=== PATIENT | male | born 1970 | race Caucasian/White ===

== ENCOUNTER 2017-08-16 20:19 | Inpatient (IN) | payer MEDICAID, OTHER ==
[~2017-08-16] VITALS: Ht 160 cm; Wt 62.3 kg
--- NOTE | 2017-08-16 22:46 | ERD ---
ER Documentation Chief Complaint Date/Time DATE: 08/16/17 TIME: 22:23 Chief Complaint adama buttocks abscess HPI 47-year-old male who presents emergency department for bilateral buttocks abscess. Said it has been going on for more than a week. Denies headache, dizziness, blurry vision, neck pain, neck stiffness, shoulder pain, chest pain, back pain, abdominal pain, nausea, vomiting, constipation, diarrhea, trauma, recent travel, recent antibiotic use in the last 3 months, recent exposure to any illness, numbness or tingling sensation, loss of bowel bladder control. No known drug allergies. Past medical history of diabetes, psoriasis. Surgery : Denies. Medication: Patient does not know the name of his medicines. Social : Not working at this time. Denies smoking, use of alcohol, illegal drugs. ROS All systems reviewed and are negative except as per history of present illness. Allergies Allergies: Coded Allergies: No Known Allergy (Unverified , 08/16/17) Physical Exam Vitals Vital Signs Date Time Temp Pulse Resp B/P Pulse Ox O2 Delivery O2 Flow Rate FiO2 08/17/17 01:42 98.4 128 18 96/57 95 Room Air 08/16/17 20:32 100.9 148 20 120/80 97 Physical Exam Const: [] Head: Atraumatic Eyes: Normal Conjunctiva ENT: Normal External Ears, Nose and Mouth. Neck: Full range of motion..~ No meningismus. Resp: Clear to auscultation bilaterally Cardio: Regular rate and rhythm, no murmurs Abd: Soft, non tender, non distended. Normal bowel sounds Skin: No petechiae or rashes Back: No midline or flank tenderness.Bilateral buttocks cellulitis left greater than the right approximately 7 cm x 7 cm in diameter. No saddle anesthesia. Ext: No cyanosis, or edema Neur: Awake and alert Psych: Normal Mood and Affect Result Diagram: 08/16/17229908/16/172299 Results 24 hrs Laboratory Tests Test 08/16/17 23:00 08/17/17 02:14 White Blood Count 17.810^3/ul Red Blood Count 5.1010^6/ul Hemoglobin 15.5g/dl Hematocrit 44.7% Mean Corpuscular Volume 87.6fl Mean Corpuscular Hemoglobin 30.4pg Mean Corpuscular Hemoglobin Concent 34.7g/dl Red Cell Distribution Width 12.1% Platelet Count 45654^3/UL Mean Platelet Volume 9.8fl Neutrophils % 76.5% Lymphocytes % 12.2% Monocytes % 9.1% Eosinophils % 0.7% Basophils % 0.3% Nucleated Red Blood Cells % 0.0/100WBC Neutrophils # 13.610^3/ul Lymphocytes # 2.210^3/ul Monocytes # 1.610^3/ul Eosinophils # 0.110^3/ul Basophils # 0.110^3/ul Nucleated Red Blood Cells # 0.010^3/ul Sodium Level 132mmol/L Potassium Level 4.4mmol/L Chloride Level 95mmol/L Carbon Dioxide Level 26mmol/L Anion Gap 15 Blood Urea Nitrogen 12mg/dl Creatinine 0.62mg/dl Glucose Level 394mg/dl Lactic Acid Level 1.9mmol/L Calcium Level 9.5mg/dl Total Bilirubin 0.8mg/dl Direct Bilirubin 0.00mg/dl Indirect Bilirubin 0.8mg/dl Aspartate Amino Transf (AST/SGOT) 33IU/L Alanine Aminotransferase (ALT/SGPT) 70IU/L Alkaline Phosphatase 156IU/L Total Protein 7.3g/dl Albumin 3.4g/dl Globulin 3.90g/dl Albumin/Globulin Ratio 0.87 Bedside Glucose 265mg/dL Current Medications Medications (Trade) Dose Ordered Sig/Jacqueline Route PRN Reason Start Time Stop Time Status Last Admin Dose Admin Sodium Chloride (NS) 2,110 ml @ 2,110 mls/hr BOLUS X1 ONCE IV 08/16/17 23:00 08/16/17 23:59 DC 08/16/17 23:18 Morphine Sulfate 4 mg 4 mg ONCE ONCE IM 08/16/17 23:00 08/16/17 23:00 DC Vancomycin HCl (Vancocin) 250 ml @ 125 mls/hr ONCE IVPB 08/16/17 23:00 08/17/17 00:59 DC 08/16/17 23:24 Morphine Sulfate 4 mg 4 mg ONCE STAT IV 08/16/17 22:58 08/16/17 22:59 DC 08/16/17 23:04 Sodium Chloride (NS) 100 ml @ ud STK-MED ONCE .ROUTE 08/17/17 00:16 08/17/17 00:17 DC 08/17/17 00:33 Iohexol (Omnipaque 300mg/ ml) 150 ml STK-MED ONCE .ROUTE 08/17/17 00:16 08/17/17 00:17 DC 08/17/17 00:33 Procedures/MDM 47-year-old male who presents emergency department for bilateral buttocks abscess. Said it has been going on for more than a week. Denies headache, dizziness, blurry vision, neck pain, neck stiffness, shoulder pain, chest pain, back pain, abdominal pain, nausea, vomiting, constipation, diarrhea, trauma, recent travel, recent antibiotic use in the last 3 months, recent exposure to any illness, numbness or tingling sensation, loss of bowel bladder control. No known drug allergies. Past medical history of diabetes, psoriasis. Surgery : Denies. Medication: Patient does not know the name of his medicines. Social : Not working at this time. Denies smoking, use of alcohol, illegal drugs. Physical exam: Bilateral buttocks cellulitis left greater than the right approximately 7 cm x 7 cm in diameter. No saddle anesthesia. Ambulatory. Disease process was explained to the patient. Patient verbalized understanding and agreed with the diagnostic test, plan of care, treatment. CT of the abdomen and pelvis with IV contrast: Left greater than right buttock inflammatory changes most compatible with cellulitis. There may be mild myositis of the left gluteus musculature. No drainable fluid collections are seen. Hepatic steatosis. Blood works: Leukocytosis at 17.8. Hyperglycemia 394. Lactic acid: 1.9 Treatment: IV insertion: Normal saline IV 31 cc/kg. Morphine IV. Vancomycin 1 g IV 1. Tachycardic after 2 L of saline. Differential diagnosis: Sepsis versus acute abscess versus acute cellulitis Case was discussed with supervising physician, Dr. Tobias Archuleta who agreed with my decision making. He also stated that he will processed admission. Departure Diagnosis: Primary Impression: Cellulitis Additional Impressions: Leukocytosis Hyperglycemia Myositis ROXANN SUNG Aug 16, 2017 22:46
[2017-08-16] MEDS ORDERED: morphine 4 MG/ML VIAL IV STA (22:58)
[2017-08-16] MEDS ORDERED: SOD CHLORIDE 0.9% 2,110 ML IV ONE (23:00)
[2017-08-16] MEDS ORDERED: VANCOMYCIN 1 GM (PMX) 250 ML IVPB SCH (23:00)
[2017-08-16] MEDS ORDERED: morphine 10 MG INJ IM ONE (23:00)
[2017-08-16 23:23] LABS: ABNORMAL IP MESSAGE 1; BASOPHIL # 0.1 10^3/ul (0.0-0.1); BASOPHILS % 0.3 % (0.0-2.0); EOSINOPHILS # 0.1 10^3/ul (0.0-0.5); EOSINOPHILS % 0.7 % (0.0-7.0); HEMATOCRIT 44.7 % (42.0-52.0); HEMOGLOBIN 15.5 g/dl (14.0-18.0); LYMPHOCYTES # 2.2 10^3/ul (0.8-2.9); LYMPHOCYTES % 12.2 % (15.0-51.0); MEAN CORPUSCULAR HEMOGLOBIN 30.4 pg (29.0-33.0); MEAN CORPUSCULAR HGB CONC 34.7 g/dl (32.0-37.0); MEAN CORPUSCULAR VOLUME 87.6 fl (82.0-101.0); MEAN PLATELET VOLUME 9.8 fl (7.4-10.4); MONOCYTE # 1.6 10^3/ul (0.3-0.9); MONOCYTES % 9.1 % (0.0-11.0); NEUTROPHIL # 13.6 10^3/ul (1.6-7.5); NEUTROPHILS % 76.5 % (39.0-77.0); PLATELET COUNT 318 10^3/UL (140-415); POSITIVE DIFF @See below; RED CELL DISTRIBUTION WIDTH 12.1 % (11.5-14.5); WHITE BLOOD COUNT 17.8 10^3/ul (4.8-10.8)
[2017-08-16 23:54] LABS: ALBUMIN 3.4 g/dl (3.3-4.9); ALBUMIN/GLOBULIN RATIO 0.87; BILIRUBIN,INDIRECT 0.8 mg/dl (0-1.1); BILIRUBIN,TOTAL 0.8 mg/dl (0.2-1.3); CALCIUM 9.5 mg/dl (8.4-10.2); CREATININE 0.62 mg/dl (0.61-1.24); POTASSIUM 4.4 mmol/L (3.5-5.1); TOTAL PROTEIN 7.3 g/dl (6.1-8.1)
[2017-08-17] VITALS (10 sets, daily range): BP systolic 96–106; BP diastolic 51–60; PULSE 88–105; RESP 19–25; TEMP 100; Ht 160 cm; Wt 62.3 kg
[2017-08-17] MEDS ORDERED: SOD CHLORIDE 0.9% 100 ML ONE ×2 (00:16→14:21)
[2017-08-17] MEDS ORDERED: IOHEXOL 300MG/ML 150 ML BTL ONE (00:16)
--- NOTE | 2017-08-17 01:30 | RADRPT ---
PROCEDURE: CT abdomen and pelvis with intravenous contrast. CLINICAL INDICATION: Sacral abscess. TECHNIQUE: CT of the abdomen/pelvis was performed utilizing axial images with reconstructions in s agittal and coronal planes after uneventful administration of 100 cc Omnipaque 300. The administered radiation dose is CTDI 6.9 mGy, DLP 34 mGy-cm. One or more of the following dose reduction techniqu es were used: automated exposure control, adjustment of the mA and/or kV according to patient size a nd/or use of iterative reconstruction technique. COMPARISON: No pertinent prior examinations were submitted for comparison. FINDINGS: Visualized Chest: The visualized lung bases are clear. Abdomen: The spleen, pancreas, gallbladder,and adrenal glands are unremarkable. The liver is diffusely dec reased in attenuation, compatible with hepatic steatosis. The kidneys are without hydronephrosis. No definite urinary calculi are seen. There is no evidence of bowel obstruction. The appendix is not seen. There is no evidence of acute appendicitis. No intra-abdominal free air is seen. There is no evidence of intra-abdominal adenopathy or free fluid. Pelvis: There is no evidence of pelvic adenopathy or free fluid. The prostate and bladder are unremarkable. There are extensive inflammatory changes within the left greater than right buttocks. There is some mild enlargement of the left gluteus musculature. No drainable fluid collections are seen. Some over lying skin thickening is present. The inflammatory changes are superficial with no definite extensio n into the perianal or perirectal regions. Osseous structures: Unremarkable. IMPRESSION: Left greater than right buttock inflammatory changes most compatible with cellulitis. There may be m ild myositis of the left gluteus musculature. No drainable fluid collections are seen. Hepatic steatosis. RPTAT: HIKT .Young Garcia MD, MD Date Time Electronically viewed and signed by .Young Garcia MD, MD on 08/17/2017 01:30 .T/
[2017-08-17] MEDS ORDERED: HYDROmorphONE 1 MG/ML SYG IV STA (02:27)
[2017-08-17] MEDS ORDERED: ONDANSETRON 4 MG INJ IV STA (02:27)
[2017-08-17] MEDS ORDERED: PIPER-TAZO 3.375 GM IV (PMX) 100 ML IVPB ONE (02:30)
[2017-08-17] MEDS ORDERED: NAPR220C PO (05:02)
[2017-08-17] MEDS ORDERED: METF500T4 PO (05:02)
[2017-08-17] MEDS ORDERED: BISACODYL (EC) 5 MG TAB PO PRN (07:30)
[2017-08-17] MEDS ORDERED: NACL 0.9% 3 ML SYG IV SCH (07:30)
[2017-08-17] MEDS ORDERED: ONDANSETRON 4 MG INJ IV PRN (07:30)
[2017-08-17] MEDS ORDERED: DOCUSATE SODIUM 100 MG CAP PO PRN (07:30)
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
[2017-08-17] MEDS ORDERED: GLUCAGON 1 MG INJ IM PRN (08:00)
[2017-08-17] MEDS ORDERED: GLUCOSE GEL 15 GRAM TUBE PO PRN ×2 (08:00)
[2017-08-17] MEDS ORDERED: DEXTROSE 50% 50 ML SYRINGE IV PRN ×2 (08:00)
[2017-08-17] MEDS ORDERED: SOD CHLORIDE 0.9% 1,000 ML IV ONE (08:00)
[2017-08-17] MEDS ORDERED: GLUCOSE GEL 15 GRAM TUBE BUCCAL PRN (08:00)
[2017-08-17] MEDS: SOD CHLORIDE 0.9% 1,000 ML IV SCH ×2 (09:36→21:28)
[2017-08-17] MEDS: INSULIN ASPART [NOVOLOG] 3 ML PEN SC SCH ×4 (10:04→21:17)
[2017-08-17] MEDS: FAMOTIDINE 20 MG TAB PO SCH ×2 (10:16→21:28)
[2017-08-17] MEDS ORDERED: SOD CHLORIDE 0.9% 1,000 ML IV STA (10:20)
[2017-08-17] MEDS ORDERED: NORepinephrine 8MG/250 ML (PMX 250 ML IV STA (11:26)
--- NOTE | 2017-08-17 11:29 | QN ---
Documentation Comment Observation Note: Time: 4 hours Family Hx: Negative for diabetes Evaluation: Multiple exams showed improving symptoms and no evidence of clinical decompensation. The patient received a 30 mm/kg fluid bolus but still was hypotensive and therefore the patient now is in septic shock. The patient has a PICC line which I just ordered and will need Levophed started. The patient will also be upgraded to the intensive care unit and I spoke with Dr. Arriaza from the panel team to inform him. MARY SOTO MD Aug 17, 2017 11:29
[2017-08-17] MEDS ORDERED: LIDOCAINE 1% (MPF) 5 ML VIAL SC ONE (11:30)
[2017-08-17 11:49] LABS: CHOL/HDL RATIO 4.9 RATIO
[2017-08-17 12:19] LABS: THYROID STIMULATING HORMONE 0.913 MIU/L (0.465-4.680)
--- NOTE | 2017-08-17 14:15 | RADRPT ---
PROCEDURE: US guidance for PICC line CLINICAL INDICATION: PICC line placement TECHNIQUE: Multiple real-time images were acquired of the patient's arm utilizing a high resolutio n transducer. This was performed by the PICC line nurse for venous access. COMPARISON: None FINDINGS: See impression. IMPRESSION: Ultrasound guidance for PICC line placement. There is a patent and compressible right upper extremity vein. RPTAT: AA Physician Deb Date Time Electronically viewed and signed by Pawan Luz Physician on 08/17/2017 14:14 RA/
--- NOTE | 2017-08-17 17:38 | RADRPT ---
PROCEDURE: XR Chest. CLINICAL INDICATION: Check Line Placement TECHNIQUE: Single frontal view of the chest was obtained. COMPARISON: None. FINDINGS: There has been interval placement of a right-sided PICC line with its tip at the superior cavoatrial junction. There is mild cardiomegaly and mild pulmonary vascular congestion. No focal infiltrates are identified. There is no significant pleural effusion or pneumothorax. IMPRESSION: Right-sided PICC line with its tip at the superior cavoatrial junction. Mild cardiomegaly and pulmonary vascular congestion. RPTAT: EE Physician Deb Date Time Electronically viewed and signed by Physician Deb on 08/17/2017 17:37 RA/
[2017-08-17] MEDS ORDERED: VANCOMYCIN IV PER PHARMACY XX SCH (18:00)
--- NOTE | 2017-08-17 18:27 | PN ---
Date/Time of Note Date/Time of Note DATE: 08/17/17 TIME: 18:08 Assessment/Plan VTE Prophylaxis VTE Prophylaxis Intervention: SCD's Lines/Catheters IV Catheter Type (from Nrsg): PICC Line Central line still needed: Yes (pressors) Assessment/Plan Assessment/Plan 1. Septic shock secondary to bacteremia, ?buttocks as source - While in the ED patient was hypotensive and nonresponsive to IVF. PICC line placed and started on pressors - Will be admitted now to ICU - Blood cultures growing Gram + cocci in clusters - Currently on Vancomycin - LA 1.9 2. Bacteremia - 4/4 blood cultures positive for Gram + cocci in clusters - Will get ID on board - ECHO ordered to r/o vegetation - Vancomycin started 3. Diabetes mellitus, poorly controlled - A1c 12.2 - Will consult life skills educator once acute issues resolve 4. Leukocytosis secondary to #2 5. Hypotension - Will continue on Levophed and wean as tolerated Subjective 24 Hr Interval Summary Free Text/Dictation Patient still in ED awaiting bed in ICU. Patient was hypotensive and tachycardic with no improvement with IVF. PICC line was placed and he was started on pressors. Patient resting comfortably but appears diaphoretic. No acute complaints at this time. Exam/Review of Systems Vital Signs Vitals Vital Signs Date Time Temp Pulse Resp B/P Pulse Ox O2 Delivery O2 Flow Rate FiO2 08/17/17 17:11 98.4 77 16 100/66 98 Room Air Exam General: Diaphoretic, wrapped in blankets. NAD HEENT:NC/AT, PERRL, EOM intact Neck: Supple with full range of motion. No rigidity or meningismus Lungs: Clear to auscultation bilaterally no crackles rales or wheezing Heart: Normal S1-S2, Regular rhythm and rate no overt murmur appreciated Abdomen: Soft , nontender, nondistended , bowel sounds are present. No guarding no rebound tenderness , No masses or organomegaly Extremities: Normal to inspection, no edema no cyanosis Neurologic: Normal mental status, speech normal, cranial nerves II through XII are intact, motor and sensory are intact, no focal weakness Skin: Bilateral buttock wounds with bruising and induration and mild tenderness to palpation, multiple dry, patchy, scaly lesions of the body diffusely Results Result Diagram: 10/2/17 2300 10/2/17 2300 Results 24 hrs Laboratory Tests Test 08/16/17 23:00 08/17/17 02:14 08/17/17 09:56 08/17/17 11:12 White Blood Count 17.8 H Red Blood Count 5.10 Hemoglobin 15.5 Hematocrit 44.7 Mean Corpuscular Volume 87.6 Mean Corpuscular Hemoglobin 30.4 Mean Corpuscular Hemoglobin Concent 34.7 Red Cell Distribution Width 12.1 Platelet Count 318 Mean Platelet Volume 9.8 Neutrophils % 76.5 Lymphocytes % 12.2 L Monocytes % 9.1 Eosinophils % 0.7 Basophils % 0.3 Nucleated Red Blood Cells % 0.0 Neutrophils # 13.6 H Lymphocytes # 2.2 Monocytes # 1.6 H Eosinophils # 0.1 Basophils # 0.1 Nucleated Red Blood Cells # 0.0 Sodium Level 132 L Potassium Level 4.4 Chloride Level 95 L Carbon Dioxide Level 26 Anion Gap 15 Blood Urea Nitrogen 12 Creatinine 0.62 Glucose Level 394 H Lactic Acid Level 1.9 1.4 Calcium Level 9.5 Total Bilirubin 0.8 Direct Bilirubin 0.00 Indirect Bilirubin 0.8 Aspartate Amino Transf (AST/SGOT) 33 Alanine Aminotransferase (ALT/SGPT) 70 H Alkaline Phosphatase 156 H Total Protein 7.3 Albumin 3.4 Globulin 3.90 H Albumin/Globulin Ratio 0.87 Bedside Glucose 265 H 366 H Hemoglobin A1c 12.2 H Triglycerides Level 98 Cholesterol Level 79 L LDL Cholesterol, Calculated 43 HDL Cholesterol 16 L Cholesterol/HDL Ratio 4.9 Thyroid Stimulating Hormone (TSH) 0.913 Test 08/17/17 15:01 Bedside Glucose 309 H Medications Medications Current Medications Sodium Chloride (NS) 1,000 ml @ 70 mls/hr [id number] IV Last administered on 08/17t 09:36; Admin Dose 70 MLS/HR; Start 08/17/17 at 07:27 Ondansetron HCl (Zofran Inj) 4 mg Q6H PRN IV NAUSEA AND/OR VOMITING; Start 08/17/17 at 07:30 Hydromorphone HCl (Dilaudid) 0.5 mg Q4H PRN IV SEVERE PAIN LEVEL 7-10; Start 08/17/17 at 07:30 Docusate Sodium (Colace) 100 mg Q12H PRN PO CONSTIPATION; Start 08/17/17 at 07: 30 Bisacodyl (Dulcolax) 5 mg DAILY PRN PO CONSTIPATION; Start 08/17/17 at 07:30 Famotidine (Pepcid) 20 mg Q12 PO Last administered on 08/17/17t 10:16; Admin Dose 20 MG; Start 08/17/17 at 09:00 Diagnostic Test (Pha) (Accu-Chek) 1 ea 02 XX ; Start 08/18/17 at 02:00 Miscellaneous Information 1 ea NOTE XX ; Start 08/17/17 at 08:00 Glucose (Glutose) 15 gm Q15M PRN PO DECREASED GLUCOSE; Start 08/17/17 at 08:00 Glucose (Glutose) 22.5 gm Q15M PRN PO DECREASED GLUCOSE; Start 08/17/17 at 08: 00 Dextrose (D50w Syringe) 25 ml Q15M PRN IV DECREASED GLUCOSE; Start 08/17/17 at 08:00 Dextrose (D50w Syringe) 50 ml Q15M PRN IV DECREASED GLUCOSE; Start 08/17/17 at 08:00 Glucagon (Glucagen) 1 mg Q15M PRN IM DECREASED GLUCOSE; Start 08/17/17 at 08:00 Glucose (Glutose) 15 gm Q15M PRN BUCCAL DECREASED GLUCOSE; Start 08/17/17 at 08 :00 IV Flush (NS 10 ml) 10 ml PRN PRN IV IV PROTOCOL; Start 08/17/17 at 14:30 FLORENCIA PRASAD MD Aug 17, 2017 18:19
[2017-08-17] MEDS: ACETAMINOPHEN 325 MG TAB PO PRN (18:48)
[2017-08-17] MEDS: VANCOMYCIN 1 GM in NS 250 ML IVPB SCH (19:07)
[2017-08-17 22:34] LABS: BASOPHIL # 0.1 10^3/ul (0.0-0.1); BASOPHILS % 0.4 % (0.0-2.0); EOSINOPHILS # 0.3 10^3/ul (0.0-0.5); EOSINOPHILS % 1.4 % (0.0-7.0); HEMATOCRIT 37.6 % (42.0-52.0); HEMOGLOBIN 13.1 g/dl (14.0-18.0); LYMPHOCYTES # 2.3 10^3/ul (0.8-2.9); LYMPHOCYTES % 13.3 % (15.0-51.0); MEAN CORPUSCULAR HEMOGLOBIN 30.8 pg (29.0-33.0); MEAN CORPUSCULAR HGB CONC 34.8 g/dl (32.0-37.0); MEAN CORPUSCULAR VOLUME 88.3 fl (82.0-101.0); MEAN PLATELET VOLUME 9.3 fl (7.4-10.4); MONOCYTE # 1.4 10^3/ul (0.3-0.9); MONOCYTES % 8.1 % (0.0-11.0); NEUTROPHIL # 13.3 10^3/ul (1.6-7.5); NEUTROPHILS % 75.7 % (39.0-77.0); PLATELET COUNT 279 10^3/UL (140-415); RED BLOOD COUNT 4.26 10^6/ul (4.70-6.10); RED CELL DISTRIBUTION WIDTH 12.3 % (11.5-14.5); WHITE BLOOD COUNT 17.5 10^3/ul (4.8-10.8)
[2017-08-17 22:59] LABS: CALCIUM 7.9 mg/dl (8.4-10.2); CREATININE 0.55 mg/dl (0.61-1.24); MAGNESIUM 1.7 mg/dl (1.7-2.5); PHOSPHORUS 2.6 mg/dl (2.5-4.9); POTASSIUM 3.5 mmol/L (3.5-5.1)
[2017-08-18] VITALS (94 sets, daily range): BP systolic 74–120; BP diastolic 50–84; PULSE 89–158; RESP 0–46
[2017-08-18] MEDS ORDERED: MAGNESIUM SULFATE 1 GM/D5W 100 ML ONE (01:17)
[2017-08-18] MEDS ORDERED: POTASSIUM CHLORIDE 250 ML ONE (01:25)
[2017-08-18] MEDS ORDERED: MAGNESIUM SULFATE 1 GM/D5W 100 ML IVPB ONE (01:30)
[2017-08-18] MEDS ORDERED: ACCU-CHEK XX SCH (02:00)
[2017-08-18] MEDS: POTASSIUM CHLORIDE 250 ML IVPB SCH ×2 (02:09→05:00)
[2017-08-18] MEDS: VANCOMYCIN 1 GM in NS 250 ML IVPB SCH ×3 (06:09→22:20)
[2017-08-18] MEDS: INSULIN ASPART [NOVOLOG] 3 ML PEN SC SCH ×3 (07:54→17:15)
[2017-08-18] MEDS: FAMOTIDINE 20 MG TAB PO SCH ×2 (08:12→21:12)
[2017-08-18] MEDS: ACETAMINOPHEN 325 MG TAB PO PRN ×3 (08:12→21:12)
[2017-08-18] MEDS ORDERED: POTASSIUM CHLORIDE 250 ML IVPB ONE (08:30)
[2017-08-18] MEDS ORDERED: DEXTROSE 50% 50 ML SYRINGE IV PRN ×2 (09:00)
[2017-08-18] MEDS: ACCU-CHEK XX SCH ×15 (09:00→23:01)
[2017-08-18] MEDS: INSULIN HUMAN REGULAR 100 UNIT in SOD CHLORIDE 0.9% 99 ML IV SCH (10:04)
[2017-08-18] MEDS ORDERED: INSULIN ASPART [NOVOLOG] 3 ML PEN SC SCH (11:30)
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
[2017-08-18] MEDS: MOMETASONE TOP SCH (12:00)
--- NOTE | 2017-08-18 12:33 | CONS ---
Date/Time of Note Date/Time of Note DATE: 08/18/17 TIME: 12:31 Assessment/Plan Assessment/Plan Chief Complaint/Hosp Course Septic shock Bacteremia==> St aureus preliminary Sacral abscess DM Psoriasis RUE PICC ==> 08/17 Abx: Vanco Zosyn Plan: Pending surgical evaluation, continue abx, await for final cx, will send wound drainage for cx Problems: Consultation Date/Type/Reason Admit Date/Time Aug 17, 2017 at 11:27 Initial Consult Date 08/18/17 Type of Consultation: ID Exam/Review of Systems Vital Signs Vitals Vital Signs Date Time Temp Pulse Resp B/P Pulse Ox O2 Delivery O2 Flow Rate FiO2 08/18/17 10:45 93 18 89/63 97 Room Air 08/18/17 07:45 99.5 Intake and Output 08/17/17 08/17/17 08/18/17 15:00 23:00 07:00 Intake Total 155.0 ml 1124.375 ml Output Total 400 ml 1250 ml Balance -245.0 ml -125.625 ml Results Result Diagram: 08/17/175 08/17/17 2225 Results 24 hrs Laboratory Tests Test 08/17/17 15:01 08/17/17 19:28 08/17/17 21:09 08/17/17 22:25 Bedside Glucose 309 H 220 247 H White Blood Count 17.5 H Red Blood Count 4.26 L Hemoglobin 13.1 L Hematocrit 37.6 L Mean Corpuscular Volume 88.3 Mean Corpuscular Hemoglobin 30.8 Mean Corpuscular Hemoglobin Concent 34.8 Red Cell Distribution Width 12.3 Platelet Count 279 Mean Platelet Volume 9.3 Neutrophils % 75.7 Lymphocytes % 13.3 L Monocytes % 8.1 Eosinophils % 1.4 Basophils % 0.4 Nucleated Red Blood Cells % 0.0 Neutrophils # 13.3 H Lymphocytes # 2.3 Monocytes # 1.4 H Eosinophils # 0.3 Basophils # 0.1 Nucleated Red Blood Cells # 0.0 Sodium Level 135 Potassium Level 3.5 Chloride Level 105 # Carbon Dioxide Level 19 L Anion Gap 15 Blood Urea Nitrogen 10 Creatinine 0.55 L Glucose Level 272 #H Calcium Level 7.9 L Phosphorus Level 2.6 Magnesium Level 1.7 Test 08/18/17 07:51 08/18/17 10:00 08/18/17 11:05 08/18/17 11:56 Bedside Glucose 265 H 235 H 245 H 179 Medications Medications Current Medications Sodium Chloride (NS) 1,000 ml @ 70 mls/hr [id number] IV Last administered on 08/17 21:28; Admin Dose 70 MLS/HR; Start 08/17/17 at 07:27 Ondansetron HCl (Zofran Inj) 4 mg Q6H PRN IV NAUSEA AND/OR VOMITING; Start 08/17/17 at 07:30 Hydromorphone HCl (Dilaudid) 0.5 mg Q4H PRN IV SEVERE PAIN LEVEL 7-10; Start 08/17/17 at 07:30 Docusate Sodium (Colace) 100 mg Q12H PRN PO CONSTIPATION; Start 08/17/17 at 07: 30 Bisacodyl (Dulcolax) 5 mg DAILY PRN PO CONSTIPATION; Start 08/17/17 at 07:30 Famotidine (Pepcid) 20 mg Q12 PO Last administered on 08/18/17 08:12; Admin Dose 20 MG; Start 08/17/17 at 09:00 Miscellaneous Information 1 ea NOTE XX ; Start 08/17/17 at 08:00 IV Flush (NS 10 ml) 10 ml PRN PRN IV IV PROTOCOL; Start 08/17/17 at 14:30 Acetaminophen 650 mg 650 mg Q4 PRN PO pain, fevers, headache Last administered on 08/18/17 08:12; Admin Dose 650 MG; Start 08/17/17 at 18:30 Vancomycin HCl (Vancocin) 250 ml @ 125 mls/hr Q12H IVPB Last administered on 08/18/17 06:09; Admin Dose 125 MLS/HR; Start 08/17/17 at 19:00 Diagnostic Test (Pha) (Accu-Chek) 1 ea Q1H XX Last administered on 08/18/17 12 :01; Admin Dose 1 EA; Start 08/18/17 at 09:00 Dextrose (D50w Syringe) 25 ml Q15M PRN IV Till BS 80 mg/dL or above x2; Start 08/18/17 at 09:00 Dextrose (D50w Syringe) 50 ml Q15M PRN IV Till BS 80 mg/dL or above x2; Start 08/18/17 at 09:00 Mometasone Furoate 1 applic 1 applic DAILY TOP ; Start 08/18/17 at 12:00 Piperacillin Sod/ Tazobactam Sod (Zosyn 3.375gm/ 100 ml (Pmx)) 100 ml @ 200 mls /hr Q8 IVPB ; Start 08/18/17 at 14:00 JAIR RUCKER NP Aug 18, 2017 12:33
[2017-08-18] MEDS: PIPER-TAZO 3.375 GM IV (PMX) 100 ML IVPB SCH ×2 (13:07→21:14)
[2017-08-18] MEDS: SOD CHLORIDE 0.9% 1,000 ML IV SCH (13:08)
--- NOTE | 2017-08-18 17:22 | PN ---
Date/Time of Note Date/Time of Note DATE: 08/18/17 TIME: 17:15 Assessment/Plan VTE Prophylaxis VTE Prophylaxis Intervention: SCD's Lines/Catheters IV Catheter Type (from Nrsg): PICC Line Central line still needed: Yes (pressor support) Assessment/Plan Assessment/Plan 1. Septic shock secondary to bacteremia, buttocks abscess as source - Patient still requiring pressor support - Blood cultures growing S. aureus and ID consulted. Appreciated recommendations - Currently on Vancomycin and Zosyn - IVF NSS 2. Bacteremia - / blood cultures positive for S Aureus - ID on board - ECHO ordered to r/o vegetation - Vancomycin initiated 3. Diabetes mellitus, poorly controlled - A1c 12.2 - special education paraeducator recommendations appreciated. Started on Insulin drip and will add Novolog 3U with meals. Will continue adjusting based on accuchecks 4. Leukocytosis secondary to #2 5. Hypotension - Will continue on Levophed and wean as tolerated 6. Episodes of NSVT - Cardiology consult placed and recommendations appreciated - Most likely secondary to bacteremia and will continue monitoring 7. Hypokalemia - Replaced 8. Disposition - Patient still requiring pressor support and insulin drip, will remain in ICU >30 minutes spent providing critical care to patient. All questions and concerns addressed and answered. Subjective 24 Hr Interval Summary Free Text/Dictation Patient experiencing pain in left buttocks and unable to lay on that side. He denies any other complaints, chest pain, shortness of breath, palpitation, fevers, chills, nausea, or vomiting. Patient has a few beats of Vtach as well this am but asymptomatic. Exam/Review of Systems Vital Signs Vitals Vital Signs Date Time Temp Pulse Resp B/P Pulse Ox O2 Delivery O2 Flow Rate FiO2 08/18/17 16:00 116 08/18/17 15:45 24 106/63 97 Room Air 08/18/17 15:20 102.8 Intake and Output 08/17/17 08/17/17 08/18/17 15:00 23:00 07:00 Intake Total 155.0 ml 1124.375 ml Output Total 400 ml 1250 ml Balance -245.0 ml -125.625 ml Exam General: acute distress secondary to pain HEENT:NC/AT, PERRL, EOM intact Neck: Supple with full range of motion. No rigidity or meningismus Lungs: Clear to auscultation bilaterally no crackles rales or wheezing Heart: Normal S1-S2, Regular rhythm and rate no overt murmur appreciated Abdomen: Soft , nontender, nondistended , bowel sounds are present. No guarding no rebound tenderness , No masses or organomegaly Extremities: Normal to inspection, no edema no cyanosis Neurologic: Normal mental status, speech normal, cranial nerves II through XII are intact, motor and sensory are intact, no focal weakness Skin: Bilateral buttock wounds with bruising and induration and mild tenderness to palpation, multiple dry, patchy, scaly lesions of the body diffusely Results Result Diagram: 08/17/17222408/17/172224 Results 24 hrs Laboratory Tests Test 08/17/17 19:28 08/17/17 21:09 08/17/17 22:25 08/18/17 07:51 Bedside Glucose 220 247 H 265 H White Blood Count 17.5 H Red Blood Count 4.26 L Hemoglobin 13.1 L Hematocrit 37.6 L Mean Corpuscular Volume 88.3 Mean Corpuscular Hemoglobin 30.8 Mean Corpuscular Hemoglobin Concent 34.8 Red Cell Distribution Width 12.3 Platelet Count 279 Mean Platelet Volume 9.3 Neutrophils % 75.7 Lymphocytes % 13.3 L Monocytes % 8.1 Eosinophils % 1.4 Basophils % 0.4 Nucleated Red Blood Cells % 0.0 Neutrophils # 13.3 H Lymphocytes # 2.3 Monocytes # 1.4 H Eosinophils # 0.3 Basophils # 0.1 Nucleated Red Blood Cells # 0.0 Sodium Level 135 Potassium Level 3.5 Chloride Level 105 # Carbon Dioxide Level 19 L Anion Gap 15 Blood Urea Nitrogen 10 Creatinine 0.55 L Glucose Level 272 #H Calcium Level 7.9 L Phosphorus Level 2.6 Magnesium Level 1.7 Test 08/18/17 10:00 08/18/17 11:05 08/18/17 11:56 08/18/17 13:03 Bedside Glucose 235 H 245 H 179 182 Test 08/18/17 13:58 08/18/17 15:17 08/18/17 16:26 Bedside Glucose 196 154 189 Medications Medications Current Medications Sodium Chloride (NS) 1,000 ml @ 70 mls/hr [id number] IV Last administered on 08/18t 13:08; Admin Dose 70 MLS/HR; Start 08/17/17 at 07:27 Ondansetron HCl (Zofran Inj) 4 mg Q6H PRN IV NAUSEA AND/OR VOMITING; Start 08/17/17 at 07:30 Hydromorphone HCl (Dilaudid) 0.5 mg Q4H PRN IV SEVERE PAIN LEVEL 7-10; Start 08/17/17 at 07:30 Docusate Sodium (Colace) 100 mg Q12H PRN PO CONSTIPATION; Start 08/17/17 at 07: 30 Bisacodyl (Dulcolax) 5 mg DAILY PRN PO CONSTIPATION; Start 08/17/17 at 07:30 Famotidine (Pepcid) 20 mg Q12 PO Last administered on 08/18/17 08:12; Admin Dose 20 MG; Start 08/17/17 at 09:00 Miscellaneous Information 1 ea NOTE XX ; Start 08/17/17 at 08:00 IV Flush (NS 10 ml) 10 ml PRN PRN IV IV PROTOCOL; Start 08/17/17 at 14:30 Acetaminophen (Tylenol Tab) 650 mg Q4 PRN PO pain, fevers, headache Last administered on 08/18/17 16:09; Admin Dose 650 MG; Start 08/17/17 at 18:30 Diagnostic Test (Pha) (Accu-Chek) 1 ea Q1H XX Last administered on 08/18/17 16 :08; Admin Dose 1 EA; Start 08/18/17 at 09:00 Dextrose (D50w Syringe) 25 ml Q15M PRN IV Till BS 80 mg/dL or above x2; Start 08/18/17 at 09:00 Dextrose (D50w Syringe) 50 ml Q15M PRN IV Till BS 80 mg/dL or above x2; Start 08/18/17 at 09:00 Mometasone Furoate 1 applic 1 applic DAILY TOP Last administered on 08/18/17 12:00; Admin Dose 1 APPLIC; Start 08/18/17 at 12:00 Piperacillin Sod/ Tazobactam Sod 100 ml @ 200 mls/hr Q8 IVPB Last administered on 08/18/17 13:07; Admin Dose 200 MLS/HR; Start 08/18/17 at 14:00 Vancomycin HCl (Vancocin) 250 ml @ 125 mls/hr Q8 IVPB Last administered on 10/ 4/17at 13:56; Admin Dose 125 MLS/HR; Start 08/18/17 at 14:00 Miscellaneous Information (*Rx Drug Level Order Reminder*) VANCOMYCIN TROUGH ON ... ONCE ONCE XX ; Start 08/18/17 at 21:00; Stop 08/18/17 at 21:01 FLORENCIA PRASAD MD Aug 18, 2017 17:22
[2017-08-18] MEDS ORDERED: PHENYLephrine 20MG IN 250 ML 250 ML ONE (18:17)
--- NOTE | 2017-08-18 18:30 | RADRPT ---
Echocardiogram Report Patient Name: BIJAL SHAFFER Gender: Male Date: 1970 Study Date: 18-Aug-2017 [employer] Agent: Rahul Bonilla [facility] Location: [address] Ref. Physician: FLORENCIA PRASAD Quality: Adequate Procedures: Transthoracic echocardiogram with complete 2D, M-Mode, and doppler examination. Indications: BC+gram Cocci clusters. r/o Vegetations. 2D/M Mode Doppler Measurement Value Normal Ranges Measurement Value Normal Ranges LVIDd 2D 4.4 3.5 - 5.6 cm AV Peak Nelson 1.1 m/sec LVIDs 2D 2.7 2.1 - 4.1 cm AV Peak PG 5.0 mmHg FS 2D 37.9 % LVOT Peak Nelson 1.0 m/sec LVPWd 2D 1.0 0.6 - 1.1 cm LVOT Peak PG 4.0 mmHg IVSd 2D 1.1 0.6 - 1.1 cm MV E Peak Nelson 0.9 m/sec IVS/LVPW 2D 1.0 MV A Peak Nelson 0.7 m/sec AoR Diam 2D 3.2 2.0 - 3.7 cm MV E/A 1.4 LA/Ao 2D 1 0 - 1 MV Decel Time 77 msec EDV 2D 84.0 cm3 MV E/A 1.4 ESV 2D 20.1 cm3 LA Dimen 2D 3.6 2.3 - 4.0 cm Findings Left Ventricle: Normal left ventricular systolic function. Normal left ventricular cavity size. Normal left ventricular wall thickness. Ejection fraction is visually estimated at 55 %. Tissue Doppler/Mitral Doppler indices are consistent with impaired relaxation (Stage I diastolic dysfunction). Right Ventricle: Normal right ventricular size. Normal right ventricular systolic function. Left Atrium: The left atrium is normal in size. Right Atrium: The right atrium is normal in size. Mitral Valve: Mild mitral leaflet calcification. Trace mitral regurgitation. Aortic Valve: No significant aortic stenosis or insufficiency. Aortic cusps appear mildly calcified. Trace aortic valve regurgitation. Tricuspid Valve: Normal appearance of the tricuspid valve. Unable to obtain RVSP due to minimal presence of tricuspid regurgitation. There is trace tricuspid regurgitation. Pulmonic Valve: Normal pulmonic valve appearance. There is mild pulmonic regurgitation. Pericardium: Normal pericardium with no significant pericardial effusion. Aorta: Normal aortic root. IVC: Normal size and normal respiratory collapse consistent with normal right atrial pressure. Conclusions Normal left ventricular systolic function. Normal left ventricular cavity size. Normal left ventricular wall thickness. Ejection fraction is visually estimated at 55 %. Tissue Doppler/Mitral Doppler indices are consistent with impaired relaxation (Stage I diastolic dysfunction). No significant valvular stenosis or regurgitation seen. No Vegetation seen. Normal appearance of the tricuspid valve. Unable to obtain RVSP due to minimal presence of tricuspid regurgitation. There is trace tricuspid regurgitation. Normal size and normal respiratory collapse consistent with normal right atrial pressure. Electronically Signed By: Tawanda Wang 18-Aug-2017 18:29:20 -0700 Patient Name: BIJAL SHAFFER Study Date: 18-Aug-2017 [id number]
[2017-08-18] MEDS ORDERED: PHENYLephrine 20MG IN 250 ML 250 ML IV SCH (18:51)
--- NOTE | 2017-08-18 18:58 | CONS ---
Date/Time of Note Date/Time of Note DATE: 08/18/17 TIME: 18:50 Assessment/Plan Assessment/Plan Chief Complaint/Hosp Course NSVT vs SVT with aberrancy: Unusual for the pt to have NSVT with normal EF, no e /o ischemia, no symptoms. No e/o endocarditis by TTE at least and no AVB by EKG to suggest abscess. No heart failure. Had mild hypokalemia and hypoMg but doubt severe enough to explain. May just be SVT with aberrancy considering the above. Bilateral buttock abscess Staph aureus bacteremia: from buttocks. No endocarditis or valvular dysfunction at least by TTE. If indicated and concern, may need THOMAS to eval but for now no indication. DM -recheck lytes, Mg -check trops -change levophed to phenylephrine for now -if recurrent or prolonged episodes, may need to start amiodarone Problems: Consultation Date/Type/Reason Admit Date/Time Aug 17, 2017 at 11:27 Date of Consultation: Aug 18, 2017 Type of Consultation: Cardiology Reason for Consultation NSVT Referring Provider: FLORENCIA PRASAD MD Hx of Present Illness 47 yo M with a h/o DM, psoriasis, who presented with bilateral buttock abscess and was found to have staph aureus bacteremia and septic shock. He was also noted to have recurrent NSVT from last night to this afternoon for which cardiology is consulted. The pt has no complaints except for buttock pain. He denies SOB or chest pain. He is laying flat comfortably. No prior cardiac disease, OR, arrhythmias or syncope. per HPI Past Medical History per HPI Social History Alcohol Use: none Smoking Status: Never smoker Drug Use: none Exam/Review of Systems Vital Signs Vitals Vital Signs Date Time Temp Pulse Resp B/P Pulse Ox O2 Delivery O2 Flow Rate FiO2 08/18/17 18:00 95 19 94/57 97 Room Air 08/18/17 15:20 102.8 Intake and Output 08/17/17 08/17/17 08/18/17 15:00 23:00 07:00 Intake Total 155.0 ml 1124.375 ml Output Total 400 ml 1250 ml Balance -245.0 ml -125.625 ml Exam Constitutional: alert, oriented Psych: nl mood/affect, no complaints Head: atraumatic, normocephalic Neck: No jvd Respiratory: clear to auscultation, No crackles/rales Cardiovascular: regular rate and rhythm, No diastolic murmur, No edema, No systolic murmur Gastrointestinal: non-tender, soft, No distended Neurological: nl mental status, nl speech Results Result Diagram: 08/17/17222408/17/175 Results 24 hrs Laboratory Tests Test 08/17/17 19:28 08/17/17 21:09 08/17/17 22:25 08/18/17 07:51 Bedside Glucose 220 247 H 265 H White Blood Count 17.5 H Red Blood Count 4.26 L Hemoglobin 13.1 L Hematocrit 37.6 L Mean Corpuscular Volume 88.3 Mean Corpuscular Hemoglobin 30.8 Mean Corpuscular Hemoglobin Concent 34.8 Red Cell Distribution Width 12.3 Platelet Count 279 Mean Platelet Volume 9.3 Neutrophils % 75.7 Lymphocytes % 13.3 L Monocytes % 8.1 Eosinophils % 1.4 Basophils % 0.4 Nucleated Red Blood Cells % 0.0 Neutrophils # 13.3 H Lymphocytes # 2.3 Monocytes # 1.4 H Eosinophils # 0.3 Basophils # 0.1 Nucleated Red Blood Cells # 0.0 Sodium Level 135 Potassium Level 3.5 Chloride Level 105 # Carbon Dioxide Level 19 L Anion Gap 15 Blood Urea Nitrogen 10 Creatinine 0.55 L Glucose Level 272 #H Calcium Level 7.9 L Phosphorus Level 2.6 Magnesium Level 1.7 Test 08/18/17 10:00 08/18/17 11:05 08/18/17 11:56 08/18/17 13:03 Bedside Glucose 235 H 245 H 179 182 Test 08/18/17 13:58 08/18/17 15:17 08/18/17 16:26 08/18/17 17:12 Bedside Glucose 196 154 189 171 Test 08/18/17 18:12 Bedside Glucose 175 Medications Medications Current Medications Sodium Chloride (NS) 1,000 ml @ 70 mls/hr [id number] IV Last administered on 08/18t 13:08; Admin Dose 70 MLS/HR; Start 08/17/17 at 07:27 Ondansetron HCl (Zofran Inj) 4 mg Q6H PRN IV NAUSEA AND/OR VOMITING; Start 08/17/17 at 07:30 Hydromorphone HCl (Dilaudid) 0.5 mg Q4H PRN IV SEVERE PAIN LEVEL 7-10; Start 08/17/17 at 07:30 Docusate Sodium (Colace) 100 mg Q12H PRN PO CONSTIPATION; Start 08/17/17 at 07: 30 Bisacodyl (Dulcolax) 5 mg DAILY PRN PO CONSTIPATION; Start 08/17/17 at 07:30 Famotidine (Pepcid) 20 mg Q12 PO Last administered on 08/18/17 08:12; Admin Dose 20 MG; Start 08/17/17 at 09:00 Miscellaneous Information 1 ea NOTE XX ; Start 08/17/17 at 08:00 IV Flush (NS 10 ml) 10 ml PRN PRN IV IV PROTOCOL; Start 08/17/17 at 14:30 Acetaminophen (Tylenol Tab) 650 mg Q4 PRN PO pain, fevers, headache Last administered on 08/18/17 16:09; Admin Dose 650 MG; Start 08/17/17 at 18:30 Diagnostic Test (Pha) (Accu-Chek) 1 ea Q1H XX Last administered on 08/18/17 18 :05; Admin Dose 1 EA; Start 08/18/17 at 09:00 Dextrose (D50w Syringe) 25 ml Q15M PRN IV Till BS 80 mg/dL or above x2; Start 08/18/17 at 09:00 Dextrose (D50w Syringe) 50 ml Q15M PRN IV Till BS 80 mg/dL or above x2; Start 08/18/17 at 09:00 Mometasone Furoate 1 applic 1 applic DAILY TOP Last administered on 08/18/17 12:00; Admin Dose 1 APPLIC; Start 08/18/17 at 12:00 Piperacillin Sod/ Tazobactam Sod 100 ml @ 200 mls/hr Q8 IVPB Last administered on 08/18/17 13:07; Admin Dose 200 MLS/HR; Start 08/18/17 at 14:00 Vancomycin HCl (Vancocin) 250 ml @ 125 mls/hr Q8 IVPB Last administered on 13:56; Admin Dose 125 MLS/HR; Start 08/18/17 at 14:00 Miscellaneous Information VANCOMYCIN TROUGH ON ... ONCE ONCE XX ; Start 08/18/17 at 21:00; Stop 08/18/17 at 21:01 Phenylephrine HCl/ Dextrose (Victoriano-Syneph/D5W) 500 ml @ 75 mls/hr TITRATE IV ; Start 08/18/17 at 18:30 GRAHAM ANDREWS Aug 18, 2017 18:58
[2017-08-18 19:26] LABS: CREATININE 0.51 mg/dl (0.61-1.24); MAGNESIUM 1.8 mg/dl (1.7-2.5); POTASSIUM 3.4 mmol/L (3.5-5.1)
[2017-08-18] MEDS: RIFAMPIN 600 MG in SOD CHLORIDE 0.9% 100 ML IVPB SCH (20:48)
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
[2017-08-18] MEDS ORDERED: POTASSIUM CHLORIDE 20 MEQ POWDER FOR ORAL SOLN PO ONE (22:00)
[2017-08-18] MEDS ORDERED: MAGNESIUM SULFATE 2 GM/50 ML 50 ML IVPB ONE (22:00)
[2017-08-18] MEDS: POTASSIUM CHLORIDE 50 ML IVPB SCH ×2 (22:14→23:50)
[2017-08-19] VITALS (96 sets, daily range): BP systolic 79–127; BP diastolic 41–91; PULSE 74–137; RESP 9–33
[2017-08-19] MEDS: ACCU-CHEK XX SCH ×24 (00:03→23:01)
[2017-08-19] MEDS ORDERED: ACCU-CHEK XX SCH (02:00)
[2017-08-19] MEDS: PHENYLephrine 40 MG in DEXTROSE 5% 496 ML IV SCH ×2 (04:48→14:22)
[2017-08-19 05:41] LABS: ABNORMAL IP MESSAGE 1; BASOPHIL # 0.1 10^3/ul (0.0-0.1); BASOPHILS % 0.5 % (0.0-2.0); EOSINOPHILS # 0.1 10^3/ul (0.0-0.5); EOSINOPHILS % 0.5 % (0.0-7.0); HEMATOCRIT 39.8 % (42.0-52.0); HEMOGLOBIN 13.6 g/dl (14.0-18.0); LYMPHOCYTES # 1.8 10^3/ul (0.8-2.9); LYMPHOCYTES % 9.1 % (15.0-51.0); MEAN CORPUSCULAR HEMOGLOBIN 29.4 pg (29.0-33.0); MEAN CORPUSCULAR HGB CONC 34.2 g/dl (32.0-37.0); MEAN PLATELET VOLUME 9.7 fl (7.4-10.4); MONOCYTE # 1.8 10^3/ul (0.3-0.9); NEUTROPHIL # 15.7 10^3/ul (1.6-7.5); NEUTROPHILS % 79.2 % (39.0-77.0); PLATELET COUNT 271 10^3/UL (140-415); POSITIVE DIFF @See below; RED BLOOD COUNT 4.63 10^6/ul (4.70-6.10); RED CELL DISTRIBUTION WIDTH 12.3 % (11.5-14.5); WHITE BLOOD COUNT 19.8 10^3/ul (4.8-10.8)
[2017-08-19] MEDS: PIPER-TAZO 3.375 GM IV (PMX) 100 ML IVPB SCH ×3 (06:08→17:31)
[2017-08-19] MEDS: VANCOMYCIN 1.5 GM in SOD CHLORIDE 0.9% 250 ML IVPB SCH ×3 (06:08→22:00)
[2017-08-19 06:13] LABS: ALBUMIN 2.7 g/dl (3.3-4.9); CALCIUM 8.2 mg/dl (8.4-10.2); CREATININE 0.52 mg/dl (0.61-1.24); MAGNESIUM 2.4 mg/dl (1.7-2.5); PHOSPHORUS 1.6 mg/dl (2.5-4.9); POTASSIUM 3.3 mmol/L (3.5-5.1)
[2017-08-19] MEDS ORDERED: POTASSIUM CHLORIDE 20 MEQ POWDER FOR ORAL SOLN PO ONE (07:30)
--- NOTE | 2017-08-19 07:31 | CONS ---
Date/Time of Note Date/Time of Note DATE: 08/19/17 TIME: 07:27 Assessment/Plan Assessment/Plan Chief Complaint/Hosp Course NSVT: Unusual for the pt to have NSVT with normal EF, no e/o ischemia, no symptoms. No e/o endocarditis by TTE at least and no AVB by EKG to suggest abscess. No heart failure. ?from hypokalemia Bilateral buttock abscess Staph aureus bacteremia: from buttocks. No endocarditis or valvular dysfunction at least by TTE. If indicated and concern, may need THOMAS to eval but for now no indication. DM -check lytes, Mg BID and replete to keep K>4, Mg >2 -wean phenylephrine -will replete K -once off pressors, can start BB -if recurrent or prolonged episodes, may need to start amiodarone Problems: Consultation Date/Type/Reason Admit Date/Time Aug 17, 2017 at 11:27 Initial Consult Date 08/18/17 Type of Consultation: Cardiology Referring Provider: FLORENCIA PRASAD MD 24 HR Interval Summary Free Text/Dictation Few more short episodes of NSVT overnight. K was low again last night but repleted and again low this am. No SOB. Only buttock pain Exam/Review of Systems Vital Signs Vitals Vital Signs Date Time Temp Pulse Resp B/P Pulse Ox O2 Delivery O2 Flow Rate FiO2 08/19/17 06:15 107 26 95/60 97 08/19/17 06:00 Room Air 08/19/17 04:00 100.0 Intake and Output 08/18/17 08/18/17 08/19/17 15:00 23:00 07:00 Intake Total 878.0125 ml 1316.875 ml 1081.0 ml Output Total 1100 ml 1900 ml 1700 ml Balance -221.9875 ml -583.125 ml -619.0 ml Exam Constitutional: alert, oriented Psych: no complaints Head: atraumatic, normocephalic Neck: jvd (7-8cm) Respiratory: clear to auscultation, No crackles/rales Cardiovascular: regular rate and rhythm, No edema, No systolic murmur Gastrointestinal: non-tender, soft Neurological: nl mental status, nl speech Results Result Diagram: 08/19/17 0515 08/19/17 0515 Results 24 hrs Laboratory Tests Test 08/18/17 07:51 08/18/17 10:00 08/18/17 11:05 08/18/17 11:56 Bedside Glucose 265 H 235 H 245 H 179 Test 08/18/17 13:03 08/18/17 13:58 08/18/17 15:17 08/18/17 16:26 Bedside Glucose 182 196 154 189 Test 08/18/17 17:12 08/18/17 18:12 08/18/17 18:51 08/18/17 18:52 Bedside Glucose 171 175 140 Sodium Level 133 L Potassium Level 3.4 L Chloride Level 104 Carbon Dioxide Level 22 Anion Gap 10 # Blood Urea Nitrogen 7 Creatinine 0.51 L Glucose Level 153 # Calcium Level 8.0 L Magnesium Level 1.8 Test 08/18/17 18:59 08/18/17 20:15 08/18/17 21:09 08/18/17 21:24 Troponin I 0.013 Bedside Glucose 143 162 Vancomycin Level Trough 6.6 L Test 08/18/17 22:02 08/18/17 22:58 08/19/17 00:02 08/19/17 01:06 Bedside Glucose 165 149 145 136 Test 08/19/17 03:07 08/19/17 04:51 08/19/17 05:15 08/19/17 06:04 Bedside Glucose 121 108 117 White Blood Count 19.8 H Red Blood Count 4.63 L Hemoglobin 13.6 L Hematocrit 39.8 L Mean Corpuscular Volume 86.0 Mean Corpuscular Hemoglobin 29.4 Mean Corpuscular Hemoglobin Concent 34.2 Red Cell Distribution Width 12.3 Platelet Count 271 Mean Platelet Volume 9.7 Neutrophils % 79.2 H Lymphocytes % 9.1 L Monocytes % 9.0 Eosinophils % 0.5 Basophils % 0.5 Nucleated Red Blood Cells % 0.0 Neutrophils # 15.7 H Lymphocytes # 1.8 Monocytes # 1.8 H Eosinophils # 0.1 Basophils # 0.1 Nucleated Red Blood Cells # 0.0 Sodium Level 132 L Potassium Level 3.3 L Chloride Level 104 Carbon Dioxide Level 24 Anion Gap 7 L Blood Urea Nitrogen 8 Creatinine 0.52 L Glucose Level 110 # Calcium Level 8.2 L Phosphorus Level 1.6 #L Magnesium Level 2.4 Albumin 2.7 L Test 08/19/17 07:06 Bedside Glucose 158 Medications Medications Current Medications Sodium Chloride (NS) 1,000 ml @ 70 mls/hr [id number] IV Last administered on 08/18 13:08; Admin Dose 70 MLS/HR; Start 08/17/17 at 07:27 Ondansetron HCl (Zofran Inj) 4 mg Q6H PRN IV NAUSEA AND/OR VOMITING; Start 08/17/17 at 07:30 Hydromorphone HCl (Dilaudid) 0.5 mg Q4H PRN IV SEVERE PAIN LEVEL 7-10; Start 08/17/17 at 07:30 Docusate Sodium (Colace) 100 mg Q12H PRN PO CONSTIPATION; Start 08/17/17 at 07: 30 Bisacodyl (Dulcolax) 5 mg DAILY PRN PO CONSTIPATION; Start 08/17/17 at 07:30 Famotidine (Pepcid) 20 mg Q12 PO Last administered on 08/18/17 21:12; Admin Dose 20 MG; Start 08/17/17 at 09:00 Miscellaneous Information 1 ea NOTE XX ; Start 08/17/17 at 08:00 IV Flush (NS 10 ml) 10 ml PRN PRN IV IV PROTOCOL; Start 08/17/17 at 14:30 Acetaminophen (Tylenol Tab) 650 mg Q4 PRN PO pain, fevers, headache Last administered on 08/18/17 21:12; Admin Dose 650 MG; Start 08/17/17 at 18:30 Diagnostic Test (Pha) (Accu-Chek) 1 ea Q1H XX Last administered on 08/19/17 07 :06; Admin Dose 1 EA; Start 08/18/17 at 09:00 Dextrose (D50w Syringe) 25 ml Q15M PRN IV Till BS 80 mg/dL or above x2; Start 08/18/17 at 09:00 Dextrose (D50w Syringe) 50 ml Q15M PRN IV Till BS 80 mg/dL or above x2; Start 08/18/17 at 09:00 Mometasone Furoate 1 applic 1 applic DAILY TOP Last administered on 08/18/17 12:00; Admin Dose 1 APPLIC; Start 08/18/17 at 12:00 Piperacillin Sod/ Tazobactam Sod 100 ml @ 200 mls/hr Q8 IVPB Last administered on 08/19/17 06:08; Admin Dose 200 MLS/HR; Start 08/18/17 at 14:00 Phenylephrine HCl 40 mg/Dextrose 500 ml @ 75 mls/hr TITRATE IV Last administered on 08/19/17 04:48; Admin Dose 37.5 MLS/HR; Start 08/18/17 at 18:30 Rifampin 600 mg/ Sodium Chloride 100 ml @ 200 mls/hr DAILY@20 IVPB Last administered on 08/18/17 20:48; Admin Dose 200 MLS/HR; Start 08/18/17 at 20:00 Vancomycin HCl 1.5 gm/Sodium Chloride 250 ml @ 83.333 mls/ hr Q8H IVPB Last administered on 08/19/17 06:08; Admin Dose 83.333 MLS/HR; Start 08/19/17 at 06: 00 Potassium Chloride (KCl 10 MEQ/50 ML SW) 50 ml @ 50 mls/hr Q1H IVPB ; Start 08/19/17 at 07:30; Stop 08/19/17 at 10:29; Status UNV Potassium Chloride (Potassium Chloride Pwd/Soln) 40 meq ONCE ONCE PO ; Start 08/19/17 at 07:30; Stop 08/19/17 at 07:31; Status UNV GRAHAM NADREWS Aug 19, 2017 07:31
[2017-08-19] MEDS: SOD CHLORIDE 0.9% 1,000 ML IV SCH ×3 (07:39→16:39)
[2017-08-19] MEDS: POTASSIUM CHLORIDE 50 ML IVPB SCH ×3 (08:03→09:30)
[2017-08-19] MEDS: INSULIN ASPART [NOVOLOG] 3 ML PEN SC SCH ×3 (08:08→17:03)
[2017-08-19] MEDS: INSULIN HUMAN REGULAR 100 UNIT in SOD CHLORIDE 0.9% 99 ML IV SCH ×2 (08:10→22:03)
[2017-08-19] MEDS: FAMOTIDINE 20 MG TAB PO SCH ×2 (08:16→21:08)
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
--- NOTE | 2017-08-19 08:43 | RADRPT ---
PROCEDURE: XR Chest. CLINICAL INDICATION: Shortness of breath. TECHNIQUE: Single frontal view. COMPARISON: 08/17/2017. FINDINGS: The right arm PICC line remains in satisfactory position. Mild pulmonary edema is improved. There is mild right basilar atelectasis. The lungs are otherwise clear. The heart size is normal. There is no pleural effusion. There is no pneumothorax. IMPRESSION: 1. Improved appearance of the lungs. 2. Right arm PICC line. RPTAT: QQ .Everett Mayers MD, MD Date Time Electronically viewed and signed by .Everett Mayers MD, on 08/19/2017 08:43 .R/
[2017-08-19] MEDS: MOMETASONE TOP SCH (08:45)
[2017-08-19] MEDS ORDERED: LIDOCAINE 1%/EPI 30 ML INJ INJ STA (11:06)
[2017-08-19] MEDS ORDERED: LIDOCAINE 1% (MDV) 20 ML INJ ONE (11:12)
--- NOTE | 2017-08-19 11:12 | PN ---
Date/Time of Note Date/Time of Note DATE: 08/19/17 TIME: 11:03 Assessment/Plan Lines/Catheters IV [facility] P[facility] Line Assessment/Plan Chief Complaint/Hosp Course 1. Sepsis with shock with Bacteremia and Buttock Cellulitis and Abscess: continued on pressors -iv abx -ivf -supportive -I&D today 2. Bacteremia -as above -echo 3. DM: on insulin gtt -diet & medication optimization 4. Leukocytosis 2nd above: worsening -as above 5. Psoriasis -medical management 6. Tachycardia 2nd above: improved -as above -cardiology following 7. Anemia -monitor 8. Hypokalemia -replete 9. Hyponatremia -correct with fluid management Thank you. Patient seen and examined in collaboration with Dr. Mihir Zazueta. Problems: Subjective 24 Hr Interval Summary Continues to have pain in buttocks. Leukocytosis worsened. On pressors and insulin drip. No fevers, chills, sob, congested cough, n/v/d/dysuria, cp, palpitations. Exam/Review of Systems Vital Signs Vitals Vital Signs Date Time Temp Pulse Resp B/P Pulse Ox O2 Delivery O2 Flow Rate FiO2 08/19/17 10:15 77 16 106/75 97 Room Air 08/19/17 07:00 99.0 Intake and Output 08/18/17 08/18/17 08/19/17 15:00 23:00 07:00 Intake Total 878.0125 ml 1316.875 ml 1081.0 ml Output Total 1100 ml 1900 ml 2300 ml Balance -221.9875 ml -583.125 ml -1219.0 ml Exam Free Text/Dictation Constitutional: alert, oriented, No distress Psych: nl mood/affect, No anxiety, No confusion Head: atraumatic, normocephalic Eyes: EOMI, PERRL, nl conjunctiva, No icteric ENMT: mucosa pink and moist, nl external ears & nose Neck: non-tender, supple, No jvd Respiratory: normal air movement, No congested cough, No labored breathing Cardiovascular: No edema, No regular rate and rhythm Gastrointestinal: non-tender, soft, No distended, No rebound or guarding Genitourinary - Male: No CVA tenderness Musculoskeletal: nl extremities to inspection, No joint tenderness Extremities: normal pulses, No calf tenderness, No cyanosis, No edema Neurological: nl mental status, nl speech Skin: other (Bilateral buttock induration with purulent discharge with erythema and tenderness - improved tenderness), rash or lesions (psoriatic lesions), No diaphoresis, No nl turgor (dry) Lymph: nl lymph nodes Results Result Diagram: 08/19/17 0515 08/19/17 0515 DAMARIS LINTON NP Aug 19, 2017 11:12
--- NOTE | 2017-08-19 12:10 | CONS ---
Date/Time of Note Date/Time of Note DATE: 08/19/17 TIME: 12:08 Assessment/Plan Assessment/Plan Additional Assessment/Plan Currently on phenylephrine drip at 80 mics per minute. Insulin drip at 6 U/h. Assessment and recommendations; 1. Patient admitted with perianal abscess currently on appropriate antibiotic regimen. MRSA bacteremia with MRSA isolated from wound. 2. Diabetes. 3. Hypotension, requiring pressor support. Patient status post adequate fluid resuscitation. Continue current supportive care. Consultation Date/Type/Reason Admit Date/Time Aug 17, 2017 at 11:27 Initial Consult Date 08/18/17 Type of Consultation: Pulmonary/critical care Referring Provider: FLORENCIA PRASAD MD 24 HR Interval Summary Free Text/Dictation Patient's condition is stable. Remains awake and alert. Still requiring phenylephrine drip for hypotension. As well as insulin drip for hyperglycemia. Pain has improved in the perianal area. Denies any shortness of breath, chest pain, nausea vomiting. General exam; young male, awake alert currently in no distress. Exam/Review of Systems Vital Signs Vitals Vital Signs Date Time Temp Pulse Resp B/P Pulse Ox O2 Delivery O2 Flow Rate FiO2 08/19/17 11:45 99 17 97/72 97 Room Air 08/19/17 07:00 99.0 Intake and Output 08/18/17 08/18/17 08/19/17 15:00 23:00 07:00 Intake Total 878.0125 ml 1316.875 ml 1081.0 ml Output Total 1100 ml 1900 ml 2300 ml Balance -221.9875 ml -583.125 ml -1219.0 ml Exam HEENT exam; supple neck, no JVD. No lymphadenopathy. Midline trachea. No thyromegaly. Pharynx is clear. Patient has fair dentition. Chest exam; clear to auscultation. S1-S2 audible, no murmurs. Regular rhythm. Abdomen exam; soft, nontender. No organomegaly. Bowel sounds audible. Dressing applied over perianal area. Extremity exam; no edema. No clubbing. Pulses 1+ bilaterally. [employer] exam; no focal deficit. Results Result Diagram: 08/19/17 0515 08/19/17 0515 Results 24 hrs Laboratory Tests Test 08/18/17 13:03 08/18/17 13:58 10/4/17 15:17 08/18/17 16:26 Bedside Glucose 182 196 154 189 Test 08/18/17 17:12 08/18/17 18:12 08/18/17 18:51 08/18/17 18:52 Bedside Glucose 171 175 140 Sodium Level 133 L Potassium Level 3.4 L Chloride Level 104 Carbon Dioxide Level 22 Anion Gap 10 # Blood Urea Nitrogen 7 Creatinine 0.51 L Glucose Level 153 # Calcium Level 8.0 L Magnesium Level 1.8 Test 08/18/17 18:59 08/18/17 20:15 08/18/17 21:09 08/18/17 21:24 Troponin I 0.013 Bedside Glucose 143 162 Vancomycin Level Trough 6.6 L Test 08/18/17 22:02 08/18/17 22:58 08/19/17 00:02 08/19/17 01:06 Bedside Glucose 165 149 145 136 Test 08/19/17 03:07 08/19/17 04:51 08/19/17 05:15 08/19/17 06:04 Bedside Glucose 121 108 117 White Blood Count 19.8 H Red Blood Count 4.63 L Hemoglobin 13.6 L Hematocrit 39.8 L Mean Corpuscular Volume 86.0 Mean Corpuscular Hemoglobin 29.4 Mean Corpuscular Hemoglobin Concent 34.2 Red Cell Distribution Width 12.3 Platelet Count 271 Mean Platelet Volume 9.7 Neutrophils % 79.2 H Lymphocytes % 9.1 L Monocytes % 9.0 Eosinophils % 0.5 Basophils % 0.5 Nucleated Red Blood Cells % 0.0 Neutrophils # 15.7 H Lymphocytes # 1.8 Monocytes # 1.8 H Eosinophils # 0.1 Basophils # 0.1 Nucleated Red Blood Cells # 0.0 Sodium Level 132 L Potassium Level 3.3 L Chloride Level 104 Carbon Dioxide Level 24 Anion Gap 7 L Blood Urea Nitrogen 8 Creatinine 0.52 L Glucose Level 110 # Calcium Level 8.2 L Phosphorus Level 1.6 #L Magnesium Level 2.4 Albumin 2.7 L Test 08/19/17 07:06 08/19/17 08:02 08/19/17 09:02 08/19/17 10:03 Bedside Glucose 158 145 226 H 219 Test 08/19/17 11:01 Bedside Glucose 186 Medications Medications Current Medications Sodium Chloride (NS) 1,000 ml @ 70 mls/hr [id number] IV Last administered on 08/19 10:01; Admin Dose 70 MLS/HR; Start 08/17/17 at 07:27 Ondansetron HCl (Zofran Inj) 4 mg Q6H PRN IV NAUSEA AND/OR VOMITING; Start 08/17/17 at 07:30 Hydromorphone HCl (Dilaudid) 0.5 mg Q4H PRN IV SEVERE PAIN LEVEL 7-10; Start 08/17/17 at 07:30 Docusate Sodium (Colace) 100 mg Q12H PRN PO CONSTIPATION; Start 08/17/17 at 07: 30 Bisacodyl (Dulcolax) 5 mg DAILY PRN PO CONSTIPATION; Start 08/17/17 at 07:30 Famotidine (Pepcid) 20 mg Q12 PO Last administered on 08/19/17 08:16; Admin Dose 20 MG; Start 08/17/17 at 09:00 Miscellaneous Information 1 ea NOTE XX ; Start 08/17/17 at 08:00 IV Flush (NS 10 ml) 10 ml PRN PRN IV IV PROTOCOL; Start 08/17/17 at 14:30 Acetaminophen (Tylenol Tab) 650 mg Q4 PRN PO pain, fevers, headache Last administered on 08/18/17 21:12; Admin Dose 650 MG; Start 08/17/17 at 18:30 Diagnostic Test (Pha) (Accu-Chek) 1 ea Q1H XX Last administered on 08/19/17 12 :04; Admin Dose 1 EA; Start 08/18/17 at 09:00 Dextrose (D50w Syringe) 25 ml Q15M PRN IV Till BS 80 mg/dL or above x2; Start 08/18/17 at 09:00 Dextrose (D50w Syringe) 50 ml Q15M PRN IV Till BS 80 mg/dL or above x2; Start 08/18/17 at 09:00 Mometasone Furoate 1 applic 1 applic DAILY TOP Last administered on 08/19/17 08:45; Admin Dose 1 APPLIC; Start 08/18/17 at 12:00 Phenylephrine HCl 40 mg/Dextrose 500 ml @ 75 mls/hr TITRATE IV Last administered on 08/19/17 04:48; Admin Dose 37.5 MLS/HR; Start 08/18/17 at 18:30 Rifampin 600 mg/ Sodium Chloride 100 ml @ 200 mls/hr DAILY@20 IVPB Last administered on 08/18/17 20:48; Admin Dose 200 MLS/HR; Start 08/18/17 at 20:00 ; Stop 09/02/17 at 21:00 Vancomycin HCl/ Sodium Chloride (Vancocin/NS) 250 ml @ 83.333 mls/ hr Q8H IVPB Last administered on 08/19/17 06:08; Admin Dose 83.333 MLS/HR; Start at 06:00 Miscellaneous Information VANCOMYCIN TROUGH ON ... ONCE ONCE XX ; Start 08/20/17 at 05:00; Stop 08/20/17 at 05:01 Piperacillin Sod/ Tazobactam Sod (Zosyn 3.375gm/ 100 ml (Pmx)) 100 ml @ 200 mls /hr Q6 IVPB ; Start 08/19/17 at 12:00 SANTHOSH JUAREZ Aug 19, 2017 12:10
--- NOTE | 2017-08-19 12:11 | OPR ---
Date/Time of Note Date/Time of Note DATE: 08/19/17 TIME: 12:11 Operative Report Procedure Date: Aug 19, 2017 Preoperative Diagnosis bilateral buttock abscess Postoperative Diagnosis Bilateral buttock abscess Operation/Procedure Performed 1. Incision and drainage of bilateral buttock abscess 2. Local anesthetic injection Surgeon see signature line Support Team Assoc none Anesthesia Type: other (local) Estimated Blood Loss: other Transfusion none Specimen Right and left buttock cultures Grafts/Implants none Complications none Pt Condition Post Procedure: stable Indications per notes Procedure Description r/b/a were fully reviewed and agreed upon Patient placed on his bed lateral decubitus. Area prepped and draped in sterile fashion. Time out done. Local anesthetic administered to both buttocks. Incision was made into the abscess cavity of the left buttock and pus with black debris drained. Using manual pressure pus was also expelled from surrounding tissue. Next, incision was made into the abscess cavity of the right buttock and pus drained. Again, using manual pressure pus was also expelled from surrounding tissue of the right buttock. Wounds were irrigated and packed with betadine soaked gauze. Covered with abd pad. DAMARIS LINTON NP Aug 19, 2017 12:11
[2017-08-19] MEDS ORDERED: PHENYLephrine 20MG IN 250 ML 0 ML ONE (13:51)
--- NOTE | 2017-08-19 14:50 | PN ---
Date/Time of Note Date/Time of Note DATE: 08/19/17 TIME: 14:42 Assessment/Plan VTE Prophylaxis VTE Prophylaxis Intervention: SCD's Lines/Catheters IV Catheter Type (from Nrsg): PICC Line Central line still needed: Yes (pressors) Assessment/Plan Assessment/Plan 1. Septic shock secondary to bacteremia and gluteal abscess - Still on pressor support and will wean to keep MAP >60 - Blood cultures growing S. aureus and ID consulted. Appreciated recommendations - Currently on Vancomycin, Zosyn, and Rifampin - IVF NSS 2. Bacteremia - 4/4 blood cultures positive for S Aureus - ID on board - ECHO ordered and no vegetation appreciated. If patient does not improve may need to do THOMAS 3. Diabetes mellitus, poorly controlled - A1c 12.2 - in service educator recommendations appreciated. - On insulin drip and will increase Novolog to 5units with meals 4. Gluteal abscess - Surgery on board and consultation appreciated. I&D planned for today 5. Hypotension - Will continue on Levophed and wean as tolerated to keep MAP >60 6. Episodes of NSVT - Cardiology consult placed and recommendations appreciated - Most likely secondary to bacteremia and will continue monitoring 7. Hypokalemia - Replaced 8. Disposition - Patient still requiring pressor support and insulin drip, will remain in ICU >30 minutes spent providing critical care to patient. All questions and concerns addressed and answered. Subjective 24 Hr Interval Summary Free Text/Dictation Patient states he is feeling better after I & D performed yesterday. No acute overnight events and no new complaints. Exam/Review of Systems Vital Signs Vitals Vital Signs Date Time Temp Pulse Resp B/P Pulse Ox O2 Delivery O2 Flow Rate FiO2 08/19/17 13:45 85 19 125/86 98 Room Air 08/19/17 12:00 99.6 Intake and Output 08/18/17 08/18/17 08/19/17 15:00 23:00 07:00 Intake Total 878.0125 ml 1316.875 ml 1081.0 ml Output Total 1100 ml 1900 ml 2300 ml Balance -221.9875 ml -583.125 ml -1219.0 ml Exam General: NAD, awake and alert HEENT:NC/AT, PERRL, EOM intact Neck: Supple with full range of motion. No rigidity or meningismus Lungs: Clear to auscultation bilaterally no crackles rales or wheezing Heart: Normal S1-S2, Regular rhythm and rate no overt murmur appreciated Abdomen: Soft , nontender, nondistended , bowel sounds are present. No guarding no rebound tenderness , Extremities: Normal to inspection, no edema no cyanosis Neurologic: Normal mental status, speech normal, cranial nerves II through XII are intact, motor and sensory are intact, no focal weakness Skin: diffuse scaly patches on UE and LE bilaterally. bilateral buttocks induration with erythema and tenderness to palpation Results Result Diagram: 08/19/1715 08/19/17 0515 Results 24 hrs Laboratory Tests Test 08/18/17 15:17 08/18/17 16:26 08/18/17 17:12 08/18/17 18:12 Bedside Glucose 154 189 171 175 Test 08/18/17 18:51 08/18/17 18:52 08/18/17 18:59 08/18/17 20:15 Bedside Glucose 140 143 Sodium Level 133 L Potassium Level 3.4 L Chloride Level 104 Carbon Dioxide Level 22 Anion Gap 10 # Blood Urea Nitrogen 7 Creatinine 0.51 L Glucose Level 153 # Calcium Level 8.0 L Magnesium Level 1.8 Troponin I 0.013 Test 08/18/17 21:09 08/18/17 21:24 08/18/17 22:02 08/18/17 22:58 Bedside Glucose 162 165 149 Vancomycin Level Trough 6.6 L Test 08/19/17 00:02 08/19/17 01:06 08/19/17 03:07 08/19/17 04:51 Bedside Glucose 145 136 121 108 Test 08/19/17 05:15 08/19/17 06:04 08/19/17 07:06 08/19/17 08:02 White Blood Count 19.8 H Red Blood Count 4.63 L Hemoglobin 13.6 L Hematocrit 39.8 L Mean Corpuscular Volume 86.0 Mean Corpuscular Hemoglobin 29.4 Mean Corpuscular Hemoglobin Concent 34.2 Red Cell Distribution Width 12.3 Platelet Count 271 Mean Platelet Volume 9.7 Neutrophils % 79.2 H Lymphocytes % 9.1 L Monocytes % 9.0 Eosinophils % 0.5 Basophils % 0.5 Nucleated Red Blood Cells % 0.0 Neutrophils # 15.7 H Lymphocytes # 1.8 Monocytes # 1.8 H Eosinophils # 0.1 Basophils # 0.1 Nucleated Red Blood Cells # 0.0 Sodium Level 132 L Potassium Level 3.3 L Chloride Level 104 Carbon Dioxide Level 24 Anion Gap 7 L Blood Urea Nitrogen 8 Creatinine 0.52 L Glucose Level 110 # Calcium Level 8.2 L Phosphorus Level 1.6 #L Magnesium Level 2.4 Albumin 2.7 L Bedside Glucose 117 158 145 Test 08/19/17 09:02 08/19/17 10:03 08/19/17 11:01 08/19/17 12:18 Bedside Glucose 226 H 219 186 180 Test 08/19/17 12:57 08/19/17 13:47 Bedside Glucose 186 172 Medications Medications Current Medications Sodium Chloride (NS) 1,000 ml @ 70 mls/hr [id number] IV Last administered on 08/19 10:01; Admin Dose 70 MLS/HR; Start 08/17/17 at 07:27 Ondansetron HCl (Zofran Inj) 4 mg Q6H PRN IV NAUSEA AND/OR VOMITING; Start 08/17/17 at 07:30 Hydromorphone HCl (Dilaudid) 0.5 mg Q4H PRN IV SEVERE PAIN LEVEL 7-10; Start 08/17/17 at 07:30 Docusate Sodium (Colace) 100 mg Q12H PRN PO CONSTIPATION; Start 08/17/17 at 07: 30 Bisacodyl (Dulcolax) 5 mg DAILY PRN PO CONSTIPATION; Start 08/17/17 at 07:30 Famotidine (Pepcid) 20 mg Q12 PO Last administered on 08/19/17 08:16; Admin Dose 20 MG; Start 08/17/17 at 09:00 Miscellaneous Information 1 ea NOTE XX ; Start 08/17/17 at 08:00 IV Flush (NS 10 ml) 10 ml PRN PRN IV IV PROTOCOL; Start 08/17/17 at 14:30 Acetaminophen (Tylenol Tab) 650 mg Q4 PRN PO pain, fevers, headache Last administered on 08/18/17 21:12; Admin Dose 650 MG; Start 08/17/17 at 18:30 Diagnostic Test (Pha) (Accu-Chek) 1 ea Q1H XX Last administered on 08/19/17 13 :45; Admin Dose 1 EA; Start 08/18/17 at 09:00 Dextrose (D50w Syringe) 25 ml Q15M PRN IV Till BS 80 mg/dL or above x2; Start 08/18/17 at 09:00 Dextrose (D50w Syringe) 50 ml Q15M PRN IV Till BS 80 mg/dL or above x2; Start 08/18/17 at 09:00 Mometasone Furoate 1 applic 1 applic DAILY TOP Last administered on 08/19/17 08:45; Admin Dose 1 APPLIC; Start 08/18/17 at 12:00 Phenylephrine HCl 40 mg/Dextrose 500 ml @ 75 mls/hr TITRATE IV Last administered on 08/19/17 14:22; Admin Dose 37.5 MLS/HR; Start 08/18/17 at 18:30 Rifampin 600 mg/ Sodium Chloride 100 ml @ 200 mls/hr DAILY@20 IVPB Last administered on 08/18/17 20:48; Admin Dose 200 MLS/HR; Start 08/18/17 at 20:00 ; Stop 09/02/17 at 21:00 Vancomycin HCl/ Sodium Chloride (Vancocin/NS) 250 ml @ 83.333 mls/ hr Q8H IVPB Last administered on 08/19/17 13:45; Admin Dose 83.333 MLS/HR; Start at 06:00 Miscellaneous Information VANCOMYCIN TROUGH ON ... ONCE ONCE XX ; Start 08/20/17 at 05:00; Stop 08/20/17 at 05:01 Piperacillin Sod/ Tazobactam Sod (Zosyn 3.375gm/ 100 ml (Pmx)) 100 ml @ 200 mls /hr Q6 IVPB Last administered on 08/19/17 12:22; Admin Dose 200 MLS/HR; Start 08/19/17 at 12:00 FLORENCIA PRASAD MD Aug 19, 2017 14:50
[2017-08-19] MEDS: RIFAMPIN 600 MG in SOD CHLORIDE 0.9% 100 ML IVPB SCH (20:20)
[2017-08-20] VITALS (90 sets, daily range): BP systolic 68–135; BP diastolic 42–90; PULSE 71–109; RESP 0–37
[2017-08-20] MEDS: ACCU-CHEK XX SCH ×18 (00:05→23:09)
[2017-08-20] MEDS: PIPER-TAZO 3.375 GM IV (PMX) 100 ML IVPB SCH ×4 (00:08→17:15)
[2017-08-20] MEDS: SOD CHLORIDE 0.9% 1,000 ML IV SCH ×2 (03:00→22:09)
[2017-08-20] MEDS: PHENYLephrine 40 MG in DEXTROSE 5% 496 ML IV SCH ×2 (04:15→17:23)
[2017-08-20 06:10] LABS: ABNORMAL IP MESSAGE 1; BASOPHIL # 0.1 10^3/ul (0.0-0.1); BASOPHILS % 0.5 % (0.0-2.0); EOSINOPHILS # 0.4 10^3/ul (0.0-0.5); HEMATOCRIT 39.8 % (42.0-52.0); HEMOGLOBIN 13.7 g/dl (14.0-18.0); LYMPHOCYTES # 2.4 10^3/ul (0.8-2.9); LYMPHOCYTES % 12.1 % (15.0-51.0); MEAN CORPUSCULAR HEMOGLOBIN 29.6 pg (29.0-33.0); MEAN CORPUSCULAR HGB CONC 34.4 g/dl (32.0-37.0); MEAN PLATELET VOLUME 9.5 fl (7.4-10.4); MONOCYTE # 1.6 10^3/ul (0.3-0.9); MONOCYTES % 8.2 % (0.0-11.0); NEUTROPHILS % 75.4 % (39.0-77.0); PLATELET COUNT 269 10^3/UL (140-415); POSITIVE DIFF @See below; RED BLOOD COUNT 4.63 10^6/ul (4.70-6.10); RED CELL DISTRIBUTION WIDTH 12.5 % (11.5-14.5); WHITE BLOOD COUNT 19.9 10^3/ul (4.8-10.8)
[2017-08-20 06:36] LABS: ALBUMIN 2.5 g/dl (3.3-4.9); CALCIUM 7.9 mg/dl (8.4-10.2); CREATININE 0.46 mg/dl (0.61-1.24); MAGNESIUM 1.8 mg/dl (1.7-2.5); POTASSIUM 3.4 mmol/L (3.5-5.1)
--- NOTE | 2017-08-20 06:54 | PN ---
DATE: 08/19/2017 SUBJECTIVE: No acute events overnight. The patient is awake, still on pressors. Denies pain, look s comfortable. He also is on insulin drip. VITAL SIGNS: T-max 102.7, T-current 99, pulse 77, respirations 16, blood pressure 106/75, saturatio n 97% on room air. WBC 19.8, H and H 13.6 and 39.8, platelets 271, neutrophils 79.2. BUN 8, creatinine 0.52. MICROBIOLOGY: Blood culture growing MRSA. INDWELLINGS: The patient has PICC line. ANTIMICROBIALS: 1. Vancomycin. 2. Rifampin. 3. Zosyn. PHYSICAL EXAMINATION: GENERAL: This is a well-developed, well-nourished, middle-aged man who is alert, in no dis tress. HEENT: Head atraumatic, normocephalic. Sclerae anicteric. Buccal mucosa pink, dry. NECK: Supple. CHEST: Rise symmetrical. Breath sounds diminished to bases. HEART: S1, S2. ABDOMEN: Soft, bowel tones present. EXTREMITIES: Without cyanosis. ASSESSMENT: 1. Septic shock. 2. Methicillin-resistant Staphylococcus aureus bacteremia secondary to #3. 3. Sacral wound with abscess. 4. Poorly controlled diabetes. 5. Psoriasis. PLAN: The patient remains hemodynamically unstable, still spiking fevers. He is on appropriate ant imicrobials. Surgery on case, pending I and D. The 2D echo revealed no vegetations. Dictated By: JAIR RUCKER [employer] for [employer] PAPP[employer]/KADE Conf#: [id number] DID#: [id number]
[2017-08-20] MEDS: VANCOMYCIN 1.5 GM in SOD CHLORIDE 0.9% 250 ML IVPB SCH ×3 (08:08→22:09)
[2017-08-20] MEDS: FAMOTIDINE 20 MG TAB PO SCH ×2 (08:09→21:06)
[2017-08-20] MEDS: INSULIN ASPART [NOVOLOG] 3 ML PEN SC SCH ×3 (08:29→17:17)
[2017-08-20] MEDS: MOMETASONE TOP SCH (08:45)
[2017-08-20] MEDS ORDERED: POTASSIUM CHLORIDE 20 MEQ POWDER FOR ORAL SOLN PO ONE (09:00)
--- NOTE | 2017-08-20 09:39 | CONS ---
Date/Time of Note Date/Time of Note DATE: 08/20/17 TIME: 09:38 Assessment/Plan Assessment/Plan Chief Complaint/Hosp Course NSVT: Unusual for the pt to have NSVT with normal EF, no e/o ischemia, no symptoms. No e/o endocarditis by TTE at least and no AVB by EKG to suggest abscess. No heart failure. ?from hypokalemia. Now resolved Bilateral buttock abscess Staph aureus bacteremia: from buttocks. No endocarditis or valvular dysfunction at least by TTE. If indicated and concern, may need THOMAS to eval but for now no indication. DM -check lytes, Mg BID and replete to keep K>4, Mg >2 -wean phenylephrine -will replete K -once off pressors, can start BB -if recurrent or prolonged episodes, may need to start amiodarone Problems: Consultation Date/Type/Reason Admit Date/Time Aug 17, 2017 at 11:27 Initial Consult Date 08/18/17 Type of Consultation: Cardiology Referring Provider: FLORENCIA PRASAD MD 24 HR Interval Summary Free Text/Dictation No o/n events. Remains on phenylephrine. No further NSVT Exam/Review of Systems Vital Signs Vitals Vital Signs Date Time Temp Pulse Resp B/P Pulse Ox O2 Delivery O2 Flow Rate FiO2 08/20/17 08:00 85 08/20/17 06:15 16 80/55 97 08/20/17 06:00 Room Air 08/20/17 04:00 99.2 Intake and Output 08/19/17 08/19/17 08/20/17 15:00 23:00 07:00 Intake Total 1912.498 ml 1301.166 ml 1377.999 ml Output Total 2000 ml 950 ml 1300 ml Balance -87.502 ml 351.166 ml 77.999 ml Exam Constitutional: alert, oriented Psych: no complaints Head: atraumatic, normocephalic Eyes: nl conjunctiva Neck: No jvd Respiratory: clear to auscultation, No crackles/rales Cardiovascular: regular rate and rhythm, No edema Gastrointestinal: non-tender, soft Neurological: nl mental status, nl speech Results Result Diagram: 08/20/17 0550 08/20/17 0550 Results 24 hrs Laboratory Tests Test 08/19/17 10:03 08/19/17 11:01 08/19/17 12:18 08/19/17 12:57 Bedside Glucose 219 186 180 186 Test 08/19/17 13:47 08/19/17 15:19 08/19/17 16:57 08/19/17 18:00 Bedside Glucose 172 131 210 173 Test 08/19/17 18:54 08/19/17 19:56 08/19/17 21:08 08/19/17 21:59 Bedside Glucose 133 119 138 149 Test 08/19/17 23:01 08/20/17 00:08 08/20/17 00:55 08/20/17 02:06 Bedside Glucose 156 153 127 142 Test 08/20/17 03:00 08/20/17 04:12 08/20/17 05:15 08/20/17 05:50 Bedside Glucose 113 116 129 White Blood Count 19.9 H Red Blood Count 4.63 L Hemoglobin 13.7 L Hematocrit 39.8 L Mean Corpuscular Volume 86.0 Mean Corpuscular Hemoglobin 29.6 Mean Corpuscular Hemoglobin Concent 34.4 Red Cell Distribution Width 12.5 Platelet Count 269 Mean Platelet Volume 9.5 Neutrophils % 75.4 Lymphocytes % 12.1 L Monocytes % 8.2 Eosinophils % 2.0 Basophils % 0.5 Nucleated Red Blood Cells % 0.0 Neutrophils # 15.0 H Lymphocytes # 2.4 Monocytes # 1.6 H Eosinophils # 0.4 Basophils # 0.1 Nucleated Red Blood Cells # 0.0 Sodium Level 136 Potassium Level 3.4 L Chloride Level 104 Carbon Dioxide Level 25 Anion Gap 10 Blood Urea Nitrogen 7 Creatinine 0.46 L Glucose Level 116 Calcium Level 7.9 L Phosphorus Level 3.0 Magnesium Level 1.8 Albumin 2.5 L Vancomycin Level Trough 12.0 Test 08/20/17 06:05 08/20/17 07:03 08/20/17 08:12 Bedside Glucose 134 132 118 Medications Medications Current Medications Sodium Chloride (NS) 1,000 ml @ 70 mls/hr [id number] IV Last administered on 08/20t 03:00; Admin Dose 70 MLS/HR; Start 08/17/17 at 07:27 Ondansetron HCl (Zofran Inj) 4 mg Q6H PRN IV NAUSEA AND/OR VOMITING; Start 08/17/17 at 07:30 Hydromorphone HCl (Dilaudid) 0.5 mg Q4H PRN IV SEVERE PAIN LEVEL 7-10; Start 08/17/17 at 07:30 Docusate Sodium (Colace) 100 mg Q12H PRN PO CONSTIPATION; Start 08/17/17 at 07: 30 Bisacodyl (Dulcolax) 5 mg DAILY PRN PO CONSTIPATION; Start 08/17/17 at 07:30 Famotidine (Pepcid) 20 mg Q12 PO Last administered on 08/20/17 08:09; Admin Dose 20 MG; Start 08/17/17 at 09:00 Miscellaneous Information 1 ea NOTE XX ; Start 08/17/17 at 08:00 IV Flush (NS 10 ml) 10 ml PRN PRN IV IV PROTOCOL; Start 08/17/17 at 14:30 Acetaminophen (Tylenol Tab) 650 mg Q4 PRN PO pain, fevers, headache Last administered on 08/18/17 21:12; Admin Dose 650 MG; Start 08/17/17 at 18:30 Diagnostic Test (Pha) (Accu-Chek) 1 ea Q1H XX Last administered on 08/20/17 08 :13; Admin Dose 1 EA; Start 08/18/17 at 09:00 Dextrose (D50w Syringe) 25 ml Q15M PRN IV Till BS 80 mg/dL or above x2; Start 08/18/17 at 09:00 Dextrose (D50w Syringe) 50 ml Q15M PRN IV Till BS 80 mg/dL or above x2; Start 08/18/17 at 09:00 Mometasone Furoate 1 applic 1 applic DAILY TOP Last administered on 08/20/17 08:45; Admin Dose 1 APPLIC; Start 08/18/17 at 12:00 Phenylephrine HCl 40 mg/Dextrose 500 ml @ 75 mls/hr TITRATE IV Last administered on 08/20/17 04:15; Admin Dose 37.5 MLS/HR; Start 08/18/17 at 18:30 Rifampin 600 mg/ Sodium Chloride 100 ml @ 200 mls/hr DAILY@20 IVPB Last administered on 08/19/17 20:20; Admin Dose 200 MLS/HR; Start 08/18/17 at 20:00 ; Stop 09/02/17 at 21:00 Vancomycin HCl 1.5 gm/Sodium Chloride 250 ml @ 83.333 mls/ hr Q8H IVPB Last administered on 08/20/17 08:08; Admin Dose 83.333 MLS/HR; Start 08/19/17 at 06: 00 Piperacillin Sod/ Tazobactam Sod 100 ml @ 200 mls/hr Q6 IVPB Last administered on 08/20/17 06:13; Admin Dose 200 MLS/HR; Start 08/19/17 at 12:00 Potassium Chloride (KCl 10 MEQ/50 ML SW) 50 ml @ 50 mls/hr Q1H IVPB ; Start 08/20/17 at 09:00; Stop 08/20/17 at 11:59 GRAHAM ANDREWS Aug 20, 2017 09:39
[2017-08-20] MEDS: POTASSIUM CHLORIDE 50 ML IVPB SCH ×3 (10:00→14:29)
[2017-08-20] MEDS ORDERED: POTASSIUM CHLORIDE (SR) 20 MEQ TAB PO STA (10:37)
--- NOTE | 2017-08-20 10:49 | CONS ---
Date/Time of Note Date/Time of Note DATE: 08/20/17 TIME: 10:44 Consult Date/Type/Reason Admit Date/Time Aug 17, 2017 at 11:27 Initial Consult Date 08/18/17 Type of Consultation: Pulmonary Ordering Provider: FLORENCIA PRASAD MD Subjective Buttock abscess status post I&D Continues vasopressor support Awake alert and oriented. Objective Vital Signs Date Time Temp Pulse Resp B/P Pulse Ox O2 Delivery O2 Flow Rate FiO2 08/20/17 10:00 71 23 118/83 95 08/20/17 07:00 99.4 08/20/17 06:00 Room Air Intake and Output 08/19/17 08/19/17 08/20/17 15:00 23:00 07:00 Intake Total 1912.498 ml 1301.166 ml 1377.999 ml Output Total 2000 ml 950 ml 1300 ml Balance -87.502 ml 351.166 ml 77.999 ml Exam PHYSICAL EXAMINATION GENERAL: Well-nourished well-developed gentleman comfortable at rest VITAL SIGNS: see below. HEENT: Pupils equal, round, and reactive to light. CARDIAC: S1, S2, 1/6 systolic ejection murmur CHEST: Diminished air entry bilaterally. ABDOMEN: Mildly distended. Bowel sounds present no guarding or rebound EXTREMITIES: No cyanosis, clubbing edema +1 NEUROLOGIC: No focal deficits Results/Medications Result Diagram: 08/20/17 0550 08/20/17 0550 Results 24 hrs Laboratory Tests Test 08/19/17 11:01 08/19/17 12:18 08/19/17 12:57 08/19/17 13:47 Bedside Glucose 186 180 186 172 Test 08/19/17 15:19 08/19/17 16:57 08/19/17 18:00 08/19/17 18:54 Bedside Glucose 131 210 173 133 Test 08/19/17 19:56 08/19/17 21:08 08/19/17 21:59 08/19/17 23:01 Bedside Glucose 119 138 149 156 Test 08/20/17 00:08 08/20/17 00:55 08/20/17 02:06 08/20/17 03:00 Bedside Glucose 153 127 142 113 Test 08/20/17 04:12 08/20/17 05:15 08/20/17 05:50 08/20/17 06:05 Bedside Glucose 116 129 134 White Blood Count 19.9 H Red Blood Count 4.63 L Hemoglobin 13.7 L Hematocrit 39.8 L Mean Corpuscular Volume 86.0 Mean Corpuscular Hemoglobin 29.6 Mean Corpuscular Hemoglobin Concent 34.4 Red Cell Distribution Width 12.5 Platelet Count 269 Mean Platelet Volume 9.5 Neutrophils % 75.4 Lymphocytes % 12.1 L Monocytes % 8.2 Eosinophils % 2.0 Basophils % 0.5 Nucleated Red Blood Cells % 0.0 Neutrophils # 15.0 H Lymphocytes # 2.4 Monocytes # 1.6 H Eosinophils # 0.4 Basophils # 0.1 Nucleated Red Blood Cells # 0.0 Sodium Level 136 Potassium Level 3.4 L Chloride Level 104 Carbon Dioxide Level 25 Anion Gap 10 Blood Urea Nitrogen 7 Creatinine 0.46 L Glucose Level 116 Calcium Level 7.9 L Phosphorus Level 3.0 Magnesium Level 1.8 Albumin 2.5 L Vancomycin Level Trough 12.0 Test 08/20/17 07:03 08/20/17 08:12 08/20/17 09:38 Bedside Glucose 132 118 160 Medications Current Medications Sodium Chloride (NS) 1,000 ml @ 70 mls/hr [id number] IV Last administered on 08/20 03:00; Admin Dose 70 MLS/HR; Start 08/17/17 at 07:27 Ondansetron HCl (Zofran Inj) 4 mg Q6H PRN IV NAUSEA AND/OR VOMITING; Start 08/17/17 at 07:30 Hydromorphone HCl (Dilaudid) 0.5 mg Q4H PRN IV SEVERE PAIN LEVEL 7-10; Start 08/17/17 at 07:30 Docusate Sodium (Colace) 100 mg Q12H PRN PO CONSTIPATION; Start 08/17/17 at 07: 30 Bisacodyl (Dulcolax) 5 mg DAILY PRN PO CONSTIPATION; Start 08/17/17 at 07:30 Famotidine (Pepcid) 20 mg Q12 PO Last administered on 08/20/17 08:09; Admin Dose 20 MG; Start 08/17/17 at 09:00 Miscellaneous Information 1 ea NOTE XX ; Start 08/17/17 at 08:00 IV Flush (NS 10 ml) 10 ml PRN PRN IV IV PROTOCOL; Start 08/17/17 at 14:30 Acetaminophen (Tylenol Tab) 650 mg Q4 PRN PO pain, fevers, headache Last administered on 08/18/17 21:12; Admin Dose 650 MG; Start 08/17/17 at 18:30 Diagnostic Test (Pha) (Accu-Chek) 1 ea Q1H XX Last administered on 08/20/17 08 :13; Admin Dose 1 EA; Start 08/18/17 at 09:00; Stop 08/20/17 at 21:00 Mometasone Furoate 1 applic 1 applic DAILY TOP Last administered on 08/20/17 08:45; Admin Dose 1 APPLIC; Start 08/18/17 at 12:00 Phenylephrine HCl 40 mg/Dextrose 500 ml @ 75 mls/hr TITRATE IV Last administered on 08/20/17 04:15; Admin Dose 37.5 MLS/HR; Start 08/18/17 at 18:30 Rifampin 600 mg/ Sodium Chloride 100 ml @ 200 mls/hr DAILY@20 IVPB Last administered on 08/19/17 20:20; Admin Dose 200 MLS/HR; Start 08/18/17 at 20:00 ; Stop 09/02/17 at 21:00 Vancomycin HCl 1.5 gm/Sodium Chloride 250 ml @ 83.333 mls/ hr Q8H IVPB Last administered on 08/20/17 08:08; Admin Dose 83.333 MLS/HR; Start 08/19/17 at 06: 00 Piperacillin Sod/ Tazobactam Sod 100 ml @ 200 mls/hr Q6 IVPB Last administered on 08/20/17 06:13; Admin Dose 200 MLS/HR; Start 08/19/17 at 12:00 Potassium Chloride (KCl 10 MEQ/50 ML SW) 50 ml @ 50 mls/hr Q1H IVPB ; Start 08/20/17 at 09:00; Stop 08/20/17 at 11:59 Insulin Glargine (Lantus) 9 unit QHS SC ; Start 08/20/17 at 21:00 Hydrocortisone (Hydrocortisone 1% Oint) 1 applic BID TOP ; Start 08/20/17 at 11: 30 Miscellaneous Information 1 ea NOTE XX ; Start 08/20/17 at 11:00 Glucose (Glutose) 15 gm Q15M PRN PO DECREASED GLUCOSE; Start 08/20/17 at 11:00 Glucose (Glutose) 22.5 gm Q15M PRN PO DECREASED GLUCOSE; Start 08/20/17 at 11: 00 Dextrose (D50w Syringe) 25 ml Q15M PRN IV DECREASED GLUCOSE; Start 08/20/17 at 11:00 Dextrose (D50w Syringe) 50 ml Q15M PRN IV DECREASED GLUCOSE; Start 08/20/17 at 11:00 Glucagon (Glucagen) 1 mg Q15M PRN IM DECREASED GLUCOSE; Start 08/20/17 at 11:00 Glucose (Glutose) 15 gm Q15M PRN BUCCAL DECREASED GLUCOSE; Start 08/20/17 at 11 :00 Potassium Chloride (Klor-Con 20) 40 meq BID PO ; Start 08/20/17 at 11:00; Stop 08/21/17 at 23:55; Status UNV Potassium Chloride (Klor-Con 20) 40 meq 1500 ONCE PO ; Start 08/20/17 at 15:00 ; Stop 08/20/17 at 15:01; Status UNV Assessment/Plan Chief Complaint/Hosp Course Assessment 1. Septic shock 2. Buttock abscess status post I&D 3. Elevated troponin questionable non-ST elevation LA 4. MRSA bacteremia, echocardiogram shows no vegetations. Preserved ejection fraction with diastolic dysfunction grade 1 5. History of diabetes mellitus Plan 1. Continue antibiotics 2. Continue surgical recommendations 3. Decreased vasopressor support as tolerated 4. Glycemic control 5. Cardiac recommendations stress test when stable ? Critical care time 40 minutes Problems: DERIAN MERRITT MD, [facility] Aug 20, 2017 10:49
[2017-08-20] MEDS ORDERED: POTASSIUM CHLORIDE (SR) 20 MEQ TAB PO SCH (11:00)
[2017-08-20] MEDS ORDERED: GLUCOSE GEL 15 GRAM TUBE BUCCAL PRN (11:00)
[2017-08-20] MEDS ORDERED: DEXTROSE 50% 50 ML SYRINGE IV PRN ×2 (11:00)
[2017-08-20] MEDS ORDERED: GLUCAGON 1 MG INJ IM PRN (11:00)
[2017-08-20] MEDS ORDERED: GLUCOSE GEL 15 GRAM TUBE PO PRN ×2 (11:00)
[2017-08-20] MEDS: HYDROCORTISONE 1% 28.35 GM OINT TOP SCH ×2 (14:36→21:06)
[2017-08-20] MEDS ORDERED: POTASSIUM CHLORIDE (SR) 20 MEQ TAB PO ONE (15:00)
--- NOTE | 2017-08-20 15:31 | PN ---
Date/Time of Note Date/Time of Note DATE: 08/20/17 TIME: 15:23 Assessment/Plan VTE Prophylaxis VTE Prophylaxis Intervention: SCD's Lines/Catheters IV Catheter Type (from Nrs): PICC Line Central line still needed: Yes (pressor support) Urinary Cath still in place: No Assessment/Plan Assessment/Plan 1. Septic shock secondary to bacteremia and gluteal abscess - Patient growing MRSA in wound as well as on blood cultures - Still on pressor support and will wean to keep MAP >60 - ID on board and recommendations appreciated. - Currently on Vancomycin, Zosyn, and Rifampin - IVF NSS - WBC still elevated 2. Bacteremia - + MRSA - ID on board - ECHO ordered and no vegetation appreciated. If patient does not improve may need to do THOMAS 3. Diabetes mellitus, poorly controlled - A1c 12.2 - manager emergency department recommendations appreciated. - On insulin drip and will increase Novolog to 5units with meals. Will start on Lantus 9 units qHS and stop insulin drip. Will continue adjusting to keep sugars better controlled 4. Gluteal abscess s/p I&D 08/19/17 - Surgery on board and consultation appreciated. - Growing MRSA and Ecoli 5. Hypotension - Will continue on Levophed and wean as tolerated to keep MAP >60 6. Episodes of NSVT - Cardiology consult placed and recommendations appreciated - Most likely secondary to bacteremia and will continue monitoring - once off pressors will start on BB. If vtach episodes persistent or frequent consider amiodarone 7. Hypokalemia - Replaced 8. Disposition - Patient still requiring pressor support and insulin drip, will remain in ICU >30 minutes spent providing critical care to patient. All questions and concerns addressed and answered. Subjective 24 Hr Interval Summary Free Text/Dictation Patient experiencing pain at site of I&D but feels more relief in terms of pressure in area. Denies any new complaints and no acute overnight events. Exam/Review of Systems Vital Signs Vitals Vital Signs Date Time Temp Pulse Resp B/P Pulse Ox O2 Delivery O2 Flow Rate FiO2 08/20/17 12:00 89 08/20/17 10:00 23 118/83 95 08/20/17 07:00 99.4 08/20/17 06:00 Room Air Intake and Output 08/19/17 08/19/17 08/20/17 15:00 23:00 07:00 Intake Total 1912.498 ml 1301.166 ml 1377.999 ml Output Total 2000 ml 950 ml 1300 ml Balance -87.502 ml 351.166 ml 77.999 ml Exam General: NAD, awake and alert, fatigued HEENT:NC/AT, PERRL, EOM intact Neck: Supple with full range of motion. Lungs: Clear to auscultation bilaterally no crackles rales or wheezing Heart: Normal S1-S2, Regular rhythm and rate no overt murmur appreciated Abdomen: Soft , nontender, nondistended , bowel sounds are present. No guarding no rebound tenderness , Extremities: Normal to inspection, no edema no cyanosis Neurologic: Normal mental status, speech normal, cranial nerves II through XII are intact, motor and sensory are intact, no focal weakness Skin: dressing in place over area of I&D with serosanguineous discharge. Mild tenderness to palpation. diffuse scaly patches on UE and LE bilaterally. Results Result Diagram: 08/20/17 0550 08/20/17 0550 Results 24 hrs Laboratory Tests Test 08/19/17 16:57 08/19/17 18:00 08/19/17 18:54 08/19/17 19:56 Bedside Glucose 210 173 133 119 Test 08/19/17 21:08 08/19/17 21:59 08/19/17 23:01 08/20/17 00:08 Bedside Glucose 138 149 156 153 Test 08/20/17 00:55 08/20/17 02:06 08/20/17 03:00 08/20/17 04:12 Bedside Glucose 127 142 113 116 Test 08/20/17 05:15 08/20/17 05:50 08/20/17 06:05 08/20/17 07:03 Bedside Glucose 129 134 132 White Blood Count 19.9 H Red Blood Count 4.63 L Hemoglobin 13.7 L Hematocrit 39.8 L Mean Corpuscular Volume 86.0 Mean Corpuscular Hemoglobin 29.6 Mean Corpuscular Hemoglobin Concent 34.4 Red Cell Distribution Width 12.5 Platelet Count 269 Mean Platelet Volume 9.5 Neutrophils % 75.4 Lymphocytes % 12.1 L Monocytes % 8.2 Eosinophils % 2.0 Basophils % 0.5 Nucleated Red Blood Cells % 0.0 Neutrophils # 15.0 H Lymphocytes # 2.4 Monocytes # 1.6 H Eosinophils # 0.4 Basophils # 0.1 Nucleated Red Blood Cells # 0.0 Sodium Level 136 Potassium Level 3.4 L Chloride Level 104 Carbon Dioxide Level 25 Anion Gap 10 Blood Urea Nitrogen 7 Creatinine 0.46 L Glucose Level 116 Calcium Level 7.9 L Phosphorus Level 3.0 Magnesium Level 1.8 Albumin 2.5 L Vancomycin Level Trough 12.0 Test 08/20/17 08:12 08/20/17 09:38 08/20/17 11:27 08/20/17 14:30 Bedside Glucose 118 160 213 123 Medications Medications Current Medications Sodium Chloride (NS) 1,000 ml @ 70 mls/hr [id number] IV Last administered on 08/20 03:00; Admin Dose 70 MLS/HR; Start 08/17/17 at 07:27 Ondansetron HCl (Zofran Inj) 4 mg Q6H PRN IV NAUSEA AND/OR VOMITING; Start 08/17/17 at 07:30 Hydromorphone HCl (Dilaudid) 0.5 mg Q4H PRN IV SEVERE PAIN LEVEL 7-10; Start 08/17/17 at 07:30 Docusate Sodium (Colace) 100 mg Q12H PRN PO CONSTIPATION; Start 08/17/17 at 07: 30 Bisacodyl (Dulcolax) 5 mg DAILY PRN PO CONSTIPATION; Start 08/17/17 at 07:30 Famotidine (Pepcid) 20 mg Q12 PO Last administered on 08/20/17 08:09; Admin Dose 20 MG; Start 08/17/17 at 09:00 Miscellaneous Information 1 ea NOTE XX ; Start 08/17/17 at 08:00 IV Flush (NS 10 ml) 10 ml PRN PRN IV IV PROTOCOL; Start 08/17/17 at 14:30 Acetaminophen (Tylenol Tab) 650 mg Q4 PRN PO pain, fevers, headache Last administered on 08/18/17 21:12; Admin Dose 650 MG; Start 08/17/17 at 18:30 Mometasone Furoate 1 applic 1 applic DAILY TOP Last administered on 08/20/17 08:45; Admin Dose 1 APPLIC; Start 08/18/17 at 12:00 Phenylephrine HCl 40 mg/Dextrose 500 ml @ 75 mls/hr TITRATE IV Last administered on 08/20/17 04:15; Admin Dose 37.5 MLS/HR; Start 08/18/17 at 18:30 Rifampin 600 mg/ Sodium Chloride 100 ml @ 200 mls/hr DAILY@20 IVPB Last administered on 08/19/17 20:20; Admin Dose 200 MLS/HR; Start 08/18/17 at 20:00 ; Stop 09/02/17 at 21:00 Vancomycin HCl 1.5 gm/Sodium Chloride 250 ml @ 83.333 mls/ hr Q8H IVPB Last administered on 08/20/17 14:31; Admin Dose 83.333 MLS/HR; Start 08/19/17 at 06: 00 Piperacillin Sod/ Tazobactam Sod (Zosyn 3.375gm/ 100 ml (Pmx)) 100 ml @ 200 mls /hr Q6 IVPB Last administered on 08/20/17 11:27; Admin Dose 200 MLS/HR; Start 08/19/17 at 12:00 Insulin Glargine (Lantus) 9 unit QHS SC ; Start 08/20/17 at 21:00 Hydrocortisone (Hydrocortisone 1% Oint) 1 applic BID TOP Last administered on 08/20/17 14:36; Admin Dose 1 APPLIC; Start 08/20/17 at 11:30 Miscellaneous Information 1 ea NOTE XX ; Start 08/20/17 at 11:00 Glucose (Glutose) 15 gm Q15M PRN PO DECREASED GLUCOSE; Start 08/20/17 at 11:00 Glucose (Glutose) 22.5 gm Q15M PRN PO DECREASED GLUCOSE; Start 08/20/17 at 11: 00 Dextrose (D50w Syringe) 25 ml Q15M PRN IV DECREASED GLUCOSE; Start 08/20/17 at 11:00 Dextrose (D50w Syringe) 50 ml Q15M PRN IV DECREASED GLUCOSE; Start 08/20/17 at 11:00 Glucagon (Glucagen) 1 mg Q15M PRN IM DECREASED GLUCOSE; Start 08/20/17 at 11:00 Glucose (Glutose) 15 gm Q15M PRN BUCCAL DECREASED GLUCOSE; Start 08/20/17 at 11 :00 Diagnostic Test (Pha) (Accu-Chek) 1 ea Q2 XX ; Start 08/20/17 at 17:00 FLORENCIA PRASAD MD Aug 20, 2017 15:31
--- NOTE | 2017-08-20 16:34 | PN ---
DATE: 08/20/2017 INFECTIOUS DISEASE PROGRESS NOTE SUBJECTIVE: No events overnight. The patient is sleeping, still on Victoriano-Synephrine drip. He is in no distress, afebrile. VITAL SIGNS: T-max 99.6, T-current 99.4, pulse 71, respirations 20, blood pressure 118/83, saturati on 95% on room air. WBC 19.9, H and H 13.7 and 39.8, platelets 369, no shift. BUN 7, creatinine 0.46. MICROBIOLOGY: Blood cultures since admission grew MRSA. Wound culture grew MRSA and E. coli. Repe at blood cultures again positive for gram-positive cocci. INDWELLINGS: The patient has PICC line. PHYSICAL EXAMINATION: GENERAL: This is a well-nourished, well-developed, middle-aged man who is in no distress. HEENT: Head atraumatic, normocephalic. Sclerae anicteric. Buccal mucosa dry. NECK: Supple. CHEST: Rise symmetrical. Breath sounds diminished to bases. HEART: S1, S2. ABDOMEN: Soft, bowel tones present. EXTREMITIES: Without cyanosis. ASSESSMENT 1. Septic shock. 2. Methicillin-resistant Staphylococcus aureus bacteremia secondary to #3. 3. Bilateral buttock abscess with wound culture growing Escherichia coli and methicillin-resistant Staphylococcus aureus, status post incision and drainage. 4. Psoriasis. 5. Poorly controlled diabetes. PLAN: The patient remains hemodynamically unstable, covered with vancomycin and Zosyn. He is also on rifampin. Surgery on case. Continue local wound care. Dictated By: JAIR RUCKER PIPE LAYER HELPER for BONIFACIO PAPPAS/KADE Conf#: [id number] DID#: [id number]
--- NOTE | 2017-08-20 17:39 | PN ---
Date/Time of Note Date/Time of Note DATE: 08/20/17 TIME: 17:30 Assessment/Plan Lines/Catheters IV Catheter Type (from [facility]): PICC Line Sharpe in Place (from [facility]): No Assessment/Plan Chief Complaint/Hosp Course 1. Sepsis with shock with Bacteremia and Buttock Cellulitis and Abscess: continued on pressors; s/p I&D 08/19 -iv abx -ivf -supportive -local care for buttock incisions; will increase dressing changes to twice a day 2. Bacteremia -as above -echo 3. DM: on insulin gtt -diet & medication optimization 4. Leukocytosis 2nd above -as above 5. Psoriasis -medical management 6. Tachycardia 2nd above: improved -as above -cardiology following 7. Anemia -monitor 8. Hypokalemia -replete 9. Hyponatremia -correct with fluid management Thank you. Patient seen and examined in collaboration with Dr. Mihir Zazueta. Problems: Subjective 24 Hr Interval Summary Feels better. Sacral pain improved. Continuous to have mod/large drainage from incision sites. Continues on pressors and insulin drip. No fevers, chills, sob, congested cough, rivas, dizziness, myalgias, change in tele rhythm. Exam/Review of Systems Vital Signs Vitals Vital Signs Date Time Temp Pulse Resp B/P Pulse Ox O2 Delivery O2 Flow Rate FiO2 08/20/17 16:30 84 22 102/72 97 08/20/17 16:00 98.7 08/20/17 06:00 Room Air Intake and Output 08/19/17 08/19/17 08/20/17 15:00 23:00 07:00 Intake Total 1912.498 ml 1301.166 ml 1377.999 ml Output Total 2000 ml 950 ml 1300 ml Balance -87.502 ml 351.166 ml 77.999 ml Exam Free Text/Dictation Constitutional: alert, oriented, No distress Psych: nl mood/affect, No anxiety, No confusion Head: atraumatic, normocephalic Eyes: EOMI, PERRL, nl conjunctiva, No icteric ENMT: mucosa pink and moist, nl external ears & nose Neck: non-tender, supple, No jvd Respiratory: normal air movement, No congested cough, No labored breathing Cardiovascular: No edema, No regular rate and rhythm Gastrointestinal: non-tender, soft, No distended, No rebound or guarding Genitourinary - Male: No CVA tenderness Musculoskeletal: nl extremities to inspection, No joint tenderness Extremities: normal pulses, No calf tenderness, No cyanosis, No edema Neurological: nl mental status, nl speech Skin: other (Bilateral buttock improved induration and improved tenderness; mod /large serosanguineous drainage, nonmalodorous), rash or lesions (psoriatic lesions), No diaphoresis, No nl turgor (dry) Lymph: nl lymph nodes Results Result Diagram: 08/20/17 0550 08/20/17 0550 DAMARIS LINTON NP Aug 20, 2017 17:39
[2017-08-20] MEDS: RIFAMPIN 600 MG in SOD CHLORIDE 0.9% 100 ML IVPB SCH (19:48)
[2017-08-20] MEDS ORDERED: INSULIN GLARGINE [LANtus] 3 ML PEN SC SCH (21:00)
[2017-08-20] MEDS: ACETAMINOPHEN 325 MG TAB PO PRN (23:32)
[2017-08-21] VITALS (84 sets, daily range): BP systolic 75–113; BP diastolic 56–85; PULSE 61–112; RESP 13–32
[2017-08-21] MEDS: PIPER-TAZO 3.375 GM IV (PMX) 100 ML IVPB SCH ×3 (00:01→11:55)
[2017-08-21 05:11] LABS: BASOPHIL # 0.1 10^3/ul (0.0-0.1); BASOPHILS % 0.4 % (0.0-2.0); EOSINOPHILS # 0.9 10^3/ul (0.0-0.5); EOSINOPHILS % 7.1 % (0.0-7.0); HEMATOCRIT 40.9 % (42.0-52.0); HEMOGLOBIN 13.8 g/dl (14.0-18.0); LYMPHOCYTES # 2.1 10^3/ul (0.8-2.9); LYMPHOCYTES % 16.4 % (15.0-51.0); MEAN CORPUSCULAR HEMOGLOBIN 29.4 pg (29.0-33.0); MEAN CORPUSCULAR HGB CONC 33.7 g/dl (32.0-37.0); MEAN CORPUSCULAR VOLUME 87.2 fl (82.0-101.0); MEAN PLATELET VOLUME 9.6 fl (7.4-10.4); MONOCYTE # 1.1 10^3/ul (0.3-0.9); MONOCYTES % 8.5 % (0.0-11.0); NEUTROPHIL # 8.3 10^3/ul (1.6-7.5); NEUTROPHILS % 64.3 % (39.0-77.0); PLATELET COUNT 276 10^3/UL (140-415); RED BLOOD COUNT 4.69 10^6/ul (4.70-6.10); RED CELL DISTRIBUTION WIDTH 12.7 % (11.5-14.5); WHITE BLOOD COUNT 12.9 10^3/ul (4.8-10.8)
[2017-08-21 05:20] LABS: ALBUMIN 2.7 g/dl (3.3-4.9); CALCIUM 8.4 mg/dl (8.4-10.2); CREATININE 0.51 mg/dl (0.61-1.24); MAGNESIUM 1.9 mg/dl (1.7-2.5); PHOSPHORUS 3.6 mg/dl (2.5-4.9); POTASSIUM 3.8 mmol/L (3.5-5.1)
[2017-08-21] MEDS: PHENYLephrine 40 MG in DEXTROSE 5% 496 ML IV SCH (05:29)
[2017-08-21] MEDS: VANCOMYCIN 1.5 GM in SOD CHLORIDE 0.9% 250 ML IVPB SCH ×3 (05:30→22:41)
[2017-08-21] MEDS: HYDROmorphONE 1 MG/ML SYG IV PRN (08:47)
[2017-08-21] MEDS: HYDROCORTISONE 1% 28.35 GM OINT TOP SCH ×2 (08:48→20:56)
[2017-08-21] MEDS ORDERED: POTASSIUM CHLORIDE 20 MEQ POWDER FOR ORAL SOLN PO ONE (09:00)
[2017-08-21] MEDS ORDERED: MAGNESIUM SULFATE 2 GM/50 ML 50 ML IVPB ONE (09:00)
[2017-08-21] MEDS: SODIUM HYPOCHLORITE 1/40% 1L IRRIG IRR SCH ×2 (09:01→20:56)
[2017-08-21] MEDS: FAMOTIDINE 20 MG TAB PO SCH ×2 (09:02→20:56)
[2017-08-21] MEDS: INSULIN ASPART [NOVOLOG] 3 ML PEN SC SCH ×7 (09:03→21:04)
--- NOTE | 2017-08-21 09:16 | CONS ---
Date/Time of Note Date/Time of Note DATE: 08/21/17 TIME: 09:14 Assessment/Plan Assessment/Plan Chief Complaint/Hosp Course NSVT: Unusual for the pt to have NSVT with normal EF, no e/o ischemia, no symptoms. No e/o endocarditis by TTE at least and no AVB by EKG to suggest abscess. No heart failure. ?from hypokalemia. Now resolved Septic shock: Unclear why pt is still requiring pressor support. BP cuff is large so will try a smaller cuff for BP assessment Bilateral buttock abscess Staph aureus bacteremia: from buttocks. No endocarditis or valvular dysfunction at least by TTE. If indicated and concern, may need THOMAS to eval but for now no indication. DM -wean phenylephrine -will replete K -once off pressors, can start BB -consider stress testing inpt vs outpt for NSVT Problems: Consultation Date/Type/Reason Admit Date/Time Aug 17, 2017 at 11:27 Initial Consult Date 08/18/17 Type of Consultation: Cardiology Referring Provider: FLORENCIA PRASAD MD 24 HR Interval Summary Free Text/Dictation No o/n events. No NSVT. Remains on pressor support Exam/Review of Systems Vital Signs Vitals Vital Signs Date Time Temp Pulse Resp B/P Pulse Ox O2 Delivery O2 Flow Rate FiO2 08/21/17 07:00 76 16 86/64 96 Room Air 08/21/17 04:00 97.8 Intake and Output 08/20/17 08/20/17 08/21/17 15:00 23:00 07:00 Intake Total 1856.333 ml 1228.500 ml 1191.916 ml Output Total 1600 ml 1350 ml 1350 ml Balance 256.333 ml -121.500 ml -158.084 ml Exam Constitutional: alert, oriented Psych: nl mood/affect, no complaints Head: atraumatic, normocephalic Neck: No jvd Respiratory: clear to auscultation, No crackles/rales Cardiovascular: regular rate and rhythm, No edema, No systolic murmur Gastrointestinal: non-tender, soft Neurological: nl mental status, nl speech Results Result Diagram: 08/21/17 0400 08/21/17 0441 Results 24 hrs Laboratory Tests Test 08/20/17 09:38 08/20/17 11:27 08/20/17 14:30 08/20/17 17:16 Bedside Glucose 160 213 123 150 Test 08/20/17 19:19 08/20/17 21:09 08/20/17 23:09 08/21/17 04:00 Bedside Glucose 199 159 163 White Blood Count 12.9 #H Red Blood Count 4.69 L Hemoglobin 13.8 L Hematocrit 40.9 L Mean Corpuscular Volume 87.2 Mean Corpuscular Hemoglobin 29.4 Mean Corpuscular Hemoglobin Concent 33.7 Red Cell Distribution Width 12.7 Platelet Count 276 Mean Platelet Volume 9.6 Neutrophils % 64.3 Lymphocytes % 16.4 Monocytes % 8.5 Eosinophils % 7.1 H Basophils % 0.4 Nucleated Red Blood Cells % 0.0 Neutrophils # 8.3 H Lymphocytes # 2.1 Monocytes # 1.1 H Eosinophils # 0.9 H Basophils # 0.1 Nucleated Red Blood Cells # 0.0 Test 08/21/17 04:41 08/21/17 08:41 Sodium Level 135 Potassium Level 3.8 Chloride Level 103 Carbon Dioxide Level 27 Anion Gap 9 Blood Urea Nitrogen 9 Creatinine 0.51 L Glucose Level 279 #H Calcium Level 8.4 Phosphorus Level 3.6 Magnesium Level 1.9 Albumin 2.7 L Bedside Glucose 272 H Medications Medications Current Medications Sodium Chloride (NS) 1,000 ml @ 70 mls/hr [id number] IV Last administered on 08/20 22:09; Admin Dose 70 MLS/HR; Start 08/17/17 at 07:27 Ondansetron HCl (Zofran Inj) 4 mg Q6H PRN IV NAUSEA AND/OR VOMITING; Start 08/17/17 at 07:30 Hydromorphone HCl (Dilaudid) 0.5 mg Q4H PRN IV SEVERE PAIN LEVEL 7-10 Last administered on 08/21/17 08:47; Admin Dose 0.5 MG; Start 08/17/17 at 07:30 Docusate Sodium (Colace) 100 mg Q12H PRN PO CONSTIPATION; Start 08/17/17 at 07: 30 Bisacodyl (Dulcolax) 5 mg DAILY PRN PO CONSTIPATION; Start 08/17/17 at 07:30 Famotidine (Pepcid) 20 mg Q12 PO Last administered on 08/21/17 09:02; Admin Dose 20 MG; Start 08/17/17 at 09:00 Miscellaneous Information 1 ea NOTE XX ; Start 08/17/17 at 08:00 IV Flush (NS 10 ml) 10 ml PRN PRN IV IV PROTOCOL; Start 08/17/17 at 14:30 Acetaminophen (Tylenol Tab) 650 mg Q4 PRN PO pain, fevers, headache Last administered on 08/20/17 23:32; Admin Dose 650 MG; Start 08/17/17 at 18:30 Mometasone Furoate 1 applic 1 applic DAILY TOP Last administered on 08/20/17 08:45; Admin Dose 1 APPLIC; Start 08/18/17 at 12:00 Rifampin 600 mg/ Sodium Chloride 100 ml @ 200 mls/hr DAILY@20 IVPB Last administered on 08/20/17 19:48; Admin Dose 200 MLS/HR; Start 08/18/17 at 20:00 ; Stop 09/02/17 at 21:00 Vancomycin HCl 1.5 gm/Sodium Chloride 250 ml @ 83.333 mls/ hr Q8H IVPB Last administered on 08/21/17 05:30; Admin Dose 83.333 MLS/HR; Start 08/19/17 at 06: 00 Piperacillin Sod/ Tazobactam Sod (Zosyn 3.375gm/ 100 ml (Pmx)) 100 ml @ 200 mls /hr Q6 IVPB Last administered on 08/21/17 05:27; Admin Dose 200 MLS/HR; Start 08/19/17 at 12:00 Insulin Glargine (Lantus) 9 unit QHS SC Last administered on 08/20/17 21:14; Admin Dose 9 UNIT; Start 08/20/17 at 21:00 Hydrocortisone (Hydrocortisone 1% Oint) 1 applic BID TOP Last administered on 08/21/17 08:48; Admin Dose 1 APPLIC; Start 08/20/17 at 11:30 Miscellaneous Information 1 ea NOTE XX ; Start 08/20/17 at 11:00 Glucose (Glutose) 15 gm Q15M PRN PO DECREASED GLUCOSE; Start 08/20/17 at 11:00 Glucose (Glutose) 22.5 gm Q15M PRN PO DECREASED GLUCOSE; Start 08/20/17 at 11: 00 Dextrose (D50w Syringe) 25 ml Q15M PRN IV DECREASED GLUCOSE; Start 08/20/17 at 11:00 Dextrose (D50w Syringe) 50 ml Q15M PRN IV DECREASED GLUCOSE; Start 08/20/17 at 11:00 Glucagon (Glucagen) 1 mg Q15M PRN IM DECREASED GLUCOSE; Start 08/20/17 at 11:00 Glucose (Glutose) 15 gm Q15M PRN BUCCAL DECREASED GLUCOSE; Start 08/20/17 at 11 :00 Sodium Hypochlorite (Dakin'S (Dilute 1/40%)) 1 applic BID IRR Last administered on 08/21/17 09:01; Admin Dose 1 APPLIC; Start 08/21/17 at 09:00 Insulin Aspart NOVOLOG *MILD* ALGORI... Q4 SC Last administered on 08/21/17 09 :04; Admin Dose 4 UNIT; Start 08/21/17 at 09:00 Phenylephrine HCl 40 mg/Sodium Chloride 500 ml @ 75 mls/hr TITRATE IV ; Start 08/21/17 at 07:00 Magnesium Sulfate (Magnesium Sulfate 2 Gm/50 ml) 50 ml @ 25 mls/hr ONCE ONCE IVPB ; Start 08/21/17 at 09:00; Stop 08/21/17 at 10:59 GRAHAM ANDREWS Aug 21, 2017 09:16
[2017-08-21] MEDS: MOMETASONE TOP SCH (09:23)
[2017-08-21] MEDS: SOD CHLORIDE 0.9% 1,000 ML IV SCH (11:58)
--- NOTE | 2017-08-21 11:58 | CONS ---
Date/Time of Note Date/Time of Note DATE: 08/21/17 TIME: 11:55 Consult Date/Type/Reason Admit Date/Time Aug 17, 2017 at 11:27 Initial Consult Date 08/18/17 Type of Consultation: Pulm/CCM Ordering Provider: FLORENCIA PRASAD MD Subjective No events; remains on neosynephrine gtt; BS glucose elevated. Objective Vital Signs Date Time Temp Pulse Resp B/P Pulse Ox O2 Delivery O2 Flow Rate FiO2 08/21/17 10:30 87 24 96/69 97 Room Air 08/21/17 08:00 98.0 Intake and Output 08/20/17 08/20/17 08/21/17 15:00 23:00 07:00 Intake Total 1856.333 ml 1228.500 ml 1261.916 ml Output Total 1600 ml 1350 ml 1350 ml Balance 256.333 ml -121.500 ml -88.084 ml Exam HEENT: Pupils equal, round, and reactive to light. CARDIAC: S1, S2, 1/6 systolic ejection murmur CHEST: Diminished air entry bilaterally. ABDOMEN: Mildly distended. Bowel sounds present no guarding or rebound EXTREMITIES: No cyanosis, clubbing edema +1 Results/Medications Result Diagram: 08/21/17 0400 08/21/17 0441 Results 24 hrs Laboratory Tests Test 08/20/17 14:30 08/20/17 17:16 08/20/17 19:19 08/20/17 21:09 Bedside Glucose 123 150 199 159 Test 08/20/17 23:09 08/21/17 04:00 08/21/17 04:41 08/21/17 08:41 Bedside Glucose 163 272 H White Blood Count 12.9 #H Red Blood Count 4.69 L Hemoglobin 13.8 L Hematocrit 40.9 L Mean Corpuscular Volume 87.2 Mean Corpuscular Hemoglobin 29.4 Mean Corpuscular Hemoglobin Concent 33.7 Red Cell Distribution Width 12.7 Platelet Count 276 Mean Platelet Volume 9.6 Neutrophils % 64.3 Lymphocytes % 16.4 Monocytes % 8.5 Eosinophils % 7.1 H Basophils % 0.4 Nucleated Red Blood Cells % 0.0 Neutrophils # 8.3 H Lymphocytes # 2.1 Monocytes # 1.1 H Eosinophils # 0.9 H Basophils # 0.1 Nucleated Red Blood Cells # 0.0 Sodium Level 135 Potassium Level 3.8 Chloride Level 103 Carbon Dioxide Level 27 Anion Gap 9 Blood Urea Nitrogen 9 Creatinine 0.51 L Glucose Level 279 #H Calcium Level 8.4 Phosphorus Level 3.6 Magnesium Level 1.9 Albumin 2.7 L Medications Current Medications Sodium Chloride (NS) 1,000 ml @ 70 mls/hr [id number] IV Last administered on 08/20 22:09; Admin Dose 70 MLS/HR; Start 08/17/17 at 07:27 Ondansetron HCl (Zofran Inj) 4 mg Q6H PRN IV NAUSEA AND/OR VOMITING; Start 08/17/17 at 07:30 Hydromorphone HCl (Dilaudid) 0.5 mg Q4H PRN IV SEVERE PAIN LEVEL 7-10 Last administered on 08/21/17 08:47; Admin Dose 0.5 MG; Start 08/17/17 at 07:30 Docusate Sodium (Colace) 100 mg Q12H PRN PO CONSTIPATION; Start 08/17/17 at 07: 30 Bisacodyl (Dulcolax) 5 mg DAILY PRN PO CONSTIPATION; Start 08/17/17 at 07:30 Famotidine (Pepcid) 20 mg Q12 PO Last administered on 08/21/17 09:02; Admin Dose 20 MG; Start 08/17/17 at 09:00 Miscellaneous Information 1 ea NOTE XX ; Start 08/17/17 at 08:00 IV Flush (NS 10 ml) 10 ml PRN PRN IV IV PROTOCOL; Start 08/17/17 at 14:30 Acetaminophen (Tylenol Tab) 650 mg Q4 PRN PO pain, fevers, headache Last administered on 08/20/17 23:32; Admin Dose 650 MG; Start 08/17/17 at 18:30 Mometasone Furoate 1 applic 1 applic DAILY TOP Last administered on 08/21/17 09:23; Admin Dose 1 APPLIC; Start 08/18/17 at 12:00 Rifampin 600 mg/ Sodium Chloride 100 ml @ 200 mls/hr DAILY@20 IVPB Last administered on 08/20/17 19:48; Admin Dose 200 MLS/HR; Start 08/18/17 at 20:00 ; Stop 09/02/17 at 21:00 Vancomycin HCl 1.5 gm/Sodium Chloride 250 ml @ 83.333 mls/ hr Q8H IVPB Last administered on 08/21/17 05:30; Admin Dose 83.333 MLS/HR; Start 08/19/17 at 06: 00 Piperacillin Sod/ Tazobactam Sod (Zosyn 3.375gm/ 100 ml (Pmx)) 100 ml @ 200 mls /hr Q6 IVPB Last administered on 08/21/17 05:27; Admin Dose 200 MLS/HR; Start 08/19/17 at 12:00 Hydrocortisone (Hydrocortisone 1% Oint) 1 applic BID TOP Last administered on 08/21/17 08:48; Admin Dose 1 APPLIC; Start 08/20/17 at 11:30 Miscellaneous Information 1 ea NOTE XX ; Start 08/20/17 at 11:00 Glucose (Glutose) 15 gm Q15M PRN PO DECREASED GLUCOSE; Start 08/20/17 at 11:00 Glucose (Glutose) 22.5 gm Q15M PRN PO DECREASED GLUCOSE; Start 08/20/17 at 11: 00 Dextrose (D50w Syringe) 25 ml Q15M PRN IV DECREASED GLUCOSE; Start 08/20/17 at 11:00 Dextrose (D50w Syringe) 50 ml Q15M PRN IV DECREASED GLUCOSE; Start 08/20/17 at 11:00 Glucagon (Glucagen) 1 mg Q15M PRN IM DECREASED GLUCOSE; Start 08/20/17 at 11:00 Glucose (Glutose) 15 gm Q15M PRN BUCCAL DECREASED GLUCOSE; Start 08/20/17 at 11 :00 Sodium Hypochlorite (Dakin'S (Dilute 1/40%)) 1 applic BID IRR Last administered on 08/21/17 09:01; Admin Dose 1 APPLIC; Start 08/21/17 at 09:00 Insulin Aspart NOVOLOG *MILD* ALGORI... Q4 SC Last administered on 08/21/17 09 :04; Admin Dose 4 UNIT; Start 08/21/17 at 09:00 Phenylephrine HCl/ Sodium Chloride (Victoriano-Syneph/NS) 500 ml @ 75 mls/hr TITRATE IV ; Start 08/21/17 at 07:00 Insulin Glargine (Lantus) 12 unit QHS SC ; Start 08/21/17 at 21:00 Assessment/Plan Additional Assessment/Plan IMP: 1. Septic shock 2. Buttock abscess status post I&D 3. Elevated troponin questionable non-ST elevation [place] 4. MRSA bacteremia, echocardiogram shows no vegetations. Preserved ejection fraction with diastolic dysfunction grade 1 5. Diabetes mellitus RECS: 1. Continue antibiotics 2. Wound care 3. Neosynephrine to MAP < 60 mm hg 4. Glycemic control--> increase lantus 5. Consider THOMAS Critical care time 40 minutes ASUNCION QUIROGA MD Aug 21, 2017 11:58
[2017-08-21] MEDS: CEFTRIAXONE 1 GM/50 ML (PMX) 50 ML IVPB SCH (13:37)
--- NOTE | 2017-08-21 16:38 | PN ---
Date/Time of Note Date/Time of Note DATE: 08/21/17 TIME: 16:30 Assessment/Plan VTE Prophylaxis VTE Prophylaxis Intervention: SCD's Lines/Catheters IV Catheter Type (from Nrs): Peripheral IV Urinary Cath still in place: No Assessment/Plan Assessment/Plan 1. Septic shock secondary to bacteremia and gluteal abscess - Patient growing MRSA in wound as well as on blood cultures - Still on pressor support and will wean to keep MAP >60 - ID on board and recommendations appreciated. Currently on Vancomycin, Zosyn, and Rifampin - WBC trending downward and will continue to monitor 2. Bacteremia - + MRSA - ID on board and appreciate assistance - ECHO ordered and no vegetation appreciated. If patient does not improve may need to do THOMAS 3. Diabetes mellitus, poorly controlled - A1c 12.2 - chemical educator recommendations appreciated. - Changed to Lantus and will increase dose 14units qHS. Will continue adjusting to keep sugars better controlled 4. Gluteal abscess s/p I&D 08/19/17 - Surgery on board and consultation appreciated. - Growing MRSA and Ecoli 5. Hypotension - Will continue on Levophed and wean as tolerated to keep MAP >60 6. Episodes of NSVT - Cardiology consult placed and recommendations appreciated - Most likely secondary to bacteremia and will continue monitoring - once off pressors will start on BB. If vtach episodes persistent or frequent consider amiodarone and stress test 7. Hypokalemia - stalbe 8. Psoriatic plaques - hydrocortisone cream - May need to seek out Rheum upon discharge 9. Disposition - Patient still requiring pressor support, will remain in ICU >35 minutes spent providing critical care to patient. All questions and concerns addressed and answered. Subjective 24 Hr Interval Summary Free Text/Dictation Patient states he's feeling better but still having discomfort in buttocks area. Slept better last night since q1 hr accuchecks no longer necessary. Still requiring pressor support but no new complaints and no acute overnight events. Exam/Review of Systems Vital Signs Vitals Vital Signs Date Time Temp Pulse Resp B/P Pulse Ox O2 Delivery O2 Flow Rate FiO2 08/21/17 16:00 83 08/21/17 14:15 22 96 08/21/17 14:00 101/75 Room Air 08/21/17 12:00 97.8 Intake and Output 08/20/17 08/20/17 08/21/17 15:00 23:00 07:00 Intake Total 1856.333 ml 1228.500 ml 1261.916 ml Output Total 1600 ml 1350 ml 1350 ml Balance 256.333 ml -121.500 ml -88.084 ml Exam General: NAD, awake and alert HEENT:NC/AT, PERRL, EOM intact Neck: Supple with full range of motion. Lungs: Clear to auscultation bilaterally no crackles rales or wheezing Heart: Normal S1-S2, Regular rhythm and rate no overt murmur appreciated Abdomen: Soft , nontender, nondistended , bowel sounds are present. No guarding no rebound tenderness , Extremities: Normal to inspection, no edema no cyanosis Neurologic: Normal mental status, speech normal, cranial nerves II through XII are intact, motor and sensory are intact, no focal weakness Skin: dressing in place over area of I&D. Mild tenderness to palpation. diffuse scaly patches on UE and LE bilaterally. Results Result Diagram: 08/21/17 0400 08/21/17 0441 Results 24 hrs Laboratory Tests Test 08/20/17 17:16 08/20/17 19:19 08/20/17 21:09 08/20/17 23:09 Bedside Glucose 150 199 159 163 Test 08/21/17 04:00 08/21/17 04:41 08/21/17 08:41 08/21/17 11:53 White Blood Count 12.9 #H Red Blood Count 4.69 L Hemoglobin 13.8 L Hematocrit 40.9 L Mean Corpuscular Volume 87.2 Mean Corpuscular Hemoglobin 29.4 Mean Corpuscular Hemoglobin Concent 33.7 Red Cell Distribution Width 12.7 Platelet Count 276 Mean Platelet Volume 9.6 Neutrophils % 64.3 Lymphocytes % 16.4 Monocytes % 8.5 Eosinophils % 7.1 H Basophils % 0.4 Nucleated Red Blood Cells % 0.0 Neutrophils # 8.3 H Lymphocytes # 2.1 Monocytes # 1.1 H Eosinophils # 0.9 H Basophils # 0.1 Nucleated Red Blood Cells # 0.0 Sodium Level 135 Potassium Level 3.8 Chloride Level 103 Carbon Dioxide Level 27 Anion Gap 9 Blood Urea Nitrogen 9 Creatinine 0.51 L Glucose Level 279 #H Calcium Level 8.4 Phosphorus Level 3.6 Magnesium Level 1.9 Albumin 2.7 L Bedside Glucose 272 H 306 H Medications Medications Current Medications Sodium Chloride (NS) 1,000 ml @ 70 mls/hr [id number] IV Last administered on 08/21 11:58; Admin Dose 70 MLS/HR; Start 08/17/17 at 07:27 Ondansetron HCl (Zofran Inj) 4 mg Q6H PRN IV NAUSEA AND/OR VOMITING; Start 08/17/17 at 07:30 Hydromorphone HCl (Dilaudid) 0.5 mg Q4H PRN IV SEVERE PAIN LEVEL 7-10 Last administered on 08/21/17 08:47; Admin Dose 0.5 MG; Start 08/17/17 at 07:30 Docusate Sodium (Colace) 100 mg Q12H PRN PO CONSTIPATION; Start 08/17/17 at 07: 30 Bisacodyl (Dulcolax) 5 mg DAILY PRN PO CONSTIPATION; Start 08/17/17 at 07:30 Famotidine (Pepcid) 20 mg Q12 PO Last administered on 08/21/17 09:02; Admin Dose 20 MG; Start 08/17/17 at 09:00 Miscellaneous Information 1 ea NOTE XX ; Start 08/17/17 at 08:00 IV Flush (NS 10 ml) 10 ml PRN PRN IV IV PROTOCOL; Start 08/17/17 at 14:30 Acetaminophen (Tylenol Tab) 650 mg Q4 PRN PO pain, fevers, headache Last administered on 08/20/17 23:32; Admin Dose 650 MG; Start 08/17/17 at 18:30 Mometasone Furoate 1 applic 1 applic DAILY TOP Last administered on 08/21/17 09:23; Admin Dose 1 APPLIC; Start 08/18/17 at 12:00 Rifampin 600 mg/ Sodium Chloride 100 ml @ 200 mls/hr DAILY@20 IVPB Last administered on 08/20/17 19:48; Admin Dose 200 MLS/HR; Start 08/18/17 at 20:00 ; Stop 09/02/17 at 21:00 Vancomycin HCl/ Sodium Chloride (Vancocin/NS) 250 ml @ 83.333 mls/ hr Q8H IVPB Last administered on 08/21/17 14:22; Admin Dose 83.333 MLS/HR; Start at 06:00 Hydrocortisone (Hydrocortisone 1% Oint) 1 applic BID TOP Last administered on 08/21/17 08:48; Admin Dose 1 APPLIC; Start 08/20/17 at 11:30 Miscellaneous Information 1 ea NOTE XX ; Start 08/20/17 at 11:00 Glucose (Glutose) 15 gm Q15M PRN PO DECREASED GLUCOSE; Start 08/20/17 at 11:00 Glucose (Glutose) 22.5 gm Q15M PRN PO DECREASED GLUCOSE; Start 08/20/17 at 11: 00 Dextrose (D50w Syringe) 25 ml Q15M PRN IV DECREASED GLUCOSE; Start 08/20/17 at 11:00 Dextrose (D50w Syringe) 50 ml Q15M PRN IV DECREASED GLUCOSE; Start 08/20/17 at 11:00 Glucagon (Glucagen) 1 mg Q15M PRN IM DECREASED GLUCOSE; Start 08/20/17 at 11:00 Glucose (Glutose) 15 gm Q15M PRN BUCCAL DECREASED GLUCOSE; Start 08/20/17 at 11 :00 Sodium Hypochlorite (Dakin'S (Dilute 1/40%)) 1 applic BID IRR Last administered on 08/21/17 09:01; Admin Dose 1 APPLIC; Start 08/21/17 at 09:00 Insulin Aspart NOVOLOG *MILD* ALGORI... Q4 SC Last administered on 08/21/17 11 :58; Admin Dose 5 UNIT; Start 08/21/17 at 09:00 Phenylephrine HCl/ Sodium Chloride (Victoriano-Syneph/NS) 500 ml @ 75 mls/hr TITRATE IV ; Start 08/21/17 at 07:00 Insulin Glargine 14 unit 14 unit QHS SC ; Start 08/21/17 at 21:00 Ceftriaxone Sodium (Rocephin) 50 ml @ 100 mls/hr Q24H IVPB Last administered on 08/21/17 13:37; Admin Dose 100 MLS/HR; Start 08/21/17 at 13:30 FLORENCIA PRASAD MD Aug 21, 2017 16:38
--- NOTE | 2017-08-21 17:07 | PN ---
Date/Time of Note Date/Time of Note DATE: 08/21/17 TIME: 17:02 Assessment/Plan Lines/Catheters IV Catheter Type (from [facility]): Peripheral IV Sharpe in Place (from [facility]): No Assessment/Plan Chief Complaint/Hosp Course 1. Sepsis with shock with Bacteremia and Buttock Cellulitis and Abscess: still on pressors; s/p I&D 08/19, cultures noted -iv abx -ivf -supportive -local care for buttock incisions 2. Bacteremia -as above -echo 3. DM: on insulin gtt: labile sugars -diet & medication optimization 4. Leukocytosis 2nd above: improving -as above 5. Psoriasis -medical management 6. Tachycardia 2nd above: improved; Sr/st -as above -cardiology following 7. Anemia -monitor Thank you. Patient seen and examined in collaboration with Dr. Mihir Zazueta. Problems: Subjective 24 Hr Interval Summary Leukocytosis improved. No fevers, chills, myalgias, n/v/d/dysuria. Continues on pressors. Improved amount of drainage from wound. One time report of bleeding from wound when patient stood but bleeding stopped currently. Exam/Review of Systems Vital Signs Vitals Vital Signs Date Time Temp Pulse Resp B/P Pulse Ox O2 Delivery O2 Flow Rate FiO2 08/21/17 16:00 83 08/21/17 14:15 22 96 08/21/17 14:00 101/75 Room Air 08/21/17 12:00 97.8 Intake and Output 08/20/17 08/20/17 08/21/17 15:00 23:00 07:00 Intake Total 1856.333 ml 1228.500 ml 1261.916 ml Output Total 1600 ml 1350 ml 1350 ml Balance 256.333 ml -121.500 ml -88.084 ml Exam Free Text/Dictation Constitutional: alert, oriented, No distress Psych: nl mood/affect, No anxiety, No confusion Head: atraumatic, normocephalic Eyes: EOMI, PERRL, nl conjunctiva, No icteric ENMT: mucosa pink and moist, nl external ears & nose Neck: non-tender, supple, No jvd Respiratory: normal air movement, No congested cough, No labored breathing Cardiovascular: No edema, No regular rate and rhythm Gastrointestinal: non-tender, soft, No distended, No rebound or guarding Genitourinary - Male: No CVA tenderness Musculoskeletal: nl extremities to inspection, No joint tenderness Extremities: normal pulses, No calf tenderness, No cyanosis, No edema Neurological: nl mental status, nl speech Skin: other (Bilateral buttock improved induration and improved tenderness; improved drainage, nonmalodorous), rash or lesions (psoriatic lesions), No diaphoresis, No nl turgor (dry) Lymph: nl lymph nodes Results Result Diagram: 08/21/17 0400 08/21/17 0441 DAMARIS LINTON NP Aug 21, 2017 17:07
[2017-08-21] MEDS: RIFAMPIN 600 MG in SOD CHLORIDE 0.9% 100 ML IVPB SCH (20:56)
[2017-08-21] MEDS ORDERED: INSULIN GLARGINE [LANtus] 3 ML PEN SC SCH ×2 (21:00)
[2017-08-21] MEDS: PHENYLephrine 40 MG in SOD CHLORIDE 0.9% 496 ML IV SCH (22:41)
[2017-08-22] VITALS (75 sets, daily range): BP systolic 80–115; BP diastolic 53–89; PULSE 79–112; RESP 11–30
[2017-08-22] MEDS: INSULIN ASPART [NOVOLOG] 3 ML PEN SC SCH ×9 (01:15→21:21)
[2017-08-22] MEDS: SOD CHLORIDE 0.9% 1,000 ML IV SCH ×2 (01:51→17:37)
[2017-08-22] MEDS ORDERED: ACCU-CHEK XX SCH (02:00)
[2017-08-22 04:44] LABS: BASOPHIL # 0.1 10^3/ul (0.0-0.1); BASOPHILS % 0.5 % (0.0-2.0); EOSINOPHILS # 0.7 10^3/ul (0.0-0.5); EOSINOPHILS % 6.6 % (0.0-7.0); HEMATOCRIT 38.5 % (42.0-52.0); LYMPHOCYTES # 1.9 10^3/ul (0.8-2.9); LYMPHOCYTES % 17.2 % (15.0-51.0); MEAN CORPUSCULAR HEMOGLOBIN 29.5 pg (29.0-33.0); MEAN CORPUSCULAR HGB CONC 33.8 g/dl (32.0-37.0); MEAN CORPUSCULAR VOLUME 87.5 fl (82.0-101.0); MEAN PLATELET VOLUME 9.6 fl (7.4-10.4); MONOCYTE # 1.1 10^3/ul (0.3-0.9); MONOCYTES % 9.4 % (0.0-11.0); NEUTROPHILS % 62.1 % (39.0-77.0); PLATELET COUNT 317 10^3/UL (140-415); RED CELL DISTRIBUTION WIDTH 12.6 % (11.5-14.5); WHITE BLOOD COUNT 11.3 10^3/ul (4.8-10.8)
[2017-08-22] MEDS: HYDROmorphONE 1 MG/ML SYG IV PRN (04:45)
[2017-08-22 05:22] LABS: ALBUMIN 2.5 g/dl (3.3-4.9); CALCIUM 8.2 mg/dl (8.4-10.2); CREATININE 0.49 mg/dl (0.61-1.24); MAGNESIUM 1.9 mg/dl (1.7-2.5); PHOSPHORUS 3.7 mg/dl (2.5-4.9)
[2017-08-22] MEDS: VANCOMYCIN 1.5 GM in SOD CHLORIDE 0.9% 250 ML IVPB SCH ×2 (05:56→15:03)
[2017-08-22] MEDS: HYDROCORTISONE 1% 28.35 GM OINT TOP SCH ×2 (09:00→21:35)
[2017-08-22] MEDS: FAMOTIDINE 20 MG TAB PO SCH ×2 (09:00→21:35)
[2017-08-22] MEDS: MOMETASONE TOP SCH (09:00)
[2017-08-22] MEDS: SODIUM HYPOCHLORITE 1/40% 1L IRRIG IRR SCH ×2 (09:01→21:35)
--- NOTE | 2017-08-22 10:41 | PN ---
Date/Time of Note Date/Time of Note DATE: 08/22/17 TIME: 10:41 Assessment/Plan VTE Prophylaxis VTE Prophylaxis Intervention: SCD's Lines/Catheters IV Catheter Type (from Nrsg): PICC Line Central line still needed: Yes Urinary Cath still in place: No Assessment/Plan Assessment/Plan 1. Septic shock secondary to bacteremia and gluteal abscess - Patient growing MRSA in wound as well as on blood cultures - Still on pressor support and will wean to keep MAP >60 - ID on board and recommendations appreciated. Currently on Vancomycin, Zosyn, and Rifampin - WBC trending downward and will continue to monitor 2. Bacteremia - + MRSA - ID on board and appreciate assistance - ECHO ordered and no vegetation appreciated. If patient does not improve may need to do THOMAS 3. Diabetes mellitus, poorly controlled - A1c 12.2 - nurses educator recommendations appreciated. - Changed to Lantus and will increase dose 19units qHS and Novolog to 7units with meals. Will continue adjusting to keep sugars better controlled 4. Gluteal abscess s/p I&D 08/19/17 - Surgery on board and consultation appreciated. - Growing MRSA and Ecoli 5. Hypotension - Will continue on Levophed and wean as tolerated to keep MAP >60 6. Episodes of NSVT - Cardiology consult placed and recommendations appreciated - Most likely secondary to bacteremia and will continue monitoring - once off pressors will start on BB. If vtach episodes persistent or frequent consider amiodarone and stress test 7. Hypokalemia - stable 8. Psoriatic plaques - hydrocortisone cream - May need to seek out Rheum upon discharge 9. Disposition - Patient still requiring pressor support, will remain in ICU >30 minutes spent providing critical care to patient. All questions and concerns addressed and answered. Subjective 24 Hr Interval Summary Free Text/Dictation Patient states buttocks improving and has more discomfort than pain. Denies any new complaints and hydrocortisone has been helping with diffuse pruritus. No acute overnight events. Still requiring pressor support and ICU monitoring. Exam/Review of Systems Vital Signs Vitals Vital Signs Date Time Temp Pulse Resp B/P Pulse Ox O2 Delivery O2 Flow Rate FiO2 08/22/17 08:15 89 13 100/69 99 08/22/17 08:00 97.7 Room Air Intake and Output 08/21/17 08/21/17 08/22/17 15:00 23:00 07:00 Intake Total 610 ml 1420 ml 100 ml Output Total 1250 ml 350 ml Balance -640 ml 1070 ml 100 ml Exam General: NAD, awake and alert HEENT:NC/AT, PERRL, EOM intact Neck: Supple with full range of motion. Lungs: Clear to auscultation bilaterally no crackles rales or wheezing Heart: Normal S1-S2, Regular rhythm and rate no overt murmur appreciated Abdomen: Soft , nontender, nondistended , bowel sounds are present. No guarding no rebound tenderness , Extremities: Normal to inspection, no edema no cyanosis Neurologic: Normal mental status, speech normal, cranial nerves II through XII are intact, motor and sensory are intact, no focal weakness Skin: dressing in place and incisions appear clean with no discharge or drainage. diffuse scaly patches on UE and LE bilaterally. Results Result Diagram: 08/22/17 0430 08/22/17 0430 Results 24 hrs Laboratory Tests Test 08/21/17 11:53 08/21/17 16:31 08/21/17 20:41 08/22/17 01:11 Bedside Glucose 306 H 256 H 265 H 298 H Test 08/22/17 04:28 08/22/17 04:30 08/22/17 08:46 Bedside Glucose 197 207 White Blood Count 11.3 H Red Blood Count 4.40 L Hemoglobin 13.0 L Hematocrit 38.5 L Mean Corpuscular Volume 87.5 Mean Corpuscular Hemoglobin 29.5 Mean Corpuscular Hemoglobin Concent 33.8 Red Cell Distribution Width 12.6 Platelet Count 317 Mean Platelet Volume 9.6 Neutrophils % 62.1 Lymphocytes % 17.2 Monocytes % 9.4 Eosinophils % 6.6 Basophils % 0.5 Nucleated Red Blood Cells % 0.0 Neutrophils # 7.0 Lymphocytes # 1.9 Monocytes # 1.1 H Eosinophils # 0.7 H Basophils # 0.1 Nucleated Red Blood Cells # 0.0 Sodium Level 134 L Potassium Level 4.0 Chloride Level 101 Carbon Dioxide Level 28 Anion Gap 9 Blood Urea Nitrogen 12 Creatinine 0.49 L Glucose Level 225 H Calcium Level 8.2 L Phosphorus Level 3.7 Magnesium Level 1.9 Albumin 2.5 L Medications Medications Current Medications Sodium Chloride (NS) 1,000 ml @ 70 mls/hr [id number] IV Last administered on 08/22 01:51; Admin Dose 70 MLS/HR; Start 08/17/17 at 07:27 Ondansetron HCl (Zofran Inj) 4 mg Q6H PRN IV NAUSEA AND/OR VOMITING; Start 08/17/17 at 07:30 Hydromorphone HCl (Dilaudid) 0.5 mg Q4H PRN IV SEVERE PAIN LEVEL 7-10 Last administered on 08/22/17 04:45; Admin Dose 0.5 MG; Start 08/17/17 at 07:30 Docusate Sodium (Colace) 100 mg Q12H PRN PO CONSTIPATION; Start 08/17/17 at 07: 30 Bisacodyl (Dulcolax) 5 mg DAILY PRN PO CONSTIPATION; Start 08/17/17 at 07:30 Famotidine (Pepcid) 20 mg Q12 PO Last administered on 08/22/17 09:00; Admin Dose 20 MG; Start 08/17/17 at 09:00 Miscellaneous Information 1 ea NOTE XX ; Start 08/17/17 at 08:00 IV Flush (NS 10 ml) 10 ml PRN PRN IV IV PROTOCOL; Start 08/17/17 at 14:30 Acetaminophen (Tylenol Tab) 650 mg Q4 PRN PO pain, fevers, headache Last administered on 08/20/17 23:32; Admin Dose 650 MG; Start 08/17/17 at 18:30 Mometasone Furoate 1 applic 1 applic DAILY TOP Last administered on 08/22/17 09:00; Admin Dose 1 APPLIC; Start 08/18/17 at 12:00 Rifampin 600 mg/ Sodium Chloride 100 ml @ 200 mls/hr DAILY@20 IVPB Last administered on 08/21/17 20:56; Admin Dose 200 MLS/HR; Start 08/18/17 at 20:00 ; Stop 09/02/17 at 21:00 Vancomycin HCl/ Sodium Chloride (Vancocin/NS) 250 ml @ 83.333 mls/ hr Q8H IVPB Last administered on 08/22/17 05:56; Admin Dose 83.333 MLS/HR; Start at 06:00 Hydrocortisone (Hydrocortisone 1% Oint) 1 applic BID TOP Last administered on 08/22/17 09:00; Admin Dose 1 APPLIC; Start 08/20/17 at 11:30 Miscellaneous Information 1 ea NOTE XX ; Start 08/20/17 at 11:00 Glucose (Glutose) 15 gm Q15M PRN PO DECREASED GLUCOSE; Start 08/20/17 at 11:00 Glucose (Glutose) 22.5 gm Q15M PRN PO DECREASED GLUCOSE; Start 08/20/17 at 11: 00 Dextrose (D50w Syringe) 25 ml Q15M PRN IV DECREASED GLUCOSE; Start 08/20/17 at 11:00 Dextrose (D50w Syringe) 50 ml Q15M PRN IV DECREASED GLUCOSE; Start 08/20/17 at 11:00 Glucagon (Glucagen) 1 mg Q15M PRN IM DECREASED GLUCOSE; Start 08/20/17 at 11:00 Glucose (Glutose) 15 gm Q15M PRN BUCCAL DECREASED GLUCOSE; Start 08/20/17 at 11 :00 Sodium Hypochlorite (Dakin'S (Dilute 1/40%)) 1 applic BID IRR Last administered on 08/22/17 09:01; Admin Dose 1 APPLIC; Start 08/21/17 at 09:00 Insulin Aspart NOVOLOG *MILD* ALGORI... Q4 SC Last administered on 08/22/17 08 :51; Admin Dose 2 UNIT; Start 08/21/17 at 09:00 Phenylephrine HCl 40 mg/Sodium Chloride 500 ml @ 75 mls/hr TITRATE IV Last administered on 08/21/17 22:41; Admin Dose 30 MLS/HR; Start 08/21/17 at 07:00 Ceftriaxone Sodium (Rocephin) 50 ml @ 100 mls/hr Q24H IVPB Last administered on 08/21/17 13:37; Admin Dose 100 MLS/HR; Start 08/21/17 at 13:30 Insulin Glargine (Lantus) 19 unit QHS SC ; Start 08/22/17 at 21:00 FLORENCIA PRASAD MD Aug 22, 2017 10:41
--- NOTE | 2017-08-22 12:06 | CONS ---
Date/Time of Note Date/Time of Note DATE: 08/22/17 TIME: 12:04 Consult Date/Type/Reason Admit Date/Time Aug 17, 2017 at 11:27 Initial Consult Date 08/18/17 Type of Consultation: Pulm/CCM Ordering Provider: FLORENCIA PRASAD MD Subjective No events. Remains on neosynephrine gtt. Objective Vital Signs Date Time Temp Pulse Resp B/P Pulse Ox O2 Delivery O2 Flow Rate FiO2 08/22/17 08:15 89 13 100/69 99 08/22/17 08:00 97.7 Room Air Intake and Output 08/21/17 08/21/17 08/22/17 15:00 23:00 07:00 Intake Total 610 ml 1420 ml 100 ml Output Total 1250 ml 350 ml Balance -640 ml 1070 ml 100 ml Exam HEENT: Pupils equal, round, and reactive to light. CARDIAC: S1, S2, 1/6 systolic ejection murmur CHEST: Diminished air entry bilaterally. ABDOMEN: Mildly distended. Bowel sounds present no guarding or rebound EXTREMITIES: No cyanosis, clubbing edema +1 Results/Medications Result Diagram: 08/22/17 0430 08/22/17 0430 Results 24 hrs Laboratory Tests Test 08/21/17 16:31 08/21/17 20:41 08/22/17 01:11 08/22/17 04:28 Bedside Glucose 256 H 265 H 298 H 197 Test 08/22/17 04:30 08/22/17 08:46 White Blood Count 11.3 H Red Blood Count 4.40 L Hemoglobin 13.0 L Hematocrit 38.5 L Mean Corpuscular Volume 87.5 Mean Corpuscular Hemoglobin 29.5 Mean Corpuscular Hemoglobin Concent 33.8 Red Cell Distribution Width 12.6 Platelet Count 317 Mean Platelet Volume 9.6 Neutrophils % 62.1 Lymphocytes % 17.2 Monocytes % 9.4 Eosinophils % 6.6 Basophils % 0.5 Nucleated Red Blood Cells % 0.0 Neutrophils # 7.0 Lymphocytes # 1.9 Monocytes # 1.1 H Eosinophils # 0.7 H Basophils # 0.1 Nucleated Red Blood Cells # 0.0 Sodium Level 134 L Potassium Level 4.0 Chloride Level 101 Carbon Dioxide Level 28 Anion Gap 9 Blood Urea Nitrogen 12 Creatinine 0.49 L Glucose Level 225 H Calcium Level 8.2 L Phosphorus Level 3.7 Magnesium Level 1.9 Albumin 2.5 L Bedside Glucose 207 Medications Current Medications Sodium Chloride (NS) 1,000 ml @ 70 mls/hr [id number] IV Last administered on 08/22 01:51; Admin Dose 70 MLS/HR; Start 08/17/17 at 07:27 Ondansetron HCl (Zofran Inj) 4 mg Q6H PRN IV NAUSEA AND/OR VOMITING; Start 08/17/17 at 07:30 Hydromorphone HCl (Dilaudid) 0.5 mg Q4H PRN IV SEVERE PAIN LEVEL 7-10 Last administered on 08/22/17 04:45; Admin Dose 0.5 MG; Start 08/17/17 at 07:30 Docusate Sodium (Colace) 100 mg Q12H PRN PO CONSTIPATION; Start 08/17/17 at 07: 30 Bisacodyl (Dulcolax) 5 mg DAILY PRN PO CONSTIPATION; Start 08/17/17 at 07:30 Famotidine (Pepcid) 20 mg Q12 PO Last administered on 08/22/17 09:00; Admin Dose 20 MG; Start 08/17/17 at 09:00 Miscellaneous Information 1 ea NOTE XX ; Start 08/17/17 at 08:00 IV Flush (NS 10 ml) 10 ml PRN PRN IV IV PROTOCOL; Start 08/17/17 at 14:30 Acetaminophen (Tylenol Tab) 650 mg Q4 PRN PO pain, fevers, headache Last administered on 08/20/17 23:32; Admin Dose 650 MG; Start 08/17/17 at 18:30 Mometasone Furoate 1 applic 1 applic DAILY TOP Last administered on 08/22/17 09:00; Admin Dose 1 APPLIC; Start 08/18/17 at 12:00 Rifampin 600 mg/ Sodium Chloride 100 ml @ 200 mls/hr DAILY@20 IVPB Last administered on 08/21/17 20:56; Admin Dose 200 MLS/HR; Start 08/18/17 at 20:00 ; Stop 09/02/17 at 21:00 Vancomycin HCl/ Sodium Chloride (Vancocin/NS) 250 ml @ 83.333 mls/ hr Q8H IVPB Last administered on 08/22/17 05:56; Admin Dose 83.333 MLS/HR; Start at 06:00 Hydrocortisone (Hydrocortisone 1% Oint) 1 applic BID TOP Last administered on 08/22/17 09:00; Admin Dose 1 APPLIC; Start 08/20/17 at 11:30 Miscellaneous Information 1 ea NOTE XX ; Start 08/20/17 at 11:00 Glucose (Glutose) 15 gm Q15M PRN PO DECREASED GLUCOSE; Start 08/20/17 at 11:00 Glucose (Glutose) 22.5 gm Q15M PRN PO DECREASED GLUCOSE; Start 08/20/17 at 11: 00 Dextrose (D50w Syringe) 25 ml Q15M PRN IV DECREASED GLUCOSE; Start 08/20/17 at 11:00 Dextrose (D50w Syringe) 50 ml Q15M PRN IV DECREASED GLUCOSE; Start 08/20/17 at 11:00 Glucagon (Glucagen) 1 mg Q15M PRN IM DECREASED GLUCOSE; Start 08/20/17 at 11:00 Glucose (Glutose) 15 gm Q15M PRN BUCCAL DECREASED GLUCOSE; Start 08/20/17 at 11 :00 Sodium Hypochlorite (Dakin'S (Dilute 1/40%)) 1 applic BID IRR Last administered on 08/22/17 09:01; Admin Dose 1 APPLIC; Start 08/21/17 at 09:00 Insulin Aspart NOVOLOG *MILD* ALGORI... Q4 SC Last administered on 08/22/17 08 :51; Admin Dose 2 UNIT; Start 08/21/17 at 09:00 Phenylephrine HCl 40 mg/Sodium Chloride 500 ml @ 75 mls/hr TITRATE IV Last administered on 08/21/17 22:41; Admin Dose 30 MLS/HR; Start 08/21/17 at 07:00 Ceftriaxone Sodium (Rocephin) 50 ml @ 100 mls/hr Q24H IVPB Last administered on 08/21/17 13:37; Admin Dose 100 MLS/HR; Start 08/21/17 at 13:30 Insulin Glargine (Lantus) 19 unit QHS SC ; Start 08/22/17 at 21:00 Miscellaneous Information (*Rx Drug Level Order Reminder*) VANCOMYCIN TROUGH AT 2100 ONCE ONCE XX ; Start 08/23/17 at 21:00; Stop 08/23/17 at 21:01 Assessment/Plan Additional Assessment/Plan IMP: 1. Septic shock 2. Buttock abscess status post I&D 3. Elevated troponin questionable non-ST elevation W[place] 4. MRSA bacteremia, echocardiogram shows no vegetations. Preserved ejection fraction with diastolic dysfunction grade 1 5. Diabetes mellitus RECS: 1. Continue antibiotics per ID 2. Wound care 3. Neosynephrine to MAP > 60 mm hg 4. Glycemic control--> increase lantus 5. Consider THOMAS 6. PT/OT 7. Optimize nutrition Critical care time 40 minutes ASUNCION QUIROGA MD Aug 22, 2017 12:06
[2017-08-22] MEDS: CEFTRIAXONE 1 GM/50 ML (PMX) 50 ML IVPB SCH (12:50)
--- NOTE | 2017-08-22 13:11 | CONS ---
Date/Time of Note Date/Time of Note DATE: 08/22/17 TIME: 13:11 Assessment/Plan Assessment/Plan Chief Complaint/Hosp Course Full note dictated [id number] Problems: Consultation Date/Type/Reason Admit Date/Time Aug 17, 2017 at 11:27 Initial Consult Date 08/18/17 Type of Consultation: ID Referring Provider: FLORENCIA PRASAD MD Exam/Review of Systems Vital Signs Vitals Vital Signs Date Time Temp Pulse Resp B/P Pulse Ox O2 Delivery O2 Flow Rate FiO2 08/22/17 12:45 97 20 103/85 97 08/22/17 12:00 98.5 Room Air Intake and Output 08/21/17 08/21/17 08/22/17 15:00 23:00 07:00 Intake Total 610 ml 1420 ml 100 ml Output Total 1250 ml 350 ml Balance -640 ml 1070 ml 100 ml Results Result Diagram: 08/22/17 0430 08/22/17 0430 Results 24 hrs Laboratory Tests Test 08/21/17 16:31 08/21/17 20:41 08/22/17 01:11 08/22/17 04:28 Bedside Glucose 256 H 265 H 298 H 197 Test 08/22/17 04:30 08/22/17 08:46 08/22/17 12:43 White Blood Count 11.3 H Red Blood Count 4.40 L Hemoglobin 13.0 L Hematocrit 38.5 L Mean Corpuscular Volume 87.5 Mean Corpuscular Hemoglobin 29.5 Mean Corpuscular Hemoglobin Concent 33.8 Red Cell Distribution Width 12.6 Platelet Count 317 Mean Platelet Volume 9.6 Neutrophils % 62.1 Lymphocytes % 17.2 Monocytes % 9.4 Eosinophils % 6.6 Basophils % 0.5 Nucleated Red Blood Cells % 0.0 Neutrophils # 7.0 Lymphocytes # 1.9 Monocytes # 1.1 H Eosinophils # 0.7 H Basophils # 0.1 Nucleated Red Blood Cells # 0.0 Sodium Level 134 L Potassium Level 4.0 Chloride Level 101 Carbon Dioxide Level 28 Anion Gap 9 Blood Urea Nitrogen 12 Creatinine 0.49 L Glucose Level 225 H Calcium Level 8.2 L Phosphorus Level 3.7 Magnesium Level 1.9 Albumin 2.5 L Bedside Glucose 207 281 H Medications Medications Current Medications Sodium Chloride (NS) 1,000 ml @ 70 mls/hr [id number] IV Last administered on 08/22 01:51; Admin Dose 70 MLS/HR; Start 08/17/17 at 07:27 Ondansetron HCl (Zofran Inj) 4 mg Q6H PRN IV NAUSEA AND/OR VOMITING; Start 08/17/17 at 07:30 Hydromorphone HCl (Dilaudid) 0.5 mg Q4H PRN IV SEVERE PAIN LEVEL 7-10 Last administered on 08/22/17 04:45; Admin Dose 0.5 MG; Start 08/17/17 at 07:30 Docusate Sodium (Colace) 100 mg Q12H PRN PO CONSTIPATION; Start 08/17/17 at 07: 30 Bisacodyl (Dulcolax) 5 mg DAILY PRN PO CONSTIPATION; Start 08/17/17 at 07:30 Famotidine (Pepcid) 20 mg Q12 PO Last administered on 08/22/17 09:00; Admin Dose 20 MG; Start 08/17/17 at 09:00 Miscellaneous Information 1 ea NOTE XX ; Start 08/17/17 at 08:00 IV Flush (NS 10 ml) 10 ml PRN PRN IV IV PROTOCOL; Start 08/17/17 at 14:30 Acetaminophen (Tylenol Tab) 650 mg Q4 PRN PO pain, fevers, headache Last administered on 08/20/17 23:32; Admin Dose 650 MG; Start 08/17/17 at 18:30 Mometasone Furoate 1 applic 1 applic DAILY TOP Last administered on 08/22/17 09:00; Admin Dose 1 APPLIC; Start 08/18/17 at 12:00 Rifampin 600 mg/ Sodium Chloride 100 ml @ 200 mls/hr DAILY@20 IVPB Last administered on 08/21/17 20:56; Admin Dose 200 MLS/HR; Start 08/18/17 at 20:00 ; Stop 09/02/17 at 21:00 Vancomycin HCl/ Sodium Chloride (Vancocin/NS) 250 ml @ 83.333 mls/ hr Q8H IVPB Last administered on 08/22/17 05:56; Admin Dose 83.333 MLS/HR; Start at 06:00 Hydrocortisone (Hydrocortisone 1% Oint) 1 applic BID TOP Last administered on 08/22/17 09:00; Admin Dose 1 APPLIC; Start 08/20/17 at 11:30 Miscellaneous Information 1 ea NOTE XX ; Start 08/20/17 at 11:00 Glucose (Glutose) 15 gm Q15M PRN PO DECREASED GLUCOSE; Start 08/20/17 at 11:00 Glucose (Glutose) 22.5 gm Q15M PRN PO DECREASED GLUCOSE; Start 08/20/17 at 11: 00 Dextrose (D50w Syringe) 25 ml Q15M PRN IV DECREASED GLUCOSE; Start 08/20/17 at 11:00 Dextrose (D50w Syringe) 50 ml Q15M PRN IV DECREASED GLUCOSE; Start 08/20/17 at 11:00 Glucagon (Glucagen) 1 mg Q15M PRN IM DECREASED GLUCOSE; Start 08/20/17 at 11:00 Glucose (Glutose) 15 gm Q15M PRN BUCCAL DECREASED GLUCOSE; Start 08/20/17 at 11 :00 Sodium Hypochlorite (Dakin'S (Dilute 1/40%)) 1 applic BID IRR Last administered on 08/22/17 09:01; Admin Dose 1 APPLIC; Start 08/21/17 at 09:00 Insulin Aspart NOVOLOG *MILD* ALGORI... Q4 SC Last administered on 08/22/17 12 :47; Admin Dose 4 UNIT; Start 08/21/17 at 09:00 Phenylephrine HCl 40 mg/Sodium Chloride 500 ml @ 75 mls/hr TITRATE IV Last administered on 08/21/17 22:41; Admin Dose 30 MLS/HR; Start 08/21/17 at 07:00 Ceftriaxone Sodium (Rocephin) 50 ml @ 100 mls/hr Q24H IVPB Last administered on 08/22/17 12:50; Admin Dose 100 MLS/HR; Start 08/21/17 at 13:30 Insulin Glargine (Lantus) 19 unit QHS SC ; Start 08/22/17 at 21:00 Miscellaneous Information (*Rx Drug Level Order Reminder*) VANCOMYCIN TROUGH AT 2100 ONCE ONCE XX ; Start 08/23/17 at 21:00; Stop 08/23/17 at 21:01 JAIR RUCKER NP Aug 22, 2017 13:11
--- NOTE | 2017-08-22 15:53 | CONS ---
Date/Time of Note Date/Time of Note DATE: 08/22/17 TIME: 15:51 Assessment/Plan Assessment/Plan Chief Complaint/Hosp Course NSVT: Unusual for the pt to have NSVT with normal EF, no e/o ischemia, no symptoms. No e/o endocarditis by TTE at least and no AVB by EKG to suggest abscess. No heart failure. ?from hypokalemia. Now resolved Septic shock: Unclear why pt is still requiring pressor support but almost off now Bilateral buttock abscess Staph aureus bacteremia: from buttocks. No endocarditis or valvular dysfunction at least by TTE. If indicated and concern, may need THOMAS to eval but for now no indication. DM -wean phenylephrine -once off pressors, can start BB -consider stress testing inpt vs outpt for NSVT Problems: Consultation Date/Type/Reason Admit Date/Time Aug 17, 2017 at 11:27 Initial Consult Date 08/18/17 Type of Consultation: Cardiology Referring Provider: FLORENCIA PRASAD MD 24 HR Interval Summary Free Text/Dictation No o/n event. On low dose phenylephrine now. No complaints Exam/Review of Systems Vital Signs Vitals Vital Signs Date Time Temp Pulse Resp B/P Pulse Ox O2 Delivery O2 Flow Rate FiO2 08/22/17 12:45 97 20 103/85 97 08/22/17 12:00 98.5 Room Air Intake and Output 08/21/17 08/21/17 08/22/17 15:00 23:00 07:00 Intake Total 610 ml 1420 ml 100 ml Output Total 1250 ml 350 ml Balance -640 ml 1070 ml 100 ml Exam Constitutional: alert, oriented Psych: nl mood/affect, no complaints Head: atraumatic, normocephalic Neck: No jvd Respiratory: clear to auscultation, No crackles/rales Cardiovascular: regular rate and rhythm, No edema Gastrointestinal: non-tender, soft Neurological: nl mental status, nl speech Results Result Diagram: 08/22/170 08/22/17 043 Results 24 hrs Laboratory Tests Test 08/21/17 16:31 08/21/17 20:41 08/22/17 01:11 08/22/17 04:28 Bedside Glucose 256 H 265 H 298 H 197 Test 08/22/17 04:30 08/22/17 08:46 08/22/17 12:43 White Blood Count 11.3 H Red Blood Count 4.40 L Hemoglobin 13.0 L Hematocrit 38.5 L Mean Corpuscular Volume 87.5 Mean Corpuscular Hemoglobin 29.5 Mean Corpuscular Hemoglobin Concent 33.8 Red Cell Distribution Width 12.6 Platelet Count 317 Mean Platelet Volume 9.6 Neutrophils % 62.1 Lymphocytes % 17.2 Monocytes % 9.4 Eosinophils % 6.6 Basophils % 0.5 Nucleated Red Blood Cells % 0.0 Neutrophils # 7.0 Lymphocytes # 1.9 Monocytes # 1.1 H Eosinophils # 0.7 H Basophils # 0.1 Nucleated Red Blood Cells # 0.0 Sodium Level 134 L Potassium Level 4.0 Chloride Level 101 Carbon Dioxide Level 28 Anion Gap 9 Blood Urea Nitrogen 12 Creatinine 0.49 L Glucose Level 225 H Calcium Level 8.2 L Phosphorus Level 3.7 Magnesium Level 1.9 Albumin 2.5 L Bedside Glucose 207 281 H Medications Medications Current Medications Sodium Chloride (NS) 1,000 ml @ 70 mls/hr [id number] IV Last administered on 08/22 01:51; Admin Dose 70 MLS/HR; Start 08/17/17 at 07:27 Ondansetron HCl (Zofran Inj) 4 mg Q6H PRN IV NAUSEA AND/OR VOMITING; Start 08/17/17 at 07:30 Hydromorphone HCl (Dilaudid) 0.5 mg Q4H PRN IV SEVERE PAIN LEVEL 7-10 Last administered on 08/22/17 04:45; Admin Dose 0.5 MG; Start 08/17/17 at 07:30 Docusate Sodium (Colace) 100 mg Q12H PRN PO CONSTIPATION; Start 08/17/17 at 07: 30 Bisacodyl (Dulcolax) 5 mg DAILY PRN PO CONSTIPATION; Start 08/17/17 at 07:30 Famotidine (Pepcid) 20 mg Q12 PO Last administered on 08/22/17 09:00; Admin Dose 20 MG; Start 08/17/17 at 09:00 Miscellaneous Information 1 ea NOTE XX ; Start 08/17/17 at 08:00 IV Flush (NS 10 ml) 10 ml PRN PRN IV IV PROTOCOL; Start 08/17/17 at 14:30 Acetaminophen (Tylenol Tab) 650 mg Q4 PRN PO pain, fevers, headache Last administered on 08/20/17 23:32; Admin Dose 650 MG; Start 08/17/17 at 18:30 Mometasone Furoate 1 applic 1 applic DAILY TOP Last administered on 08/22/17 09:00; Admin Dose 1 APPLIC; Start 08/18/17 at 12:00 Rifampin 600 mg/ Sodium Chloride 100 ml @ 200 mls/hr DAILY@20 IVPB Last administered on 08/21/17 20:56; Admin Dose 200 MLS/HR; Start 08/18/17 at 20:00 ; Stop 09/02/17 at 21:00 Vancomycin HCl/ Sodium Chloride (Vancocin/NS) 250 ml @ 83.333 mls/ hr Q8H IVPB Last administered on 08/22/17 15:03; Admin Dose 83.333 MLS/HR; Start at 06:00 Hydrocortisone (Hydrocortisone 1% Oint) 1 applic BID TOP Last administered on 08/22/17 09:00; Admin Dose 1 APPLIC; Start 08/20/17 at 11:30 Miscellaneous Information 1 ea NOTE XX ; Start 08/20/17 at 11:00 Glucose (Glutose) 15 gm Q15M PRN PO DECREASED GLUCOSE; Start 08/20/17 at 11:00 Glucose (Glutose) 22.5 gm Q15M PRN PO DECREASED GLUCOSE; Start 08/20/17 at 11: 00 Dextrose (D50w Syringe) 25 ml Q15M PRN IV DECREASED GLUCOSE; Start 08/20/17 at 11:00 Dextrose (D50w Syringe) 50 ml Q15M PRN IV DECREASED GLUCOSE; Start 08/20/17 at 11:00 Glucagon (Glucagen) 1 mg Q15M PRN IM DECREASED GLUCOSE; Start 08/20/17 at 11:00 Glucose (Glutose) 15 gm Q15M PRN BUCCAL DECREASED GLUCOSE; Start 08/20/17 at 11 :00 Sodium Hypochlorite (Dakin'S (Dilute 1/40%)) 1 applic BID IRR Last administered on 08/22/17 09:01; Admin Dose 1 APPLIC; Start 08/21/17 at 09:00 Insulin Aspart NOVOLOG *MILD* ALGORI... Q4 SC Last administered on 08/22/17 12 :47; Admin Dose 4 UNIT; Start 08/21/17 at 09:00 Phenylephrine HCl 40 mg/Sodium Chloride 500 ml @ 75 mls/hr TITRATE IV Last administered on 08/21/17 22:41; Admin Dose 30 MLS/HR; Start 08/21/17 at 07:00 Ceftriaxone Sodium (Rocephin) 50 ml @ 100 mls/hr Q24H IVPB Last administered on 08/22/17 12:50; Admin Dose 100 MLS/HR; Start 08/21/17 at 13:30 Insulin Glargine (Lantus) 19 unit QHS SC ; Start 08/22/17 at 21:00 Miscellaneous Information (*Rx Drug Level Order Reminder*) VANCOMYCIN TROUGH AT 2100 ONCE ONCE XX ; Start 08/23/17 at 21:00; Stop 08/23/17 at 21:01 GRAHAM ANDREWS Aug 22, 2017 15:53
--- NOTE | 2017-08-22 17:11 | PN ---
Date/Time of Note Date/Time of Note DATE: 08/22/17 TIME: 17:06 Assessment/Plan Lines/Catheters IV Catheter Type (from [facility]): PICC Line Sharpe in Place (from [facility]): No Assessment/Plan Chief Complaint/Hosp Course 1. Sepsis with shock with Bacteremia and Buttock Cellulitis and Abscess: still on pressors; s/p I&D 08/19, cultures noted -iv abx -ivf -supportive -local care for buttock incisions 2. Bacteremia -as above -echo 3. DM: labile sugars -medication optimization 4. Leukocytosis 2nd above: improving -as above 5. Psoriasis -medical management 6. Tachycardia 2nd above: improved; Sr/st -as above -cardiology following 7. Anemia -monitor 8. Hypoalbuminemia with hypocalcemia: nutritional +/- inflammation -as above -optimize nutrition 9. Hyponatremia: -judicious fluids Thank you. Patient seen and examined in collaboration with Dr. Mihir Zazueta. Problems: Subjective 24 Hr Interval Summary Leukocytosis continuing to improve. Patient feels well. Tachycardia improved. No fevers, chills, sob, congested cough, cp. palpitations, rivas, dizziness, cp. Improved drainage from wounds. Continues on pressors. Exam/Review of Systems Vital Signs Vitals Vital Signs Date Time Temp Pulse Resp B/P Pulse Ox O2 Delivery O2 Flow Rate FiO2 08/22/17 16:00 90 08/22/17 12:45 20 103/85 97 08/22/17 12:00 98.5 Room Air Intake and Output 08/21/17 08/21/17 08/22/17 15:00 23:00 07:00 Intake Total 610 ml 1420 ml 100 ml Output Total 1250 ml 350 ml Balance -640 ml 1070 ml 100 ml Exam Free Text/Dictation Constitutional: alert, oriented, No distress Psych: nl mood/affect, No anxiety, No confusion Head: atraumatic, normocephalic Eyes: EOMI, PERRL, nl conjunctiva, No icteric ENMT: mucosa pink and moist, nl external ears & nose Neck: non-tender, supple, No jvd Respiratory: normal air movement, No congested cough, No labored breathing Cardiovascular: No edema, No regular rate and rhythm; st Gastrointestinal: non-tender, soft, No distended, No rebound or guarding Genitourinary - Male: No CVA tenderness Musculoskeletal: nl extremities to inspection, No joint tenderness Extremities: normal pulses, No calf tenderness, No cyanosis, No edema Neurological: nl mental status, nl speech Skin: other (Bilateral buttock with much improved induration and tenderness; small drainage, nonmalodorous), rash or lesions (psoriatic lesions), No diaphoresis, No nl turgor (dry) Lymph: nl lymph nodes Results Result Diagram: 08/22/17 0430 08/22/17 0430 DAMARIS LINTON NP Aug 22, 2017 17:11
[2017-08-22] MEDS: INSULIN GLARGINE [LANtus] 3 ML PEN SC SCH (21:20)
[2017-08-22] MEDS: RIFAMPIN 600 MG in SOD CHLORIDE 0.9% 100 ML IVPB SCH (21:35)
[2017-08-23] VITALS (78 sets, daily range): BP systolic 76–117; BP diastolic 46–92; PULSE 70–115; RESP 9–29
[2017-08-23] MEDS: INSULIN ASPART [NOVOLOG] 3 ML PEN SC SCH ×4 (01:00→17:48)
[2017-08-23] MEDS: PHENYLephrine 40 MG in SOD CHLORIDE 0.9% 496 ML IV SCH (02:55)
--- NOTE | 2017-08-23 05:12 | PN ---
DATE: 08/21/2017 SUBJECTIVE: No events overnight. The patient is awake, looks comfortable, still on Victoriano-Synephrine at 40 mcg/minute. VITAL SIGNS: Temperature 98, pulse 87, respirations 24, blood pressure 96/69, saturation 97% on karla m air. LABORATORY DATA: WBC 12.9, H and H 13.8 and 40.9, platelets 276. BUN 9, creatinine 0.51. MICROBIOLOGY: Wound culture growing Staphylococcus aureus. Preliminary blood culture grew MRSA. I nitial cultures of the sacral wound grew MRSA and E. coli, resistant only to Ancef. INDWELLINGS: The patient has PICC line. ANTIMICROBIALS: The patient remains on 1. Vancomycin. 2. Rifampin. 3. Zosyn. PHYSICAL EXAMINATION GENERAL: This is a well developed, well nourished, middle-aged, man who is alert, in no di stress. HEAD, EARS, EYES, NOSE, AND THROAT: Head atraumatic, normocephalic. Sclerae anicteric. Buccal muc az pink, dry. NECK: Supple. CHEST: Rise symmetrical. Breath sounds clear. HEART: S1 and S2. ABDOMEN: Soft. Bowel sounds present. EXTREMITIES: Without cyanosis. SKIN: With psoriatic lesions. ASSESSMENT 1. Shock, secondary to #2. 2. Sacral abscess, status post incision and drainage with wound culture that grew methicillin-resis tant Staphylococcus aureus and Escherichia coli. 3. Persistent methicillin-resistant Staphylococcus aureus bacteremia, secondary to that. 4. Psoriasis. 5. Poorly-controlled diabetes. PLAN: The patient remains stable clinically. Victoriano-Synephrine being titrated down. We are going to change Zosyn to Rocephin. Continue vancomycin. Continue rifampin. Monitor renal function. Contro l blood sugar. Dictated By: JAIR RUCKER RN [facility]OM[facility] for BONIFACIO ZURITA MD NI/NTS Conf#: [id number] DID#: [id number] CC: TAMARA BUSTOS MD;*EndCC*
[2017-08-23] MEDS: SOD CHLORIDE 0.9% 1,000 ML IV SCH (05:46)
[2017-08-23 06:38] LABS: BASOPHILS % 0.4 % (0.0-2.0); EOSINOPHILS # 0.6 10^3/ul (0.0-0.5); EOSINOPHILS % 6.9 % (0.0-7.0); HEMATOCRIT 38.8 % (42.0-52.0); HEMOGLOBIN 12.9 g/dl (14.0-18.0); LYMPHOCYTES # 2.5 10^3/ul (0.8-2.9); LYMPHOCYTES % 26.7 % (15.0-51.0); MEAN CORPUSCULAR HEMOGLOBIN 29.5 pg (29.0-33.0); MEAN CORPUSCULAR HGB CONC 33.2 g/dl (32.0-37.0); MEAN CORPUSCULAR VOLUME 88.6 fl (82.0-101.0); MONOCYTE # 0.9 10^3/ul (0.3-0.9); MONOCYTES % 9.9 % (0.0-11.0); NEUTROPHIL # 4.7 10^3/ul (1.6-7.5); NEUTROPHILS % 51.3 % (39.0-77.0); PLATELET COUNT 353 10^3/UL (140-415); RED BLOOD COUNT 4.38 10^6/ul (4.70-6.10); RED CELL DISTRIBUTION WIDTH 12.4 % (11.5-14.5); WHITE BLOOD COUNT 9.2 10^3/ul (4.8-10.8)
[2017-08-23] MEDS ORDERED: INSULIN ASPART [NOVOLOG] 3 ML PEN SC SCH (07:05)
[2017-08-23 07:12] LABS: ALBUMIN 2.6 g/dl (3.3-4.9); CALCIUM 8.2 mg/dl (8.4-10.2); CREATININE 0.47 mg/dl (0.61-1.24); PHOSPHORUS 3.9 mg/dl (2.5-4.9); POTASSIUM 4.6 mmol/L (3.5-5.1)
[2017-08-23] MEDS: Insulin NOVOLOG SS MILD Algorithm (SS with meals and bedtime) SC SCH ×4 (07:53→20:44)
[2017-08-23] MEDS: FAMOTIDINE 20 MG TAB PO SCH ×2 (09:24→20:37)
[2017-08-23] MEDS: HYDROCORTISONE 1% 28.35 GM OINT TOP SCH ×2 (09:24→21:00)
[2017-08-23] MEDS: SODIUM HYPOCHLORITE 1/40% 1L IRRIG IRR SCH ×2 (09:24→20:37)
[2017-08-23] MEDS: MIDODRINE 5 MG TAB PO SCH ×3 (09:29→17:45)
--- NOTE | 2017-08-23 09:43 | PN ---
Date/Time of Note Date/Time of Note DATE: 08/23/17 TIME: 09:40 Assessment/Plan VTE Prophylaxis VTE Prophylaxis Intervention: SCD's Lines/Catheters IV Catheter Type (from Nrs): PICC Line Central line still needed: Yes Urinary Cath still in place: No Assessment/Plan Chief Complaint/Hosp Course 1. Septic shock secondary to bacteremia and gluteal abscess - Patient growing MRSA in wound as well as on blood cultures - Still on pressor support and will wean to keep MAP >60, midodrine on to help titrate off. - ID on board and recommendations appreciated. on abx per ID. - WBC trending downward and will continue to monitor 2. Bacteremia - + MRSA - ID on board and appreciate assistance - ECHO ordered and no vegetation appreciated. If patient does not improve may need to do THOMAS 3. Diabetes mellitus, poorly controlled - A1c 12.2 - health promotion educator recommendations appreciated. - Changed to Lantus and will increase dose 19units qHS and Novolog to 7units with meals. Will continue adjusting to keep sugars better controlled 4. Gluteal abscess s/p I&D 08/19/17 - Surgery on board and consultation appreciated. - Growing MRSA and Ecoli 5. Hypotension - Will continue on pressors and wean as tolerated to keep MAP >60 6. Episodes of NSVT - Cardiology consult placed and recommendations appreciated - Most likely secondary to bacteremia and will continue monitoring - once off pressors will start on BB. If vtach episodes persistent or frequent consider amiodarone and stress test 7. Hypokalemia - stable 8. Psoriatic plaques - hydrocortisone cream - May need to seek out Rheum upon discharge 9. Disposition - Patient still requiring pressor support, will remain in ICU >40 minutes spent providing critical care to patient. All questions and concerns addressed and answered. Problems: Subjective 24 Hr Interval Summary Free Text/Dictation no acute changes. still on pressors, no acute complaints. Exam/Review of Systems Vital Signs Vitals Vital Signs Date Time Temp Pulse Resp B/P Pulse Ox O2 Delivery O2 Flow Rate FiO2 08/23/17 08:00 80 08/23/17 06:30 15 85/57 98 Room Air 08/23/17 04:00 98.5 Intake and Output 08/22/17 08/22/17 08/23/17 15:00 23:00 07:00 Intake Total 1222.5 ml 1370.0 ml 1550 ml Output Total 1100 ml 850 ml 1100 ml Balance 122.5 ml 520.0 ml 450 ml Exam General: NAD, awake and alert HEENT:NC/AT, PERRL, EOM intact Neck: Supple with full range of motion. Lungs: Clear to auscultation bilaterally no crackles rales or wheezing Heart: Regular rhythm and rate no overt murmur appreciated Abdomen: Soft , nontender, nondistended , bowel sounds are present. No guarding no rebound tenderness , Extremities: Normal to inspection, no edema no cyanosis Neurologic: Normal mental status, speech normal, cranial nerves II through XII are intact, motor and sensory are intact, no focal weakness Skin: dressing in place and incisions appear clean with no discharge or drainage. diffuse scaly patches on UE and LE bilaterally. Results Result Diagram: 08/23/17 0500 08/23/17 0500 Results 24 hrs Laboratory Tests Test 08/22/17 12:43 08/22/17 17:35 08/22/17 21:17 08/22/17 21:31 Bedside Glucose 281 H 304 H 333 H Vancomycin Level Trough 22.1 *H Test 08/23/17 05:00 08/23/17 07:50 White Blood Count 9.2 Red Blood Count 4.38 L Hemoglobin 12.9 L Hematocrit 38.8 L Mean Corpuscular Volume 88.6 Mean Corpuscular Hemoglobin 29.5 Mean Corpuscular Hemoglobin Concent 33.2 Red Cell Distribution Width 12.4 Platelet Count 353 Mean Platelet Volume 10.0 Neutrophils % 51.3 Lymphocytes % 26.7 Monocytes % 9.9 Eosinophils % 6.9 Basophils % 0.4 Nucleated Red Blood Cells % 0.0 Neutrophils # 4.7 Lymphocytes # 2.5 Monocytes # 0.9 Eosinophils # 0.6 H Basophils # 0.0 Nucleated Red Blood Cells # 0.0 Sodium Level 134 L Potassium Level 4.6 Chloride Level 101 Carbon Dioxide Level 29 Anion Gap 9 Blood Urea Nitrogen 11 Creatinine 0.47 L Glucose Level 210 Calcium Level 8.2 L Phosphorus Level 3.9 Magnesium Level 2.0 Albumin 2.6 L Bedside Glucose 199 Medications Medications Current Medications Sodium Chloride (NS) 1,000 ml @ 70 mls/hr [id number] IV Last administered on 08/23t 05:46; Admin Dose 70 MLS/HR; Start 08/17/17 at 07:27 Ondansetron HCl (Zofran Inj) 4 mg Q6H PRN IV NAUSEA AND/OR VOMITING; Start 08/17/17 at 07:30 Hydromorphone HCl (Dilaudid) 0.5 mg Q4H PRN IV SEVERE PAIN LEVEL 7-10 Last administered on 08/22/17 04:45; Admin Dose 0.5 MG; Start 08/17/17 at 07:30 Docusate Sodium (Colace) 100 mg Q12H PRN PO CONSTIPATION; Start 08/17/17 at 07: 30 Bisacodyl (Dulcolax) 5 mg DAILY PRN PO CONSTIPATION; Start 08/17/17 at 07:30 Famotidine (Pepcid) 20 mg Q12 PO Last administered on 08/23/17 09:24; Admin Dose 20 MG; Start 08/17/17 at 09:00 Miscellaneous Information 1 ea NOTE XX ; Start 08/17/17 at 08:00 IV Flush (NS 10 ml) 10 ml PRN PRN IV IV PROTOCOL; Start 08/17/17 at 14:30 Acetaminophen (Tylenol Tab) 650 mg Q4 PRN PO pain, fevers, headache Last administered on 08/20/17 23:32; Admin Dose 650 MG; Start 08/17/17 at 18:30 Mometasone Furoate 1 applic 1 applic DAILY TOP Last administered on 08/22/17 09:00; Admin Dose 1 APPLIC; Start 08/18/17 at 12:00 Rifampin/Sodium Chloride (Rifampin/NS) 100 ml @ 200 mls/hr DAILY@20 IVPB Last administered on 08/22/17 21:35; Admin Dose 200 MLS/HR; Start 08/18/17 at 20:00 ; Stop 09/02/17 at 21:00 Hydrocortisone (Hydrocortisone 1% Oint) 1 applic BID TOP Last administered on 08/23/17 09:24; Admin Dose 1 APPLIC; Start 08/20/17 at 11:30 Miscellaneous Information 1 ea NOTE XX ; Start 08/20/17 at 11:00 Glucose (Glutose) 15 gm Q15M PRN PO DECREASED GLUCOSE; Start 08/20/17 at 11:00 Glucose (Glutose) 22.5 gm Q15M PRN PO DECREASED GLUCOSE; Start 08/20/17 at 11: 00 Dextrose (D50w Syringe) 25 ml Q15M PRN IV DECREASED GLUCOSE; Start 08/20/17 at 11:00 Dextrose (D50w Syringe) 50 ml Q15M PRN IV DECREASED GLUCOSE; Start 08/20/17 at 11:00 Glucagon (Glucagen) 1 mg Q15M PRN IM DECREASED GLUCOSE; Start 08/20/17 at 11:00 Glucose (Glutose) 15 gm Q15M PRN BUCCAL DECREASED GLUCOSE; Start 08/20/17 at 11 :00 Sodium Hypochlorite 1 applic 1 applic BID IRR Last administered on 08/23/17 09 :24; Admin Dose 1 APPLIC; Start 08/21/17 at 09:00 Phenylephrine HCl 40 mg/Sodium Chloride 500 ml @ 75 mls/hr TITRATE IV Last administered on 08/23/17 02:55; Admin Dose 15 MLS/HR; Start 08/21/17 at 07:00 Ceftriaxone Sodium (Rocephin) 50 ml @ 100 mls/hr Q24H IVPB Last administered on 08/22/17 12:50; Admin Dose 100 MLS/HR; Start 08/21/17 at 13:30 Insulin Glargine (Lantus) 19 unit QHS SC Last administered on 08/22/17 21:20; Admin Dose 19 UNIT; Start 08/22/17 at 21:00 Midodrine 5 mg 5 mg TID@09,13,17 PO Last administered on 08/23/17 09:29; Admin Dose 5 MG; Start 08/23/17 at 09:00 Vancomycin HCl (Vancocin) 250 ml @ 125 mls/hr Q8H IVPB ; Start 08/23/17 at 10: 00 Miscellaneous Information (*Rx Drug Level Order Reminder*) VANCOMYCIN TROUGH AT 1700 ONCE ONCE XX ; Start 08/24/17 at 17:00; Stop 08/24/17 at 17:01 RAAD REYES Aug 23, 2017 09:43
--- NOTE | 2017-08-23 09:47 | PN ---
DATE: 08/22/2017 SUBJECTIVE: No acute changes overnight. The patient is alert, feels better, still on Victoriano-Synephrin e at 30 mcg/minute. VITAL SIGNS: Temperature 98.5, pulse 88, respirations 16, blood pressure 99/72, saturation 96% on r oom air. MICROBIOLOGY: Blood culture persistently growing MRSA. Wound culture grew MRSA and E. coli. ANTIMICROBIALS: The patient is on 1. Rocephin. 2. Vancomycin. 3. Rifampin. INDWELLINGS: Left upper extremity PICC line. PHYSICAL EXAMINATION: GENERAL: Well developed, well nourished, middle-aged, man who is alert, in no distress. HEENT: Head atraumatic, normocephalic. Sclerae anicteric. Buccal mucosa dry. NECK: Supple. CHEST: Rise symmetrical. Breath sounds clear, diminished to the bases. HEART: S1 and S2. ABDOMEN: Soft. Bowel tones present. EXTREMITIES: Without cyanosis. ASSESSMENT: 1. Septic shock with a persistent methicillin-resistant Staphylococcus aureus bacteremia, secondary to #2. 2. Bilateral buttock wounds with abscess, status post incision and drainage, with culture growing E scherichia coli and methicillin-resistant Staphylococcus aureus. 3. Diabetes. 4. Psoriasis. PLAN: The patient remains stable. Continue present care, antibiotics. Repeat blood cultures today . Follow recommendations of consultants. Dictated By: JAIR RUCKER BIOMETRIC SCREENER for BONIFACIO ZURITA MD NI/NTS Conf#: [id number] DID#: [id number] CC: TAMARA BUSTOS MD;*End*
[2017-08-23] MEDS ORDERED: VANCOMYCIN 1.25 GM in SOD CHLORIDE 0.9% 250 ML IVPB SCH (11:00)
--- NOTE | 2017-08-23 11:02 | PN ---
Date/Time of Note Date/Time of Note DATE: 08/23/17 TIME: 10:58 Assessment/Plan Lines/Catheters IV Catheter Type (from Rust): PICC Line Sharpe in Place (from Rust): No Assessment/Plan Chief Complaint/Hosp Course 1. Sepsis with shock with Bacteremia and Buttock Cellulitis and Abscess: continuous on pressors; s/p I&D 08/19, cultures noted -abx -ivf -supportive -local care for buttock incisions 2. Bacteremia -as above -echo 3. DM: labile sugars -medication optimization 4. Leukocytosis 2nd above: normalized -as above 5. Psoriasis -medical management 6. Tachycardia 2nd above: improved; Sr -as above -cardiology following 7. Anemia -monitor 8. Hypoalbuminemia with hypocalcemia: nutritional +/- inflammation -as above -optimize nutrition 9. Hyponatremia: improving -judicious fluids Thank you. Patient seen and examined in collaboration with Dr. Mihir Zazueta. Problems: Subjective 24 Hr Interval Summary Leukocytosis normalized. No fevers, chills, myalgias. Less drainage from buttock incisions. Pain/discomfort improved. Continues on pressor support. No cp , palpitations, sob, congested cough, rivas, dizziness. Blood sugar still elevated. Exam/Review of Systems Vital Signs Vitals Vital Signs Date Time Temp Pulse Resp B/P Pulse Ox O2 Delivery O2 Flow Rate FiO2 08/23/17 08:00 80 08/23/17 06:30 15 85/57 98 Room Air 08/23/17 04:00 98.5 Intake and Output 08/22/17 08/22/17 08/23/17 15:00 23:00 07:00 Intake Total 1222.5 ml 1370.0 ml 1550 ml Output Total 1100 ml 850 ml 1100 ml Balance 122.5 ml 520.0 ml 450 ml Exam Free Text/Dictation Constitutional: alert, oriented, No distress Psych: nl mood/affect, No anxiety, No confusion Head: atraumatic, normocephalic Eyes: EOMI, PERRL, nl conjunctiva, No icteric ENMT: mucosa pink and moist, nl external ears & nose Neck: non-tender, supple, No jvd Respiratory: normal air movement, No congested cough, No labored breathing Cardiovascular: No edema, No regular rate and rhythm; st Gastrointestinal: non-tender, soft, No distended, No rebound or guarding Genitourinary - Male: No CVA tenderness Musculoskeletal: nl extremities to inspection, No joint tenderness Extremities: normal pulses, No calf tenderness, No cyanosis, No edema Neurological: nl mental status, nl speech Skin: other (Bilateral buttock, improved induration and tenderness; small drainage, nonmalodorous), rash or lesions (psoriatic lesions), No diaphoresis, No nl turgor (dry) Lymph: nl lymph nodes Results Result Diagram: 08/23/17 0500 08/23/17 0500 DAMARIS LINTON NP Aug 23, 2017 11:02
[2017-08-23] MEDS: VANCOMYCIN 1 GM in NS 250 ML IVPB SCH ×2 (11:13→17:45)
--- NOTE | 2017-08-23 11:15 | CONS ---
Date/Time of Note Date/Time of Note DATE: 08/23/17 TIME: 11:13 Assessment/Plan Assessment/Plan Additional Assessment/Plan Patient currently on phenylephrine drip at 16 mics per minute. Assessment and recommendations; 1. Patient admitted with bilateral gluteal abscess status post incision and drainage. 2. Diabetes patient off insulin drip. 3. Persistent hypotension requiring pressor support. Continue current supportive care. Consultation Date/Type/Reason Admit Date/Time Aug 17, 2017 at 11:27 Initial Consult Date 08/18/17 Type of Consultation: Pulmonary/critical care Referring Provider: FLORENCIA PRASAD MD 24 HR Interval Summary Free Text/Dictation Patient's condition is stable. However still requiring phenylephrine drip for hypotension. Patient complaints of very minimal pain at the surgical site around the perianal area. General exam; young male, awake and alert. Currently in no distress. Exam/Review of Systems Vital Signs Vitals Vital Signs Date Time Temp Pulse Resp B/P Pulse Ox O2 Delivery O2 Flow Rate FiO2 08/23/17 08:00 80 08/23/17 06:30 15 85/57 98 Room Air 08/23/17 04:00 98.5 Intake and Output 08/22/17 08/22/17 08/23/17 15:00 23:00 07:00 Intake Total 1222.5 ml 1370.0 ml 1550 ml Output Total 1100 ml 850 ml 1100 ml Balance 122.5 ml 520.0 ml 450 ml Exam HEENT exam; supple neck, no JVD. No lymphadenopathy. Midline trachea. No thyromegaly. Pharynx is clear. Patient has good dentition. Chest exam; clear to auscultation. S1-S2 audible, no murmurs. Regular rhythm. Abdomen exam; soft, nontender. No organomegaly bowel sounds audible. Dressing applied around the perianal area. Next Extremity exam; no peripheral edema. Pulses 2+ bilaterally. TEXTILE BROKER exam; no focal deficit. Results Result Diagram: 08/23/17 0500 08/23/17 0500 Results 24 hrs Laboratory Tests Test 08/22/17 12:43 08/22/17 17:35 08/22/17 21:17 08/22/17 21:31 Bedside Glucose 281 H 304 H 333 H Vancomycin Level Trough 22.1 *H Test 08/23/17 05:00 08/23/17 07:50 White Blood Count 9.2 Red Blood Count 4.38 L Hemoglobin 12.9 L Hematocrit 38.8 L Mean Corpuscular Volume 88.6 Mean Corpuscular Hemoglobin 29.5 Mean Corpuscular Hemoglobin Concent 33.2 Red Cell Distribution Width 12.4 Platelet Count 353 Mean Platelet Volume 10.0 Neutrophils % 51.3 Lymphocytes % 26.7 Monocytes % 9.9 Eosinophils % 6.9 Basophils % 0.4 Nucleated Red Blood Cells % 0.0 Neutrophils # 4.7 Lymphocytes # 2.5 Monocytes # 0.9 Eosinophils # 0.6 H Basophils # 0.0 Nucleated Red Blood Cells # 0.0 Sodium Level 134 L Potassium Level 4.6 Chloride Level 101 Carbon Dioxide Level 29 Anion Gap 9 Blood Urea Nitrogen 11 Creatinine 0.47 L Glucose Level 210 Calcium Level 8.2 L Phosphorus Level 3.9 Magnesium Level 2.0 Albumin 2.6 L Bedside Glucose 199 Medications Medications Current Medications Sodium Chloride (NS) 1,000 ml @ 70 mls/hr [id number] IV Last administered on 08/23 05:46; Admin Dose 70 MLS/HR; Start 08/17/17 at 07:27 Ondansetron HCl (Zofran Inj) 4 mg Q6H PRN IV NAUSEA AND/OR VOMITING; Start 08/17/17 at 07:30 Hydromorphone HCl (Dilaudid) 0.5 mg Q4H PRN IV SEVERE PAIN LEVEL 7-10 Last administered on 08/22/17 04:45; Admin Dose 0.5 MG; Start 08/17/17 at 07:30 Docusate Sodium (Colace) 100 mg Q12H PRN PO CONSTIPATION; Start 08/17/17 at 07: 30 Bisacodyl (Dulcolax) 5 mg DAILY PRN PO CONSTIPATION; Start 08/17/17 at 07:30 Famotidine (Pepcid) 20 mg Q12 PO Last administered on 08/23/17 09:24; Admin Dose 20 MG; Start 08/17/17 at 09:00 Miscellaneous Information 1 ea NOTE XX ; Start 08/17/17 at 08:00 IV Flush (NS 10 ml) 10 ml PRN PRN IV IV PROTOCOL; Start 08/17/17 at 14:30 Acetaminophen (Tylenol Tab) 650 mg Q4 PRN PO pain, fevers, headache Last administered on 08/20/17 23:32; Admin Dose 650 MG; Start 08/17/17 at 18:30 Mometasone Furoate 1 applic 1 applic DAILY TOP Last administered on 08/22/17 09:00; Admin Dose 1 APPLIC; Start 08/18/17 at 12:00 Rifampin/Sodium Chloride (Rifampin/NS) 100 ml @ 200 mls/hr DAILY@20 IVPB Last administered on 08/22/17 21:35; Admin Dose 200 MLS/HR; Start 08/18/17 at 20:00 ; Stop 09/02/17 at 21:00 Hydrocortisone (Hydrocortisone 1% Oint) 1 applic BID TOP Last administered on 08/23/17 09:24; Admin Dose 1 APPLIC; Start 08/20/17 at 11:30 Miscellaneous Information 1 ea NOTE XX ; Start 08/20/17 at 11:00 Glucose (Glutose) 15 gm Q15M PRN PO DECREASED GLUCOSE; Start 08/20/17 at 11:00 Glucose (Glutose) 22.5 gm Q15M PRN PO DECREASED GLUCOSE; Start 08/20/17 at 11: 00 Dextrose (D50w Syringe) 25 ml Q15M PRN IV DECREASED GLUCOSE; Start 08/20/17 at 11:00 Dextrose (D50w Syringe) 50 ml Q15M PRN IV DECREASED GLUCOSE; Start 08/20/17 at 11:00 Glucagon (Glucagen) 1 mg Q15M PRN IM DECREASED GLUCOSE; Start 08/20/17 at 11:00 Glucose (Glutose) 15 gm Q15M PRN BUCCAL DECREASED GLUCOSE; Start 08/20/17 at 11 :00 Sodium Hypochlorite 1 applic 1 applic BID IRR Last administered on 08/23/17 09 :24; Admin Dose 1 APPLIC; Start 08/21/17 at 09:00 Phenylephrine HCl 40 mg/Sodium Chloride 500 ml @ 75 mls/hr TITRATE IV Last administered on 08/23/17 02:55; Admin Dose 15 MLS/HR; Start 08/21/17 at 07:00 Ceftriaxone Sodium (Rocephin) 50 ml @ 100 mls/hr Q24H IVPB Last administered on 08/22/17 12:50; Admin Dose 100 MLS/HR; Start 08/21/17 at 13:30 Insulin Glargine (Lantus) 19 unit QHS SC Last administered on 08/22/17 21:20; Admin Dose 19 UNIT; Start 08/22/17 at 21:00 Midodrine 5 mg 5 mg TID@,,17 PO Last administered on 08/23/17 09:29; Admin Dose 5 MG; Start 08/23/17 at 09:00 Vancomycin HCl (Vancocin) 250 ml @ 125 mls/hr Q8H IVPB ; Start 08/23/17 at 10: 00 Miscellaneous Information (*Rx Drug Level Order Reminder*) VANCOMYCIN TROUGH AT 1700 ONCE ONCE XX ; Start 08/24/17 at 17:00; Stop 08/24/17 at 17:01 SANTHOSH JUAREZ Aug 23, 2017 11:15
--- NOTE | 2017-08-23 11:50 | CONS ---
Date/Time of Note Date/Time of Note DATE: 08/23/17 TIME: 11:49 Assessment/Plan Assessment/Plan Chief Complaint/Hosp Course NSVT: Unusual for the pt to have NSVT with normal EF, no e/o ischemia, no symptoms. No e/o endocarditis by TTE at least and no AVB by EKG to suggest abscess. No heart failure. ?from hypokalemia vs pressors. Now resolved Septic shock: Unclear why pt is still requiring pressor support but almost off now Bilateral buttock abscess Staph aureus bacteremia: from buttocks. No endocarditis or valvular dysfunction at least by TTE. If indicated and concern, may need THOMAS to eval but for now no indication. DM -recheck blood cx. If positive will need THOMAS -wean phenylephrine -once off pressors, can start BB -consider stress testing inpt vs outpt for NSVT Problems: Consultation Date/Type/Reason Admit Date/Time Aug 17, 2017 at 11:27 Initial Consult Date 08/18/17 Type of Consultation: Cardiology Referring Provider: FLORENCIA PRASAD MD 24 HR Interval Summary Free Text/Dictation No o/n events. No NSVT Exam/Review of Systems Vital Signs Vitals Vital Signs Date Time Temp Pulse Resp B/P Pulse Ox O2 Delivery O2 Flow Rate FiO2 08/23/17 08:00 80 08/23/17 06:30 15 85/57 98 Room Air 08/23/17 04:00 98.5 Intake and Output 08/22/17 08/22/17 08/23/17 15:00 23:00 07:00 Intake Total 1222.5 ml 1370.0 ml 1550 ml Output Total 1100 ml 850 ml 1100 ml Balance 122.5 ml 520.0 ml 450 ml Exam Constitutional: alert, oriented Psych: nl mood/affect, no complaints Head: atraumatic, normocephalic Neck: No jvd Respiratory: clear to auscultation, No crackles/rales Cardiovascular: regular rate and rhythm, No edema, No systolic murmur Gastrointestinal: non-tender, soft Neurological: nl mental status, nl speech Results Result Diagram: 08/23/17 0500 08/23/17 0500 Results 24 hrs Laboratory Tests Test 08/22/17 12:43 08/22/17 17:35 08/22/17 21:17 08/22/17 21:31 Bedside Glucose 281 H 304 H 333 H Vancomycin Level Trough 22.1 *H Test 08/23/17 05:00 08/23/17 07:50 White Blood Count 9.2 Red Blood Count 4.38 L Hemoglobin 12.9 L Hematocrit 38.8 L Mean Corpuscular Volume 88.6 Mean Corpuscular Hemoglobin 29.5 Mean Corpuscular Hemoglobin Concent 33.2 Red Cell Distribution Width 12.4 Platelet Count 353 Mean Platelet Volume 10.0 Neutrophils % 51.3 Lymphocytes % 26.7 Monocytes % 9.9 Eosinophils % 6.9 Basophils % 0.4 Nucleated Red Blood Cells % 0.0 Neutrophils # 4.7 Lymphocytes # 2.5 Monocytes # 0.9 Eosinophils # 0.6 H Basophils # 0.0 Nucleated Red Blood Cells # 0.0 Sodium Level 134 L Potassium Level 4.6 Chloride Level 101 Carbon Dioxide Level 29 Anion Gap 9 Blood Urea Nitrogen 11 Creatinine 0.47 L Glucose Level 210 Calcium Level 8.2 L Phosphorus Level 3.9 Magnesium Level 2.0 Albumin 2.6 L Bedside Glucose 199 Medications Medications Current Medications Sodium Chloride (NS) 1,000 ml @ 70 mls/hr [id number] IV Last administered on 08/23 05:46; Admin Dose 70 MLS/HR; Start 08/17/17 at 07:27 Ondansetron HCl (Zofran Inj) 4 mg Q6H PRN IV NAUSEA AND/OR VOMITING; Start 08/17/17 at 07:30 Hydromorphone HCl (Dilaudid) 0.5 mg Q4H PRN IV SEVERE PAIN LEVEL 7-10 Last administered on 08/22/17 04:45; Admin Dose 0.5 MG; Start 08/17/17 at 07:30 Docusate Sodium (Colace) 100 mg Q12H PRN PO CONSTIPATION; Start 08/17/17 at 07: 30 Bisacodyl (Dulcolax) 5 mg DAILY PRN PO CONSTIPATION; Start 08/17/17 at 07:30 Famotidine (Pepcid) 20 mg Q12 PO Last administered on 08/23/17 09:24; Admin Dose 20 MG; Start 08/17/17 at 09:00 Miscellaneous Information 1 ea NOTE XX ; Start 08/17/17 at 08:00 IV Flush (NS 10 ml) 10 ml PRN PRN IV IV PROTOCOL; Start 08/17/17 at 14:30 Acetaminophen (Tylenol Tab) 650 mg Q4 PRN PO pain, fevers, headache Last administered on 08/20/17 23:32; Admin Dose 650 MG; Start 08/17/17 at 18:30 Mometasone Furoate 1 applic 1 applic DAILY TOP Last administered on 08/22/17 09:00; Admin Dose 1 APPLIC; Start 08/18/17 at 12:00 Rifampin/Sodium Chloride (Rifampin/NS) 100 ml @ 200 mls/hr DAILY@20 IVPB Last administered on 08/22/17 21:35; Admin Dose 200 MLS/HR; Start 08/18/17 at 20:00 ; Stop 09/02/17 at 21:00 Hydrocortisone (Hydrocortisone 1% Oint) 1 applic BID TOP Last administered on 08/23/17 09:24; Admin Dose 1 APPLIC; Start 08/20/17 at 11:30 Miscellaneous Information 1 ea NOTE XX ; Start 08/20/17 at 11:00 Glucose (Glutose) 15 gm Q15M PRN PO DECREASED GLUCOSE; Start 08/20/17 at 11:00 Glucose (Glutose) 22.5 gm Q15M PRN PO DECREASED GLUCOSE; Start 08/20/17 at 11: 00 Dextrose (D50w Syringe) 25 ml Q15M PRN IV DECREASED GLUCOSE; Start 08/20/17 at 11:00 Dextrose (D50w Syringe) 50 ml Q15M PRN IV DECREASED GLUCOSE; Start 08/20/17 at 11:00 Glucagon (Glucagen) 1 mg Q15M PRN IM DECREASED GLUCOSE; Start 08/20/17 at 11:00 Glucose (Glutose) 15 gm Q15M PRN BUCCAL DECREASED GLUCOSE; Start 08/20/17 at 11 :00 Sodium Hypochlorite 1 applic 1 applic BID IRR Last administered on 08/23/17 09 :24; Admin Dose 1 APPLIC; Start 08/21/17 at 09:00 Phenylephrine HCl 40 mg/Sodium Chloride 500 ml @ 75 mls/hr TITRATE IV Last administered on 08/23/17 02:55; Admin Dose 15 MLS/HR; Start 08/21/17 at 07:00 Ceftriaxone Sodium (Rocephin) 50 ml @ 100 mls/hr Q24H IVPB Last administered on 08/22/17 12:50; Admin Dose 100 MLS/HR; Start 08/21/17 at 13:30 Insulin Glargine (Lantus) 19 unit QHS SC Last administered on 08/22/17 21:20; Admin Dose 19 UNIT; Start 08/22/17 at 21:00 Midodrine 5 mg 5 mg TID@09,13,17 PO Last administered on 08/23/17 09:29; Admin Dose 5 MG; Start 08/23/17 at 09:00 Vancomycin HCl (Vancocin) 250 ml @ 125 mls/hr Q8H IVPB Last administered on 11:13; Admin Dose 125 MLS/HR; Start 08/23/17 at 10:00 Miscellaneous Information (*Rx Drug Level Order Reminder*) VANCOMYCIN TROUGH AT 1700 ONCE ONCE XX ; Start 08/24/17 at 17:00; Stop 08/24/17 at 17:01 GRAHAM ANDREWS Aug 23, 2017 11:50
[2017-08-23] MEDS: MOMETASONE TOP SCH (12:11)
--- NOTE | 2017-08-23 13:20 | PN ---
DATE: 08/23/2017 SUBJECTIVE: No acute changes. The patient is alert, feels good. Denies pain, no fevers, still on Victoriano-Synephrine drip, but being titrated down. VITAL SIGNS: Temperature 98, pulse 78, respirations 13, blood pressure 102/69, saturation 100% on r oom air. WBC 9.2, H and H 12.9 and 38.8, platelets 353, no shift, no bands. BUN 11, creatinine 0.47. INDWELLINGS: The patient has PICC line. ANTIMICROBIALS: 1. Vancomycin. 2. Rocephin. 3. Rifampicin. PHYSICAL EXAMINATION: GENERAL: This is a well-developed, well-nourished, middle-aged man who is alert, in no dis tress. HEENT: Head atraumatic, normocephalic. Sclerae anicteric. Buccal mucosa pink. NECK: Supple. CHEST: Rise symmetrical. Breath sounds diminished to bases. HEART: S1, S2. ABDOMEN: Soft. Bowel tones present. EXTREMITIES: Without cyanosis or edema. ASSESSMENT: 1. Resolving sepsis. 2. Methicillin-resistant Staphylococcus aureus bacteremia secondary to #3. 3. Bilateral buttocks wounds with abscess, cultures growing methicillin-resistant Staphylococcus au reus and Escherichia coli. 4. Diabetes. 5. Psoriasis. PLAN: The patient remains stable pending repeat blood cultures, continue present care, local wound care per surgical recommendations ____ pressors as tolerated. Dictated By: JAIR RUCKER BOOK SEWER for BONIFACIO PAPPAS/KADE Conf#: [id number] DID#: [id number]
[2017-08-23] MEDS: CEFTRIAXONE 1 GM/50 ML (PMX) 50 ML IVPB SCH (13:40)
[2017-08-23] MEDS: RIFAMPIN 600 MG in SOD CHLORIDE 0.9% 100 ML IVPB SCH (20:37)
[2017-08-23] MEDS: INSULIN GLARGINE [LANtus] 3 ML PEN SC SCH (20:43)
[2017-08-24] VITALS (82 sets, daily range): BP systolic 73–112; BP diastolic 47–86; PULSE 69–106; RESP 10–39
[2017-08-24] MEDS: VANCOMYCIN 1 GM in NS 250 ML IVPB SCH ×3 (02:40→17:43)
[2017-08-24 05:15] LABS: BASOPHILS % 0.5 % (0.0-2.0); EOSINOPHILS # 0.6 10^3/ul (0.0-0.5); EOSINOPHILS % 7.7 % (0.0-7.0); HEMATOCRIT 38.5 % (42.0-52.0); HEMOGLOBIN 12.8 g/dl (14.0-18.0); LYMPHOCYTES # 2.4 10^3/ul (0.8-2.9); LYMPHOCYTES % 28.6 % (15.0-51.0); MEAN CORPUSCULAR HEMOGLOBIN 29.6 pg (29.0-33.0); MEAN CORPUSCULAR HGB CONC 33.2 g/dl (32.0-37.0); MEAN CORPUSCULAR VOLUME 88.9 fl (82.0-101.0); MEAN PLATELET VOLUME 9.7 fl (7.4-10.4); MONOCYTE # 0.8 10^3/ul (0.3-0.9); MONOCYTES % 9.2 % (0.0-11.0); NEUTROPHIL # 4.1 10^3/ul (1.6-7.5); NEUTROPHILS % 49.8 % (39.0-77.0); PLATELET COUNT 347 10^3/UL (140-415); RED BLOOD COUNT 4.33 10^6/ul (4.70-6.10); RED CELL DISTRIBUTION WIDTH 12.2 % (11.5-14.5); WHITE BLOOD COUNT 8.3 10^3/ul (4.8-10.8)
[2017-08-24 05:56] LABS: CALCIUM 8.4 mg/dl (8.4-10.2); CREATININE 0.54 mg/dl (0.61-1.24); PHOSPHORUS 3.7 mg/dl (2.5-4.9)
--- NOTE | 2017-08-24 06:46 | CONS ---
Date/Time of Note Date/Time of Note DATE: 08/24/17 TIME: 06:46 Assessment/Plan Assessment/Plan Chief Complaint/Hosp Course NSVT: Unusual for the pt to have NSVT with normal EF, no e/o ischemia, no symptoms. No e/o endocarditis by TTE at least and no AVB by EKG to suggest abscess. No heart failure. ?from hypokalemia vs pressors. Now resolved Septic shock: Unclear why pt is still requiring pressor support but almost off now Bilateral buttock abscess Staph aureus bacteremia: from buttocks. No endocarditis or valvular dysfunction at least by TTE. If indicated and concern, may need THOMAS to eval but for now no indication. DM -f/u blood cx. If positive will need THOMAS -wean phenylephrine -once off pressors, can start BB -consider stress testing inpt vs outpt for NSVT Problems: Consultation Date/Type/Reason Admit Date/Time Aug 17, 2017 at 11:27 Initial Consult Date 08/18/17 Type of Consultation: Cardiology Referring Provider: FLORENCIA PRASAD MD 24 HR Interval Summary Free Text/Dictation Remains on low dose bubba. No complaints Exam/Review of Systems Vital Signs Vitals Vital Signs Date Time Temp Pulse Resp B/P Pulse Ox O2 Delivery O2 Flow Rate FiO2 08/24/17 05:30 75 14 89/71 97 Room Air 08/24/17 04:00 98.4 Intake and Output 08/23/17 08/23/17 08/24/17 15:00 23:00 07:00 Intake Total 1540.00 ml 1035.50 ml 1842 ml Output Total 1100 ml 600 ml 900 ml Balance 440.00 ml 435.50 ml 942 ml Exam Constitutional: alert, oriented Psych: nl mood/affect, no complaints Head: atraumatic, normocephalic Neck: supple, No jvd Respiratory: clear to auscultation, No crackles/rales Cardiovascular: regular rate and rhythm, No edema, No systolic murmur Gastrointestinal: non-tender, soft Neurological: nl mental status, nl speech Results Result Diagram: 08/24/170 08/24/17429 Results 24 hrs Laboratory Tests Test 08/23/17 07:50 08/23/17 12:12 08/23/17 17:47 08/23/17 20:40 Bedside Glucose 199 344 H 239 H 272 H Test 08/24/17 02:33 08/24/17 04:30 Bedside Glucose 350 H White Blood Count 8.3 Red Blood Count 4.33 L Hemoglobin 12.8 L Hematocrit 38.5 L Mean Corpuscular Volume 88.9 Mean Corpuscular Hemoglobin 29.6 Mean Corpuscular Hemoglobin Concent 33.2 Red Cell Distribution Width 12.2 Platelet Count 347 Mean Platelet Volume 9.7 Neutrophils % 49.8 Lymphocytes % 28.6 Monocytes % 9.2 Eosinophils % 7.7 H Basophils % 0.5 Nucleated Red Blood Cells % 0.0 Neutrophils # 4.1 Lymphocytes # 2.4 Monocytes # 0.8 Eosinophils # 0.6 H Basophils # 0.0 Nucleated Red Blood Cells # 0.0 Sodium Level 136 Potassium Level 4.0 Chloride Level 102 Carbon Dioxide Level 28 Anion Gap 10 Blood Urea Nitrogen 10 Creatinine 0.54 L Glucose Level 352 H Calcium Level 8.4 Phosphorus Level 3.7 Magnesium Level 2.0 Albumin 3.0 L Medications Medications Current Medications Sodium Chloride (NS) 1,000 ml @ 70 mls/hr [id number] IV Last administered on 08/23 05:46; Admin Dose 70 MLS/HR; Start 08/17/17 at 07:27 Ondansetron HCl (Zofran Inj) 4 mg Q6H PRN IV NAUSEA AND/OR VOMITING; Start 08/17/17 at 07:30 Hydromorphone HCl (Dilaudid) 0.5 mg Q4H PRN IV SEVERE PAIN LEVEL 7-10 Last administered on 08/22/17 04:45; Admin Dose 0.5 MG; Start 08/17/17 at 07:30 Docusate Sodium (Colace) 100 mg Q12H PRN PO CONSTIPATION Last administered on 08/23/17 20:37; Admin Dose 100 MG; Start 08/17/17 at 07:30 Bisacodyl (Dulcolax) 5 mg DAILY PRN PO CONSTIPATION; Start 08/17/17 at 07:30 Famotidine (Pepcid) 20 mg Q12 PO Last administered on 08/23/17 20:37; Admin Dose 20 MG; Start 08/17/17 at 09:00 Miscellaneous Information 1 ea NOTE XX ; Start 08/17/17 at 08:00 IV Flush (NS 10 ml) 10 ml PRN PRN IV IV PROTOCOL; Start 08/17/17 at 14:30 Acetaminophen (Tylenol Tab) 650 mg Q4 PRN PO pain, fevers, headache Last administered on 08/20/17 23:32; Admin Dose 650 MG; Start 08/17/17 at 18:30 Mometasone Furoate 1 applic 1 applic DAILY TOP Last administered on 08/23/17 12:11; Admin Dose 1 APPLIC; Start 08/18/17 at 12:00 Rifampin/Sodium Chloride (Rifampin/NS) 100 ml @ 200 mls/hr DAILY@20 IVPB Last administered on 08/23/17 20:37; Admin Dose 200 MLS/HR; Start 08/18/17 at 20:00 ; Stop 09/02/17 at 21:00 Hydrocortisone (Hydrocortisone 1% Oint) 1 applic BID TOP Last administered on 08/23/17 21:00; Admin Dose 1 APPLIC; Start 08/20/17 at 11:30 Miscellaneous Information 1 ea NOTE XX ; Start 08/20/17 at 11:00 Glucose (Glutose) 15 gm Q15M PRN PO DECREASED GLUCOSE; Start 08/20/17 at 11:00 Glucose (Glutose) 22.5 gm Q15M PRN PO DECREASED GLUCOSE; Start 08/20/17 at 11: 00 Dextrose (D50w Syringe) 25 ml Q15M PRN IV DECREASED GLUCOSE; Start 08/20/17 at 11:00 Dextrose (D50w Syringe) 50 ml Q15M PRN IV DECREASED GLUCOSE; Start 08/20/17 at 11:00 Glucagon (Glucagen) 1 mg Q15M PRN IM DECREASED GLUCOSE; Start 08/20/17 at 11:00 Glucose (Glutose) 15 gm Q15M PRN BUCCAL DECREASED GLUCOSE; Start 08/20/17 at 11 :00 Sodium Hypochlorite 1 applic 1 applic BID IRR Last administered on 08/23/17 20 :37; Admin Dose 1 APPLIC; Start 08/21/17 at 09:00 Phenylephrine HCl 40 mg/Sodium Chloride 500 ml @ 75 mls/hr TITRATE IV Last administered on 08/23/17 02:55; Admin Dose 15 MLS/HR; Start 08/21/17 at 07:00 Ceftriaxone Sodium (Rocephin) 50 ml @ 100 mls/hr Q24H IVPB Last administered on 08/23/17 13:40; Admin Dose 100 MLS/HR; Start 08/21/17 at 13:30 Insulin Glargine (Lantus) 19 unit QHS SC Last administered on 08/23/17 20:43; Admin Dose 19 UNIT; Start 08/22/17 at 21:00 Midodrine 5 mg 5 mg TID@,13,17 PO Last administered on 08/23/17 17:45; Admin Dose 5 MG; Start 08/23/17 at 09:00 Vancomycin HCl (Vancocin) 250 ml @ 125 mls/hr Q8H IVPB Last administered on 02:40; Admin Dose 125 MLS/HR; Start 08/23/17 at 10:00 Miscellaneous Information (*Rx Drug Level Order Reminder*) VANCOMYCIN TROUGH AT 1700 ONCE ONCE XX ; Start 08/24/17 at 17:00; Stop 08/24/17 at 17:01 GRAHAM ANDREWS Aug 24, 2017 06:46
[2017-08-24] MEDS: INSULIN ASPART [NOVOLOG] 3 ML PEN SC SCH ×3 (07:57→17:46)
[2017-08-24] MEDS: Insulin NOVOLOG SS MILD Algorithm (SS with meals and bedtime) SC SCH ×4 (07:58→21:34)
[2017-08-24] MEDS ORDERED: PHENYLephrine 20MG IN 250 ML 250 ML IV SCH (08:30)
[2017-08-24] MEDS: MIDODRINE 5 MG TAB PO SCH ×3 (09:31→17:44)
[2017-08-24] MEDS: HYDROCORTISONE 1% 28.35 GM OINT TOP SCH ×2 (09:31→21:06)
[2017-08-24] MEDS: FAMOTIDINE 20 MG TAB PO SCH ×2 (09:31→21:06)
[2017-08-24] MEDS: MOMETASONE TOP SCH (09:32)
[2017-08-24] MEDS: SODIUM HYPOCHLORITE 1/40% 1L IRRIG IRR SCH ×2 (09:32→21:06)
--- NOTE | 2017-08-24 10:03 | CONS ---
Date/Time of Note Date/Time of Note DATE: 08/24/17 TIME: 10:00 Assessment/Plan Assessment/Plan Additional Assessment/Plan Patient currently on phenylephrine drip at 15 mics per minute. Assessment and recommendations; 1. Patient admitted with perianal abscess status post incision and drainage. Blood cultures growing MRSA with wound culture growing MRSA as well as E. coli. Patient currently on appropriate antibiotic regimen. 2. Hypotension with interval improvement. Continue current treatment. Taper off pressor support as tolerated. Progressing well. Consultation Date/Type/Reason Admit Date/Time Aug 17, 2017 at 11:27 Initial Consult Date 08/18/17 Type of Consultation: Pulmonary/critical care Referring Provider: FLORENCIA PRASAD MD 24 HR Interval Summary Free Text/Dictation Patient condition remains stable. Still requiring phenylephrine drip although at a much lower dosing. Patient denies any shortness of breath, chest pain, nausea or vomiting. Tarah rectal pain is significantly improved. General exam; middle-aged male, awake alert currently in no distress. Exam/Review of Systems Vital Signs Vitals Vital Signs Date Time Temp Pulse Resp B/P Pulse Ox O2 Delivery O2 Flow Rate FiO2 08/24/17 08:00 78 08/24/17 05:30 14 89/71 97 Room Air 08/24/17 04:00 98.4 Intake and Output 08/23/17 08/23/17 08/24/17 15:00 23:00 07:00 Intake Total 1540.00 ml 1035.50 ml 1842 ml Output Total 1100 ml 600 ml 900 ml Balance 440.00 ml 435.50 ml 942 ml Exam HEENT exam; supple neck, no JVD. No lymphadenopathy. Midline trachea. No thyromegaly. Patient has good dentition. Chest exam; clear to auscultation. S1-S2 audible, no murmurs. Regular rhythm. Abdomen exam; soft, no organomegaly. Nontender. Bowel sounds audible. Dressing applied over perianal area. Extremity exam; no edema. DIAGNOSTIC RADIOLOGIC TECHNOLOGIST exam; no focal deficit. Results Result Diagram: 08/24/17 0430 08/24/17 0430 Results 24 hrs Laboratory Tests Test 08/23/17 12:12 08/23/17 17:47 08/23/17 20:40 08/24/17 02:33 Bedside Glucose 344 H 239 H 272 H 350 H Test 08/24/17 04:30 08/24/17 07:54 White Blood Count 8.3 Red Blood Count 4.33 L Hemoglobin 12.8 L Hematocrit 38.5 L Mean Corpuscular Volume 88.9 Mean Corpuscular Hemoglobin 29.6 Mean Corpuscular Hemoglobin Concent 33.2 Red Cell Distribution Width 12.2 Platelet Count 347 Mean Platelet Volume 9.7 Neutrophils % 49.8 Lymphocytes % 28.6 Monocytes % 9.2 Eosinophils % 7.7 H Basophils % 0.5 Nucleated Red Blood Cells % 0.0 Neutrophils # 4.1 Lymphocytes # 2.4 Monocytes # 0.8 Eosinophils # 0.6 H Basophils # 0.0 Nucleated Red Blood Cells # 0.0 Sodium Level 136 Potassium Level 4.0 Chloride Level 102 Carbon Dioxide Level 28 Anion Gap 10 Blood Urea Nitrogen 10 Creatinine 0.54 L Glucose Level 352 H Calcium Level 8.4 Phosphorus Level 3.7 Magnesium Level 2.0 Albumin 3.0 L Bedside Glucose 234 H Medications Medications Current Medications Sodium Chloride (NS) 1,000 ml @ 70 mls/hr [id number] IV Last administered on 08/23 05:46; Admin Dose 70 MLS/HR; Start 08/17/17 at 07:27 Ondansetron HCl (Zofran Inj) 4 mg Q6H PRN IV NAUSEA AND/OR VOMITING; Start 08/17/17 at 07:30 Hydromorphone HCl (Dilaudid) 0.5 mg Q4H PRN IV SEVERE PAIN LEVEL 7-10 Last administered on 08/22/17 04:45; Admin Dose 0.5 MG; Start 08/17/17 at 07:30 Docusate Sodium (Colace) 100 mg Q12H PRN PO CONSTIPATION Last administered on 08/23/17 20:37; Admin Dose 100 MG; Start 08/17/17 at 07:30 Bisacodyl (Dulcolax) 5 mg DAILY PRN PO CONSTIPATION; Start 08/17/17 at 07:30 Famotidine (Pepcid) 20 mg Q12 PO Last administered on 08/24/17 09:31; Admin Dose 20 MG; Start 08/17/17 at 09:00 Miscellaneous Information 1 ea NOTE XX ; Start 08/17/17 at 08:00 IV Flush (NS 10 ml) 10 ml PRN PRN IV IV PROTOCOL; Start 08/17/17 at 14:30 Acetaminophen (Tylenol Tab) 650 mg Q4 PRN PO pain, fevers, headache Last administered on 08/20/17 23:32; Admin Dose 650 MG; Start 08/17/17 at 18:30 Mometasone Furoate 1 applic 1 applic DAILY TOP Last administered on 08/24/17 09:32; Admin Dose 1 APPLIC; Start 08/18/17 at 12:00 Rifampin/Sodium Chloride (Rifampin/NS) 100 ml @ 200 mls/hr DAILY@20 IVPB Last administered on 08/23/17 20:37; Admin Dose 200 MLS/HR; Start 08/18/17 at 20:00 ; Stop 09/02/17 at 21:00 Hydrocortisone (Hydrocortisone 1% Oint) 1 applic BID TOP Last administered on 08/24/17 09:31; Admin Dose 1 APPLIC; Start 08/20/17 at 11:30 Miscellaneous Information 1 ea NOTE XX ; Start 08/20/17 at 11:00 Glucose (Glutose) 15 gm Q15M PRN PO DECREASED GLUCOSE; Start 08/20/17 at 11:00 Glucose (Glutose) 22.5 gm Q15M PRN PO DECREASED GLUCOSE; Start 08/20/17 at 11: 00 Dextrose (D50w Syringe) 25 ml Q15M PRN IV DECREASED GLUCOSE; Start 08/20/17 at 11:00 Dextrose (D50w Syringe) 50 ml Q15M PRN IV DECREASED GLUCOSE; Start 08/20/17 at 11:00 Glucagon (Glucagen) 1 mg Q15M PRN IM DECREASED GLUCOSE; Start 08/20/17 at 11:00 Glucose (Glutose) 15 gm Q15M PRN BUCCAL DECREASED GLUCOSE; Start 08/20/17 at 11 :00 Sodium Hypochlorite 1 applic 1 applic BID IRR Last administered on 08/24/17 09:32; Admin Dose 1 APPLIC; Start 08/21/17 at 09:00 Ceftriaxone Sodium (Rocephin) 50 ml @ 100 mls/hr Q24H IVPB Last administered on 08/23/17 13:40; Admin Dose 100 MLS/HR; Start 08/21/17 at 13:30 Midodrine 5 mg 5 mg TID@,,17 PO Last administered on 08/24/17 09:31; Admin Dose 5 MG; Start 08/23/17 at 09:00 Vancomycin HCl (Vancocin) 250 ml @ 125 mls/hr Q8H IVPB Last administered on 09:31; Admin Dose 125 MLS/HR; Start 08/23/17 at 10:00 Miscellaneous Information VANCOMYCIN TROUGH AT 1700 ONCE ONCE XX ; Start 08/24/17 at 17:00; Stop 08/24/17 at 17:01 Phenylephrine HCl (Victoriano-Syneph) 250 ml @ 0 mls/hr TITRATE IV ; Start 08/24/17 at 08:30 Insulin Glargine (Lantus) 25 unit QHS SC ; Start 08/24/17 at 21:00 SANTHOSH JUAREZ Aug 24, 2017 10:03
[2017-08-24] MEDS: CEFTRIAXONE 1 GM/50 ML (PMX) 50 ML IVPB SCH (12:46)
[2017-08-24] MEDS: SOD CHLORIDE 0.9% 1,000 ML IV SCH ×2 (12:46→20:00)
--- NOTE | 2017-08-24 14:29 | PN ---
Date/Time of Note Date/Time of Note DATE: 08/24/17 TIME: 14:28 Assessment/Plan VTE Prophylaxis VTE Prophylaxis Intervention: heparin Lines/Catheters IV Catheter Type (from [facility]): PICC Line Central line still needed: Yes Urinary Cath still in place: No Assessment/Plan Chief Complaint/Hosp Course 1. Septic shock secondary to bacteremia and gluteal abscess - Patient growing MRSA in wound as well as on blood cultures - Still on pressor support and will wean to keep MAP >60, midodrine on to help titrate off. - ID on board and recommendations appreciated. on abx per ID. - WBC trending downward and will continue to monitor 2. Bacteremia - + MRSA - ID on board and appreciate assistance - ECHO ordered and no vegetation appreciated. If patient does not improve may need to do THOMAS 3. Diabetes mellitus, poorly controlled - A1c 12.2 - visual educator recommendations appreciated. - Changed to Lantus and will increase dose 19units qHS and Novolog to 7units with meals. Will continue adjusting to keep sugars better controlled 4. Gluteal abscess s/p I&D 08/19/17 - Surgery on board and consultation appreciated. - Growing MRSA and Ecoli 5. Hypotension - Will continue on pressors and wean as tolerated to keep MAP >60 6. Episodes of NSVT - Cardiology consult placed and recommendations appreciated - Most likely secondary to bacteremia and will continue monitoring - once off pressors will start on BB. If vtach episodes persistent or frequent consider amiodarone and stress test 7. Hypokalemia - stable 8. Psoriatic plaques - hydrocortisone cream - May need to seek out Rheum upon discharge 9. Disposition - Patient still requiring pressor support, will remain in ICU >40 minutes spent providing critical care to patient. All questions and concerns addressed and answered. Problems: Exam/Review of Systems Vital Signs Vitals Vital Signs Date Time Temp Pulse Resp B/P Pulse Ox O2 Delivery O2 Flow Rate FiO2 08/24/17 14:00 92 21 109/70 100 Room Air 08/24/17 12:00 97.7 Intake and Output 08/23/17 08/23/17 08/24/17 15:00 23:00 07:00 Intake Total 1540.00 ml 1035.50 ml 1842 ml Output Total 1100 ml 600 ml 900 ml Balance 440.00 ml 435.50 ml 942 ml Exam General: NAD, awake and alert HEENT:NC/AT, PERRL, EOM intact Neck: Supple with full range of motion. Lungs: Clear to auscultation bilaterally no crackles rales or wheezing Heart: Regular rhythm and rate no overt murmur appreciated Abdomen: Soft , nontender, nondistended , bowel sounds are present. No guarding no rebound tenderness , Extremities: Normal to inspection, no edema no cyanosis Neurologic: Normal mental status, speech normal, cranial nerves II through XII are intact, motor and sensory are intact, no focal weakness Skin: dressing in place and incisions appear clean with no discharge or drainage. diffuse scaly patches on UE and LE bilaterally. Results Result Diagram: 08/24/17 04308/24/17429 Results 24 hrs Laboratory Tests Test 08/23/17 17:47 08/23/17 20:40 08/24/17 02:33 08/24/17 04:30 Bedside Glucose 239 H 272 H 350 H White Blood Count 8.3 Red Blood Count 4.33 L Hemoglobin 12.8 L Hematocrit 38.5 L Mean Corpuscular Volume 88.9 Mean Corpuscular Hemoglobin 29.6 Mean Corpuscular Hemoglobin Concent 33.2 Red Cell Distribution Width 12.2 Platelet Count 347 Mean Platelet Volume 9.7 Neutrophils % 49.8 Lymphocytes % 28.6 Monocytes % 9.2 Eosinophils % 7.7 H Basophils % 0.5 Nucleated Red Blood Cells % 0.0 Neutrophils # 4.1 Lymphocytes # 2.4 Monocytes # 0.8 Eosinophils # 0.6 H Basophils # 0.0 Nucleated Red Blood Cells # 0.0 Sodium Level 136 Potassium Level 4.0 Chloride Level 102 Carbon Dioxide Level 28 Anion Gap 10 Blood Urea Nitrogen 10 Creatinine 0.54 L Glucose Level 352 H Calcium Level 8.4 Phosphorus Level 3.7 Magnesium Level 2.0 Albumin 3.0 L Test 08/24/17 07:54 08/24/17 12:13 Bedside Glucose 234 H 248 H Medications Medications Current Medications Sodium Chloride (NS) 1,000 ml @ 70 mls/hr [id number] IV Last administered on t 12:46; Admin Dose 70 MLS/HR; Start 08/17/17 at 07:27 Ondansetron HCl (Zofran Inj) 4 mg Q6H PRN IV NAUSEA AND/OR VOMITING; Start 08/17/17 at 07:30 Hydromorphone HCl (Dilaudid) 0.5 mg Q4H PRN IV SEVERE PAIN LEVEL 7-10 Last administered on 08/22/17 04:45; Admin Dose 0.5 MG; Start 08/17/17 at 07:30 Docusate Sodium (Colace) 100 mg Q12H PRN PO CONSTIPATION Last administered on 08/23/17 20:37; Admin Dose 100 MG; Start 08/17/17 at 07:30 Bisacodyl (Dulcolax) 5 mg DAILY PRN PO CONSTIPATION; Start 08/17/17 at 07:30 Famotidine (Pepcid) 20 mg Q12 PO Last administered on 08/24/17 09:31; Admin Dose 20 MG; Start 08/17/17 at 09:00 IV Flush (NS 10 ml) 10 ml PRN PRN IV IV PROTOCOL; Start 08/17/17 at 14:30 Acetaminophen (Tylenol Tab) 650 mg Q4 PRN PO pain, fevers, headache Last administered on 08/20/17 23:32; Admin Dose 650 MG; Start 08/17/17 at 18:30 Mometasone Furoate 1 applic 1 applic DAILY TOP Last administered on 08/24/17 09:32; Admin Dose 1 APPLIC; Start 08/18/17 at 12:00 Rifampin/Sodium Chloride (Rifampin/NS) 100 ml @ 200 mls/hr DAILY@20 IVPB Last administered on 08/23/17 20:37; Admin Dose 200 MLS/HR; Start 08/18/17 at 20:00 ; Stop 09/02/17 at 21:00 Hydrocortisone (Hydrocortisone 1% Oint) 1 applic BID TOP Last administered on 08/24/17 09:31; Admin Dose 1 APPLIC; Start 08/20/17 at 11:30 Miscellaneous Information 1 ea NOTE XX ; Start 08/20/17 at 11:00 Glucose (Glutose) 15 gm Q15M PRN PO DECREASED GLUCOSE; Start 08/20/17 at 11:00 Glucose (Glutose) 22.5 gm Q15M PRN PO DECREASED GLUCOSE; Start 08/20/17 at 11: 00 Dextrose (D50w Syringe) 25 ml Q15M PRN IV DECREASED GLUCOSE; Start 08/20/17 at 11:00 Dextrose (D50w Syringe) 50 ml Q15M PRN IV DECREASED GLUCOSE; Start 08/20/17 at 11:00 Glucagon (Glucagen) 1 mg Q15M PRN IM DECREASED GLUCOSE; Start 08/20/17 at 11:00 Glucose (Glutose) 15 gm Q15M PRN BUCCAL DECREASED GLUCOSE; Start 08/20/17 at 11 :00 Sodium Hypochlorite 1 applic 1 applic BID IRR Last administered on 08/24/17 09:32; Admin Dose 1 APPLIC; Start 08/21/17 at 09:00 Ceftriaxone Sodium 50 ml @ 100 mls/hr Q24H IVPB Last administered on 12:46; Admin Dose 100 MLS/HR; Start 08/21/17 at 13:30 Vancomycin HCl (Vancocin) 250 ml @ 125 mls/hr Q8H IVPB Last administered on 09:31; Admin Dose 125 MLS/HR; Start 08/23/17 at 10:00 Miscellaneous Information VANCOMYCIN TROUGH AT 1700 ONCE ONCE XX ; Start 08/24/17 at 17:00; Stop 08/24/17 at 17:01 Phenylephrine HCl (Victoriano-Syneph) 250 ml @ 0 mls/hr TITRATE IV Last administered on 08/24/17 12:48; Admin Dose 0 MLS/HR; Start 08/24/17 at 08:30 Insulin Glargine (Lantus) 25 unit QHS SC ; Start 08/24/17 at 21:00 Heparin Sodium (Porcine) (Heparin (5000 Units/0.5 ml)) 5,000 unit Q8 SC ; Start 08/24/17 at 14:00 Midodrine (Proamatine) 10 mg TID@,13,17 PO ; Start 08/24/17 at 17:00 RAAD REYES Aug 24, 2017 14:28
[2017-08-24] MEDS: HEPARIN 5,000 UNIT/0.5 ML VIAL SC SCH ×2 (14:41→21:08)
--- NOTE | 2017-08-24 14:53 | PN ---
DATE: 08/24/2017 SUBJECTIVE: No events overnight. The patient is alert, feels good, still bubba-drip, but being titra carlos down. No fevers. VITAL SIGNS: Temperature 98.4, pulse 75, respirations 14, blood pressure 89/71, saturation 97% on r oom air. WBC 8.3, H and H 12.8 and 38.5, platelets 347, no shift, no bands. BUN 10, creatinine 0.54. MICROBIOLOGY: Repeat blood culture on 08/22/2017 and 08/23 negative. INDWELLINGS: PICC line. ANTIMICROBIALS: 1. Rocephin. 2. Vancomycin. 3. Rifampin. PHYSICAL EXAMINATION: GENERAL: This is a well-developed, middle-aged man who is awake, in no distress. HEENT: Head atraumatic, normocephalic. Sclerae anicteric. Buccal mucosa dry. NECK: Supple. CHEST: Rise symmetrical. Breath sounds clear. HEART: S1, S2. ABDOMEN: Soft, bowel tones present. EXTREMITIES: Without cyanosis. ASSESSMENT: 1. Resolving sepsis. 2. Methicillin-resistant Staphylococcus aureus bacteremia. 3. Methicillin-resistant Staphylococcus aureus E. coli, bilateral buttock abscess, status post inci pratik and drainage. 4. Diabetes. 5. Psoriasis. PLAN: Patient remains stable. Repeat blood cultures negative. He is being followed by multiple co nsultants. A 2D echo on admission was negative for vegetations. Continue local wound care per surg anup. Dictated By: JAIR RUCKER [employer] SUPERVISOR for [employer] PAPP[employer]/NTS Conf#: [id number] DID#: [id number]
--- NOTE | 2017-08-24 17:21 | PN ---
Date/Time of Note Date/Time of Note DATE: 08/24/17 TIME: 17:13 Assessment/Plan Lines/Catheters IV Catheter Type (from [facility]): PICC Line Sharpe in Place (from [facility]): No Assessment/Plan Chief Complaint/Hosp Course 1. Sepsis with shock with Bacteremia and Buttock Cellulitis and Abscess: continuous on pressors; s/p I&D 08/19, cultures noted -abx -ivf -supportive; pressor support and wean as able -local care for buttock incisions 2. Bacteremia -as above -echo 3. DM: labile sugars: continues -medication optimization 4. Tachycardia 2nd above: improved; Sr -as above -cardiology following 5. Psoriasis -medical management 6. Anemia -monitor 7. Hypoalbuminemia with hypocalcemia: nutritional +/- inflammation -as above -optimize nutrition Thank you. Patient seen and examined in collaboration with Dr. Mihir Zazueta. Problems: Subjective 24 Hr Interval Summary Feels much better. Improved drainage from wounds, min odor. Reports improved pain/discomfort from wounds. No fevers, chills, sob, congested cough, myalgias. Improved energy. Remains on pressors. Exam/Review of Systems Vital Signs Vitals Vital Signs Date Time Temp Pulse Resp B/P Pulse Ox O2 Delivery O2 Flow Rate FiO2 08/24/17 16:00 79 08/24/17 14:00 21 109/70 100 Room Air 08/24/17 12:00 97.7 Intake and Output 08/23/17 08/23/17 08/24/17 15:00 23:00 07:00 Intake Total 1540.00 ml 1035.50 ml 1842 ml Output Total 1100 ml 600 ml 900 ml Balance 440.00 ml 435.50 ml 942 ml Exam Free Text/Dictation Constitutional: alert, oriented, No distress Psych: nl mood/affect, No anxiety, No confusion Head: atraumatic, normocephalic Eyes: EOMI, PERRL, nl conjunctiva, No icteric ENMT: mucosa pink and moist, nl external ears & nose Neck: non-tender, supple, No jvd Respiratory: normal air movement, No congested cough, No labored breathing Cardiovascular: No edema, No regular rate and rhythm; st Gastrointestinal: non-tender, soft, No distended, No rebound or guarding Genitourinary - Male: No CVA tenderness Musculoskeletal: nl extremities to inspection, No joint tenderness Extremities: normal pulses, No calf tenderness, No cyanosis, No edema Neurological: nl mental status, nl speech Skin: other (Bilateral buttock, improved tenderness; small drainage, nonmalodorous), rash or lesions (psoriatic lesions), No diaphoresis, No nl turgor (dry) Lymph: nl lymph nodes Results Result Diagram: 08/24/17 0430 08/24/17 0430 DAMARIS LINTON NP Aug 24, 2017 17:21
[2017-08-24] MEDS: RIFAMPIN 600 MG in SOD CHLORIDE 0.9% 100 ML IVPB SCH (21:06)
[2017-08-24] MEDS: INSULIN GLARGINE [LANtus] 3 ML PEN SC SCH (21:33)
[2017-08-25] VITALS (69 sets, daily range): BP systolic 80–119; BP diastolic 50–83; PULSE 62–116; RESP 10–26
[2017-08-25] MEDS: VANCOMYCIN 1 GM in NS 250 ML IVPB SCH ×3 (02:09→17:51)
[2017-08-25] MEDS: SOD CHLORIDE 0.9% 1,000 ML IV SCH ×3 (02:10→22:52)
[2017-08-25] MEDS: HEPARIN 5,000 UNIT/0.5 ML VIAL SC SCH ×3 (05:19→21:48)
[2017-08-25 05:57] LABS: BASOPHIL # 0.1 10^3/ul (0.0-0.1); BASOPHILS % 0.6 % (0.0-2.0); EOSINOPHILS # 0.7 10^3/ul (0.0-0.5); EOSINOPHILS % 7.6 % (0.0-7.0); HEMATOCRIT 38.2 % (42.0-52.0); HEMOGLOBIN 12.3 g/dl (14.0-18.0); LYMPHOCYTES % 33.9 % (15.0-51.0); MEAN CORPUSCULAR HEMOGLOBIN 28.9 pg (29.0-33.0); MEAN CORPUSCULAR HGB CONC 32.2 g/dl (32.0-37.0); MEAN CORPUSCULAR VOLUME 89.7 fl (82.0-101.0); MEAN PLATELET VOLUME 9.9 fl (7.4-10.4); MONOCYTE # 0.8 10^3/ul (0.3-0.9); MONOCYTES % 9.1 % (0.0-11.0); NEUTROPHIL # 3.9 10^3/ul (1.6-7.5); NEUTROPHILS % 44.7 % (39.0-77.0); PLATELET COUNT 394 10^3/UL (140-415); RED BLOOD COUNT 4.26 10^6/ul (4.70-6.10); RED CELL DISTRIBUTION WIDTH 12.3 % (11.5-14.5); WHITE BLOOD COUNT 8.8 10^3/ul (4.8-10.8)
[2017-08-25 06:28] LABS: CALCIUM 8.6 mg/dl (8.4-10.2); CREATININE 0.52 mg/dl (0.61-1.24); MAGNESIUM 1.9 mg/dl (1.7-2.5); PHOSPHORUS 4.1 mg/dl (2.5-4.9); POTASSIUM 4.4 mmol/L (3.5-5.1)
[2017-08-25] MEDS: INSULIN ASPART [NOVOLOG] 3 ML PEN SC SCH ×5 (08:15→20:30)
[2017-08-25] MEDS: Insulin NOVOLOG SS MILD Algorithm (SS with meals and bedtime) SC SCH ×2 (08:15→12:04)
[2017-08-25] MEDS: FAMOTIDINE 20 MG TAB PO SCH ×2 (08:16→20:26)
[2017-08-25] MEDS: ZINC SULFATE 220 MG CAP PO SCH (08:16)
[2017-08-25] MEDS: ASCORBIC ACID 500 MG TAB PO SCH (08:17)
[2017-08-25] MEDS: MOMETASONE TOP SCH (08:19)
[2017-08-25] MEDS: HYDROCORTISONE 1% 28.35 GM OINT TOP SCH ×2 (08:19→20:31)
[2017-08-25] MEDS: MIDODRINE 5 MG TAB PO SCH ×3 (08:19→17:51)
[2017-08-25] MEDS: SODIUM HYPOCHLORITE 1/40% 1L IRRIG IRR SCH ×2 (08:19→20:26)
--- NOTE | 2017-08-25 10:32 | CONS ---
Date/Time of Note Date/Time of Note DATE: 08/25/17 TIME: 10:28 Assessment/Plan Assessment/Plan Additional Assessment/Plan Assessment and recommendations; 1. Patient admitted with perianal abscess status post incision and drainage. Wound culture as well as blood cultures growing MRSA. Patient currently on appropriate antibiotic regimen with marked overall improvement. 2. Diabetes. 3. Mild persistent hypotension. Patient currently on phenylephrine drip at 5 mics per minute. Continue current treatment. Taper off pressor support as tolerated. Consultation Date/Type/Reason Admit Date/Time Aug 17, 2017 at 11:27 Initial Consult Date 08/18/17 Type of Consultation: Pulmonary/critical care Referring Provider: FLORENCIA PRASAD MD 24 HR Interval Summary Free Text/Dictation Patient's condition is stable. Remains awake alert. Denies any shortness of breath, fever, chills. Perirectal pain is continually improving. General exam; young male, awake alert, currently in no distress. Exam/Review of Systems Vital Signs Vitals Vital Signs Date Time Temp Pulse Resp B/P Pulse Ox O2 Delivery O2 Flow Rate FiO2 08/25/17 09:45 75 14 92/73 97 08/25/17 09:00 Room Air 08/25/17 08:00 98.4 Intake and Output 08/24/17 08/24/17 08/25/17 15:00 23:00 07:00 Intake Total 1361.50 ml 1242.0 ml 855.0 ml Output Total 850 ml 700 ml 900 ml Balance 511.50 ml 542.0 ml -45.0 ml Results HEENT exam; supple neck, no JVD. No lymphadenopathy. Midline trachea. No thyromegaly. Pharynx is clear. Patient has good dentition. Chest exam; clear to auscultation. S1-S2 audible, no murmurs. Regular rhythm. Abdomen exam; soft, nontender. No organomegaly. Bowel sounds audible. Dressing applied around perianal area. Extremity exam; no edema. 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 Result Diagram: 08/25/17 0520 08/25/17 0400 Results 24 hrs Laboratory Tests Test 08/24/17 12:13 08/24/17 17:30 08/24/17 17:40 08/24/17 21:30 Bedside Glucose 248 H 215 201 Vancomycin Level Trough 12.0 Test 08/25/17 04:00 08/25/17 05:20 08/25/17 08:13 Sodium Level 135 Potassium Level 4.4 Chloride Level 104 Carbon Dioxide Level 26 Anion Gap 9 Blood Urea Nitrogen 13 Creatinine 0.52 L Glucose Level 201 # Calcium Level 8.6 Phosphorus Level 4.1 Magnesium Level 1.9 White Blood Count 8.8 Red Blood Count 4.26 L Hemoglobin 12.3 L Hematocrit 38.2 L Mean Corpuscular Volume 89.7 Mean Corpuscular Hemoglobin 28.9 L Mean Corpuscular Hemoglobin Concent 32.2 Red Cell Distribution Width 12.3 Platelet Count 394 Mean Platelet Volume 9.9 Neutrophils % 44.7 Lymphocytes % 33.9 Monocytes % 9.1 Eosinophils % 7.6 H Basophils % 0.6 Nucleated Red Blood Cells % 0.0 Neutrophils # 3.9 Lymphocytes # 3.0 H Monocytes # 0.8 Eosinophils # 0.7 H Basophils # 0.1 Nucleated Red Blood Cells # 0.0 Bedside Glucose 155 Medications Medications Current Medications Sodium Chloride (NS) 1,000 ml @ 70 mls/hr [id number] IV Last administered on 02:10; Admin Dose 70 MLS/HR; Start 08/17/17 at 07:27 Ondansetron HCl (Zofran Inj) 4 mg Q6H PRN IV NAUSEA AND/OR VOMITING; Start 08/17/17 at 07:30 Hydromorphone HCl (Dilaudid) 0.5 mg Q4H PRN IV SEVERE PAIN LEVEL 7-10 Last administered on 08/22/17 04:45; Admin Dose 0.5 MG; Start 08/17/17 at 07:30 Docusate Sodium (Colace) 100 mg Q12H PRN PO CONSTIPATION Last administered on 08/23/17 20:37; Admin Dose 100 MG; Start 08/17/17 at 07:30 Bisacodyl (Dulcolax) 5 mg DAILY PRN PO CONSTIPATION; Start 08/17/17 at 07:30 Famotidine (Pepcid) 20 mg Q12 PO Last administered on 08/25/17 08:16; Admin Dose 20 MG; Start 08/17/17 at 09:00 IV Flush (NS 10 ml) 10 ml PRN PRN IV IV PROTOCOL; Start 08/17/17 at 14:30 Acetaminophen (Tylenol Tab) 650 mg Q4 PRN PO pain, fevers, headache Last administered on 08/20/17 23:32; Admin Dose 650 MG; Start 08/17/17 at 18:30 Mometasone Furoate 1 applic 1 applic DAILY TOP Last administered on 08/25/17 08:19; Admin Dose 1 APPLIC; Start 08/18/17 at 12:00 Rifampin/Sodium Chloride (Rifampin/NS) 100 ml @ 200 mls/hr DAILY@20 IVPB Last administered on 08/24/17 21:06; Admin Dose 200 MLS/HR; Start 08/18/17 at 20:00 ; Stop 09/02/17 at 21:00 Hydrocortisone (Hydrocortisone 1% Oint) 1 applic BID TOP Last administered on 08/25/17 08:19; Admin Dose 1 APPLIC; Start 08/20/17 at 11:30 Miscellaneous Information 1 ea NOTE XX ; Start 08/20/17 at 11:00 Glucose (Glutose) 15 gm Q15M PRN PO DECREASED GLUCOSE; Start 08/20/17 at 11:00 Glucose (Glutose) 22.5 gm Q15M PRN PO DECREASED GLUCOSE; Start 08/20/17 at 11: 00 Dextrose (D50w Syringe) 25 ml Q15M PRN IV DECREASED GLUCOSE; Start 08/20/17 at 11:00 Dextrose (D50w Syringe) 50 ml Q15M PRN IV DECREASED GLUCOSE; Start 08/20/17 at 11:00 Glucagon (Glucagen) 1 mg Q15M PRN IM DECREASED GLUCOSE; Start 08/20/17 at 11:00 Glucose (Glutose) 15 gm Q15M PRN BUCCAL DECREASED GLUCOSE; Start 08/20/17 at 11 :00 Sodium Hypochlorite 1 applic 1 applic BID IRR Last administered on 08/25/17 08:19; Admin Dose 1 APPLIC; Start 08/21/17 at 09:00 Ceftriaxone Sodium 50 ml @ 100 mls/hr Q24H IVPB Last administered on 12:46; Admin Dose 100 MLS/HR; Start 08/21/17 at 13:30 Vancomycin HCl 250 ml @ 125 mls/hr Q8H IVPB Last administered on 08/25/17 02 :09; Admin Dose 125 MLS/HR; Start 10/9/17 at 10:00 Phenylephrine HCl (Victoriano-Syneph) 250 ml @ 0 mls/hr TITRATE IV Last administered on 08/24/17 12:48; Admin Dose 0 MLS/HR; Start 08/24/17 at 08:30 Insulin Glargine (Lantus) 25 unit QHS SC Last administered on 08/24/17 21:33 ; Admin Dose 25 UNIT; Start 08/24/17 at 21:00 Heparin Sodium (Porcine) (Heparin (5000 Units/0.5 ml)) 5,000 unit Q8 SC Last administered on 08/25/17 05:19; Admin Dose 5,000 UNIT; Start 08/24/17 at 14: 00 Midodrine (Proamatine) 10 mg TID@,13,17 PO Last administered on 08/25/17 08 :19; Admin Dose 10 MG; Start 08/24/17 at 17:00 Ascorbic Acid (Vitamin C) 500 mg DAILY PO Last administered on 08/25/17 08:17 ; Admin Dose 500 MG; Start 08/25/17 at 09:00 Zinc Sulfate (Zinc Sulfate) 220 mg DAILY PO Last administered on 08/25/17 08: 16; Admin Dose 220 MG; Start 08/25/17 at 09:00 SANTHOSH JUAREZ Aug 25, 2017 10:32
--- NOTE | 2017-08-25 11:28 | PN ---
Date/Time of Note Date/Time of Note DATE: 08/25/17 TIME: 11:25 Assessment/Plan Lines/Catheters IV Catheter Type (from [facility]): PICC Line Sharpe in Place (from [facility]): No Assessment/Plan Chief Complaint/Hosp Course 1. Sepsis with shock with Bacteremia and Buttock Cellulitis and Abscess: continuous on pressors; s/p I&D 08/19, cultures noted, leukocytosis normalized -abx -ivf -supportive; pressor support titrating down -local care for buttock incisions 2. Bacteremia -as above -echo 3. DM: labile sugars: continues -medication optimization 4. Tachycardia 2nd above: improved; Sr -as above -cardiology following 5. Psoriasis -medical management 6. Anemia -monitor 7. Hypoalbuminemia with hypocalcemia: nutritional +/- inflammation -as above -optimize nutrition Thank you. Patient seen and examined in collaboration with Dr. Mihir Zazueta. Problems: Subjective 24 Hr Interval Summary Pressors titrating down. Up with PT. Feels much improved. No excessive wound drainage. Buttock pain improved. No fevers, chills, sob, congested cough, n/v/d/ dysuria, rivas, dizziness, cp. Exam/Review of Systems Vital Signs Vitals Vital Signs Date Time Temp Pulse Resp B/P Pulse Ox O2 Delivery O2 Flow Rate FiO2 08/25/17 10:30 80 16 95/70 98 08/25/17 10:00 Room Air 08/25/17 08:00 98.4 Intake and Output 08/24/17 08/24/17 08/25/17 15:00 23:00 07:00 Intake Total 1361.50 ml 1242.0 ml 855.0 ml Output Total 850 ml 700 ml 900 ml Balance 511.50 ml 542.0 ml -45.0 ml Exam Free Text/Dictation Constitutional: alert, oriented, No distress Psych: nl mood/affect, No anxiety, No confusion Head: atraumatic, normocephalic Eyes: EOMI, PERRL, nl conjunctiva, No icteric ENMT: mucosa pink and moist, nl external ears & nose Neck: non-tender, supple, No jvd Respiratory: normal air movement, No congested cough, No labored breathing Cardiovascular: No edema, No regular rate and rhythm; st Gastrointestinal: non-tender, soft, No distended, No rebound or guarding Genitourinary - Male: No CVA tenderness Musculoskeletal: nl extremities to inspection, No joint tenderness Extremities: normal pulses, No calf tenderness, No cyanosis, No edema Neurological: nl mental status, nl speech Skin: other (Bilateral buttock, improved tenderness; small drainage, nonmalodorous), rash or lesions (psoriatic lesions), No diaphoresis, No nl turgor (dry) Lymph: nl lymph nodes Results Result Diagram: 08/25/17 0520 08/25/17 0400 DAMARIS LINTON NP Aug 25, 2017 11:28
--- NOTE | 2017-08-25 13:25 | PN ---
Date/Time of Note Date/Time of Note DATE: 08/25/17 TIME: 13:23 Assessment/Plan VTE Prophylaxis VTE Prophylaxis Intervention: heparin Lines/Catheters [facility] Type (from [facility] PICC Line Central line still needed: Yes Urinary Cath still in place: No Assessment/Plan Chief Complaint/Hosp Course 1. Septic shock secondary to bacteremia and gluteal abscess - Patient growing MRSA in wound as well as on blood cultures - now off pressors, appears patient is baseline low BP. Will titrate off midodrine as well, will only intervene if patient becomes symptomatic. - ID on board and recommendations appreciated. on abx per ID. - WBC trending downward and will continue to monitor 2. Bacteremia - + MRSA - ID on board and appreciate assistance - ECHO ordered and no vegetation appreciated. If patient does not improve may need to do THOMAS 3. Diabetes mellitus, poorly controlled - A1c 12.2 - certified adaptive physical educator recommendations appreciated. - lantus and novolog 4. Gluteal abscess s/p I&D 08/19/17 - Surgery on board and consultation appreciated. - Growing MRSA and Ecoli 5. Hypotension - likely baseline. 6. Episodes of NSVT - Cardiology consult placed and recommendations appreciated - Most likely secondary to bacteremia and will continue monitoring - once off pressors will start on BB. If vtach episodes persistent or frequent consider amiodarone and stress test 7. Hypokalemia - stable 8. Psoriatic plaques - hydrocortisone cream - May need to seek out Rheum upon discharge 9. Disposition - Patient still requiring pressor support, will remain in ICU >40 minutes spent providing critical care to patient. All questions and concerns addressed and answered. Problems: Subjective 24 Hr Interval Summary Free Text/Dictation no acute issues Exam/Review of Systems Vital Signs Vitals Vital Signs Date Time Temp Pulse Resp B/P Pulse Ox O2 Delivery O2 Flow Rate FiO2 08/25/17 12:00 91 08/25/17 11:30 19 104/68 98 08/25/17 11:00 Room Air 08/25/17 08:00 98.4 Intake and Output 08/24/17 08/24/17 08/25/17 15:00 23:00 07:00 Intake Total 1361.50 ml 1242.0 ml 855.0 ml Output Total 850 ml 700 ml 900 ml Balance 511.50 ml 542.0 ml -45.0 ml Exam General: NAD, awake and alert HEENT:NC/AT, PERRL, EOM intact Neck: Supple with full range of motion. Lungs: Clear to auscultation bilaterally no crackles rales or wheezing Heart: Regular rhythm and rate no overt murmur appreciated Abdomen: Soft , nontender, nondistended , bowel sounds are present. No guarding no rebound tenderness , Extremities: Normal to inspection, no edema no cyanosis Neurologic: Normal mental status, speech normal, cranial nerves II through XII are intact, motor and sensory are intact, no focal weakness Skin: dressing in place and incisions appear clean with no discharge or drainage. diffuse scaly patches on UE and LE bilaterally. Results Result Diagram: 08/25/17 0520 08/25/17 0400 Results 24 hrs Laboratory Tests Test 08/24/17 17:30 08/24/17 17:40 08/24/17 21:30 08/25/17 04:00 Vancomycin Level Trough 12.0 Bedside Glucose 215 201 Sodium Level 135 Potassium Level 4.4 Chloride Level 104 Carbon Dioxide Level 26 Anion Gap 9 Blood Urea Nitrogen 13 Creatinine 0.52 L Glucose Level 201 # Calcium Level 8.6 Phosphorus Level 4.1 Magnesium Level 1.9 Test 08/25/17 05:20 08/25/17 08:13 08/25/17 12:00 White Blood Count 8.8 Red Blood Count 4.26 L Hemoglobin 12.3 L Hematocrit 38.2 L Mean Corpuscular Volume 89.7 Mean Corpuscular Hemoglobin 28.9 L Mean Corpuscular Hemoglobin Concent 32.2 Red Cell Distribution Width 12.3 Platelet Count 394 Mean Platelet Volume 9.9 Neutrophils % 44.7 Lymphocytes % 33.9 Monocytes % 9.1 Eosinophils % 7.6 H Basophils % 0.6 Nucleated Red Blood Cells % 0.0 Neutrophils # 3.9 Lymphocytes # 3.0 H Monocytes # 0.8 Eosinophils # 0.7 H Basophils # 0.1 Nucleated Red Blood Cells # 0.0 Bedside Glucose 155 245 H Medications Medications Current Medications Sodium Chloride (NS) 1,000 ml @ 70 mls/hr [id number] IV Last administered on t 02:10; Admin Dose 70 MLS/HR; Start 08/17/17 at 07:27 Ondansetron HCl (Zofran Inj) 4 mg Q6H PRN IV NAUSEA AND/OR VOMITING; Start 08/17/17 at 07:30 Hydromorphone HCl (Dilaudid) 0.5 mg Q4H PRN IV SEVERE PAIN LEVEL 7-10 Last administered on 08/22/17 04:45; Admin Dose 0.5 MG; Start 08/17/17 at 07:30 Docusate Sodium (Colace) 100 mg Q12H PRN PO CONSTIPATION Last administered on 08/23/17 20:37; Admin Dose 100 MG; Start 08/17/17 at 07:30 Bisacodyl (Dulcolax) 5 mg DAILY PRN PO CONSTIPATION; Start 08/17/17 at 07:30 Famotidine (Pepcid) 20 mg Q12 PO Last administered on 08/25/17 08:16; Admin Dose 20 MG; Start 08/17/17 at 09:00 IV Flush (NS 10 ml) 10 ml PRN PRN IV IV PROTOCOL; Start 08/17/17 at 14:30 Acetaminophen (Tylenol Tab) 650 mg Q4 PRN PO pain, fevers, headache Last administered on 08/20/17 23:32; Admin Dose 650 MG; Start 08/17/17 at 18:30 Mometasone Furoate 1 applic 1 applic DAILY TOP Last administered on 08/25/17 08:19; Admin Dose 1 APPLIC; Start 08/18/17 at 12:00 Rifampin/Sodium Chloride (Rifampin/NS) 100 ml @ 200 mls/hr DAILY@20 IVPB Last administered on 08/24/17 21:06; Admin Dose 200 MLS/HR; Start 08/18/17 at 20:00 ; Stop 09/02/17 at 21:00 Hydrocortisone (Hydrocortisone 1% Oint) 1 applic BID TOP Last administered on 08/25/17 08:19; Admin Dose 1 APPLIC; Start 08/20/17 at 11:30 Miscellaneous Information 1 ea NOTE XX ; Start 08/20/17 at 11:00 Glucose (Glutose) 15 gm Q15M PRN PO DECREASED GLUCOSE; Start 08/20/17 at 11:00 Glucose (Glutose) 22.5 gm Q15M PRN PO DECREASED GLUCOSE; Start 08/20/17 at 11: 00 Dextrose (D50w Syringe) 25 ml Q15M PRN IV DECREASED GLUCOSE; Start 08/20/17 at 11:00 Dextrose (D50w Syringe) 50 ml Q15M PRN IV DECREASED GLUCOSE; Start 08/20/17 at 11:00 Glucagon (Glucagen) 1 mg Q15M PRN IM DECREASED GLUCOSE; Start 08/20/17 at 11:00 Glucose (Glutose) 15 gm Q15M PRN BUCCAL DECREASED GLUCOSE; Start 08/20/17 at 11 :00 Sodium Hypochlorite 1 applic 1 applic BID IRR Last administered on 08/25/17 08:19; Admin Dose 1 APPLIC; Start 08/21/17 at 09:00 Ceftriaxone Sodium 50 ml @ 100 mls/hr Q24H IVPB Last administered on 12:46; Admin Dose 100 MLS/HR; Start 08/21/17 at 13:30 Vancomycin HCl 250 ml @ 125 mls/hr Q8H IVPB Last administered on 08/25/17 10 :57; Admin Dose 125 MLS/HR; Start 08/23/17 at 10:00 Phenylephrine HCl (Victoriano-Syneph) 250 ml @ 0 mls/hr TITRATE IV Last administered on 08/24/17 12:48; Admin Dose 0 MLS/HR; Start 08/24/17 at 08:30 Insulin Glargine (Lantus) 25 unit QHS SC Last administered on 08/24/17 21:33 ; Admin Dose 25 UNIT; Start 08/24/17 at 21:00 Heparin Sodium (Porcine) (Heparin (5000 Units/0.5 ml)) 5,000 unit Q8 SC Last administered on 08/25/17 05:19; Admin Dose 5,000 UNIT; Start 08/24/17 at 14: 00 Midodrine (Proamatine) 10 mg TID@,,17 PO Last administered on 08/25/17 08 :19; Admin Dose 10 MG; Start 08/24/17 at 17:00 Ascorbic Acid (Vitamin C) 500 mg DAILY PO Last administered on 08/25/17 08:17 ; Admin Dose 500 MG; Start 08/25/17 at 09:00 Zinc Sulfate (Zinc Sulfate) 220 mg DAILY PO Last administered on 08/25/17 08: 16; Admin Dose 220 MG; Start 08/25/17 at 09:00 Diagnostic Test (Pha) (Accu-Chek) 1 ea 02 XX ; Start 08/26/17 at 02:00; Status UNV RAAD REYES Aug 25, 2017 13:25
[2017-08-25] MEDS: CEFTRIAXONE 1 GM/50 ML (PMX) 50 ML IVPB SCH (13:36)
[2017-08-25] MEDS ORDERED: PHENYLephrine 20MG IN 250 ML 250 ML IV SCH (15:30)
--- NOTE | 2017-08-25 18:29 | CONS ---
Date/Time of Note Date/Time of Note DATE: 08/25/17 TIME: 18:27 Assessment/Plan Assessment/Plan Chief Complaint/Hosp Course NSVT: Unusual for the pt to have NSVT with normal EF, no e/o ischemia, no symptoms. No e/o endocarditis by TTE at least and no AVB by EKG to suggest abscess. No heart failure. ?from hypokalemia vs pressors. Now resolved Septic shock: Unclear why pt is still requiring pressor support but almost off now Bilateral buttock abscess MRSA bacteremia: from buttocks. No endocarditis or valvular dysfunction at least by TTE. If indicated and concern, may need THOMAS to eval but for now no indication. Repeat cultures have been negative DM -Lexiscan prior to d/c. Will do it once pt is off pressors >24hrs Problems: Consultation Date/Type/Reason Admit Date/Time Aug 17, 2017 at 11:27 Initial Consult Date 08/18/17 Type of Consultation: Cardiology Referring Provider: FLORENCIA PRASAD MD 24 HR Interval Summary Free Text/Dictation Off pressor support. Cultures negative Exam/Review of Systems Vital Signs Vitals Vital Signs Date Time Temp Pulse Resp B/P Pulse Ox O2 Delivery O2 Flow Rate FiO2 08/25/17 17:00 99 17 95/77 98 Room Air 08/25/17 16:00 98.4 Intake and Output 08/24/17 08/24/17 08/25/17 15:00 23:00 07:00 Intake Total 1361.50 ml 1242.0 ml 855.0 ml Output Total 850 ml 700 ml 900 ml Balance 511.50 ml 542.0 ml -45.0 ml Exam Constitutional: alert, oriented Psych: nl mood/affect, no complaints Neck: No jvd Respiratory: clear to auscultation, No crackles/rales Cardiovascular: regular rate and rhythm, No edema, No systolic murmur Gastrointestinal: non-tender, soft Neurological: nl mental status, nl speech Results Result Diagram: 08/25/17 0520 08/25/17 0400 Results 24 hrs Laboratory Tests Test 08/24/17 21:30 08/25/17 04:00 08/25/17 05:20 08/25/17 08:13 Bedside Glucose 201 155 Sodium Level 135 Potassium Level 4.4 Chloride Level 104 Carbon Dioxide Level 26 Anion Gap 9 Blood Urea Nitrogen 13 Creatinine 0.52 L Glucose Level 201 # Calcium Level 8.6 Phosphorus Level 4.1 Magnesium Level 1.9 White Blood Count 8.8 Red Blood Count 4.26 L Hemoglobin 12.3 L Hematocrit 38.2 L Mean Corpuscular Volume 89.7 Mean Corpuscular Hemoglobin 28.9 L Mean Corpuscular Hemoglobin Concent 32.2 Red Cell Distribution Width 12.3 Platelet Count 394 Mean Platelet Volume 9.9 Neutrophils % 44.7 Lymphocytes % 33.9 Monocytes % 9.1 Eosinophils % 7.6 H Basophils % 0.6 Nucleated Red Blood Cells % 0.0 Neutrophils # 3.9 Lymphocytes # 3.0 H Monocytes # 0.8 Eosinophils # 0.7 H Basophils # 0.1 Nucleated Red Blood Cells # 0.0 Test 08/25/17 12:00 08/25/17 17:50 Bedside Glucose 245 H 282 H Medications Medications Current Medications Sodium Chloride (NS) 1,000 ml @ 70 mls/hr [id number] IV Last administered on 02:10; Admin Dose 70 MLS/HR; Start 08/17/17 at 07:27 Ondansetron HCl (Zofran Inj) 4 mg Q6H PRN IV NAUSEA AND/OR VOMITING; Start 08/17/17 at 07:30 Hydromorphone HCl (Dilaudid) 0.5 mg Q4H PRN IV SEVERE PAIN LEVEL 7-10 Last administered on 08/22/17 04:45; Admin Dose 0.5 MG; Start 08/17/17 at 07:30 Docusate Sodium (Colace) 100 mg Q12H PRN PO CONSTIPATION Last administered on 08/23/17 20:37; Admin Dose 100 MG; Start 08/17/17 at 07:30 Bisacodyl (Dulcolax) 5 mg DAILY PRN PO CONSTIPATION; Start 08/17/17 at 07:30 Famotidine (Pepcid) 20 mg Q12 PO Last administered on 08/25/17 08:16; Admin Dose 20 MG; Start 08/17/17 at 09:00 IV Flush (NS 10 ml) 10 ml PRN PRN IV IV PROTOCOL; Start 08/17/17 at 14:30 Acetaminophen (Tylenol Tab) 650 mg Q4 PRN PO pain, fevers, headache Last administered on 08/20/17 23:32; Admin Dose 650 MG; Start 08/17/17 at 18:30 Mometasone Furoate 1 applic 1 applic DAILY TOP Last administered on 08/25/17 08:19; Admin Dose 1 APPLIC; Start 08/18/17 at 12:00 Rifampin/Sodium Chloride (Rifampin/NS) 100 ml @ 200 mls/hr DAILY@20 IVPB Last administered on 08/24/17 21:06; Admin Dose 200 MLS/HR; Start 08/18/17 at 20:00 ; Stop 09/02/17 at 21:00 Hydrocortisone (Hydrocortisone 1% Oint) 1 applic BID TOP Last administered on 08/25/17 08:19; Admin Dose 1 APPLIC; Start 08/20/17 at 11:30 Miscellaneous Information 1 ea NOTE XX ; Start 08/20/17 at 11:00 Glucose (Glutose) 15 gm Q15M PRN PO DECREASED GLUCOSE; Start 08/20/17 at 11:00 Glucose (Glutose) 22.5 gm Q15M PRN PO DECREASED GLUCOSE; Start 08/20/17 at 11: 00 Dextrose (D50w Syringe) 25 ml Q15M PRN IV DECREASED GLUCOSE; Start 08/20/17 at 11:00 Dextrose (D50w Syringe) 50 ml Q15M PRN IV DECREASED GLUCOSE; Start 08/20/17 at 11:00 Glucagon (Glucagen) 1 mg Q15M PRN IM DECREASED GLUCOSE; Start 08/20/17 at 11:00 Glucose (Glutose) 15 gm Q15M PRN BUCCAL DECREASED GLUCOSE; Start 08/20/17 at 11 :00 Sodium Hypochlorite 1 applic 1 applic BID IRR Last administered on 08/25/17 08:19; Admin Dose 1 APPLIC; Start 08/21/17 at 09:00 Ceftriaxone Sodium 50 ml @ 100 mls/hr Q24H IVPB Last administered on 13:36; Admin Dose 100 MLS/HR; Start 08/21/17 at 13:30 Vancomycin HCl (Vancocin) 250 ml @ 125 mls/hr Q8H IVPB Last administered on 17:51; Admin Dose 125 MLS/HR; Start 08/23/17 at 10:00 Insulin Glargine (Lantus) 25 unit QHS SC Last administered on 08/24/17 21:33 ; Admin Dose 25 UNIT; Start 08/24/17 at 21:00 Heparin Sodium (Porcine) (Heparin (5000 Units/0.5 ml)) 5,000 unit Q8 SC Last administered on 08/25/17 13:35; Admin Dose 5,000 UNIT; Start 08/24/17 at 14: 00 Midodrine (Proamatine) 10 mg TID@,,17 PO Last administered on 08/25/17 17 :51; Admin Dose 10 MG; Start 08/24/17 at 17:00 Ascorbic Acid (Vitamin C) 500 mg DAILY PO Last administered on 08/25/17 08:17 ; Admin Dose 500 MG; Start 08/25/17 at 09:00 Zinc Sulfate (Zinc Sulfate) 220 mg DAILY PO Last administered on 08/25/17 08: 16; Admin Dose 220 MG; Start 08/25/17 at 09:00 Diagnostic Test (Pha) 1 ea 1 ea 02 XX ; Start 08/26/17 at 02:00 Phenylephrine HCl 250 ml @ 75 mls/hr TITRATE IV ; Start 08/25/17 at 15:30; Stop 08/25/17 at 21:00 Phenylephrine HCl/ Dextrose (Victoriano-Syneph/D5W) 500 ml @ 75 mls/hr TITRATE IV ; Start 08/25/17 at 20:00 GRAHAM ANDREWS Aug 25, 2017 18:29
[2017-08-25] MEDS: RIFAMPIN 600 MG in SOD CHLORIDE 0.9% 100 ML IVPB SCH (19:37)
[2017-08-25] MEDS ORDERED: PHENYLephrine 40 MG in DEXTROSE 5% 496 ML IV SCH ×4 (20:00)
[2017-08-25] MEDS: INSULIN GLARGINE [LANtus] 3 ML PEN SC SCH (20:30)
[2017-08-26] VITALS (25 sets, daily range): BP systolic 80–125; BP diastolic 56–88; PULSE 65–96; RESP 11–33
[2017-08-26] MEDS: ACCU-CHEK XX SCH (02:00)
[2017-08-26] MEDS: VANCOMYCIN 1 GM in NS 250 ML IVPB SCH ×3 (02:07→17:51)
[2017-08-26] MEDS: HEPARIN 5,000 UNIT/0.5 ML VIAL SC SCH ×3 (06:08→23:02)
--- NOTE | 2017-08-26 06:29 | PN ---
DATE: 08/25/2017 SUBJECTIVE: No acute changes. The patient is alert, feels good, looks comfortable, no fevers. WBC today 8.8, no shift, no bands. BUN 13, creatinine 0.52. MICROBIOLOGY: Blood cultures on 08/22 and 08/23/2017 negative. INDWELLINGS: The patient has PICC line. ANTIMICROBIALS: 1. Vancomycin 2. Rifampin. 3. Rocephin. PHYSICAL EXAMINATION: GENERAL: Well-developed, middle-aged man who is in no distress. HEENT: Head atraumatic, normocephalic. Sclerae anicteric. Buccal mucosa dry. NECK: Supple. CHEST: Rise symmetrical. Breath sounds diminished to bases. HEART: S1, S2. ABDOMEN: Soft, bowel tones present. EXTREMITIES: Without cyanosis. ASSESSMENT: 1. Resolving sepsis. 2. Methicillin-resistant Staphylococcus aureus bacteremia secondary to #3. 3. Bilateral buttocks methicillin-resistant Staphylococcus aureus infected wounds with abscess stat us post incision and drainage, wound culture also grew Escherichia coli. 4. Poorly controlled diabetes. 5. Psoriasis. PLAN: Patient is improving, still on Victoriano-Synephrine at 5 mcg. Repeat blood cultures negative. Logan geller present care, antibiotics, wound care per surgical recommendations. Dictated By: JAIR RUCKER TIE BUCKER for BONIFACIO PAPPAS/KADE Conf#: [id number] DID#: [id number]
[2017-08-26 06:51] LABS: BASOPHIL # 0.1 10^3/ul (0.0-0.1); BASOPHILS % 0.7 % (0.0-2.0); EOSINOPHILS # 0.6 10^3/ul (0.0-0.5); EOSINOPHILS % 7.5 % (0.0-7.0); HEMATOCRIT 37.1 % (42.0-52.0); HEMOGLOBIN 12.1 g/dl (14.0-18.0); LYMPHOCYTES # 2.6 10^3/ul (0.8-2.9); LYMPHOCYTES % 34.3 % (15.0-51.0); MEAN CORPUSCULAR HEMOGLOBIN 29.5 pg (29.0-33.0); MEAN CORPUSCULAR HGB CONC 32.6 g/dl (32.0-37.0); MEAN CORPUSCULAR VOLUME 90.5 fl (82.0-101.0); MEAN PLATELET VOLUME 9.5 fl (7.4-10.4); MONOCYTE # 0.8 10^3/ul (0.3-0.9); MONOCYTES % 9.9 % (0.0-11.0); NEUTROPHIL # 3.3 10^3/ul (1.6-7.5); NEUTROPHILS % 43.5 % (39.0-77.0); PLATELET COUNT 394 10^3/UL (140-415); RED CELL DISTRIBUTION WIDTH 12.5 % (11.5-14.5); WHITE BLOOD COUNT 7.6 10^3/ul (4.8-10.8)
[2017-08-26 07:05] LABS: CALCIUM 8.2 mg/dl (8.4-10.2); CREATININE 0.6 mg/dl (0.61-1.24); POTASSIUM 4.1 mmol/L (3.5-5.1)
[2017-08-26] MEDS: INSULIN ASPART [NOVOLOG] 3 ML PEN SC SCH ×7 (08:22→23:18)
[2017-08-26] MEDS: ZINC SULFATE 220 MG CAP PO SCH (08:54)
[2017-08-26] MEDS: FAMOTIDINE 20 MG TAB PO SCH ×2 (08:54→22:58)
[2017-08-26] MEDS: ASCORBIC ACID 500 MG TAB PO SCH (08:54)
[2017-08-26] MEDS: HYDROCORTISONE 1% 28.35 GM OINT TOP SCH ×2 (08:54→22:54)
[2017-08-26] MEDS: MOMETASONE TOP SCH (08:56)
[2017-08-26] MEDS: SODIUM HYPOCHLORITE 1/40% 1L IRRIG IRR SCH ×2 (08:57→22:55)
[2017-08-26] MEDS: MIDODRINE 5 MG TAB PO SCH ×3 (09:03→17:05)
--- NOTE | 2017-08-26 10:19 | CONS ---
Date/Time of Note Date/Time of Note DATE: 08/26/17 TIME: 10:18 Assessment/Plan Assessment/Plan Chief Complaint/Hosp Course NSVT: Unusual for the pt to have NSVT with normal EF, no e/o ischemia, no symptoms. No e/o endocarditis by TTE at least and no AVB by EKG to suggest abscess. No heart failure. ?from hypokalemia vs pressors. Now resolved Septic shock: Unclear why pt is still requiring pressor support but almost off now Bilateral buttock abscess MRSA bacteremia: from buttocks. No endocarditis or valvular dysfunction at least by TTE. If indicated and concern, may need THOMAS to eval but for now no indication. Repeat cultures have been negative DM -Lexiscan tomorrow afternoon. NPO after midnight -ok for tele if off pressors still this afternoon Problems: Consultation Date/Type/Reason Admit Date/Time Aug 17, 2017 at 11:27 Initial Consult Date 08/18/17 Type of Consultation: Cardiology Referring Provider: FLORENCIA PRASAD MD 24 HR Interval Summary Free Text/Dictation No o/n events. Remains off pressor support. No NSVT Exam/Review of Systems Vital Signs Vitals Vital Signs Date Time Temp Pulse Resp B/P Pulse Ox O2 Delivery O2 Flow Rate FiO2 08/26/17 08:00 89 08/26/17 07:00 15 94/63 96 Room Air 08/26/17 04:00 98.7 Intake and Output 08/25/17 08/25/17 08/26/17 15:00 23:00 07:00 Intake Total 1596.50 ml 1025 ml 670 ml Output Total 1000 ml 900 ml 600 ml Balance 596.50 ml 125 ml 70 ml Exam Constitutional: alert, oriented Psych: no complaints Head: atraumatic, normocephalic Neck: supple, No jvd Respiratory: clear to auscultation, No crackles/rales Cardiovascular: regular rate and rhythm, No edema Gastrointestinal: non-tender, soft Neurological: nl mental status, nl speech Results Result Diagram: 08/26/17 0603 08/26/17 0603 Results 24 hrs Laboratory Tests Test 08/25/17 12:00 08/25/17 17:50 08/25/17 20:25 08/26/17 02:06 Bedside Glucose 245 H 282 H 269 H 266 H Test 08/26/17 06:03 08/26/17 08:19 White Blood Count 7.6 Red Blood Count 4.10 L Hemoglobin 12.1 L Hematocrit 37.1 L Mean Corpuscular Volume 90.5 Mean Corpuscular Hemoglobin 29.5 Mean Corpuscular Hemoglobin Concent 32.6 Red Cell Distribution Width 12.5 Platelet Count 394 Mean Platelet Volume 9.5 Neutrophils % 43.5 Lymphocytes % 34.3 Monocytes % 9.9 Eosinophils % 7.5 H Basophils % 0.7 Nucleated Red Blood Cells % 0.0 Neutrophils # 3.3 Lymphocytes # 2.6 Monocytes # 0.8 Eosinophils # 0.6 H Basophils # 0.1 Nucleated Red Blood Cells # 0.0 Sodium Level 138 Potassium Level 4.1 Chloride Level 107 Carbon Dioxide Level 27 Anion Gap 8 Blood Urea Nitrogen 9 Creatinine 0.60 L Glucose Level 191 Calcium Level 8.2 L Bedside Glucose 170 Medications Medications Current Medications Sodium Chloride (NS) 1,000 ml @ 70 mls/hr [id number] IV Last administered on 22:52; Admin Dose 70 MLS/HR; Start 08/17/17 at 07:27 Ondansetron HCl (Zofran Inj) 4 mg Q6H PRN IV NAUSEA AND/OR VOMITING; Start 08/17/17 at 07:30 Hydromorphone HCl (Dilaudid) 0.5 mg Q4H PRN IV SEVERE PAIN LEVEL 7-10 Last administered on 08/22/17 04:45; Admin Dose 0.5 MG; Start 08/17/17 at 07:30 Docusate Sodium (Colace) 100 mg Q12H PRN PO CONSTIPATION Last administered on 08/23/17 20:37; Admin Dose 100 MG; Start 08/17/17 at 07:30 Bisacodyl (Dulcolax) 5 mg DAILY PRN PO CONSTIPATION; Start 08/17/17 at 07:30 Famotidine (Pepcid) 20 mg Q12 PO Last administered on 08/26/17 08:54; Admin Dose 20 MG; Start 08/17/17 at 09:00 IV Flush (NS 10 ml) 10 ml PRN PRN IV IV PROTOCOL; Start 08/17/17 at 14:30 Acetaminophen (Tylenol Tab) 650 mg Q4 PRN PO pain, fevers, headache Last administered on 08/20/17 23:32; Admin Dose 650 MG; Start 08/17/17 at 18:30 Mometasone Furoate 1 applic 1 applic DAILY TOP Last administered on 08/26/17 08:56; Admin Dose 1 APPLIC; Start 08/18/17 at 12:00 Rifampin/Sodium Chloride (Rifampin/NS) 100 ml @ 200 mls/hr DAILY@20 IVPB Last administered on 08/25/17 19:37; Admin Dose 200 MLS/HR; Start 08/18/17 at 20:00 ; Stop 09/02/17 at 21:00 Hydrocortisone (Hydrocortisone 1% Oint) 1 applic BID TOP Last administered on 08/26/17 08:54; Admin Dose 1 APPLIC; Start 08/20/17 at 11:30 Miscellaneous Information 1 ea NOTE XX ; Start 08/20/17 at 11:00 Glucose (Glutose) 15 gm Q15M PRN PO DECREASED GLUCOSE; Start 08/20/17 at 11:00 Glucose (Glutose) 22.5 gm Q15M PRN PO DECREASED GLUCOSE; Start 08/20/17 at 11: 00 Dextrose (D50w Syringe) 25 ml Q15M PRN IV DECREASED GLUCOSE; Start 08/20/17 at 11:00 Dextrose (D50w Syringe) 50 ml Q15M PRN IV DECREASED GLUCOSE; Start 08/20/17 at 11:00 Glucagon (Glucagen) 1 mg Q15M PRN IM DECREASED GLUCOSE; Start 08/20/17 at 11:00 Glucose (Glutose) 15 gm Q15M PRN BUCCAL DECREASED GLUCOSE; Start 08/20/17 at 11 :00 Sodium Hypochlorite 1 applic 1 applic BID IRR Last administered on 08/26/17 08:57; Admin Dose 1 APPLIC; Start 08/21/17 at 09:00 Ceftriaxone Sodium 50 ml @ 100 mls/hr Q24H IVPB Last administered on 13:36; Admin Dose 100 MLS/HR; Start 08/21/17 at 13:30 Vancomycin HCl (Vancocin) 250 ml @ 125 mls/hr Q8H IVPB Last administered on 09:04; Admin Dose 125 MLS/HR; Start 08/23/17 at 10:00 Insulin Glargine (Lantus) 25 unit QHS SC Last administered on 08/25/17 20:30 ; Admin Dose 25 UNIT; Start 08/24/17 at 21:00 Heparin Sodium (Porcine) (Heparin (5000 Units/0.5 ml)) 5,000 unit Q8 SC Last administered on 08/26/17 06:08; Admin Dose 5,000 UNIT; Start 08/24/17 at 14: 00 Ascorbic Acid (Vitamin C) 500 mg DAILY PO Last administered on 08/26/17 08:54 ; Admin Dose 500 MG; Start 08/25/17 at 09:00 Zinc Sulfate (Zinc Sulfate) 220 mg DAILY PO Last administered on 08/26/17 08: 54; Admin Dose 220 MG; Start 08/25/17 at 09:00 Diagnostic Test (Pha) (Accu-Chek) 1 ea 02 XX Last administered on 08/26/17 02 :00; Admin Dose 1 EA; Start 08/26/17 at 02:00 Midodrine (Proamatine) 5 mg TID@,, PO ; Start 08/26/17 at 13:00 GRAHAM ANDREWS Aug 26, 2017 10:19
[2017-08-26] MEDS ORDERED: HYDROmorphONE 0.5 MG/0.5 ML SYG IV PRN (11:00)
--- NOTE | 2017-08-26 13:00 | PN ---
Date/Time of Note Date/Time of Note DATE: 08/26/17 TIME: 12:58 Assessment/Plan VTE Prophylaxis VTE Prophylaxis Intervention: heparin Lines/Catheters IV Catheter Type (from Nrs): PICC Line Central line still needed: Yes Urinary Cath still in place: No Assessment/Plan Chief Complaint/Hosp Course 1. Septic shock secondary to bacteremia and gluteal abscess - Patient growing MRSA in wound as well as on blood cultures - now off pressors, appears patient is baseline low BP. Will titrate off midodrine as well, will only intervene if patient becomes symptomatic. - ID on board and recommendations appreciated. on abx per ID. - WBC trending downward and will continue to monitor 2. Bacteremia - + MRSA - ID on board and appreciate assistance - ECHO ordered and no vegetation appreciated. 3. Diabetes mellitus, poorly controlled - A1c 12.2 - clinical unit educator recommendations appreciated. - lantus and novolog 4. Gluteal abscess s/p I&D 08/19/17 - Surgery on board and consultation appreciated. - Growing MRSA and Ecoli 5. Hypotension - likely baseline. -off pressors -titrate off midodrine, hypotension likely baseline, as long as patient asymptomatic, monitor. 6. Episodes of NSVT - Cardiology consult placed and recommendations appreciated - Most likely secondary to bacteremia and will continue monitoring - stress test tomorrow per cards 7. Hypokalemia - stable 8. Psoriatic plaques - hydrocortisone cream - May need to seek out Rheum upon discharge 9. Disposition - Patient still requiring pressor support, will remain in ICU >40 minutes spent providing critical care to patient. All questions and concerns addressed and answered. Problems: Subjective 24 Hr Interval Summary Free Text/Dictation no acute change Exam/Review of Systems Vital Signs Vitals Vital Signs Date Time Temp Pulse Resp B/P Pulse Ox O2 Delivery O2 Flow Rate FiO2 08/26/17 12:00 98.1 79 19 111/77 96 Room Air Intake and Output 08/25/17 08/25/17 08/26/17 15:00 23:00 07:00 Intake Total 1596.50 ml 1025 ml 670 ml Output Total 1000 ml 900 ml 600 ml Balance 596.50 ml 125 ml 70 ml Exam General: NAD, awake and alert HEENT:NC/AT, PERRL, EOM intact Neck: Supple with full range of motion. Lungs: Clear to auscultation bilaterally no crackles rales or wheezing Heart: Regular rhythm and rate no overt murmur appreciated Abdomen: Soft , nontender, nondistended , bowel sounds are present. No guarding no rebound tenderness , Extremities: Normal to inspection, no edema no cyanosis Neurologic: Normal mental status, speech normal, cranial nerves II through XII are intact, motor and sensory are intact, no focal weakness Skin: dressing in place and incisions appear clean with no discharge or drainage. diffuse scaly patches on UE and LE bilaterally. Results Result Diagram: 08/26/17 0603 08/26/17 0603 Results 24 hrs Laboratory Tests Test 08/25/17 17:50 08/25/17 20:25 08/26/17 02:06 08/26/17 06:03 Bedside Glucose 282 H 269 H 266 H White Blood Count 7.6 Red Blood Count 4.10 L Hemoglobin 12.1 L Hematocrit 37.1 L Mean Corpuscular Volume 90.5 Mean Corpuscular Hemoglobin 29.5 Mean Corpuscular Hemoglobin Concent 32.6 Red Cell Distribution Width 12.5 Platelet Count 394 Mean Platelet Volume 9.5 Neutrophils % 43.5 Lymphocytes % 34.3 Monocytes % 9.9 Eosinophils % 7.5 H Basophils % 0.7 Nucleated Red Blood Cells % 0.0 Neutrophils # 3.3 Lymphocytes # 2.6 Monocytes # 0.8 Eosinophils # 0.6 H Basophils # 0.1 Nucleated Red Blood Cells # 0.0 Sodium Level 138 Potassium Level 4.1 Chloride Level 107 Carbon Dioxide Level 27 Anion Gap 8 Blood Urea Nitrogen 9 Creatinine 0.60 L Glucose Level 191 Calcium Level 8.2 L Test 08/26/17 08:19 08/26/17 12:07 Bedside Glucose 170 253 H Medications Medications Current Medications Sodium Chloride (NS) 1,000 ml @ 70 mls/hr [id number] IV Last administered on 22:52; Admin Dose 70 MLS/HR; Start 08/17/17 at 07:27 Ondansetron HCl (Zofran Inj) 4 mg Q6H PRN IV NAUSEA AND/OR VOMITING; Start 08/17/17 at 07:30 Docusate Sodium (Colace) 100 mg Q12H PRN PO CONSTIPATION Last administered on 08/23/17 20:37; Admin Dose 100 MG; Start 08/17/17 at 07:30 Bisacodyl (Dulcolax) 5 mg DAILY PRN PO CONSTIPATION; Start 08/17/17 at 07:30 Famotidine (Pepcid) 20 mg Q12 PO Last administered on 08/26/17 08:54; Admin Dose 20 MG; Start 08/17/17 at 09:00 IV Flush (NS 10 ml) 10 ml PRN PRN IV IV PROTOCOL; Start 08/17/17 at 14:30 Acetaminophen (Tylenol Tab) 650 mg Q4 PRN PO pain, fevers, headache Last administered on 08/20/17 23:32; Admin Dose 650 MG; Start 08/17/17 at 18:30 Mometasone Furoate 1 applic 1 applic DAILY TOP Last administered on 08/26/17 08:56; Admin Dose 1 APPLIC; Start 08/18/17 at 12:00 Rifampin/Sodium Chloride (Rifampin/NS) 100 ml @ 200 mls/hr DAILY@20 IVPB Last administered on 08/25/17 19:37; Admin Dose 200 MLS/HR; Start 08/18/17 at 20:00 ; Stop 09/02/17 at 21:00 Hydrocortisone (Hydrocortisone 1% Oint) 1 applic BID TOP Last administered on 08/26/17 08:54; Admin Dose 1 APPLIC; Start 08/20/17 at 11:30 Miscellaneous Information 1 ea NOTE XX ; Start 08/20/17 at 11:00 Glucose (Glutose) 15 gm Q15M PRN PO DECREASED GLUCOSE; Start 08/20/17 at 11:00 Glucose (Glutose) 22.5 gm Q15M PRN PO DECREASED GLUCOSE; Start 08/20/17 at 11: 00 Dextrose (D50w Syringe) 25 ml Q15M PRN IV DECREASED GLUCOSE; Start 08/20/17 at 11:00 Dextrose (D50w Syringe) 50 ml Q15M PRN IV DECREASED GLUCOSE; Start 08/20/17 at 11:00 Glucagon (Glucagen) 1 mg Q15M PRN IM DECREASED GLUCOSE; Start 08/20/17 at 11:00 Glucose (Glutose) 15 gm Q15M PRN BUCCAL DECREASED GLUCOSE; Start 08/20/17 at 11 :00 Sodium Hypochlorite 1 applic 1 applic BID IRR Last administered on 08/26/17 08:57; Admin Dose 1 APPLIC; Start 08/21/17 at 09:00 Ceftriaxone Sodium 50 ml @ 100 mls/hr Q24H IVPB Last administered on 13:36; Admin Dose 100 MLS/HR; Start 08/21/17 at 13:30 Vancomycin HCl (Vancocin) 250 ml @ 125 mls/hr Q8H IVPB Last administered on 09:04; Admin Dose 125 MLS/HR; Start 08/23/17 at 10:00 Insulin Glargine (Lantus) 25 unit QHS SC Last administered on 08/25/17 20:30 ; Admin Dose 25 UNIT; Start 08/24/17 at 21:00 Heparin Sodium (Porcine) (Heparin (5000 Units/0.5 ml)) 5,000 unit Q8 SC Last administered on 08/26/17 06:08; Admin Dose 5,000 UNIT; Start 08/24/17 at 14: 00 Ascorbic Acid (Vitamin C) 500 mg DAILY PO Last administered on 08/26/17 08:54 ; Admin Dose 500 MG; Start 08/25/17 at 09:00 Zinc Sulfate (Zinc Sulfate) 220 mg DAILY PO Last administered on 08/26/17 08: 54; Admin Dose 220 MG; Start 08/25/17 at 09:00 Diagnostic Test (Pha) (Accu-Chek) 1 ea 02 XX Last administered on 08/26/17 02 :00; Admin Dose 1 EA; Start 08/26/17 at 02:00 Midodrine (Proamatine) 5 mg TID@,, PO ; Start 08/26/17 at 13:00 Miscellaneous Information (*Rx Drug Level Order Reminder*) VANCO TROUGH @ 0, 900 ON ... ONCE ONCE XX ; Start 08/27/17 at 09:00; Stop 08/27/17 at 09:01 Hydromorphone HCl (Dilaudid 0.5 Mg/ 0.5 ml Syringe) 0.5 mg Q4H PRN IV SEVERE PAIN LEVEL 7-10; Start 08/26/17 at 11:00 RAAD REYES Aug 26, 2017 13:00
[2017-08-26] MEDS: CEFTRIAXONE 1 GM/50 ML (PMX) 50 ML IVPB SCH (13:34)
--- NOTE | 2017-08-26 13:44 | PN ---
DATE: 08/26/2017 INFECTIOUS DISEASE PROGRESS NOTE SUBJECTIVE: No acute events overnight. The patient is sleeping off pressors. No fevers. VITAL SIGNS: Temperature 98.7, pulse 65, respirations 11, blood pressure 84/60, saturation 100% on room air. WBC 7.6, no shift, no bands. BUN 9, creatinine 0.60. MICROBIOLOGY: Blood cultures since August 22 and repeated negative. ANTIMICROBIALS: The patient is on: 1. Vancomycin. 2. Rocephin. 3. Rifampin. PHYSICAL EXAMINATION: GENERAL: Well-developed, middle-aged man who is in no distress. HEENT: Head atraumatic, normocephalic. Sclerae anicteric. Buccal mucosa dry. NECK: Supple. CHEST: Rise symmetrical. Breath sounds diminished to bases. HEART: S1, S2. ABDOMEN: Soft. Bowel tones present. ASSESSMENT: 1. Status post septic shock. 2. Status post methicillin-resistant Staphylococcus aureus bacteremia. 3. Bilateral buttock wounds with abscess, culture grew methicillin-resistant Staphylococcus aureus and Escherichia coli. 4. Poorly controlled diabetes. 5. Psoriasis. PLAN: The patient remains stable off pressors. Repeat blood cultures negative. Continue present c are. Complete antibiotics for 10 more days. Dictated By: JAIR RUCKER BAND SAW OPERATOR for [facility] Conf#: [id number] DID#: [id number]
--- NOTE | 2017-08-26 16:19 | PN ---
Date/Time of Note Date/Time of Note DATE: 08/26/17 TIME: 16:17 Assessment/Plan Lines/Catheters IV Catheter Type (from [facility]): PICC Line Sharpe in Place (from [facility]): No Assessment/Plan Chief Complaint/Hosp Course 1. Sepsis with shock with Bacteremia and Buttock Cellulitis and Abscess: off pressors; s/p I&D 08/19, cultures noted, leukocytosis normalized -abx -ivf -local care for buttock incisions 2. Bacteremia -as above -echo 3. DM: labile sugars: continues -medication optimization 4. Tachycardia 2nd above: improved; Sr -as above -cardiology following 5. Psoriasis -medical management 6. Anemia -monitor 7. Hypoalbuminemia with hypocalcemia: nutritional +/- inflammation -as above -optimize nutrition Thank you. Patient seen and examined in collaboration with Dr. Mihir Zazueta. Problems: Subjective 24 Hr Interval Summary Improved drainage from wounds. Off pressors. Much more comfortable in wound area per patient. No fevers, chills, sob, congested cough, n/v/d/dysuria. Blood sugars still elevated. Exam/Review of Systems Vital Signs Vitals Vital Signs Date Time Temp Pulse Resp B/P Pulse Ox O2 Delivery O2 Flow Rate FiO2 08/26/17 13:00 76 19 98/68 98 Room Air 08/26/17 12:00 98.1 Intake and Output 08/25/17 08/25/17 08/26/17 15:00 23:00 07:00 Intake Total 1596.50 ml 1025 ml 740 ml Output Total 1000 ml 900 ml 600 ml Balance 596.50 ml 125 ml 140 ml Exam Free Text/Dictation Constitutional: alert, oriented, No distress Psych: nl mood/affect, No anxiety, No confusion Head: atraumatic, normocephalic Eyes: EOMI, PERRL, nl conjunctiva, No icteric ENMT: mucosa pink and moist, nl external ears & nose Neck: non-tender, supple, No jvd Respiratory: normal air movement, No congested cough, No labored breathing Cardiovascular: No edema, No regular rate and rhythm; st Gastrointestinal: non-tender, soft, No distended, No rebound or guarding Genitourinary - Male: No CVA tenderness Musculoskeletal: nl extremities to inspection, No joint tenderness Extremities: normal pulses, No calf tenderness, No cyanosis, No edema Neurological: nl mental status, nl speech Skin: other (Bilateral buttock, non tenderness; scant drainage, nonmalodorous) , rash or lesions (psoriatic lesions), No diaphoresis, No nl turgor (dry) Lymph: nl lymph nodes Results Result Diagram: 08/26/1760208/26/17 0603 DAMARIS LINTON NP Aug 26, 2017 16:19
[2017-08-26] MEDS: SOD CHLORIDE 0.9% 1,000 ML IV SCH (17:51)
[2017-08-26] MEDS: RIFAMPIN 600 MG in SOD CHLORIDE 0.9% 100 ML IVPB SCH (22:54)
[2017-08-26] MEDS: INSULIN GLARGINE [LANtus] 3 ML PEN SC SCH (23:09)
[2017-08-27] VITALS (14 sets, daily range): BP systolic 90–106; BP diastolic 50–66; PULSE 65–95; RESP 16–19
[2017-08-27] MEDS: ACCU-CHEK XX SCH (02:44)
[2017-08-27] MEDS: VANCOMYCIN 1 GM in NS 250 ML IVPB SCH ×4 (02:44→23:42)
[2017-08-27] MEDS: HEPARIN 5,000 UNIT/0.5 ML VIAL SC SCH ×3 (05:03→23:44)
[2017-08-27] MEDS: INSULIN ASPART [NOVOLOG] 3 ML PEN SC SCH ×7 (08:00→20:42)
--- NOTE | 2017-08-27 08:26 | CONS ---
Date/Time of Note Date/Time of Note DATE: 08/27/17 TIME: 08:25 Assessment/Plan Assessment/Plan Chief Complaint/Hosp Course NSVT: Unusual for the pt to have NSVT with normal EF, no e/o ischemia, no symptoms. No e/o endocarditis by TTE at least and no AVB by EKG to suggest abscess. No heart failure. ?from hypokalemia vs pressors. Now resolved Septic shock: Off pressors Bilateral buttock abscess MRSA bacteremia: from buttocks. No endocarditis or valvular dysfunction at least by TTE. If indicated and concern, may need THOMAS to eval but for now no indication. Repeat cultures have been negative DM -Lexiscan today ~noon -NPO -if Yasmin ok, ok for d/c from my perspective Problems: Consultation Date/Type/Reason Admit Date/Time Aug 17, 2017 at 11:27 Initial Consult Date 08/18/17 Type of Consultation: Cardiology Referring Provider: FLORENCIA PRASAD MD 24 HR Interval Summary Free Text/Dictation Transferred to tele. No events. No complaints Exam/Review of Systems Vital Signs Vitals Vital Signs Date Time Temp Pulse Resp B/P Pulse Ox O2 Delivery O2 Flow Rate FiO2 08/27/17 08:16 80 08/27/17 07:45 98.2 18 95/50 95 08/27/17 05:08 Room Air Intake and Output 08/26/17 08/26/17 08/27/17 15:00 23:00 07:00 Intake Total 770 ml 630 ml 1050 ml Output Total 700 ml 1150 ml 1225 ml Balance 70 ml -520 ml -175 ml Exam Constitutional: alert, oriented Psych: nl mood/affect, no complaints Neck: No jvd Respiratory: clear to auscultation, No crackles/rales Cardiovascular: regular rate and rhythm, No edema Gastrointestinal: non-tender, soft Neurological: nl mental status, nl speech Results Result Diagram: 08/26/17 0603 08/26/17 0603 Results 24 hrs Laboratory Tests Test 08/26/17 12:07 08/26/17 17:07 08/26/17 22:49 08/27/17 02:46 Bedside Glucose 253 H 170 205 180 Medications Medications Current Medications Sodium Chloride (NS) 1,000 ml @ 70 mls/hr [id number] IV Last administered on t 17:51; Admin Dose 70 MLS/HR; Start 08/17/17 at 07:27 Ondansetron HCl (Zofran Inj) 4 mg Q6H PRN IV NAUSEA AND/OR VOMITING; Start 08/17/17 at 07:30 Docusate Sodium (Colace) 100 mg Q12H PRN PO CONSTIPATION Last administered on 08/23/17 20:37; Admin Dose 100 MG; Start 08/17/17 at 07:30 Bisacodyl (Dulcolax) 5 mg DAILY PRN PO CONSTIPATION; Start 08/17/17 at 07:30 Famotidine (Pepcid) 20 mg Q12 PO Last administered on 08/26/17 22:58; Admin Dose 20 MG; Start 08/17/17 at 09:00 IV Flush (NS 10 ml) 10 ml PRN PRN IV IV PROTOCOL; Start 08/17/17 at 14:30 Acetaminophen (Tylenol Tab) 650 mg Q4 PRN PO pain, fevers, headache Last administered on 08/20/17 23:32; Admin Dose 650 MG; Start 08/17/17 at 18:30 Mometasone Furoate 1 applic 1 applic DAILY TOP Last administered on 08/26/17 08:56; Admin Dose 1 APPLIC; Start 08/18/17 at 12:00 Rifampin/Sodium Chloride (Rifampin/NS) 100 ml @ 200 mls/hr DAILY@20 IVPB Last administered on 08/26/17 22:54; Admin Dose 200 MLS/HR; Start 08/18/17 at 20:00 ; Stop 09/02/17 at 21:00 Hydrocortisone (Hydrocortisone 1% Oint) 1 applic BID TOP Last administered on 08/26/17 22:54; Admin Dose 1 APPLIC; Start 08/20/17 at 11:30 Miscellaneous Information 1 ea NOTE XX ; Start 08/20/17 at 11:00 Glucose (Glutose) 15 gm Q15M PRN PO DECREASED GLUCOSE; Start 08/20/17 at 11:00 Glucose (Glutose) 22.5 gm Q15M PRN PO DECREASED GLUCOSE; Start 08/20/17 at 11: 00 Dextrose (D50w Syringe) 25 ml Q15M PRN IV DECREASED GLUCOSE; Start 08/20/17 at 11:00 Dextrose (D50w Syringe) 50 ml Q15M PRN IV DECREASED GLUCOSE; Start 08/20/17 at 11:00 Glucagon (Glucagen) 1 mg Q15M PRN IM DECREASED GLUCOSE; Start 08/20/17 at 11:00 Glucose (Glutose) 15 gm Q15M PRN BUCCAL DECREASED GLUCOSE; Start 08/20/17 at 11 :00 Sodium Hypochlorite 1 applic 1 applic BID IRR Last administered on 08/26/17 22:55; Admin Dose 1 APPLIC; Start 08/21/17 at 09:00 Ceftriaxone Sodium 50 ml @ 100 mls/hr Q24H IVPB Last administered on 13:34; Admin Dose 100 MLS/HR; Start 08/21/17 at 13:30 Vancomycin HCl (Vancocin) 250 ml @ 125 mls/hr Q8H IVPB Last administered on 02:44; Admin Dose 125 MLS/HR; Start 08/23/17 at 10:00 Insulin Glargine (Lantus) 25 unit QHS SC Last administered on 08/26/17 23:09 ; Admin Dose 25 UNIT; Start 08/24/17 at 21:00 Heparin Sodium (Porcine) (Heparin (5000 Units/0.5 ml)) 5,000 unit Q8 SC Last administered on 08/27/17 05:03; Admin Dose 5,000 UNIT; Start 08/24/17 at 14: 00 Ascorbic Acid (Vitamin C) 500 mg DAILY PO Last administered on 08/26/17 08:54 ; Admin Dose 500 MG; Start 08/25/17 at 09:00 Zinc Sulfate (Zinc Sulfate) 220 mg DAILY PO Last administered on 08/26/17 08: 54; Admin Dose 220 MG; Start 08/25/17 at 09:00 Diagnostic Test (Pha) (Accu-Chek) 1 ea 02 XX Last administered on 08/27/17 02 :44; Admin Dose 1 EA; Start 08/26/17 at 02:00 Midodrine (Proamatine) 5 mg TID@,,17 PO Last administered on 08/26/17 17: 05; Admin Dose 5 MG; Start 08/26/17 at 13:00 Miscellaneous Information (*Rx Drug Level Order Reminder*) VANCO TROUGH @ 0, 900 ON ... ONCE ONCE XX ; Start 08/27/17 at 09:00; Stop 08/27/17 at 09:01 Hydromorphone HCl (Dilaudid 0.5 Mg/ 0.5 ml Syringe) 0.5 mg Q4H PRN IV SEVERE PAIN LEVEL 7-10; Start 08/26/17 at 11:00 GRAHAM ANDREWS Aug 27, 2017 08:26
[2017-08-27] MEDS: ZINC SULFATE 220 MG CAP PO SCH (08:46)
[2017-08-27] MEDS: FAMOTIDINE 20 MG TAB PO SCH ×2 (08:46→20:36)
[2017-08-27] MEDS: ASCORBIC ACID 500 MG TAB PO SCH (08:48)
[2017-08-27] MEDS: SODIUM HYPOCHLORITE 1/40% 1L IRRIG IRR SCH ×2 (08:48→20:26)
[2017-08-27] MEDS: HYDROCORTISONE 1% 28.35 GM OINT TOP SCH ×2 (08:49→20:45)
[2017-08-27] MEDS: MOMETASONE TOP SCH (08:55)
[2017-08-27] MEDS: MIDODRINE 5 MG TAB PO SCH (09:26)
[2017-08-27] MEDS: SOD CHLORIDE 0.9% 1,000 ML IV SCH (10:33)
[2017-08-27 11:34] LABS: BASOPHILS % 0.4 % (0.0-2.0); EOSINOPHILS # 0.5 10^3/ul (0.0-0.5); EOSINOPHILS % 7.6 % (0.0-7.0); HEMATOCRIT 37.3 % (42.0-52.0); HEMOGLOBIN 12.6 g/dl (14.0-18.0); LYMPHOCYTES # 2.3 10^3/ul (0.8-2.9); LYMPHOCYTES % 31.8 % (15.0-51.0); MEAN CORPUSCULAR HEMOGLOBIN 30.2 pg (29.0-33.0); MEAN CORPUSCULAR HGB CONC 33.8 g/dl (32.0-37.0); MEAN CORPUSCULAR VOLUME 89.4 fl (82.0-101.0); MEAN PLATELET VOLUME 9.1 fl (7.4-10.4); MONOCYTE # 0.6 10^3/ul (0.3-0.9); MONOCYTES % 8.2 % (0.0-11.0); NEUTROPHIL # 3.5 10^3/ul (1.6-7.5); NEUTROPHILS % 49.3 % (39.0-77.0); PLATELET COUNT 444 10^3/UL (140-415); RED BLOOD COUNT 4.17 10^6/ul (4.70-6.10); RED CELL DISTRIBUTION WIDTH 12.5 % (11.5-14.5); WHITE BLOOD COUNT 7.1 10^3/ul (4.8-10.8)
[2017-08-27 12:02] LABS: CALCIUM 8.8 mg/dl (8.4-10.2); CREATININE 0.54 mg/dl (0.61-1.24); MAGNESIUM 1.9 mg/dl (1.7-2.5); PHOSPHORUS 3.7 mg/dl (2.5-4.9); POTASSIUM 3.8 mmol/L (3.5-5.1)
[2017-08-27] MEDS ORDERED: REGADENOSON 0.4 MG/5 ML SYG ONE (12:23)
[2017-08-27] MEDS: CEFTRIAXONE 1 GM/50 ML (PMX) 50 ML IVPB SCH ×2 (13:30→15:00)
--- NOTE | 2017-08-27 14:00 | RADRPT ---
PROCEDURE: Lexiscan myocardial perfusion study CLINICAL INDICATION: 47 -year-old patient complaining of chest pain. TECHNIQUE: Lexiscan 0.4 mg intravenously separate acquisition gated myocardial perfusion SPECT usi ng Tc 99m sestamibi 28.8 mCi intravenously at stress and Tc-99m Sestamibi, 9.3 mCi intravenously at rest was performed using the sequence. Poststress sestamibi SPECT images were obtained in the supi ne and prone positions. COMPARISON: No prior studies. FINDINGS: Perfusion images reveal a moderate size moderate in degree nonreversible perfusion defect in the ant eroapical, distal anteroseptal and distal to mid anterior hollis. Lexiscan post stress gated SPECT images demonstrate mild hypokinesis of the anterior wall. IMPRESSION: 1. The type and distribution of the scintigraphic abnormalities are most consistent with a moderate- sized nonreversible perfusion defect in the anteroapical, distal anteroseptal and distal to mid ante rior hollis. 2. Mild hypokinesis of the anterior wall. 3. The left ventricle ejection fraction at stress is 52%. A call report was made to Dr. Wang at 01:55 p.m. on August 27, 2017. RPTAT: HH .Tonya Deleon MD, Date Time Electronically viewed and signed by .Tonya Deleon MD, on 08/27/2017 13:59 .L/
--- NOTE | 2017-08-27 14:19 | CONS ---
Date/Time of Note Date/Time of Note DATE: 08/27/17 TIME: 14:18 Consult Date/Type/Reason Admit Date/Time Aug 17, 2017 at 11:27 Initial Consult Date 08/18/17 Type of Consultation: ID Ordering Provider: FLORENCIA PRASAD MD Objective Vital Signs Date Time Temp Pulse Resp B/P Pulse Ox O2 Delivery O2 Flow Rate FiO2 08/27/17 12:10 65 08/27/17 11:30 97.5 18 98/66 99 08/27/17 05:08 Room Air Intake and Output 08/26/17 08/26/17 08/27/17 15:00 23:00 07:00 Intake Total 770 ml 630 ml 1050 ml Output Total 700 ml 1150 ml 1225 ml Balance 70 ml -520 ml -175 ml Results/Medications Result Diagram: 08/27/17 1110 08/27/17 1106 Results 24 hrs Laboratory Tests Test 08/26/17 17:07 08/26/17 22:49 08/27/17 02:46 08/27/17 08:13 Bedside Glucose 170 205 180 146 Test 08/27/17 11:06 08/27/17 11:10 Sodium Level 139 Potassium Level 3.8 Chloride Level 107 Carbon Dioxide Level 27 Anion Gap 9 Blood Urea Nitrogen 10 Creatinine 0.54 L Glucose Level 152 Calcium Level 8.8 Phosphorus Level 3.7 Magnesium Level 1.9 Vancomycin Level Trough 14.2 White Blood Count 7.1 Red Blood Count 4.17 L Hemoglobin 12.6 L Hematocrit 37.3 L Mean Corpuscular Volume 89.4 Mean Corpuscular Hemoglobin 30.2 Mean Corpuscular Hemoglobin Concent 33.8 Red Cell Distribution Width 12.5 Platelet Count 444 H Mean Platelet Volume 9.1 Neutrophils % 49.3 Lymphocytes % 31.8 Monocytes % 8.2 Eosinophils % 7.6 H Basophils % 0.4 Nucleated Red Blood Cells % 0.0 Neutrophils # 3.5 Lymphocytes # 2.3 Monocytes # 0.6 Eosinophils # 0.5 Basophils # 0.0 Nucleated Red Blood Cells # 0.0 Medications Current Medications Sodium Chloride (NS) 1,000 ml @ 70 mls/hr [id number] IV Last administered on t 17:51; Admin Dose 70 MLS/HR; Start 08/17/17 at 07:27 Ondansetron HCl (Zofran Inj) 4 mg Q6H PRN IV NAUSEA AND/OR VOMITING; Start 08/17/17 at 07:30 Docusate Sodium (Colace) 100 mg Q12H PRN PO CONSTIPATION Last administered on 08/23/17 20:37; Admin Dose 100 MG; Start 08/17/17 at 07:30 Bisacodyl (Dulcolax) 5 mg DAILY PRN PO CONSTIPATION; Start 08/17/17 at 07:30 Famotidine (Pepcid) 20 mg Q12 PO Last administered on 08/27/17 08:46; Admin Dose 20 MG; Start 08/17/17 at 09:00 IV Flush (NS 10 ml) 10 ml PRN PRN IV IV PROTOCOL; Start 08/17/17 at 14:30 Acetaminophen (Tylenol Tab) 650 mg Q4 PRN PO pain, fevers, headache Last administered on 08/20/17 23:32; Admin Dose 650 MG; Start 08/17/17 at 18:30 Mometasone Furoate 1 applic 1 applic DAILY TOP Last administered on 08/27/17 08:55; Admin Dose 1 APPLIC; Start 08/18/17 at 12:00 Rifampin/Sodium Chloride (Rifampin/NS) 100 ml @ 200 mls/hr DAILY@20 IVPB Last administered on 08/26/17 22:54; Admin Dose 200 MLS/HR; Start 08/18/17 at 20:00 ; Stop 09/02/17 at 21:00 Hydrocortisone (Hydrocortisone 1% Oint) 1 applic BID TOP Last administered on 08/27/17 08:49; Admin Dose 1 APPLIC; Start 08/20/17 at 11:30 Miscellaneous Information 1 ea NOTE XX ; Start 08/20/17 at 11:00 Glucose (Glutose) 15 gm Q15M PRN PO DECREASED GLUCOSE; Start 08/20/17 at 11:00 Glucose (Glutose) 22.5 gm Q15M PRN PO DECREASED GLUCOSE; Start 08/20/17 at 11: 00 Dextrose (D50w Syringe) 25 ml Q15M PRN IV DECREASED GLUCOSE; Start 08/20/17 at 11:00 Dextrose (D50w Syringe) 50 ml Q15M PRN IV DECREASED GLUCOSE; Start 08/20/17 at 11:00 Glucagon (Glucagen) 1 mg Q15M PRN IM DECREASED GLUCOSE; Start 08/20/17 at 11:00 Glucose (Glutose) 15 gm Q15M PRN BUCCAL DECREASED GLUCOSE; Start 08/20/17 at 11 :00 Sodium Hypochlorite 1 applic 1 applic BID IRR Last administered on 08/27/17 08:48; Admin Dose 1 APPLIC; Start 08/21/17 at 09:00 Ceftriaxone Sodium 50 ml @ 100 mls/hr Q24H IVPB Last administered on 13:34; Admin Dose 100 MLS/HR; Start 08/21/17 at 13:30 Vancomycin HCl (Vancocin) 250 ml @ 125 mls/hr Q8H IVPB Last administered on 02:44; Admin Dose 125 MLS/HR; Start 08/23/17 at 10:00 Insulin Glargine (Lantus) 25 unit QHS SC Last administered on 08/26/17 23:09 ; Admin Dose 25 UNIT; Start 08/24/17 at 21:00 Heparin Sodium (Porcine) (Heparin (5000 Units/0.5 ml)) 5,000 unit Q8 SC Last administered on 08/27/17 05:03; Admin Dose 5,000 UNIT; Start 08/24/17 at 14: 00 Ascorbic Acid (Vitamin C) 500 mg DAILY PO Last administered on 08/27/17 08:48 ; Admin Dose 500 MG; Start 08/25/17 at 09:00 Zinc Sulfate (Zinc Sulfate) 220 mg DAILY PO Last administered on 08/27/17 08: 46; Admin Dose 220 MG; Start 08/25/17 at 09:00 Hydromorphone HCl (Dilaudid 0.5 Mg/ 0.5 ml Syringe) 0.5 mg Q4H PRN IV SEVERE PAIN LEVEL 7-10; Start 08/26/17 at 11:00 Diagnostic Test (Pha) (Accu-Chek) 1 ea 02 XX ; Start 08/28/17 at 02:00 Insulin Aspart (Novolog Insulin Pen) NOVOLOG *MILD* ALGORI... Q4 SC Last administered on 08/27/17 09:29; Admin Dose 1 UNIT; Start 08/27/17 at 09:00 Assessment/Plan Chief Complaint/Hosp Course SUBJECTIVE: Tx to tele, awake, looks comfortable, no fevers MICROBIOLOGY: Blood cultures since August 22 and repeated negative. ANTIMICROBIALS: 1. Vancomycin. 2. Rocephin. 3. Rifampin. PHYSICAL EXAMINATION: GENERAL: Well-developed, middle-aged man who is in no distress. HEENT: Head atraumatic, normocephalic. Sclerae anicteric. Buccal mucosa dry. NECK: Supple. CHEST: Rise symmetrical. Breath sounds diminished to bases. HEART: S1, S2. ABDOMEN: Soft. Bowel tones present. ASSESSMENT: 1. Status post septic shock. 2. Status post methicillin-resistant Staphylococcus aureus bacteremia. 3. Bilateral buttock wounds with abscess, culture grew methicillin-resistant Staphylococcus aureus and Escherichia coli. 4. Poorly controlled diabetes. 5. Psoriasis. PLAN: The patient remains stable. Repeat blood cultures negative. Continue present care. Complete antibiotics for 9 more days, surgical/card rec-s [facility] staff Problems: JAIR RUCKER NP Aug 27, 2017 14:19
--- NOTE | 2017-08-27 14:59 | PN ---
Date/Time of Note Date/Time of Note DATE: 08/27/17 TIME: 14:52 Assessment/Plan VTE Prophylaxis VTE Prophylaxis Intervention: heparin Lines/Catheters [facility] P[facility] Line Central line still needed: Yes Urinary Cath still in place: No Assessment/Plan Chief Complaint/Hosp Course 1. Septic shock secondary to bacteremia and gluteal abscess - Patient growing MRSA in wound as well as on blood cultures - now off pressors, appears patient is baseline low BP. Will titrate off midodrine as well, will only intervene if patient becomes symptomatic. - ID on board and recommendations appreciated. on abx per ID. - WBC trending downward and will continue to monitor - 9 more days of abx per ID 2. Bacteremia - + MRSA - ID on board and appreciate assistance - ECHO ordered and no vegetation appreciated. 3. Diabetes mellitus, poorly controlled - A1c 12.2 - unit educator recommendations appreciated. - lantus and novolog 4. Gluteal abscess s/p I&D 08/19/17 - Surgery on board and consultation appreciated. - Growing MRSA and Ecoli 5. Hypotension - likely baseline. -off pressors -titrate off midodrine, hypotension likely baseline, as long as patient asymptomatic, monitor. 6. Episodes of NSVT - Cardiology consult placed and recommendations appreciated - Most likely secondary to bacteremia and will continue monitoring - stress test done today noted. 7. Hypokalemia - stable 8. Psoriatic plaques - hydrocortisone cream - May need to seek out Rheum upon discharge 9. Disposition -patient doing well. monitor off midodrine. if asymptomatic, start transfer process to finish IV abx Problems: Subjective 24 Hr Interval Summary Free Text/Dictation patient has no acute complaints Exam/Review of Systems Vital Signs Vitals Vital Signs Date Time Temp Pulse Resp B/P Pulse Ox O2 Delivery O2 Flow Rate FiO2 08/27/17 12:10 65 08/27/17 11:30 97.5 18 98/66 99 08/27/17 05:08 Room Air Intake and Output 08/26/17 08/26/17 08/27/17 15:00 23:00 07:00 Intake Total 770 ml 630 ml 1050 ml Output Total 700 ml 1150 ml 1225 ml Balance 70 ml -520 ml -175 ml Exam General: NAD, awake and alert HEENT:NC/AT, PERRL, EOM intact Neck: Supple with full range of motion. Lungs: Clear to auscultation bilaterally no crackles rales or wheezing Heart: Regular rhythm and rate no overt murmur appreciated Abdomen: Soft , nontender, nondistended , bowel sounds are present. No guarding no rebound tenderness , Extremities: Normal to inspection, no edema no cyanosis Neurologic: Normal mental status, speech normal, cranial nerves II through XII are intact, motor and sensory are intact, no focal weakness Skin: dressing in place and incisions appear clean with no discharge or drainage. diffuse scaly patches on UE and LE bilaterally. Results Result Diagram: 08/27/17 1110 08/27/17 1106 Results 24 hrs Laboratory Tests Test 08/26/17 17:07 08/26/17 22:49 08/27/17 02:46 08/27/17 08:13 Bedside Glucose 170 205 180 146 Test 08/27/17 11:06 08/27/17 11:10 Sodium Level 139 Potassium Level 3.8 Chloride Level 107 Carbon Dioxide Level 27 Anion Gap 9 Blood Urea Nitrogen 10 Creatinine 0.54 L Glucose Level 152 Calcium Level 8.8 Phosphorus Level 3.7 Magnesium Level 1.9 Vancomycin Level Trough 14.2 White Blood Count 7.1 Red Blood Count 4.17 L Hemoglobin 12.6 L Hematocrit 37.3 L Mean Corpuscular Volume 89.4 Mean Corpuscular Hemoglobin 30.2 Mean Corpuscular Hemoglobin Concent 33.8 Red Cell Distribution Width 12.5 Platelet Count 444 H Mean Platelet Volume 9.1 Neutrophils % 49.3 Lymphocytes % 31.8 Monocytes % 8.2 Eosinophils % 7.6 H Basophils % 0.4 Nucleated Red Blood Cells % 0.0 Neutrophils # 3.5 Lymphocytes # 2.3 Monocytes # 0.6 Eosinophils # 0.5 Basophils # 0.0 Nucleated Red Blood Cells # 0.0 Medications Medications Current Medications Ondansetron HCl (Zofran Inj) 4 mg Q6H PRN IV NAUSEA AND/OR VOMITING; Start 08/17/17 at 07:30 Docusate Sodium (Colace) 100 mg Q12H PRN PO CONSTIPATION Last administered on 08/23/17t 20:37; Admin Dose 100 MG; Start 08/17/17 at 07:30 Bisacodyl (Dulcolax) 5 mg DAILY PRN PO CONSTIPATION; Start 08/17/17 at 07:30 Famotidine (Pepcid) 20 mg Q12 PO Last administered on 08/27/17 08:46; Admin Dose 20 MG; Start 08/17/17 at 09:00 IV Flush (NS 10 ml) 10 ml PRN PRN IV IV PROTOCOL; Start 08/17/17 at 14:30 Acetaminophen (Tylenol Tab) 650 mg Q4 PRN PO pain, fevers, headache Last administered on 08/20/17 23:32; Admin Dose 650 MG; Start 08/17/17 at 18:30 Mometasone Furoate 1 applic 1 applic DAILY TOP Last administered on 08/27/17 08:55; Admin Dose 1 APPLIC; Start 08/18/17 at 12:00 Rifampin/Sodium Chloride (Rifampin/NS) 100 ml @ 200 mls/hr DAILY@20 IVPB Last administered on 08/26/17 22:54; Admin Dose 200 MLS/HR; Start 08/18/17 at 20:00 ; Stop 09/02/17 at 21:00 Hydrocortisone (Hydrocortisone 1% Oint) 1 applic BID TOP Last administered on 08/27/17 08:49; Admin Dose 1 APPLIC; Start 08/20/17 at 11:30 Miscellaneous Information 1 ea NOTE XX ; Start 08/20/17 at 11:00 Glucose (Glutose) 15 gm Q15M PRN PO DECREASED GLUCOSE; Start 08/20/17 at 11:00 Glucose (Glutose) 22.5 gm Q15M PRN PO DECREASED GLUCOSE; Start 08/20/17 at 11: 00 Dextrose (D50w Syringe) 25 ml Q15M PRN IV DECREASED GLUCOSE; Start 08/20/17 at 11:00 Dextrose (D50w Syringe) 50 ml Q15M PRN IV DECREASED GLUCOSE; Start 08/20/17 at 11:00 Glucagon (Glucagen) 1 mg Q15M PRN IM DECREASED GLUCOSE; Start 08/20/17 at 11:00 Glucose (Glutose) 15 gm Q15M PRN BUCCAL DECREASED GLUCOSE; Start 08/20/17 at 11 :00 Sodium Hypochlorite 1 applic 1 applic BID IRR Last administered on 08/27/17 08:48; Admin Dose 1 APPLIC; Start 08/21/17 at 09:00 Ceftriaxone Sodium 50 ml @ 100 mls/hr Q24H IVPB Last administered on 13:34; Admin Dose 100 MLS/HR; Start 08/21/17 at 13:30 Vancomycin HCl (Vancocin) 250 ml @ 125 mls/hr Q8H IVPB Last administered on 14:27; Admin Dose 125 MLS/HR; Start 08/23/17 at 10:00 Insulin Glargine (Lantus) 25 unit QHS SC Last administered on 08/26/17 23:09 ; Admin Dose 25 UNIT; Start 08/24/17 at 21:00 Heparin Sodium (Porcine) (Heparin (5000 Units/0.5 ml)) 5,000 unit Q8 SC Last administered on 08/27/17 14:26; Admin Dose 5,000 UNIT; Start 08/24/17 at 14: 00 Ascorbic Acid (Vitamin C) 500 mg DAILY PO Last administered on 08/27/17 08:48 ; Admin Dose 500 MG; Start 08/25/17 at 09:00 Zinc Sulfate (Zinc Sulfate) 220 mg DAILY PO Last administered on 08/27/17 08: 46; Admin Dose 220 MG; Start 08/25/17 at 09:00 Hydromorphone HCl (Dilaudid 0.5 Mg/ 0.5 ml Syringe) 0.5 mg Q4H PRN IV SEVERE PAIN LEVEL 7-10; Start 08/26/17 at 11:00 Diagnostic Test (Pha) (Accu-Chek) 1 ea 02 XX ; Start 08/28/17 at 02:00 Insulin Aspart (Novolog Insulin Pen) NOVOLOG *MILD* ALGORI... Q4 SC Last administered on 08/27/17 09:29; Admin Dose 1 UNIT; Start 08/27/17 at 09:00 RAAD REYES Aug 27, 2017 14:59
[2017-08-27] MEDS: RIFAMPIN 600 MG in SOD CHLORIDE 0.9% 100 ML IVPB SCH (20:19)
--- NOTE | 2017-08-27 20:25 | PN ---
Date/Time of Note Date/Time of Note DATE: 08/27/17 TIME: 20:25 Assessment/Plan Lines/Catheters IV Catheter Type (from [facility]): PICC Line Sharpe in Place (from [facility]): No Assessment/Plan Chief Complaint/Hosp Course 1. Sepsis with shock with Bacteremia and Buttock Cellulitis and Abscess: off pressors; s/p I&D 08/19, cultures noted, leukocytosis normalized -abx -ivf -local care for buttock incisions 2. Bacteremia -as above -echo 3. DM: labile sugars: continues -medication optimization 4. Tachycardia with episode of nsvt: improved; Sr; s/p radha -as above -per cards 5. Psoriasis -medical management 6. Anemia -monitor 7. Hypoalbuminemia with hypocalcemia: nutritional +/- inflammation -as above -optimize nutrition Thank you. Patient seen and examined in collaboration with Dr. Mihir Zazueta. Problems: Subjective 24 Hr Interval Summary Feels much better. Buttocks continuing to improve- minimal discomfort, no excessive drainage. S/p radha today. No fevers, chills, sob, congested cough, cp , palpitations, n/v/d/d/dysuria. Exam/Review of Systems Vital Signs Vitals Vital Signs Date Time Temp Pulse Resp B/P Pulse Ox O2 Delivery O2 Flow Rate FiO2 08/28/17 05:56 69 90/55 08/28/17 03:24 98.3 16 98 Room Air Intake and Output 08/27/17 08/27/17 08/28/17 15:00 23:00 07:00 Intake Total 950 ml 350 ml Output Total 875 ml 450 ml Balance 75 ml -100 ml Exam Free Text/Dictation Constitutional: alert, oriented, No distress Psych: nl mood/affect, No anxiety, No confusion Head: atraumatic, normocephalic Eyes: EOMI, PERRL, nl conjunctiva, No icteric ENMT: mucosa pink and moist, nl external ears & nose Neck: non-tender, supple, No jvd Respiratory: normal air movement, No congested cough, No labored breathing Cardiovascular: No edema, No regular rate and rhythm; sr Gastrointestinal: non-tender, soft, No distended, No rebound or guarding Genitourinary - Male: No CVA tenderness Musculoskeletal: nl extremities to inspection, No joint tenderness Extremities: normal pulses, No calf tenderness, No cyanosis, No edema Neurological: nl mental status, nl speech Skin: other (Bilateral buttock, non tender; scant drainage, nonmalodorous), rash or lesions (psoriatic lesions), No diaphoresis, Results Result Diagram: 08/27/17 1110 08/27/17 1106 DAMARIS LINTON NP Aug 27, 2017 20:25
[2017-08-27] MEDS: INSULIN GLARGINE [LANtus] 3 ML PEN SC SCH (20:35)
[2017-08-28] VITALS (11 sets, daily range): BP systolic 81–104; BP diastolic 54–65; PULSE 68–88; RESP 16–20
[2017-08-28] MEDS ORDERED: ACCU-CHEK XX SCH (02:00)
[2017-08-28] MEDS: ACCU-CHEK XX SCH (02:00)
[2017-08-28] MEDS: VANCOMYCIN 1 GM in NS 250 ML IVPB SCH ×3 (05:08→22:27)
[2017-08-28] MEDS: HEPARIN 5,000 UNIT/0.5 ML VIAL SC SCH ×3 (05:11→21:23)
[2017-08-28] MEDS: INSULIN ASPART [NOVOLOG] 3 ML PEN SC SCH ×7 (07:45→21:09)
[2017-08-28] MEDS: ASCORBIC ACID 500 MG TAB PO SCH (08:09)
[2017-08-28] MEDS: FAMOTIDINE 20 MG TAB PO SCH ×2 (08:09→21:06)
[2017-08-28] MEDS: SODIUM HYPOCHLORITE 1/40% 1L IRRIG IRR SCH ×2 (08:10→21:22)
[2017-08-28] MEDS: ZINC SULFATE 220 MG CAP PO SCH (08:10)
[2017-08-28] MEDS: MOMETASONE TOP SCH (08:11)
[2017-08-28] MEDS: HYDROCORTISONE 1% 28.35 GM OINT TOP SCH ×2 (08:11→20:56)
--- NOTE | 2017-08-28 14:31 | PN ---
Date/Time of Note Date/Time of Note DATE: 08/28/17 TIME: 14:29 Assessment/Plan VTE Prophylaxis VTE Prophylaxis Intervention: heparin Lines/Catheters IV [facility] ([facility] PICC Line Central line still needed: Yes Urinary Cath still in place: No Assessment/Plan Chief Complaint/Hosp Course 1. Septic shock secondary to bacteremia and gluteal abscess - Patient growing MRSA in wound as well as on blood cultures - now off pressors, appears patient is baseline low BP. Will titrate off midodrine as well, will only intervene if patient becomes symptomatic. - ID on board and recommendations appreciated. on abx per ID. - WBC trending downward and will continue to monitor - 8 more days of abx per ID 2. Bacteremia - + MRSA - ID on board and appreciate assistance - ECHO ordered and no vegetation appreciated. 3. Diabetes mellitus, poorly controlled - A1c 12.2 - cushion maker hand recommendations appreciated. - lantus and novolog 4. Gluteal abscess s/p I&D 08/19/17 - Surgery on board and consultation appreciated. - Growing MRSA and Ecoli 5. Hypotension - likely baseline. -off pressors -titrate off midodrine, hypotension likely baseline, as long as patient asymptomatic, monitor. 6. Episodes of NSVT - Cardiology consult placed and recommendations appreciated - Most likely secondary to bacteremia and will continue monitoring - stress test done today noted. 7. Hypokalemia - stable 8. Psoriatic plaques - hydrocortisone cream - May need to seek out Rheum upon discharge 9. Disposition -Case management working on insurance, as patient as limited medi [facility], attempting full coverage [facility]. Will attempt to transfer to SNF vs IV antibiotics once coverage is obtained. Problems: Subjective 24 Hr Interval Summary Free Text/Dictation no acute issues with BP, low, but asymptomatic. Patient complains of itching between his fingers. Exam/Review of Systems Vital Signs Vitals Vital Signs Date Time Temp Pulse Resp B/P Pulse Ox O2 Delivery O2 Flow Rate FiO2 08/28/17 12:02 98.0 81 17 104/65 97 08/28/17 03:24 Room Air Intake and Output 08/27/17 08/27/17 08/28/17 15:00 23:00 07:00 Intake Total 950 ml 350 ml Output Total 875 ml 450 ml Balance 75 ml -100 ml Exam General: NAD, awake and alert HEENT:NC/AT, PERRL, EOM intact Neck: Supple with full range of motion. Lungs: Clear to auscultation bilaterally no crackles rales or wheezing Heart: Regular rhythm and rate no overt murmur appreciated Abdomen: Soft , nontender, nondistended , bowel sounds are present. No guarding no rebound tenderness , Extremities: Normal to inspection, no edema no cyanosis Neurologic: Normal mental status, speech normal, cranial nerves II through XII are intact, motor and sensory are intact, no focal weakness Skin: dressing in place and incisions appear clean with no discharge or drainage. diffuse scaly patches on UE and LE bilaterally. Results Result Diagram: 08/27/17 1110 08/27/17 1106 Results 24 hrs Laboratory Tests Test 08/27/17 17:16 08/27/17 20:20 08/28/17 03:25 08/28/17 07:39 Bedside Glucose 224 H 186 156 147 Test 08/28/17 11:49 Bedside Glucose 163 Medications Medications Current Medications Ondansetron HCl (Zofran Inj) 4 mg Q6H PRN IV NAUSEA AND/OR VOMITING; Start 08/17/17 at 07:30 Docusate Sodium (Colace) 100 mg Q12H PRN PO CONSTIPATION Last administered on 08/23/17 20:37; Admin Dose 100 MG; Start 08/17/17 at 07:30 Bisacodyl (Dulcolax) 5 mg DAILY PRN PO CONSTIPATION; Start 08/17/17 at 07:30 Famotidine (Pepcid) 20 mg Q12 PO Last administered on 08/28/17 08:09; Admin Dose 20 MG; Start 08/17/17 at 09:00 IV Flush (NS 10 ml) 10 ml PRN PRN IV IV PROTOCOL; Start 08/17/17 at 14:30 Acetaminophen (Tylenol Tab) 650 mg Q4 PRN PO pain, fevers, headache Last administered on 08/20/17 23:32; Admin Dose 650 MG; Start 08/17/17 at 18:30 Mometasone Furoate 1 applic 1 applic DAILY TOP Last administered on 08/28/17 08:11; Admin Dose 1 APPLIC; Start 08/18/17 at 12:00 Rifampin/Sodium Chloride (Rifampin/NS) 100 ml @ 200 mls/hr DAILY@20 IVPB Last administered on 08/27/17 20:19; Admin Dose 200 MLS/HR; Start 08/18/17 at 20:00 ; Stop 09/02/17 at 21:00 Hydrocortisone (Hydrocortisone 1% Oint) 1 applic BID TOP Last administered on 08/28/17 08:11; Admin Dose 1 APPLIC; Start 08/20/17 at 11:30 Miscellaneous Information 1 ea NOTE XX ; Start 08/20/17 at 11:00 Glucose (Glutose) 15 gm Q15M PRN PO DECREASED GLUCOSE; Start 08/20/17 at 11:00 Glucose (Glutose) 22.5 gm Q15M PRN PO DECREASED GLUCOSE; Start 08/20/17 at 11: 00 Dextrose (D50w Syringe) 25 ml Q15M PRN IV DECREASED GLUCOSE; Start 08/20/17 at 11:00 Dextrose (D50w Syringe) 50 ml Q15M PRN IV DECREASED GLUCOSE; Start 08/20/17 at 11:00 Glucagon (Glucagen) 1 mg Q15M PRN IM DECREASED GLUCOSE; Start 08/20/17 at 11:00 Glucose (Glutose) 15 gm Q15M PRN BUCCAL DECREASED GLUCOSE; Start 08/20/17 at 11 :00 Sodium Hypochlorite 1 applic 1 applic BID IRR Last administered on 08/28/17 08:10; Admin Dose 1 APPLIC; Start 08/21/17 at 09:00 Ceftriaxone Sodium (Rocephin) 50 ml @ 100 mls/hr Q24H IVPB Last administered on 08/27/17 15:00; Admin Dose 100 MLS/HR; Start 08/21/17 at 13:30 Heparin Sodium (Porcine) (Heparin (5000 Units/0.5 ml)) 5,000 unit Q8 SC Last administered on 08/28/17 05:11; Admin Dose 5,000 UNIT; Start 08/24/17 at 14: 00 Ascorbic Acid (Vitamin C) 500 mg DAILY PO Last administered on 08/28/17 08:09 ; Admin Dose 500 MG; Start 08/25/17 at 09:00 Zinc Sulfate (Zinc Sulfate) 220 mg DAILY PO Last administered on 08/28/17 08: 10; Admin Dose 220 MG; Start 08/25/17 at 09:00 Hydromorphone HCl (Dilaudid 0.5 Mg/ 0.5 ml Syringe) 0.5 mg Q4H PRN IV SEVERE PAIN LEVEL 7-10; Start 08/26/17 at 11:00 Insulin Glargine 30 unit 30 unit QHS SC Last administered on 08/27/17 20:35; Admin Dose 30 UNIT; Start 08/27/17 at 21:00 Vancomycin HCl (Vancocin) 250 ml @ 125 mls/hr Q8H IVPB Last administered on 05:08; Admin Dose 125 MLS/HR; Start 08/27/17 at 22:00 Diagnostic Test (Pha) (Accu-Chek) 1 ea 02 XX Last administered on 08/28/17 02 :00; Admin Dose 1 EA; Start 08/28/17 at 02:00 RAAD REYES Aug 28, 2017 14:31
[2017-08-28] MEDS: CEFTRIAXONE 1 GM/50 ML (PMX) 50 ML IVPB SCH (14:45)
--- NOTE | 2017-08-28 15:20 | CONS ---
Date/Time of Note Date/Time of Note DATE: 08/28/17 TIME: 15:20 Assessment/Plan Assessment/Plan Chief Complaint/Hosp Course ID PROGRESS NOTE CURRENT ABX: DAY # => Vanco IV + Rifampin + Ceftriaxone 24H INTERVAL SUMMARY * A/A/O, no complaints, resting comfortably, moves all extremities Physical Exam Physical Exam Constitutional: VSS, NAD HEENT: Unremarkable Neck: Supple, full ROM Respiratory: Equal chest rise bilaterally, without dyspnea on observation Cardiovascular: nl pulse Gastrointestinal: Soft, NT Extremities: Warm Neurological: nl mental status, nl speech, nl strength ID ASSESSMENT 47 yo M admit with: 1. Status post septic shock. 2. Status post methicillin-resistant Staphylococcus aureus bacteremia=> BCx (+ ) 08/16 & 08/18 * Repeat BCx 08/22 & 08/23 both (-) 3. Bilateral buttock wounds with abscess, culture grew methicillin-resistant Staphylococcus aureus and Escherichia coli. 4. Poorly controlled diabetes. 5. Psoriasis. (- )MRSA Nares- ABX ALLERGIES: KNDA CURRENT ABX: DAY # => Vanco IV + Rifampin + Ceftriaxone ID RECOMMENDATIONS 1. Anticipate minimum 14 days ABX, possibly longer per clinical response & wound healing . Problems: Consultation Date/Type/Reason Admit Date/Time Aug 17, 2017 at 11:27 Initial Consult Date 08/18/17 Type of Consultation: ID Referring Provider: FLORENCIA PRASAD MD Exam/Review of Systems Vital Signs Vitals Vital Signs Date Time Temp Pulse Resp B/P Pulse Ox O2 Delivery O2 Flow Rate FiO2 08/28/17 12:02 98.0 81 17 104/65 97 08/28/17 03:24 Room Air Intake and Output 08/27/17 08/27/17 08/28/17 15:00 23:00 07:00 Intake Total 950 ml 350 ml Output Total 875 ml 450 ml Balance 75 ml -100 ml Results Result Diagram: 08/27/17 1110 08/27/17 1106 Results 24 hrs Laboratory Tests Test 08/27/17 17:16 08/27/17 20:20 08/28/17 03:25 08/28/17 07:39 Bedside Glucose 224 H 186 156 147 Test 08/28/17 11:49 Bedside Glucose 163 Medications Medications Current Medications Ondansetron HCl (Zofran Inj) 4 mg Q6H PRN IV NAUSEA AND/OR VOMITING; Start 08/17/17 at 07:30 Docusate Sodium (Colace) 100 mg Q12H PRN PO CONSTIPATION Last administered on 08/23/17 20:37; Admin Dose 100 MG; Start 08/17/17 at 07:30 Bisacodyl (Dulcolax) 5 mg DAILY PRN PO CONSTIPATION; Start 08/17/17 at 07:30 Famotidine (Pepcid) 20 mg Q12 PO Last administered on 08/28/17 08:09; Admin Dose 20 MG; Start 08/17/17 at 09:00 IV Flush (NS 10 ml) 10 ml PRN PRN IV IV PROTOCOL; Start 08/17/17 at 14:30 Acetaminophen (Tylenol Tab) 650 mg Q4 PRN PO pain, fevers, headache Last administered on 08/20/17 23:32; Admin Dose 650 MG; Start 08/17/17 at 18:30 Mometasone Furoate 1 applic 1 applic DAILY TOP Last administered on 08/28/17 08:11; Admin Dose 1 APPLIC; Start 08/18/17 at 12:00 Rifampin/Sodium Chloride (Rifampin/NS) 100 ml @ 200 mls/hr DAILY@20 IVPB Last administered on 08/27/17 20:19; Admin Dose 200 MLS/HR; Start 08/18/17 at 20:00 ; Stop 09/02/17 at 21:00 Hydrocortisone (Hydrocortisone 1% Oint) 1 applic BID TOP Last administered on 08/28/17 08:11; Admin Dose 1 APPLIC; Start 08/20/17 at 11:30 Miscellaneous Information 1 ea NOTE XX ; Start 08/20/17 at 11:00 Glucose (Glutose) 15 gm Q15M PRN PO DECREASED GLUCOSE; Start 08/20/17 at 11:00 Glucose (Glutose) 22.5 gm Q15M PRN PO DECREASED GLUCOSE; Start 08/20/17 at 11: 00 Dextrose (D50w Syringe) 25 ml Q15M PRN IV DECREASED GLUCOSE; Start 08/20/17 at 11:00 Dextrose (D50w Syringe) 50 ml Q15M PRN IV DECREASED GLUCOSE; Start 08/20/17 at 11:00 Glucagon (Glucagen) 1 mg Q15M PRN IM DECREASED GLUCOSE; Start 08/20/17 at 11:00 Glucose (Glutose) 15 gm Q15M PRN BUCCAL DECREASED GLUCOSE; Start 08/20/17 at 11 :00 Sodium Hypochlorite 1 applic 1 applic BID IRR Last administered on 08/28/17 08:10; Admin Dose 1 APPLIC; Start 08/21/17 at 09:00 Ceftriaxone Sodium (Rocephin) 50 ml @ 100 mls/hr Q24H IVPB Last administered on 08/28/17 14:45; Admin Dose 100 MLS/HR; Start 08/21/17 at 13:30 Heparin Sodium (Porcine) (Heparin (5000 Units/0.5 ml)) 5,000 unit Q8 SC Last administered on 08/28/17 14:54; Admin Dose 5,000 UNIT; Start 08/24/17 at 14: 00 Ascorbic Acid (Vitamin C) 500 mg DAILY PO Last administered on 08/28/17 08:09 ; Admin Dose 500 MG; Start 08/25/17 at 09:00 Zinc Sulfate (Zinc Sulfate) 220 mg DAILY PO Last administered on 08/28/17 08: 10; Admin Dose 220 MG; Start 08/25/17 at 09:00 Hydromorphone HCl (Dilaudid 0.5 Mg/ 0.5 ml Syringe) 0.5 mg Q4H PRN IV SEVERE PAIN LEVEL 7-10; Start 08/26/17 at 11:00 Insulin Glargine 30 unit 30 unit QHS SC Last administered on 08/27/17 20:35; Admin Dose 30 UNIT; Start 08/27/17 at 21:00 Vancomycin HCl (Vancocin) 250 ml @ 125 mls/hr Q8H IVPB Last administered on 14:46; Admin Dose 125 MLS/HR; Start 08/27/17 at 22:00 Diagnostic Test (Pha) (Accu-Chek) 1 ea 02 XX Last administered on 08/28/17 02 :00; Admin Dose 1 EA; Start 08/28/17 at 02:00 SHERRY CORBETT NP Aug 28, 2017 15:20
--- NOTE | 2017-08-28 18:39 | PN ---
Date/Time of Note Date/Time of Note DATE: 08/28/17 TIME: 18:37 Assessment/Plan Lines/Catheters IV C[facility]ter Type (from [facility]): PICC Line Sharpe in Place (from [facility]): No Assessment/Plan Chief Complaint/Hosp Course 1. Sepsis with shock with Bacteremia and Buttock Cellulitis and Abscess: off pressors; s/p I&D 08/19, cultures noted, leukocytosis normalized -abx -ivf -local care for buttock wound -off load -nutrition optimization -vit c 2. Bacteremia -as above 3. DM -diet & medication optimization 4. Tachycardia with episode of nsvt: improved; Sr; s/p radha -as above -per cards 5. Psoriasis -medical management 6. Anemia -monitor 7. Hypoalbuminemia with hypocalcemia: nutritional +/- inflammation -as above -optimize nutrition Thank you, Problems: Subjective 24 Hr Interval Summary Feels much better. Buttocks continuing to improve- minimal discomfort, no excessive drainage. No fevers, chills, sob, congested cough, cp, palpitations, n /v/d/d/dysuria. Exam/Review of Systems Vital Signs Vitals Vital Signs Date Time Temp Pulse Resp B/P Pulse Ox O2 Delivery O2 Flow Rate FiO2 08/28/17 16:59 97.8 108 17 90/59 97 08/28/17 03:24 Room Air Intake and Output 08/27/17 08/27/17 08/28/17 15:00 23:00 07:00 Intake Total 950 ml 350 ml Output Total 875 ml 450 ml Balance 75 ml -100 ml Exam Free Text/Dictation Constitutional: alert, oriented, No distress Psych: nl mood/affect, No anxiety, No confusion Head: atraumatic, normocephalic Eyes: EOMI, PERRL, nl conjunctiva, No icteric ENMT: mucosa pink and moist, nl external ears & nose Neck: non-tender, supple, No jvd Respiratory: normal air movement, No congested cough, No labored breathing Cardiovascular: No edema, No regular rate and rhythm; sr Gastrointestinal: non-tender, soft, No distended, No rebound or guarding Genitourinary - Male: No CVA tenderness Musculoskeletal: nl extremities to inspection, No joint tenderness Extremities: normal pulses, No calf tenderness, No cyanosis, No edema Neurological: nl mental status, nl speech Skin: other (Bilateral buttock, non tender; scant drainage, nonmalodorous), rash or lesions (psoriatic lesions), No diaphoresis, Results Result Diagram: 08/27/17 1110 08/27/17 1106 FAIZAN ONTIVEROS MD Aug 28, 2017 18:39
[2017-08-28] MEDS: RIFAMPIN 600 MG in SOD CHLORIDE 0.9% 100 ML IVPB SCH (20:56)
[2017-08-28] MEDS: INSULIN GLARGINE [LANtus] 3 ML PEN SC SCH (21:22)
[2017-08-29] VITALS (10 sets, daily range): BP systolic 92–110; BP diastolic 53–68; PULSE 74–93; RESP 17–21
[2017-08-29] MEDS: ACCU-CHEK XX SCH (02:52)
[2017-08-29] MEDS: VANCOMYCIN 1 GM in NS 250 ML IVPB SCH ×2 (05:32→14:21)
[2017-08-29] MEDS: HEPARIN 5,000 UNIT/0.5 ML VIAL SC SCH ×3 (05:38→21:06)
[2017-08-29] MEDS: INSULIN ASPART [NOVOLOG] 3 ML PEN SC SCH ×7 (07:51→20:52)
[2017-08-29] MEDS: SODIUM HYPOCHLORITE 1/40% 1L IRRIG IRR SCH ×2 (08:29→20:29)
[2017-08-29] MEDS: FAMOTIDINE 20 MG TAB PO SCH ×2 (08:30→20:30)
[2017-08-29] MEDS: ASCORBIC ACID 500 MG TAB PO SCH (08:30)
[2017-08-29] MEDS: ZINC SULFATE 220 MG CAP PO SCH (08:30)
[2017-08-29] MEDS: HYDROCORTISONE 1% 28.35 GM OINT TOP SCH ×2 (08:30→20:30)
[2017-08-29] MEDS: MOMETASONE TOP SCH (08:31)
--- NOTE | 2017-08-29 13:03 | PN ---
Date/Time of Note Date/Time of Note DATE: 08/29/17 TIME: 13:02 Assessment/Plan VTE Prophylaxis VTE Prophylaxis Intervention: ambulation Lines/Catheters [facility] (from [facility] PICC Line Central line still needed: Yes Urinary Cath still in place: No Assessment/Plan Chief Complaint/Hosp Course 1. Septic shock secondary to bacteremia and gluteal abscess - Patient growing MRSA in wound as well as on blood cultures - now off pressors, appears patient is baseline low BP. Will titrate off midodrine as well, will only intervene if patient becomes symptomatic. - ID on board and recommendations appreciated. on abx per ID. - WBC trending downward and will continue to monitor - 7 more days of abx per ID 2. Bacteremia - + MRSA - ID on board and appreciate assistance - ECHO ordered and no vegetation appreciated. 3. Diabetes mellitus, poorly controlled - A1c 12.2 - auto driver recommendations appreciated. - lantus and novolog 4. Gluteal abscess s/p I&D 08/19/17 - Surgery on board and consultation appreciated. - Growing MRSA and Ecoli 5. Hypotension - likely baseline. -off pressors -titrate off midodrine, hypotension likely baseline, as long as patient asymptomatic, monitor. 6. Episodes of NSVT - Cardiology consult placed and recommendations appreciated - Most likely secondary to bacteremia and will continue monitoring - stress test done today noted. 7. Hypokalemia - stable 8. Psoriatic plaques - hydrocortisone cream - May need to seek out Rheum upon discharge 9. Disposition -Case management working on insurance, as patient as limited [facility], attempting full coverage [facility]. Will attempt to transfer to SNF vs IV antibiotics once coverage is obtained. Problems: Subjective 24 Hr Interval Summary Free Text/Dictation no acute complaints, still has itching of the fingers Exam/Review of Systems Vital Signs Vitals Vital Signs Date Time Temp Pulse Resp B/P Pulse Ox O2 Delivery O2 Flow Rate FiO2 08/29/17 12:36 93 08/29/17 11:59 98.0 18 92/53 96 08/28/17 03:24 Room Air Intake and Output 08/28/17 08/28/17 08/29/17 15:00 23:00 07:00 Intake Total 250 ml 1000 ml 650 ml Output Total 850 ml Balance 250 ml 1000 ml -200 ml Exam General: NAD, awake and alert HEENT:NC/AT, PERRL, EOM intact Neck: Supple with full range of motion. Lungs: Clear to auscultation bilaterally no crackles rales or wheezing Heart: Regular rhythm and rate no overt murmur appreciated Abdomen: Soft , nontender, nondistended , bowel sounds are present. No guarding no rebound tenderness , Extremities: Normal to inspection, no edema no cyanosis Neurologic: Normal mental status, speech normal, cranial nerves II through XII are intact, motor and sensory are intact, no focal weakness Skin: dressing in place and incisions appear clean with no discharge or drainage. diffuse scaly patches on UE and LE bilaterally. Results Result Diagram: 08/27/17 1110 08/27/17 1106 Results 24 hrs Laboratory Tests Test 08/28/17 17:28 08/28/17 21:05 08/29/17 02:38 08/29/17 07:49 Bedside Glucose 178 188 137 121 Test 08/29/17 11:34 Bedside Glucose 217 Medications Medications Current Medications Ondansetron HCl (Zofran Inj) 4 mg Q6H PRN IV NAUSEA AND/OR VOMITING; Start 08/17/17 at 07:30 Docusate Sodium (Colace) 100 mg Q12H PRN PO CONSTIPATION Last administered on 08/23/17 20:37; Admin Dose 100 MG; Start 08/17/17 at 07:30 Bisacodyl (Dulcolax) 5 mg DAILY PRN PO CONSTIPATION; Start 08/17/17 at 07:30 Famotidine (Pepcid) 20 mg Q12 PO Last administered on 08/29/17 08:30; Admin Dose 20 MG; Start 08/17/17 at 09:00 IV Flush (NS 10 ml) 10 ml PRN PRN IV IV PROTOCOL; Start 08/17/17 at 14:30 Acetaminophen (Tylenol Tab) 650 mg Q4 PRN PO pain, fevers, headache Last administered on 08/20/17 23:32; Admin Dose 650 MG; Start 08/17/17 at 18:30 Mometasone Furoate 1 applic 1 applic DAILY TOP Last administered on 08/29/17 08:31; Admin Dose 1 APPLIC; Start 08/18/17 at 12:00 Rifampin/Sodium Chloride (Rifampin/NS) 100 ml @ 200 mls/hr DAILY@20 IVPB Last administered on 08/28/17 20:56; Admin Dose 200 MLS/HR; Start 08/18/17 at 20:00 ; Stop 09/02/17 at 21:00 Hydrocortisone (Hydrocortisone 1% Oint) 1 applic BID TOP Last administered on 08/29/17 08:30; Admin Dose 1 APPLIC; Start 08/20/17 at 11:30 Miscellaneous Information 1 ea NOTE XX ; Start 08/20/17 at 11:00 Glucose (Glutose) 15 gm Q15M PRN PO DECREASED GLUCOSE; Start 08/20/17 at 11:00 Glucose (Glutose) 22.5 gm Q15M PRN PO DECREASED GLUCOSE; Start 08/20/17 at 11: 00 Dextrose (D50w Syringe) 25 ml Q15M PRN IV DECREASED GLUCOSE; Start 08/20/17 at 11:00 Dextrose (D50w Syringe) 50 ml Q15M PRN IV DECREASED GLUCOSE; Start 08/20/17 at 11:00 Glucagon (Glucagen) 1 mg Q15M PRN IM DECREASED GLUCOSE; Start 08/20/17 at 11:00 Glucose (Glutose) 15 gm Q15M PRN BUCCAL DECREASED GLUCOSE; Start 08/20/17 at 11 :00 Sodium Hypochlorite 1 applic 1 applic BID IRR Last administered on 08/29/17 08:29; Admin Dose 1 APPLIC; Start 08/21/17 at 09:00 Ceftriaxone Sodium (Rocephin) 50 ml @ 100 mls/hr Q24H IVPB Last administered on 08/28/17 14:45; Admin Dose 100 MLS/HR; Start 08/21/17 at 13:30 Heparin Sodium (Porcine) (Heparin (5000 Units/0.5 ml)) 5,000 unit Q8 SC Last administered on 08/29/17 05:38; Admin Dose 5,000 UNIT; Start 08/24/17 at 14: 00 Ascorbic Acid (Vitamin C) 500 mg DAILY PO Last administered on 08/29/17 08:30 ; Admin Dose 500 MG; Start 08/25/17 at 09:00 Zinc Sulfate (Zinc Sulfate) 220 mg DAILY PO Last administered on 08/29/17 08: 30; Admin Dose 220 MG; Start 08/25/17 at 09:00 Hydromorphone HCl (Dilaudid 0.5 Mg/ 0.5 ml Syringe) 0.5 mg Q4H PRN IV SEVERE PAIN LEVEL 7-10; Start 08/26/17 at 11:00 Insulin Glargine 30 unit 30 unit QHS SC Last administered on 08/28/17 21:22; Admin Dose 30 UNIT; Start 08/27/17 at 21:00 Vancomycin HCl (Vancocin) 250 ml @ 125 mls/hr Q8H IVPB Last administered on 05:32; Admin Dose 125 MLS/HR; Start 08/27/17 at 22:00 Diagnostic Test (Pha) (Accu-Chek) 1 ea 02 XX Last administered on 08/29/17 02 :52; Admin Dose 1 EA; Start 08/28/17 at 02:00 Miscellaneous Information (*Rx Drug Level Order Reminder*) VANCOMYCIN TROUGH AT 2100 ONCE ONCE XX ; Start 08/29/17 at 21:00; Stop 08/29/17 at 21:01 RAAD REYES Aug 29, 2017 13:03
[2017-08-29] MEDS: CEFTRIAXONE 1 GM/50 ML (PMX) 50 ML IVPB SCH (13:30)
--- NOTE | 2017-08-29 15:47 | CONS ---
Date/Time of Note Date/Time of Note DATE: 08/29/17 TIME: 15:38 Consultation Date/Type/Reason Admit Date/Time Aug 17, 2017 at 11:27 Initial Consult Date SUBJECTIVE: 47 y/o male being treated for bacteremia and gluteal bilat abscess. Awake, alert. Resting in bed. Denies fevers. VS:92/53 P:96 R: 18 SO2:96% T:98.0 Labs: none for today. Stress test on 08/26/17=neg. EF52% MICROBIOLOGY: Blood cultures since August 22 and repeated negative. ANTIMICROBIALS: 1. Vancomycin. 2. Rocephin. 3. Rifampin. PHYSICAL EXAMINATION: GENERAL: Well-developed, middle-aged man who is in no distress. HEENT: Head atraumatic, normocephalic. Sclerae anicteric. Buccal mucosa dry. NECK: Supple. CHEST: Rise symmetrical. Breath sounds diminished to bases. HEART: S1, S2. ABDOMEN: Soft. Bowel tones present. ASSESSMENT: 1. S/P septic shock. 2. Status post methicillin-resistant Staphylococcus aureus bacteremia. 3. Bilateral buttock wounds with abscess, culture grew methicillin-resistant Staphylococcus aureus and Escherichia coli. 4. Poorly controlled diabetes. 5. Psoriasis. 6. HTN PLAN: The patient remains stable. Continue present care. Complete antibiotics for 7more days. Surgical/card rec-s. Wound care. Type of Consultation: ID Referring Provider: FLORENCIA PRASAD MD Exam/Review of Systems Vital Signs Vitals Vital Signs Date Time Temp Pulse Resp B/P Pulse Ox O2 Delivery O2 Flow Rate FiO2 08/29/17 12:36 93 08/29/17 11:59 98.0 18 92/53 96 08/28/17 03:24 Room Air Intake and Output 08/28/17 08/28/17 08/29/17 15:00 23:00 07:00 Intake Total 250 ml 1000 ml 650 ml Output Total 850 ml Balance 250 ml 1000 ml -200 ml Results Result Diagram: 08/27/17 1110 08/27/17 1106 Results 24 hrs Laboratory Tests Test 08/28/17 17:28 08/28/17 21:05 08/29/17 02:38 08/29/17 07:49 Bedside Glucose 178 188 137 121 Test 08/29/17 11:34 Bedside Glucose 217 Medications Medications Current Medications Ondansetron HCl (Zofran Inj) 4 mg Q6H PRN IV NAUSEA AND/OR VOMITING; Start 08/17/17 at 07:30 Docusate Sodium (Colace) 100 mg Q12H PRN PO CONSTIPATION Last administered on 08/23/17 20:37; Admin Dose 100 MG; Start 08/17/17 at 07:30 Bisacodyl (Dulcolax) 5 mg DAILY PRN PO CONSTIPATION; Start 08/17/17 at 07:30 Famotidine (Pepcid) 20 mg Q12 PO Last administered on 08/29/17 08:30; Admin Dose 20 MG; Start 08/17/17 at 09:00 IV Flush (NS 10 ml) 10 ml PRN PRN IV IV PROTOCOL; Start 08/17/17 at 14:30 Acetaminophen (Tylenol Tab) 650 mg Q4 PRN PO pain, fevers, headache Last administered on 08/20/17 23:32; Admin Dose 650 MG; Start 08/17/17 at 18:30 Mometasone Furoate 1 applic 1 applic DAILY TOP Last administered on 08/29/17 08:31; Admin Dose 1 APPLIC; Start 08/18/17 at 12:00 Rifampin/Sodium Chloride (Rifampin/NS) 100 ml @ 200 mls/hr DAILY@20 IVPB Last administered on 08/28/17 20:56; Admin Dose 200 MLS/HR; Start 08/18/17 at 20:00 ; Stop 09/02/17 at 21:00 Hydrocortisone (Hydrocortisone 1% Oint) 1 applic BID TOP Last administered on 08/29/17 08:30; Admin Dose 1 APPLIC; Start 08/20/17 at 11:30 Miscellaneous Information 1 ea NOTE XX ; Start 08/20/17 at 11:00 Glucose (Glutose) 15 gm Q15M PRN PO DECREASED GLUCOSE; Start 08/20/17 at 11:00 Glucose (Glutose) 22.5 gm Q15M PRN PO DECREASED GLUCOSE; Start 08/20/17 at 11: 00 Dextrose (D50w Syringe) 25 ml Q15M PRN IV DECREASED GLUCOSE; Start 08/20/17 at 11:00 Dextrose (D50w Syringe) 50 ml Q15M PRN IV DECREASED GLUCOSE; Start 08/20/17 at 11:00 Glucagon (Glucagen) 1 mg Q15M PRN IM DECREASED GLUCOSE; Start 08/20/17 at 11:00 Glucose (Glutose) 15 gm Q15M PRN BUCCAL DECREASED GLUCOSE; Start 08/20/17 at 11 :00 Sodium Hypochlorite 1 applic 1 applic BID IRR Last administered on 08/29/17 08:29; Admin Dose 1 APPLIC; Start 08/21/17 at 09:00 Ceftriaxone Sodium (Rocephin) 50 ml @ 100 mls/hr Q24H IVPB Last administered on 08/28/17 14:45; Admin Dose 100 MLS/HR; Start 08/21/17 at 13:30 Heparin Sodium (Porcine) (Heparin (5000 Units/0.5 ml)) 5,000 unit Q8 SC Last administered on 08/29/17 14:24; Admin Dose 5,000 UNIT; Start 08/24/17 at 14: 00 Ascorbic Acid (Vitamin C) 500 mg DAILY PO Last administered on 08/29/17 08:30 ; Admin Dose 500 MG; Start 08/25/17 at 09:00 Zinc Sulfate (Zinc Sulfate) 220 mg DAILY PO Last administered on 08/29/17 08: 30; Admin Dose 220 MG; Start 08/25/17 at 09:00 Hydromorphone HCl (Dilaudid 0.5 Mg/ 0.5 ml Syringe) 0.5 mg Q4H PRN IV SEVERE PAIN LEVEL 7-10; Start 08/26/17 at 11:00 Insulin Glargine 30 unit 30 unit QHS SC Last administered on 08/28/17 21:22; Admin Dose 30 UNIT; Start 08/27/17 at 21:00 Vancomycin HCl (Vancocin) 250 ml @ 125 mls/hr Q8H IVPB Last administered on 14:21; Admin Dose 125 MLS/HR; Start 08/27/17 at 22:00 Diagnostic Test (Pha) (Accu-Chek) 1 ea 02 XX Last administered on 08/29/17 02 :52; Admin Dose 1 EA; Start 08/28/17 at 02:00 Miscellaneous Information (*Rx Drug Level Order Reminder*) VANCOMYCIN TROUGH AT 2100 ONCE ONCE XX ; Start 08/29/17 at 21:00; Stop 08/29/17 at 21:01 STEPHANIE MULLINS Aug 29, 2017 15:47
[2017-08-29] MEDS: RIFAMPIN 600 MG in SOD CHLORIDE 0.9% 100 ML IVPB SCH (20:26)
[2017-08-29] MEDS: INSULIN GLARGINE [LANtus] 3 ML PEN SC SCH (21:01)
--- NOTE | 2017-08-29 23:41 | PN ---
Date/Time of Note Date/Time of Note DATE: 08/29/17 TIME: 23:40 Assessment/Plan Lines/Catheters IV Catheter Type (from [facility]): PICC Line Sharpe in Place (from [facility]): No Assessment/Plan Chief Complaint/Hosp Course 1. Sepsis with shock with Bacteremia and Buttock Cellulitis and Abscess: off pressors; s/p I&D 08/19, cultures noted, leukocytosis normalized -abx -ivf -local care for buttock wound -off load -nutrition optimization -vit c 2. Bacteremia -as above 3. DM -diet & medication optimization 4. Tachycardia with episode of nsvt: improved; Sr; s/p radha -as above -per cards 5. Psoriasis -medical management 6. Anemia -monitor 7. Hypoalbuminemia with hypocalcemia: nutritional +/- inflammation -as above -optimize nutrition Thank you, Problems: Subjective 24 Hr Interval Summary Buttocks minimal discomfort, no excessive drainage. No fevers, chills, sob, congested cough, cp, palpitations, n/v/d/d/dysuria. Exam/Review of Systems Vital Signs Vitals Vital Signs Date Time Temp Pulse Resp B/P Pulse Ox O2 Delivery O2 Flow Rate FiO2 08/29/17 20:28 84 08/29/17 20:00 98.0 18 93/68 95 08/28/17 03:24 Room Air Intake and Output 08/28/17 08/28/17 08/29/17 15:00 23:00 07:00 Intake Total 250 ml 1000 ml 650 ml Output Total 850 ml Balance 250 ml 1000 ml -200 ml Exam Free Text/Dictation Constitutional: alert, oriented, No distress Psych: nl mood/affect, No anxiety, No confusion Head: atraumatic, normocephalic Eyes: EOMI, PERRL, nl conjunctiva, No icteric ENMT: mucosa pink and moist, nl external ears & nose Neck: non-tender, supple, No jvd Respiratory: normal air movement, No congested cough, No labored breathing Cardiovascular: No edema, No regular rate and rhythm; sr Gastrointestinal: non-tender, soft, No distended, No rebound or guarding Genitourinary - Male: No CVA tenderness Musculoskeletal: nl extremities to inspection, No joint tenderness Extremities: normal pulses, No calf tenderness, No cyanosis, No edema Neurological: nl mental status, nl speech Skin: other (Bilateral buttock, non tender; scant drainage, nonmalodorous), rash or lesions (psoriatic lesions), No diaphoresis, Results Result Diagram: 08/27/17 1110 08/27/17 1106 FAIZAN ONTIVEROS MD Aug 29, 2017 23:41
[2017-08-30] VITALS (12 sets, daily range): BP systolic 92–111; BP diastolic 55–64; PULSE 73–90; RESP 17–20
[2017-08-30] MEDS: ACCU-CHEK XX SCH (01:51)
[2017-08-30] MEDS: VANCOMYCIN 1 GM in NS 250 ML IVPB SCH ×2 (03:16→15:04)
[2017-08-30] MEDS: HEPARIN 5,000 UNIT/0.5 ML VIAL SC SCH ×3 (05:36→21:05)
[2017-08-30 07:42] LABS: BASOPHILS % 0.5 % (0.0-2.0); EOSINOPHILS # 0.5 10^3/ul (0.0-0.5); EOSINOPHILS % 6.2 % (0.0-7.0); HEMOGLOBIN 12.6 g/dl (14.0-18.0); LYMPHOCYTES # 2.4 10^3/ul (0.8-2.9); LYMPHOCYTES % 31.5 % (15.0-51.0); MEAN CORPUSCULAR HEMOGLOBIN 30.2 pg (29.0-33.0); MEAN CORPUSCULAR HGB CONC 33.2 g/dl (32.0-37.0); MEAN CORPUSCULAR VOLUME 91.1 fl (82.0-101.0); MEAN PLATELET VOLUME 9.6 fl (7.4-10.4); MONOCYTE # 0.6 10^3/ul (0.3-0.9); NEUTROPHILS % 52.9 % (39.0-77.0); PLATELET COUNT 430 10^3/UL (140-415); RED BLOOD COUNT 4.17 10^6/ul (4.70-6.10); RED CELL DISTRIBUTION WIDTH 12.9 % (11.5-14.5); WHITE BLOOD COUNT 7.6 10^3/ul (4.8-10.8)
[2017-08-30] MEDS: INSULIN ASPART [NOVOLOG] 3 ML PEN SC SCH ×7 (08:00→20:57)
[2017-08-30 08:29] LABS: CALCIUM 9.3 mg/dl (8.4-10.2); CREATININE 0.7 mg/dl (0.61-1.24); MAGNESIUM 1.8 mg/dl (1.7-2.5); PHOSPHORUS 4.5 mg/dl (2.5-4.9); POTASSIUM 3.8 mmol/L (3.5-5.1)
[2017-08-30] MEDS: MOMETASONE TOP SCH (09:00)
[2017-08-30] MEDS: ZINC SULFATE 220 MG CAP PO SCH (11:14)
[2017-08-30] MEDS: ASCORBIC ACID 500 MG TAB PO SCH (11:14)
[2017-08-30] MEDS: FAMOTIDINE 20 MG TAB PO SCH ×2 (11:14→20:44)
[2017-08-30] MEDS: SODIUM HYPOCHLORITE 1/40% 1L IRRIG IRR SCH ×2 (11:15→20:45)
[2017-08-30] MEDS: HYDROCORTISONE 1% 28.35 GM OINT TOP SCH ×2 (11:15→20:46)
--- NOTE | 2017-08-30 11:48 | CONS ---
Date/Time of Note Date/Time of Note DATE: 08/30/17 TIME: 11:44 Assessment/Plan Assessment/Plan Chief Complaint/Hosp Course NSVT: MPI now shows LAD territory scar but normal EF so may actually be ischemic and not occluded. Will need cath to evaluate CAD: MPI with LAD territory scar but unusual as normal EF and no significant WMA in LAD territory so may just have an obstructive lesion and be ischemic. Septic shock: Off pressors Bilateral buttock abscess MRSA bacteremia: from buttocks. No endocarditis or valvular dysfunction at least by TTE. Repeat cultures have been negative DM -cath on at 7:30 am for evaluation. Pt is agreeable -start ASA, lipitor Problems: Consultation Date/Type/Reason Admit Date/Time Aug 17, 2017 at 11:27 Initial Consult Date 08/18/17 Type of Consultation: Cardiology Referring Provider: FLORENCIA PRASAD MD 24 HR Interval Summary Free Text/Dictation No o/n events. No chest pain or SOB. No NSVT Exam/Review of Systems Vital Signs Vitals Vital Signs Date Time Temp Pulse Resp B/P Pulse Ox O2 Delivery O2 Flow Rate FiO2 08/30/17 08:20 76 08/30/17 08:04 98.9 17 96/64 97 08/28/17 03:24 Room Air Intake and Output 08/29/17 08/29/17 08/30/17 15:00 23:00 07:00 Intake Total 250 ml 1300 ml 500 ml Output Total 1700 ml 675 ml Balance 250 ml -400 ml -175 ml Exam Constitutional: alert, oriented Psych: nl mood/affect, no complaints Head: atraumatic, normocephalic Neck: No jvd Respiratory: clear to auscultation, No crackles/rales Cardiovascular: regular rate and rhythm, No edema, No systolic murmur Gastrointestinal: non-tender, soft Neurological: nl mental status, nl speech Results Result Diagram: 08/30/17 0644 08/30/17 0645 Results 24 hrs Laboratory Tests Test 08/29/17 17:27 08/29/17 20:51 08/29/17 21:00 08/30/17 06:44 Bedside Glucose 152 132 Vancomycin Level Trough 23.2 *H White Blood Count 7.6 Red Blood Count 4.17 L Hemoglobin 12.6 L Hematocrit 38.0 L Mean Corpuscular Volume 91.1 Mean Corpuscular Hemoglobin 30.2 Mean Corpuscular Hemoglobin Concent 33.2 Red Cell Distribution Width 12.9 Platelet Count 430 H Mean Platelet Volume 9.6 Neutrophils % 52.9 Lymphocytes % 31.5 Monocytes % 8.0 Eosinophils % 6.2 Basophils % 0.5 Nucleated Red Blood Cells % 0.0 Neutrophils # 4.0 Lymphocytes # 2.4 Monocytes # 0.6 Eosinophils # 0.5 Basophils # 0.0 Nucleated Red Blood Cells # 0.0 Test 08/30/17 06:45 08/30/17 07:59 Sodium Level 141 Potassium Level 3.8 Chloride Level 107 Carbon Dioxide Level 26 Anion Gap 12 Blood Urea Nitrogen 16 Creatinine 0.70 Glucose Level 113 Calcium Level 9.3 Phosphorus Level 4.5 Magnesium Level 1.8 Bedside Glucose 120 Medications Medications Current Medications Ondansetron HCl (Zofran Inj) 4 mg Q6H PRN IV NAUSEA AND/OR VOMITING; Start 08/17/17 at 07:30 Docusate Sodium (Colace) 100 mg Q12H PRN PO CONSTIPATION Last administered on 08/23/17 20:37; Admin Dose 100 MG; Start 08/17/17 at 07:30 Bisacodyl (Dulcolax) 5 mg DAILY PRN PO CONSTIPATION; Start 08/17/17 at 07:30 Famotidine (Pepcid) 20 mg Q12 PO Last administered on 08/30/17 11:14; Admin Dose 20 MG; Start 08/17/17 at 09:00 IV Flush (NS 10 ml) 10 ml PRN PRN IV IV PROTOCOL; Start 08/17/17 at 14:30 Acetaminophen (Tylenol Tab) 650 mg Q4 PRN PO pain, fevers, headache Last administered on 08/20/17 23:32; Admin Dose 650 MG; Start 08/17/17 at 18:30 Mometasone Furoate 1 applic 1 applic DAILY TOP Last administered on 08/29/17 08:31; Admin Dose 1 APPLIC; Start 08/18/17 at 12:00 Rifampin/Sodium Chloride (Rifampin/NS) 100 ml @ 200 mls/hr DAILY@20 IVPB Last administered on 08/29/17 20:26; Admin Dose 200 MLS/HR; Start 08/18/17 at 20:00 ; Stop 09/02/17 at 21:00 Hydrocortisone (Hydrocortisone 1% Oint) 1 applic BID TOP Last administered on 08/30/17 11:15; Admin Dose 1 APPLIC; Start 08/20/17 at 11:30 Miscellaneous Information 1 ea NOTE XX ; Start 08/20/17 at 11:00 Glucose (Glutose) 15 gm Q15M PRN PO DECREASED GLUCOSE; Start 08/20/17 at 11:00 Glucose (Glutose) 22.5 gm Q15M PRN PO DECREASED GLUCOSE; Start 08/20/17 at 11: 00 Dextrose (D50w Syringe) 25 ml Q15M PRN IV DECREASED GLUCOSE; Start 08/20/17 at 11:00 Dextrose (D50w Syringe) 50 ml Q15M PRN IV DECREASED GLUCOSE; Start 08/20/17 at 11:00 Glucagon (Glucagen) 1 mg Q15M PRN IM DECREASED GLUCOSE; Start 08/20/17 at 11:00 Glucose (Glutose) 15 gm Q15M PRN BUCCAL DECREASED GLUCOSE; Start 08/20/17 at 11 :00 Sodium Hypochlorite 1 applic 1 applic BID IRR Last administered on 08/30/17 11:15; Admin Dose 1 APPLIC; Start 08/21/17 at 09:00 Ceftriaxone Sodium (Rocephin) 50 ml @ 100 mls/hr Q24H IVPB Last administered on 08/28/17 14:45; Admin Dose 100 MLS/HR; Start 08/21/17 at 13:30 Heparin Sodium (Porcine) (Heparin (5000 Units/0.5 ml)) 5,000 unit Q8 SC Last administered on 08/30/17 05:36; Admin Dose 5,000 UNIT; Start 08/24/17 at 14: 00 Ascorbic Acid (Vitamin C) 500 mg DAILY PO Last administered on 08/30/17 11:14 ; Admin Dose 500 MG; Start 08/25/17 at 09:00 Zinc Sulfate (Zinc Sulfate) 220 mg DAILY PO Last administered on 08/30/17 11: 14; Admin Dose 220 MG; Start 08/25/17 at 09:00 Hydromorphone HCl (Dilaudid 0.5 Mg/ 0.5 ml Syringe) 0.5 mg Q4H PRN IV SEVERE PAIN LEVEL 7-10; Start 08/26/17 at 11:00 Insulin Glargine (Lantus) 30 unit QHS SC Last administered on 08/29/17 21:01 ; Admin Dose 30 UNIT; Start 08/27/17 at 21:00 Diagnostic Test (Pha) 1 ea 1 ea 02 XX Last administered on 08/29/17 02:52; Admin Dose 1 EA; Start 08/28/17 at 02:00 Vancomycin HCl (Vancocin) 250 ml @ 125 mls/hr Q12H IVPB Last administered on 08/30/17 03:16; Admin Dose 125 MLS/HR; Start 08/30/17 at 03:00 GRAHAM ANDREWS Aug 30, 2017 11:48
[2017-08-30] MEDS: ASPIRIN 81 MG TAB PO SCH (12:49)
[2017-08-30] MEDS: CEFTRIAXONE 1 GM/50 ML (PMX) 50 ML IVPB SCH (13:44)
--- NOTE | 2017-08-30 14:32 | PN ---
Date/Time of Note Date/Time of Note DATE: 08/30/17 TIME: 14:30 Assessment/Plan VTE Prophylaxis VTE Prophylaxis Intervention: heparin Lines/Catheters IV Catheter Type (from Nrs): PICC Line Central line still needed: Yes Urinary Cath still in place: No Assessment/Plan Assessment/Plan 1. Septic shock secondary to bacteremia and gluteal abscess- resolving - MAP has remained about 60 - Patient initial blood cultures were + MRSA with repeat negative. Also found to be +MRSA in wound - If MAP <60, will need to start on Midodrine. appears to have baseline low BP - ID on board and recommendations appreciated. on abx per ID. - WBC continue trending downward and will continue to monitor - 6 more days of abx per ID 2. Bacteremia - + MRSA with repeat BC negative - ID on board and appreciate assistance - ECHO ordered and no vegetation appreciated. 3. Diabetes mellitus, poorly controlled - A1c 12.2 - paraeducator recommendations appreciated. - lantus and novolog - glucose well controlled 4. Gluteal abscess s/p I&D 08/19/17 - Surgery on board and consultation appreciated. - Growing MRSA and Ecoli - On antibiotics - Wounds clean and dry 5. Hypotension - likely baseline. stable -off pressors -titrate off midodrine, hypotension likely baseline, as long as patient asymptomatic, monitor. 6. Episodes of NSVT - Cardiology consult placed and recommendations appreciated - Most likely secondary to bacteremia and will continue monitoring - stress test shows abnormalities and will need cardiac cath. Next available is not until 7:30am 7. Hypokalemia - stable 8. Psoriatic plaques - hydrocortisone cream - May need to seek out Rheum upon discharge 9. Disposition - Plans for cardiac cath on - Case management working on insurance, as patient as limited medi neyda, attempting full coverage medi neyda. - Will attempt to transfer to SNF vs IV antibiotics once coverage is obtained. Subjective 24 Hr Interval Summary Free Text/Dictation Patient doing well and denies any new complaints or acute overnight events. States his buttocks has improved and in less pain. He denies any chest discomfort, palpitations, nausea, vomiting, or abdominal issues. Patient states cream is helping with pruritus as well. Exam/Review of Systems Vital Signs Vitals Vital Signs Date Time Temp Pulse Resp B/P Pulse Ox O2 Delivery O2 Flow Rate FiO2 08/30/17 12:16 73 08/30/17 11:45 98.3 18 98/63 95 08/28/17 03:24 Room Air Intake and Output 08/29/17 08/29/17 08/30/17 15:00 23:00 07:00 Intake Total 250 ml 1300 ml 500 ml Output Total 1700 ml 675 ml Balance 250 ml -400 ml -175 ml Exam General: NAD, awake and alert. answering questions appropriately HEENT:NC/AT, PERRL, EOM intact Neck: Supple with full range of motion. Lungs: Clear to auscultation bilaterally no crackles rales or wheezing Heart: Regular rhythm and rate no murmur appreciated Abdomen: Soft , nontender, nondistended , bowel sounds are present. No guarding no rebound tenderness , Extremities: Normal to inspection, no edema no cyanosis Neurologic: Normal mental status, speech normal, cranial nerves II through XII are intact, motor and sensory are intact, no focal weakness Skin: dressing in place and incisions appear clean with no discharge or drainage. scaly patches present diffusely over body. appears less dry with steroid cream Results Result Diagram: 08/30/17 0644 08/30/17 0645 Results 24 hrs Laboratory Tests Test 08/29/17 17:27 08/29/17 20:51 08/29/17 21:00 08/30/17 06:44 Bedside Glucose 152 132 Vancomycin Level Trough 23.2 *H White Blood Count 7.6 Red Blood Count 4.17 L Hemoglobin 12.6 L Hematocrit 38.0 L Mean Corpuscular Volume 91.1 Mean Corpuscular Hemoglobin 30.2 Mean Corpuscular Hemoglobin Concent 33.2 Red Cell Distribution Width 12.9 Platelet Count 430 H Mean Platelet Volume 9.6 Neutrophils % 52.9 Lymphocytes % 31.5 Monocytes % 8.0 Eosinophils % 6.2 Basophils % 0.5 Nucleated Red Blood Cells % 0.0 Neutrophils # 4.0 Lymphocytes # 2.4 Monocytes # 0.6 Eosinophils # 0.5 Basophils # 0.0 Nucleated Red Blood Cells # 0.0 Test 08/30/17 06:45 08/30/17 07:59 08/30/17 11:58 Sodium Level 141 Potassium Level 3.8 Chloride Level 107 Carbon Dioxide Level 26 Anion Gap 12 Blood Urea Nitrogen 16 Creatinine 0.70 Glucose Level 113 Calcium Level 9.3 Phosphorus Level 4.5 Magnesium Level 1.8 Bedside Glucose 120 177 Medications Medications Current Medications Ondansetron HCl (Zofran Inj) 4 mg Q6H PRN IV NAUSEA AND/OR VOMITING; Start 08/17/17 at 07:30 Docusate Sodium (Colace) 100 mg Q12H PRN PO CONSTIPATION Last administered on 08/23/17 20:37; Admin Dose 100 MG; Start 08/17/17 at 07:30 Bisacodyl (Dulcolax) 5 mg DAILY PRN PO CONSTIPATION; Start 08/17/17 at 07:30 Famotidine (Pepcid) 20 mg Q12 PO Last administered on 08/30/17 11:14; Admin Dose 20 MG; Start 08/17/17 at 09:00 IV Flush (NS 10 ml) 10 ml PRN PRN IV IV PROTOCOL; Start 08/17/17 at 14:30 Acetaminophen (Tylenol Tab) 650 mg Q4 PRN PO pain, fevers, headache Last administered on 08/20/17 23:32; Admin Dose 650 MG; Start 08/17/17 at 18:30 Mometasone Furoate 1 applic 1 applic DAILY TOP Last administered on 08/30/17 09:00; Admin Dose 1 APPLIC; Start 08/18/17 at 12:00 Rifampin/Sodium Chloride (Rifampin/NS) 100 ml @ 200 mls/hr DAILY@20 IVPB Last administered on 08/29/17 20:26; Admin Dose 200 MLS/HR; Start 08/18/17 at 20:00 ; Stop 09/02/17 at 21:00 Hydrocortisone (Hydrocortisone 1% Oint) 1 applic BID TOP Last administered on 08/30/17 11:15; Admin Dose 1 APPLIC; Start 08/20/17 at 11:30 Miscellaneous Information 1 ea NOTE XX ; Start 08/20/17 at 11:00 Glucose (Glutose) 15 gm Q15M PRN PO DECREASED GLUCOSE; Start 08/20/17 at 11:00 Glucose (Glutose) 22.5 gm Q15M PRN PO DECREASED GLUCOSE; Start 08/20/17 at 11: 00 Dextrose (D50w Syringe) 25 ml Q15M PRN IV DECREASED GLUCOSE; Start 08/20/17 at 11:00 Dextrose (D50w Syringe) 50 ml Q15M PRN IV DECREASED GLUCOSE; Start 08/20/17 at 11:00 Glucagon (Glucagen) 1 mg Q15M PRN IM DECREASED GLUCOSE; Start 08/20/17 at 11:00 Glucose (Glutose) 15 gm Q15M PRN BUCCAL DECREASED GLUCOSE; Start 08/20/17 at 11 :00 Sodium Hypochlorite 1 applic 1 applic BID IRR Last administered on 08/30/17 11:15; Admin Dose 1 APPLIC; Start 08/21/17 at 09:00 Ceftriaxone Sodium (Rocephin) 50 ml @ 100 mls/hr Q24H IVPB Last administered on 08/30/17 13:44; Admin Dose 100 MLS/HR; Start 08/21/17 at 13:30 Heparin Sodium (Porcine) (Heparin (5000 Units/0.5 ml)) 5,000 unit Q8 SC Last administered on 08/30/17 13:49; Admin Dose 5,000 UNIT; Start 08/24/17 at 14: 00 Ascorbic Acid (Vitamin C) 500 mg DAILY PO Last administered on 08/30/17 11:14 ; Admin Dose 500 MG; Start 08/25/17 at 09:00 Zinc Sulfate (Zinc Sulfate) 220 mg DAILY PO Last administered on 08/30/17 11: 14; Admin Dose 220 MG; Start 08/25/17 at 09:00 Hydromorphone HCl (Dilaudid 0.5 Mg/ 0.5 ml Syringe) 0.5 mg Q4H PRN IV SEVERE PAIN LEVEL 7-10; Start 08/26/17 at 11:00 Insulin Glargine (Lantus) 30 unit QHS SC Last administered on 08/29/17 21:01 ; Admin Dose 30 UNIT; Start 08/27/17 at 21:00 Diagnostic Test (Pha) 1 ea 1 ea 02 XX Last administered on 08/29/17 02:52; Admin Dose 1 EA; Start 08/28/17 at 02:00 Vancomycin HCl (Vancocin) 250 ml @ 125 mls/hr Q12H IVPB Last administered on 08/30/17 03:16; Admin Dose 125 MLS/HR; Start 08/30/17 at 03:00 Aspirin (Aspirin) 81 mg DAILY PO Last administered on 08/30/17 12:49; Admin Dose 81 MG; Start 08/30/17 at 12:00 Atorvastatin Calcium (Lipitor) 20 mg HS PO ; Start 08/30/17 at 21:00 Miscellaneous Information (*Rx Drug Level Order Reminder*) VANCO TROUGH @ 1, 400 ON ... ONCE ONCE XX ; Start 08/31/17 at 14:00; Stop 08/31/17 at 14:01 FLORENCIA PRASAD MD Aug 30, 2017 14:32
--- NOTE | 2017-08-30 16:30 | CONS ---
Date/Time of Note Date/Time of Note DATE: 08/30/17 TIME: 16:27 Consultation Date/Type/Reason Admit Date/Time Aug 17, 2017 at 11:27 Initial Consult Date SUBJECTIVE: 47 y/o male being treated for bacteremia and gluteal bilat abscess. Awake, alert. Resting in bed. Denies fevers. VS:103/61 P:85 R: 18 SO2:95% T:98.5 Labs: Reviewd. Stable. WBC=7.6 Stress test on 08/26/17=neg. EF52% MICROBIOLOGY: Blood cultures since August 22 and repeated negative. ANTIMICROBIALS: 1. Vancomycin. 2. Rocephin. 3. Rifampin. PHYSICAL EXAMINATION: GENERAL: Well-developed, middle-aged man who is in no distress. HEENT: Head atraumatic, normocephalic. Sclerae anicteric. Buccal mucosa dry. NECK: Supple. CHEST: Rise symmetrical. Breath sounds diminished to bases. HEART: S1, S2. ABDOMEN: Soft. Bowel tones present. ASSESSMENT: 1. S/P septic shock. 2. Status post methicillin-resistant Staphylococcus aureus bacteremia. 3. Bilateral buttock wounds with abscess, culture grew methicillin-resistant Staphylococcus aureus and Escherichia coli. 4. Poorly controlled diabetes. 5. Psoriasis. 6. HTN PLAN: The patient remains stable. Continue present care. Complete antibiotics for 6 more days. Surgical/card rec-s. Wound care. Type of Consultation: ID Referring Provider: FLORENCIA PRASAD MD Exam/Review of Systems Vital Signs Vitals Vital Signs Date Time Temp Pulse Resp B/P Pulse Ox O2 Delivery O2 Flow Rate FiO2 08/30/17 16:22 98.5 85 18 103/61 95 08/28/17 03:24 Room Air Intake and Output 08/29/17 08/29/17 08/30/17 15:00 23:00 07:00 Intake Total 250 ml 1300 ml 500 ml Output Total 1700 ml 675 ml Balance 250 ml -400 ml -175 ml Results Result Diagram: 08/30/17 0644 08/30/17 0645 Results 24 hrs Laboratory Tests Test 08/29/17 17:27 08/29/17 20:51 08/29/17 21:00 08/30/17 06:44 Bedside Glucose 152 132 Vancomycin Level Trough 23.2 *H White Blood Count 7.6 Red Blood Count 4.17 L Hemoglobin 12.6 L Hematocrit 38.0 L Mean Corpuscular Volume 91.1 Mean Corpuscular Hemoglobin 30.2 Mean Corpuscular Hemoglobin Concent 33.2 Red Cell Distribution Width 12.9 Platelet Count 430 H Mean Platelet Volume 9.6 Neutrophils % 52.9 Lymphocytes % 31.5 Monocytes % 8.0 Eosinophils % 6.2 Basophils % 0.5 Nucleated Red Blood Cells % 0.0 Neutrophils # 4.0 Lymphocytes # 2.4 Monocytes # 0.6 Eosinophils # 0.5 Basophils # 0.0 Nucleated Red Blood Cells # 0.0 Test 08/30/17 06:45 08/30/17 07:59 08/30/17 11:58 Sodium Level 141 Potassium Level 3.8 Chloride Level 107 Carbon Dioxide Level 26 Anion Gap 12 Blood Urea Nitrogen 16 Creatinine 0.70 Glucose Level 113 Calcium Level 9.3 Phosphorus Level 4.5 Magnesium Level 1.8 Bedside Glucose 120 177 Medications Medications Current Medications Ondansetron HCl (Zofran Inj) 4 mg Q6H PRN IV NAUSEA AND/OR VOMITING; Start 08/17/17 at 07:30 Docusate Sodium (Colace) 100 mg Q12H PRN PO CONSTIPATION Last administered on 08/23/17 20:37; Admin Dose 100 MG; Start 08/17/17 at 07:30 Bisacodyl (Dulcolax) 5 mg DAILY PRN PO CONSTIPATION; Start 08/17/17 at 07:30 Famotidine (Pepcid) 20 mg Q12 PO Last administered on 08/30/17 11:14; Admin Dose 20 MG; Start 08/17/17 at 09:00 IV Flush (NS 10 ml) 10 ml PRN PRN IV IV PROTOCOL; Start 08/17/17 at 14:30 Acetaminophen (Tylenol Tab) 650 mg Q4 PRN PO pain, fevers, headache Last administered on 08/20/17 23:32; Admin Dose 650 MG; Start 08/17/17 at 18:30 Mometasone Furoate 1 applic 1 applic DAILY TOP Last administered on 08/30/17 09:00; Admin Dose 1 APPLIC; Start 08/18/17 at 12:00 Rifampin/Sodium Chloride (Rifampin/NS) 100 ml @ 200 mls/hr DAILY@20 IVPB Last administered on 08/29/17 20:26; Admin Dose 200 MLS/HR; Start 08/18/17 at 20:00 ; Stop 09/02/17 at 21:00 Hydrocortisone (Hydrocortisone 1% Oint) 1 applic BID TOP Last administered on 08/30/17 11:15; Admin Dose 1 APPLIC; Start 08/20/17 at 11:30 Miscellaneous Information 1 ea NOTE XX ; Start 08/20/17 at 11:00 Glucose (Glutose) 15 gm Q15M PRN PO DECREASED GLUCOSE; Start 08/20/17 at 11:00 Glucose (Glutose) 22.5 gm Q15M PRN PO DECREASED GLUCOSE; Start 08/20/17 at 11: 00 Dextrose (D50w Syringe) 25 ml Q15M PRN IV DECREASED GLUCOSE; Start 08/20/17 at 11:00 Dextrose (D50w Syringe) 50 ml Q15M PRN IV DECREASED GLUCOSE; Start 08/20/17 at 11:00 Glucagon (Glucagen) 1 mg Q15M PRN IM DECREASED GLUCOSE; Start 08/20/17 at 11:00 Glucose (Glutose) 15 gm Q15M PRN BUCCAL DECREASED GLUCOSE; Start 08/20/17 at 11 :00 Sodium Hypochlorite 1 applic 1 applic BID IRR Last administered on 08/30/17 11:15; Admin Dose 1 APPLIC; Start 08/21/17 at 09:00 Ceftriaxone Sodium (Rocephin) 50 ml @ 100 mls/hr Q24H IVPB Last administered on 08/30/17 13:44; Admin Dose 100 MLS/HR; Start 08/21/17 at 13:30 Heparin Sodium (Porcine) (Heparin (5000 Units/0.5 ml)) 5,000 unit Q8 SC Last administered on 08/30/17 13:49; Admin Dose 5,000 UNIT; Start 08/24/17 at 14: 00 Ascorbic Acid (Vitamin C) 500 mg DAILY PO Last administered on 08/30/17 11:14 ; Admin Dose 500 MG; Start 08/25/17 at 09:00 Zinc Sulfate (Zinc Sulfate) 220 mg DAILY PO Last administered on 08/30/17 11: 14; Admin Dose 220 MG; Start 08/25/17 at 09:00 Hydromorphone HCl (Dilaudid 0.5 Mg/ 0.5 ml Syringe) 0.5 mg Q4H PRN IV SEVERE PAIN LEVEL 7-10; Start 08/26/17 at 11:00 Insulin Glargine (Lantus) 30 unit QHS SC Last administered on 08/29/17 21:01 ; Admin Dose 30 UNIT; Start 08/27/17 at 21:00 Diagnostic Test (Pha) 1 ea 1 ea 02 XX Last administered on 08/29/17 02:52; Admin Dose 1 EA; Start 08/28/17 at 02:00 Vancomycin HCl (Vancocin) 250 ml @ 125 mls/hr Q12H IVPB Last administered on 08/30/17 15:04; Admin Dose 125 MLS/HR; Start 08/30/17 at 03:00 Aspirin (Aspirin) 81 mg DAILY PO Last administered on 08/30/17 12:49; Admin Dose 81 MG; Start 08/30/17 at 12:00 Atorvastatin Calcium (Lipitor) 20 mg HS PO ; Start 08/30/17 at 21:00 Miscellaneous Information (*Rx Drug Level Order Reminder*) VANCO TROUGH @ 1, 400 ON ... ONCE ONCE XX ; Start 08/31/17 at 14:00; Stop 08/31/17 at 14:01 STEPHANIE MULLINS Aug 30, 2017 16:30
--- NOTE | 2017-08-30 17:36 | PN ---
Date/Time of Note Date/Time of Note DATE: 08/30/17 TIME: 17:31 Assessment/Plan Lines/Catheters IV Catheter Type (from [facility]): PICC Line Sharpe in Place (from [facility]): No Assessment/Plan Chief Complaint/Hosp Course 1. Sepsis with shock with Bacteremia and Buttock Cellulitis and Abscess: off pressors; s/p I&D 08/19, cultures noted, leukocytosis normalized -abx -ivf -local care for buttock incisions 2. Bacteremia -as above -echo 3. DM: labile sugars: continues -medication optimization 4. Tachycardia with episode of nsvt: improved; Sr; s/p radha; will need cardiac cath -as above -per cards 5. Psoriasis -medical management 6. Anemia -monitor 7. Hypoalbuminemia with hypocalcemia: nutritional +/- inflammation -as above -optimize nutrition Thank you. Patient seen and examined in collaboration with Dr. Mihir Zazueta. Problems: Subjective 24 Hr Interval Summary Pending cardiac cath. No c/o chest pain/palpitations. Improved buttock pain. No fevers, chills, sob, congested cough, n/v/d/dysuria, rivas, dizziness, change in tele rhythm, new wounds. Exam/Review of Systems Vital Signs Vitals Vital Signs Date Time Temp Pulse Resp B/P Pulse Ox O2 Delivery O2 Flow Rate FiO2 08/30/17 16:28 85 08/30/17 16:22 98.5 18 103/61 95 08/28/17 03:24 Room Air Intake and Output 08/29/17 08/29/17 08/30/17 15:00 23:00 07:00 Intake Total 250 ml 1300 ml 500 ml Output Total 1700 ml 675 ml Balance 250 ml -400 ml -175 ml Exam Free Text/Dictation Constitutional: alert, oriented, No distress Psych: nl mood/affect, No anxiety, No confusion Head: atraumatic, normocephalic Eyes: EOMI, PERRL, nl conjunctiva, No icteric ENMT: mucosa pink and moist, nl external ears & nose Neck: non-tender, supple, No jvd Respiratory: normal air movement, No congested cough, No labored breathing Cardiovascular: No edema, No regular rate and rhythm; sr Gastrointestinal: non-tender, soft, No distended, No rebound or guarding Genitourinary - Male: No CVA tenderness Musculoskeletal: nl extremities to inspection, No joint tenderness Extremities: normal pulses, No calf tenderness, No cyanosis, No edema Neurological: nl mental status, nl speech Skin: other (Bilateral buttock, non tender; scant drainage, nonmalodorous), rash or lesions (psoriatic lesions), No diaphoresis, Results Result Diagram: 08/30/17 0644 08/30/17 0645 DAMARIS LINTON NP Aug 30, 2017 17:36
[2017-08-30] MEDS: RIFAMPIN 600 MG in SOD CHLORIDE 0.9% 100 ML IVPB SCH (20:44)
[2017-08-30] MEDS: ATORVASTATIN 20 MG TAB PO SCH (20:44)
[2017-08-30] MEDS: INSULIN GLARGINE [LANtus] 3 ML PEN SC SCH (21:04)
[2017-08-31] VITALS (13 sets, daily range): BP systolic 91–104; BP diastolic 55–65; PULSE 71–109; RESP 18
[2017-08-31] MEDS: ACCU-CHEK XX SCH (02:00)
[2017-08-31] MEDS: VANCOMYCIN 1 GM in NS 250 ML IVPB SCH ×2 (03:31→15:27)
[2017-08-31] MEDS: HEPARIN 5,000 UNIT/0.5 ML VIAL SC SCH ×3 (06:55→21:45)
[2017-08-31] MEDS: INSULIN ASPART [NOVOLOG] 3 ML PEN SC SCH ×7 (07:52→21:00)
[2017-08-31 08:23] LABS: BASOPHILS % 0.4 % (0.0-2.0); EOSINOPHILS # 0.5 10^3/ul (0.0-0.5); EOSINOPHILS % 6.4 % (0.0-7.0); HEMATOCRIT 38.4 % (42.0-52.0); HEMOGLOBIN 12.3 g/dl (14.0-18.0); LYMPHOCYTES # 2.2 10^3/ul (0.8-2.9); LYMPHOCYTES % 30.3 % (15.0-51.0); MEAN CORPUSCULAR HEMOGLOBIN 29.9 pg (29.0-33.0); MEAN CORPUSCULAR VOLUME 93.2 fl (82.0-101.0); MEAN PLATELET VOLUME 9.7 fl (7.4-10.4); MONOCYTE # 0.7 10^3/ul (0.3-0.9); MONOCYTES % 9.2 % (0.0-11.0); NEUTROPHIL # 3.9 10^3/ul (1.6-7.5); PLATELET COUNT 412 10^3/UL (140-415); RED BLOOD COUNT 4.12 10^6/ul (4.70-6.10); RED CELL DISTRIBUTION WIDTH 13.1 % (11.5-14.5); WHITE BLOOD COUNT 7.3 10^3/ul (4.8-10.8)
[2017-08-31] MEDS: SODIUM HYPOCHLORITE 1/40% 1L IRRIG IRR SCH ×3 (08:31→21:35)
[2017-08-31] MEDS: ZINC SULFATE 220 MG CAP PO SCH (08:32)
[2017-08-31] MEDS: HYDROCORTISONE 1% 28.35 GM OINT TOP SCH ×2 (08:32→21:34)
[2017-08-31] MEDS: ASPIRIN 81 MG TAB PO SCH (08:32)
[2017-08-31] MEDS: ASCORBIC ACID 500 MG TAB PO SCH (08:32)
[2017-08-31] MEDS: FAMOTIDINE 20 MG TAB PO SCH ×2 (08:32→21:36)
[2017-08-31] MEDS: MOMETASONE TOP SCH (08:33)
--- NOTE | 2017-08-31 08:41 | CONS ---
Date/Time of Note Date/Time of Note DATE: 08/31/17 TIME: 08:40 Assessment/Plan Assessment/Plan Chief Complaint/Hosp Course NSVT: MPI now shows LAD territory scar but normal EF so may actually be ischemic and not occluded. Will need cath to evaluate CAD: MPI with LAD territory scar but unusual as normal EF and no significant WMA in LAD territory so may just have an obstructive lesion and be ischemic. Septic shock: Off pressors Bilateral buttock abscess MRSA bacteremia: from buttocks. No endocarditis or valvular dysfunction at least by TTE. Repeat cultures have been negative DM -cath on at 7:30 am for evaluation. NPO after midnight Wednesday -ASA, lipitor Problems: Consultation Date/Type/Reason Admit Date/Time Aug 17, 2017 at 11:27 Initial Consult Date 08/18/17 Type of Consultation: Cardiology Referring Provider: FLORENCIA PRASAD MD 24 HR Interval Summary Free Text/Dictation No o/n events. No complaints Exam/Review of Systems Vital Signs Vitals Vital Signs Date Time Temp Pulse Resp B/P Pulse Ox O2 Delivery O2 Flow Rate FiO2 08/31/17 07:54 98.8 80 18 102/60 94 08/28/17 03:24 Room Air Intake and Output 08/30/17 08/30/17 08/31/17 15:00 23:00 07:00 Intake Total 50 ml 1150 ml 1150 ml Output Total 700 ml 1100 ml Balance -650 ml 1150 ml 50 ml Exam Constitutional: alert, oriented Psych: no complaints Head: atraumatic, normocephalic Neck: No jvd Respiratory: clear to auscultation, No crackles/rales Cardiovascular: regular rate and rhythm, No edema Gastrointestinal: non-tender, soft Neurological: nl mental status, nl speech Results Result Diagram: 08/31/17 0731 08/30/17 0645 Results 24 hrs Laboratory Tests Test 08/30/17 11:58 08/30/17 17:18 08/30/17 20:56 08/31/17 07:31 Bedside Glucose 177 158 155 White Blood Count 7.3 Red Blood Count 4.12 L Hemoglobin 12.3 L Hematocrit 38.4 L Mean Corpuscular Volume 93.2 Mean Corpuscular Hemoglobin 29.9 Mean Corpuscular Hemoglobin Concent 32.0 Red Cell Distribution Width 13.1 Platelet Count 412 Mean Platelet Volume 9.7 Neutrophils % 53.0 Lymphocytes % 30.3 Monocytes % 9.2 Eosinophils % 6.4 Basophils % 0.4 Nucleated Red Blood Cells % 0.0 Neutrophils # 3.9 Lymphocytes # 2.2 Monocytes # 0.7 Eosinophils # 0.5 Basophils # 0.0 Nucleated Red Blood Cells # 0.0 Test 08/31/17 07:41 Bedside Glucose 153 Medications Medications Current Medications Ondansetron HCl (Zofran Inj) 4 mg Q6H PRN IV NAUSEA AND/OR VOMITING; Start 08/17/17 at 07:30 Docusate Sodium (Colace) 100 mg Q12H PRN PO CONSTIPATION Last administered on 08/23/17 20:37; Admin Dose 100 MG; Start 08/17/17 at 07:30 Bisacodyl (Dulcolax) 5 mg DAILY PRN PO CONSTIPATION; Start 08/17/17 at 07:30 Famotidine (Pepcid) 20 mg Q12 PO Last administered on 08/31/17 08:32; Admin Dose 20 MG; Start 08/17/17 at 09:00 IV Flush (NS 10 ml) 10 ml PRN PRN IV IV PROTOCOL; Start 08/17/17 at 14:30 Acetaminophen (Tylenol Tab) 650 mg Q4 PRN PO pain, fevers, headache Last administered on 08/20/17 23:32; Admin Dose 650 MG; Start 08/17/17 at 18:30 Mometasone Furoate 1 applic 1 applic DAILY TOP Last administered on 08/31/17 08:33; Admin Dose 1 APPLIC; Start 08/18/17 at 12:00 Rifampin/Sodium Chloride (Rifampin/NS) 100 ml @ 200 mls/hr DAILY@20 IVPB Last administered on 08/30/17 20:44; Admin Dose 200 MLS/HR; Start 08/18/17 at 20:00 ; Stop 09/02/17 at 21:00 Hydrocortisone (Hydrocortisone 1% Oint) 1 applic BID TOP Last administered on 08/31/17 08:32; Admin Dose 1 APPLIC; Start 08/20/17 at 11:30 Miscellaneous Information 1 ea NOTE XX ; Start 08/20/17 at 11:00 Glucose (Glutose) 15 gm Q15M PRN PO DECREASED GLUCOSE; Start 08/20/17 at 11:00 Glucose (Glutose) 22.5 gm Q15M PRN PO DECREASED GLUCOSE; Start 08/20/17 at 11: 00 Dextrose (D50w Syringe) 25 ml Q15M PRN IV DECREASED GLUCOSE; Start 08/20/17 at 11:00 Dextrose (D50w Syringe) 50 ml Q15M PRN IV DECREASED GLUCOSE; Start 08/20/17 at 11:00 Glucagon (Glucagen) 1 mg Q15M PRN IM DECREASED GLUCOSE; Start 08/20/17 at 11:00 Glucose (Glutose) 15 gm Q15M PRN BUCCAL DECREASED GLUCOSE; Start 08/20/17 at 11 :00 Sodium Hypochlorite 1 applic 1 applic BID IRR Last administered on 08/31/17 08:31; Admin Dose 1 APPLIC; Start 08/21/17 at 09:00 Ceftriaxone Sodium (Rocephin) 50 ml @ 100 mls/hr Q24H IVPB Last administered on 08/30/17 13:44; Admin Dose 100 MLS/HR; Start 08/21/17 at 13:30 Heparin Sodium (Porcine) (Heparin (5000 Units/0.5 ml)) 5,000 unit Q8 SC Last administered on 08/31/17 06:55; Admin Dose 5,000 UNIT; Start 08/24/17 at 14: 00 Ascorbic Acid (Vitamin C) 500 mg DAILY PO Last administered on 08/31/17 08:32 ; Admin Dose 500 MG; Start 08/25/17 at 09:00 Zinc Sulfate (Zinc Sulfate) 220 mg DAILY PO Last administered on 08/31/17 08: 32; Admin Dose 220 MG; Start 08/25/17 at 09:00 Hydromorphone HCl (Dilaudid 0.5 Mg/ 0.5 ml Syringe) 0.5 mg Q4H PRN IV SEVERE PAIN LEVEL 7-10; Start 08/26/17 at 11:00 Insulin Glargine (Lantus) 30 unit QHS SC Last administered on 08/30/17 21:04 ; Admin Dose 30 UNIT; Start 08/27/17 at 21:00 Diagnostic Test (Pha) 1 ea 1 ea 02 XX Last administered on 08/29/17 02:52; Admin Dose 1 EA; Start 08/28/17 at 02:00 Vancomycin HCl (Vancocin) 250 ml @ 125 mls/hr Q12H IVPB Last administered on 08/31/17 03:31; Admin Dose 125 MLS/HR; Start 08/30/17 at 03:00 Aspirin (Aspirin) 81 mg DAILY PO Last administered on 08/31/17 08:32; Admin Dose 81 MG; Start 08/30/17 at 12:00 Atorvastatin Calcium (Lipitor) 20 mg HS PO Last administered on 08/30/17 20: 44; Admin Dose 20 MG; Start 08/30/17 at 21:00 Miscellaneous Information (*Rx Drug Level Order Reminder*) VANCO TROUGH @ 1, 400 ON ... ONCE ONCE XX ; Start 08/31/17 at 14:00; Stop 08/31/17 at 14:01 GRAHAM ANDREWS Aug 31, 2017 08:41
[2017-08-31 08:44] LABS: ALBUMIN 3.3 g/dl (3.3-4.9); CALCIUM 9.3 mg/dl (8.4-10.2); CREATININE 0.72 mg/dl (0.61-1.24); MAGNESIUM 1.8 mg/dl (1.7-2.5); PHOSPHORUS 4.5 mg/dl (2.5-4.9); POTASSIUM 3.8 mmol/L (3.5-5.1)
--- NOTE | 2017-08-31 10:46 | PN ---
Date/Time of Note Date/Time of Note DATE: 08/31/17 TIME: 10:46 Assessment/Plan VTE Prophylaxis VTE Prophylaxis Intervention: heparin Lines/Catheters IV [facility] Type ([facility]): PICC Line Central line still needed: Yes Urinary Cath still in place: No Assessment/Plan Assessment/Plan 1. Septic shock secondary to bacteremia and gluteal abscess- resolved - MAP has remained above 60 - Patient initial blood cultures were + MRSA with repeat negative. Also found to be +MRSA in wound - If MAP <60, will need to start on Midodrine. appears to have baseline low BP - ID on board and recommendations appreciated. on abx per ID. - WBC continue trending downward and will continue to monitor - 5 more days of abx per ID 2. Bacteremia - + MRSA with repeat BC negative - ID on board and appreciate assistance - ECHO ordered and no vegetation appreciated. 3. Diabetes mellitus, poorly controlled - A1c 12.2 - hematology nurse educator recommendations appreciated. - lantus and novolog - glucose well controlled 4. Gluteal abscess s/p I&D 08/19/17 - Surgery on board and consultation appreciated. - Growing MRSA and Ecoli - On antibiotics - Wounds clean and dry 5. Hypotension - likely baseline. stable -off pressors -titrate off midodrine, hypotension likely baseline, as long as patient asymptomatic, monitor. 6. Episodes of NSVT - Cardiology consult placed and recommendations appreciated - stress test shows abnormalities and plans for cath 7. Hypokalemia - stable 8. Psoriatic plaques - hydrocortisone cream - May need to seek out Rheum upon discharge 9. Disposition - Plans for cardiac cath on - Will d/c once antibiotic course completed Subjective 24 Hr Interval Summary Free Text/Dictation Patient doing well and has no new complaints and no acute overnight events. Concerned about length of stay and anxious to return back home. Discussed the fact he needs another 5 days of antibiotics after today and does not have coverage. Exam/Review of Systems Vital Signs Vitals Vital Signs Date Time Temp Pulse Resp B/P Pulse Ox O2 Delivery O2 Flow Rate FiO2 08/31/17 08:00 82 08/31/17 07:54 98.8 18 102/60 94 08/28/17 03:24 Room Air Intake and Output 08/30/17 08/30/17 08/31/17 15:00 23:00 07:00 Intake Total 50 ml 1150 ml 1150 ml Output Total 700 ml 1100 ml Balance -650 ml 1150 ml 50 ml Exam General: NAD, awake and alert. answering questions appropriately HEENT:NC/AT, PERRL, EOM intact Neck: Supple with full range of motion. Lungs: Clear to auscultation bilaterally no crackles rales or wheezing Heart: Regular rhythm and rate no murmur appreciated Abdomen: Soft , nontender, nondistended , bowel sounds are present. No guarding no rebound tenderness , Extremities: Normal to inspection, no edema no cyanosis Neurologic: Normal mental status, speech normal, cranial nerves II through XII are intact, motor and sensory are intact, no focal weakness Skin: dressing in place and incisions appear clean with no discharge or drainage. improvement in scaly plaques Results Result Diagram: 08/31/1773008/31/1731 Results 24 hrs Laboratory Tests Test 08/30/17 11:58 08/30/17 17:18 08/30/17 20:56 08/31/17 07:31 Bedside Glucose 177 158 155 White Blood Count 7.3 Red Blood Count 4.12 L Hemoglobin 12.3 L Hematocrit 38.4 L Mean Corpuscular Volume 93.2 Mean Corpuscular Hemoglobin 29.9 Mean Corpuscular Hemoglobin Concent 32.0 Red Cell Distribution Width 13.1 Platelet Count 412 Mean Platelet Volume 9.7 Neutrophils % 53.0 Lymphocytes % 30.3 Monocytes % 9.2 Eosinophils % 6.4 Basophils % 0.4 Nucleated Red Blood Cells % 0.0 Neutrophils # 3.9 Lymphocytes # 2.2 Monocytes # 0.7 Eosinophils # 0.5 Basophils # 0.0 Nucleated Red Blood Cells # 0.0 Sodium Level 141 Potassium Level 3.8 Chloride Level 105 Carbon Dioxide Level 26 Anion Gap 14 Blood Urea Nitrogen 18 Creatinine 0.72 Glucose Level 170 Calcium Level 9.3 Phosphorus Level 4.5 Magnesium Level 1.8 Albumin 3.3 Test 08/31/17 07:41 Bedside Glucose 153 Medications Medications Current Medications Ondansetron HCl (Zofran Inj) 4 mg Q6H PRN IV NAUSEA AND/OR VOMITING; Start 08/17/17 at 07:30 Docusate Sodium (Colace) 100 mg Q12H PRN PO CONSTIPATION Last administered on 08/23/17t 20:37; Admin Dose 100 MG; Start 08/17/17 at 07:30 Bisacodyl (Dulcolax) 5 mg DAILY PRN PO CONSTIPATION; Start 08/17/17 at 07:30 Famotidine (Pepcid) 20 mg Q12 PO Last administered on 08/31/17 08:32; Admin Dose 20 MG; Start 08/17/17 at 09:00 IV Flush (NS 10 ml) 10 ml PRN PRN IV IV PROTOCOL; Start 08/17/17 at 14:30 Acetaminophen (Tylenol Tab) 650 mg Q4 PRN PO pain, fevers, headache Last administered on 08/20/17 23:32; Admin Dose 650 MG; Start 08/17/17 at 18:30 Mometasone Furoate 1 applic 1 applic DAILY TOP Last administered on 08/31/17 08:33; Admin Dose 1 APPLIC; Start 08/18/17 at 12:00 Rifampin/Sodium Chloride (Rifampin/NS) 100 ml @ 200 mls/hr DAILY@20 IVPB Last administered on 08/30/17 20:44; Admin Dose 200 MLS/HR; Start 08/18/17 at 20:00 ; Stop 09/02/17 at 21:00 Hydrocortisone (Hydrocortisone 1% Oint) 1 applic BID TOP Last administered on 08/31/17 08:32; Admin Dose 1 APPLIC; Start 08/20/17 at 11:30 Miscellaneous Information 1 ea NOTE XX ; Start 08/20/17 at 11:00 Glucose (Glutose) 15 gm Q15M PRN PO DECREASED GLUCOSE; Start 08/20/17 at 11:00 Glucose (Glutose) 22.5 gm Q15M PRN PO DECREASED GLUCOSE; Start 08/20/17 at 11: 00 Dextrose (D50w Syringe) 25 ml Q15M PRN IV DECREASED GLUCOSE; Start 08/20/17 at 11:00 Dextrose (D50w Syringe) 50 ml Q15M PRN IV DECREASED GLUCOSE; Start 08/20/17 at 11:00 Glucagon (Glucagen) 1 mg Q15M PRN IM DECREASED GLUCOSE; Start 08/20/17 at 11:00 Glucose (Glutose) 15 gm Q15M PRN BUCCAL DECREASED GLUCOSE; Start 08/20/17 at 11 :00 Sodium Hypochlorite 1 applic 1 applic BID IRR Last administered on 08/31/17 08:31; Admin Dose 1 APPLIC; Start 08/21/17 at 09:00 Ceftriaxone Sodium (Rocephin) 50 ml @ 100 mls/hr Q24H IVPB Last administered on 08/30/17 13:44; Admin Dose 100 MLS/HR; Start 08/21/17 at 13:30 Heparin Sodium (Porcine) (Heparin (5000 Units/0.5 ml)) 5,000 unit Q8 SC Last administered on 08/31/17 06:55; Admin Dose 5,000 UNIT; Start 08/24/17 at 14: 00 Ascorbic Acid (Vitamin C) 500 mg DAILY PO Last administered on 08/31/17 08:32 ; Admin Dose 500 MG; Start 08/25/17 at 09:00 Zinc Sulfate (Zinc Sulfate) 220 mg DAILY PO Last administered on 08/31/17 08: 32; Admin Dose 220 MG; Start 08/25/17 at 09:00 Hydromorphone HCl (Dilaudid 0.5 Mg/ 0.5 ml Syringe) 0.5 mg Q4H PRN IV SEVERE PAIN LEVEL 7-10; Start 08/26/17 at 11:00 Insulin Glargine (Lantus) 30 unit QHS SC Last administered on 08/30/17 21:04 ; Admin Dose 30 UNIT; Start 08/27/17 at 21:00 Diagnostic Test (Pha) 1 ea 1 ea 02 XX Last administered on 08/29/17 02:52; Admin Dose 1 EA; Start 08/28/17 at 02:00 Vancomycin HCl (Vancocin) 250 ml @ 125 mls/hr Q12H IVPB Last administered on 08/31/17 03:31; Admin Dose 125 MLS/HR; Start 08/30/17 at 03:00 Aspirin (Aspirin) 81 mg DAILY PO Last administered on 08/31/17 08:32; Admin Dose 81 MG; Start 08/30/17 at 12:00 Atorvastatin Calcium (Lipitor) 20 mg HS PO Last administered on 08/30/17 20: 44; Admin Dose 20 MG; Start 08/30/17 at 21:00 Miscellaneous Information (*Rx Drug Level Order Reminder*) VANCO TROUGH @ 1, 400 ON ... ONCE ONCE XX ; Start 08/31/17 at 14:00; Stop 08/31/17 at 14:01 FLORENCIA PRASAD MD Aug 31, 2017 10:46 FLORENCIA PRASAD MD Aug 31, 2017 10:46
[2017-08-31] MEDS: CEFTRIAXONE 1 GM/50 ML (PMX) 50 ML IVPB SCH (13:58)
--- NOTE | 2017-08-31 14:12 | CONS ---
Date/Time of Note Date/Time of Note DATE: 08/31/17 TIME: 14:11 Consult Date/Type/Reason Admit Date/Time Aug 17, 2017 at 11:27 Initial Consult Date 08/18/17 Type of Consultation: ID Ordering Provider: FLORENCIA PRASAD MD Objective Vital Signs Date Time Temp Pulse Resp B/P Pulse Ox O2 Delivery O2 Flow Rate FiO2 08/31/17 12:15 98.1 104 18 91/65 99 08/28/17 03:24 Room Air Intake and Output 08/30/17 08/30/17 08/31/17 15:00 23:00 07:00 Intake Total 50 ml 1150 ml 1150 ml Output Total 700 ml 1100 ml Balance -650 ml 1150 ml 50 ml Results/Medications Result Diagram: 08/31/1731 08/31/17730 Results 24 hrs Laboratory Tests Test 08/30/17 17:18 08/30/17 20:56 08/31/17 07:31 08/31/17 07:41 Bedside Glucose 158 155 153 White Blood Count 7.3 Red Blood Count 4.12 L Hemoglobin 12.3 L Hematocrit 38.4 L Mean Corpuscular Volume 93.2 Mean Corpuscular Hemoglobin 29.9 Mean Corpuscular Hemoglobin Concent 32.0 Red Cell Distribution Width 13.1 Platelet Count 412 Mean Platelet Volume 9.7 Neutrophils % 53.0 Lymphocytes % 30.3 Monocytes % 9.2 Eosinophils % 6.4 Basophils % 0.4 Nucleated Red Blood Cells % 0.0 Neutrophils # 3.9 Lymphocytes # 2.2 Monocytes # 0.7 Eosinophils # 0.5 Basophils # 0.0 Nucleated Red Blood Cells # 0.0 Sodium Level 141 Potassium Level 3.8 Chloride Level 105 Carbon Dioxide Level 26 Anion Gap 14 Blood Urea Nitrogen 18 Creatinine 0.72 Glucose Level 170 Calcium Level 9.3 Phosphorus Level 4.5 Magnesium Level 1.8 Albumin 3.3 Test 08/31/17 12:05 Bedside Glucose 168 Medications Current Medications Ondansetron HCl (Zofran Inj) 4 mg Q6H PRN IV NAUSEA AND/OR VOMITING; Start 08/17/17 at 07:30 Docusate Sodium (Colace) 100 mg Q12H PRN PO CONSTIPATION Last administered on 08/23/17t 20:37; Admin Dose 100 MG; Start 08/17/17 at 07:30 Bisacodyl (Dulcolax) 5 mg DAILY PRN PO CONSTIPATION; Start 08/17/17 at 07:30 Famotidine (Pepcid) 20 mg Q12 PO Last administered on 08/31/17 08:32; Admin Dose 20 MG; Start 08/17/17 at 09:00 IV Flush (NS 10 ml) 10 ml PRN PRN IV IV PROTOCOL; Start 08/17/17 at 14:30 Acetaminophen (Tylenol Tab) 650 mg Q4 PRN PO pain, fevers, headache Last administered on 08/20/17 23:32; Admin Dose 650 MG; Start 08/17/17 at 18:30 Mometasone Furoate 1 applic 1 applic DAILY TOP Last administered on 08/31/17 08:33; Admin Dose 1 APPLIC; Start 08/18/17 at 12:00 Rifampin/Sodium Chloride (Rifampin/NS) 100 ml @ 200 mls/hr DAILY@20 IVPB Last administered on 08/30/17 20:44; Admin Dose 200 MLS/HR; Start 08/18/17 at 20:00 ; Stop 09/02/17 at 21:00 Hydrocortisone (Hydrocortisone 1% Oint) 1 applic BID TOP Last administered on 08/31/17 08:32; Admin Dose 1 APPLIC; Start 08/20/17 at 11:30 Miscellaneous Information 1 ea NOTE XX ; Start 08/20/17 at 11:00 Glucose (Glutose) 15 gm Q15M PRN PO DECREASED GLUCOSE; Start 08/20/17 at 11:00 Glucose (Glutose) 22.5 gm Q15M PRN PO DECREASED GLUCOSE; Start 08/20/17 at 11: 00 Dextrose (D50w Syringe) 25 ml Q15M PRN IV DECREASED GLUCOSE; Start 08/20/17 at 11:00 Dextrose (D50w Syringe) 50 ml Q15M PRN IV DECREASED GLUCOSE; Start 08/20/17 at 11:00 Glucagon (Glucagen) 1 mg Q15M PRN IM DECREASED GLUCOSE; Start 08/20/17 at 11:00 Glucose (Glutose) 15 gm Q15M PRN BUCCAL DECREASED GLUCOSE; Start 08/20/17 at 11 :00 Sodium Hypochlorite 1 applic 1 applic BID IRR Last administered on 08/31/17 08:31; Admin Dose 1 APPLIC; Start 08/21/17 at 09:00 Ceftriaxone Sodium (Rocephin) 50 ml @ 100 mls/hr Q24H IVPB Last administered on 08/31/17 13:58; Admin Dose 100 MLS/HR; Start 08/21/17 at 13:30 Heparin Sodium (Porcine) (Heparin (5000 Units/0.5 ml)) 5,000 unit Q8 SC Last administered on 08/31/17 13:57; Admin Dose 5,000 UNIT; Start 08/24/17 at 14: 00 Ascorbic Acid (Vitamin C) 500 mg DAILY PO Last administered on 08/31/17 08:32 ; Admin Dose 500 MG; Start 08/25/17 at 09:00 Zinc Sulfate (Zinc Sulfate) 220 mg DAILY PO Last administered on 08/31/17 08: 32; Admin Dose 220 MG; Start 08/25/17 at 09:00 Hydromorphone HCl (Dilaudid 0.5 Mg/ 0.5 ml Syringe) 0.5 mg Q4H PRN IV SEVERE PAIN LEVEL 7-10; Start 08/26/17 at 11:00 Insulin Glargine (Lantus) 30 unit QHS SC Last administered on 08/30/17 21:04 ; Admin Dose 30 UNIT; Start 08/27/17 at 21:00 Diagnostic Test (Pha) 1 ea 1 ea 02 XX Last administered on 08/29/17 02:52; Admin Dose 1 EA; Start 08/28/17 at 02:00 Vancomycin HCl (Vancocin) 250 ml @ 125 mls/hr Q12H IVPB Last administered on 08/31/17 03:31; Admin Dose 125 MLS/HR; Start 08/30/17 at 03:00 Aspirin (Aspirin) 81 mg DAILY PO Last administered on 08/31/17 08:32; Admin Dose 81 MG; Start 08/30/17 at 12:00 Atorvastatin Calcium (Lipitor) 20 mg HS PO Last administered on 08/30/17 20: 44; Admin Dose 20 MG; Start 08/30/17 at 21:00 Assessment/Plan Chief Complaint/Hosp Course SUBJECTIVE: Alert, looks comfortable, no fevers, wants to go home MICROBIOLOGY: Blood cultures since August 22 and repeated negative. ANTIMICROBIALS: 1. Vancomycin. 2. Rocephin. PHYSICAL EXAMINATION: GENERAL: Well-developed, middle-aged man who is in no distress. HEENT: Head atraumatic, normocephalic. Sclerae anicteric. Buccal mucosa dry. NECK: Supple. CHEST: Rise symmetrical. Breath sounds diminished to bases. HEART: S1, S2. ABDOMEN: Soft. Bowel tones present. ASSESSMENT: 1. Status post septic shock. 2. Status post methicillin-resistant Staphylococcus aureus bacteremia. 3. Bilateral buttock wounds with abscess, culture grew methicillin-resistant Staphylococcus aureus and Escherichia coli. 4. Poorly controlled diabetes. 5. Psoriasis. PLAN: The patient remains stable, completing abx, surgical/cardiology rec-s DW staff Problems: JAIR RUCKER NP Aug 31, 2017 14:12
[2017-08-31] MEDS: RIFAMPIN 600 MG in SOD CHLORIDE 0.9% 100 ML IVPB SCH (21:34)
[2017-08-31] MEDS: ATORVASTATIN 20 MG TAB PO SCH (21:36)
[2017-08-31] MEDS: INSULIN GLARGINE [LANtus] 3 ML PEN SC SCH (21:45)
--- NOTE | 2017-08-31 22:50 | PN ---
Date/Time of Note Date/Time of Note DATE: 08/31/17 TIME: 22:49 Assessment/Plan Lines/Catheters IV Catheter Type (from [facility]): PICC Line Sharpe in Place (from [facility]): No Assessment/Plan Chief Complaint/Hosp Course 1. Sepsis with shock with Bacteremia and Buttock Cellulitis and Abscess: off pressors; s/p I&D 08/19, cultures noted, leukocytosis normalized -abx -ivf -local care for buttock incisions 2. Bacteremia -as above -echo 3. DM: labile sugars: continues -medication optimization 4. Tachycardia with episode of nsvt: improved; Sr; s/p radha; will need cardiac cath -as above -per cards 5. Psoriasis -medical management 6. Anemia -monitor 7. Hypoalbuminemia with hypocalcemia: nutritional +/- inflammation -as above -optimize nutrition Thank you. Patient seen and examined in collaboration with Dr. Mihir Zazueta. Problems: Exam/Review of Systems Vital Signs Vitals Vital Signs Date Time Temp Pulse Resp B/P Pulse Ox O2 Delivery O2 Flow Rate FiO2 08/31/17 20:00 83 08/31/17 19:44 98.4 18 96/56 96 08/28/17 03:24 Room Air Intake and Output 08/30/17 08/30/17 08/31/17 15:00 23:00 07:00 Intake Total 50 ml 1150 ml 1150 ml Output Total 700 ml 1100 ml Balance -650 ml 1150 ml 50 ml Results Result Diagram: 08/31/17 0731 08/31/17 0731 DAMARIS LINTON [employer] Aug 31, 2017 22:50
[2017-09-01] VITALS (10 sets, daily range): BP systolic 91–99; BP diastolic 52–65; PULSE 72–102; RESP 16–18
[2017-09-01] MEDS: ACCU-CHEK XX SCH (02:57)
[2017-09-01] MEDS: VANCOMYCIN 1.25 GM in SOD CHLORIDE 0.9% 250 ML IVPB SCH ×2 (03:39→17:40)
[2017-09-01] MEDS: HEPARIN 5,000 UNIT/0.5 ML VIAL SC SCH ×3 (06:13→22:05)
[2017-09-01] MEDS: INSULIN ASPART [NOVOLOG] 3 ML PEN SC SCH ×7 (08:00→22:03)
[2017-09-01] MEDS: ASCORBIC ACID 500 MG TAB PO SCH (08:09)
[2017-09-01] MEDS: ASPIRIN 81 MG TAB PO SCH (08:09)
[2017-09-01] MEDS: FAMOTIDINE 20 MG TAB PO SCH ×2 (08:09→22:00)
[2017-09-01] MEDS: ZINC SULFATE 220 MG CAP PO SCH (08:09)
[2017-09-01] MEDS: MOMETASONE TOP SCH (08:10)
[2017-09-01] MEDS: HYDROCORTISONE 1% 28.35 GM OINT TOP SCH ×2 (08:10→22:04)
[2017-09-01] MEDS: SODIUM HYPOCHLORITE 1/40% 1L IRRIG IRR SCH ×2 (08:12→22:00)
--- NOTE | 2017-09-01 08:45 | CONS ---
Date/Time of Note Date/Time of Note DATE: 09/01/17 TIME: 08:44 Assessment/Plan Assessment/Plan Chief Complaint/Hosp Course NSVT: MPI now shows LAD territory scar but normal EF so may actually be ischemic and not occluded. Will need cath to evaluate CAD: MPI with LAD territory scar but unusual as normal EF and no significant WMA in LAD territory so may just have an obstructive lesion and be ischemic. Septic shock: Off pressors Bilateral buttock abscess MRSA bacteremia: from buttocks. No endocarditis or valvular dysfunction at least by TTE. Repeat cultures have been negative DM -cath tomorrow at 7:30 am for evaluation. NPO after midnight -ASA, lipitor Problems: Consultation Date/Type/Reason Admit Date/Time Aug 17, 2017 at 11:27 Initial Consult Date 08/18/17 Type of Consultation: Cardiology Referring Provider: FLORENCIA PRASAD MD 24 HR Interval Summary Free Text/Dictation No o/n events. No complaints Exam/Review of Systems Vital Signs Vitals Vital Signs Date Time Temp Pulse Resp B/P Pulse Ox O2 Delivery O2 Flow Rate FiO2 09/01/17 08:00 72 09/01/17 07:44 97.8 18 91/52 96 Intake and Output 08/31/17 08/31/17 09/01/17 15:00 23:00 07:00 Intake Total 50 ml 1350 ml 750 ml Output Total 1200 ml 900 ml Balance 50 ml 150 ml -150 ml Exam Constitutional: alert, oriented Psych: nl mood/affect, no complaints Head: atraumatic, normocephalic Neck: No jvd Respiratory: clear to auscultation, No crackles/rales Cardiovascular: regular rate and rhythm, No edema Gastrointestinal: non-tender, soft Neurological: nl mental status, nl speech Results Result Diagram: 08/31/17 0731 08/31/17 0731 Results 24 hrs Laboratory Tests Test 08/31/17 12:05 08/31/17 13:49 08/31/17 17:16 08/31/17 21:37 Bedside Glucose 168 130 167 Vancomycin Level Trough 10.6 Test 09/01/17 02:50 09/01/17 08:09 Bedside Glucose 130 115 Medications Medications Current Medications Ondansetron HCl (Zofran Inj) 4 mg Q6H PRN IV NAUSEA AND/OR VOMITING; Start 08/17/17 at 07:30 Docusate Sodium (Colace) 100 mg Q12H PRN PO CONSTIPATION Last administered on 08/23/17 20:37; Admin Dose 100 MG; Start 08/17/17 at 07:30 Bisacodyl (Dulcolax) 5 mg DAILY PRN PO CONSTIPATION; Start 08/17/17 at 07:30 Famotidine (Pepcid) 20 mg Q12 PO Last administered on 09/01/17 08:09; Admin Dose 20 MG; Start 08/17/17 at 09:00 IV Flush (NS 10 ml) 10 ml PRN PRN IV IV PROTOCOL; Start 08/17/17 at 14:30 Acetaminophen (Tylenol Tab) 650 mg Q4 PRN PO pain, fevers, headache Last administered on 08/20/17 23:32; Admin Dose 650 MG; Start 08/17/17 at 18:30 Mometasone Furoate 1 applic 1 applic DAILY TOP Last administered on 09/01/17 08:10; Admin Dose 1 APPLIC; Start 08/18/17 at 12:00 Rifampin/Sodium Chloride (Rifampin/NS) 100 ml @ 200 mls/hr DAILY@20 IVPB Last administered on 08/31/17 21:34; Admin Dose 200 MLS/HR; Start 08/18/17 at 20:00 ; Stop 09/02/17 at 21:00 Hydrocortisone (Hydrocortisone 1% Oint) 1 applic BID TOP Last administered on 09/01/17 08:10; Admin Dose 1 APPLIC; Start 08/20/17 at 11:30 Miscellaneous Information 1 ea NOTE XX ; Start 08/20/17 at 11:00 Glucose (Glutose) 15 gm Q15M PRN PO DECREASED GLUCOSE; Start 08/20/17 at 11:00 Glucose (Glutose) 22.5 gm Q15M PRN PO DECREASED GLUCOSE; Start 08/20/17 at 11: 00 Dextrose (D50w Syringe) 25 ml Q15M PRN IV DECREASED GLUCOSE; Start 08/20/17 at 11:00 Dextrose (D50w Syringe) 50 ml Q15M PRN IV DECREASED GLUCOSE; Start 08/20/17 at 11:00 Glucagon (Glucagen) 1 mg Q15M PRN IM DECREASED GLUCOSE; Start 08/20/17 at 11:00 Glucose (Glutose) 15 gm Q15M PRN BUCCAL DECREASED GLUCOSE; Start 08/20/17 at 11 :00 Sodium Hypochlorite 1 applic 1 applic BID IRR Last administered on 08/31/17 21:35; Admin Dose 1 APPLIC; Start 08/21/17 at 09:00 Ceftriaxone Sodium (Rocephin) 50 ml @ 100 mls/hr Q24H IVPB Last administered on 08/31/17 13:58; Admin Dose 100 MLS/HR; Start 08/21/17 at 13:30 Heparin Sodium (Porcine) (Heparin (5000 Units/0.5 ml)) 5,000 unit Q8 SC Last administered on 09/01/17 06:13; Admin Dose 5,000 UNIT; Start 08/24/17 at 14: 00 Ascorbic Acid (Vitamin C) 500 mg DAILY PO Last administered on 09/01/17 08:09 ; Admin Dose 500 MG; Start 08/25/17 at 09:00 Zinc Sulfate (Zinc Sulfate) 220 mg DAILY PO Last administered on 09/01/17 08: 09; Admin Dose 220 MG; Start 08/25/17 at 09:00 Hydromorphone HCl (Dilaudid 0.5 Mg/ 0.5 ml Syringe) 0.5 mg Q4H PRN IV SEVERE PAIN LEVEL 7-10; Start 08/26/17 at 11:00 Insulin Glargine (Lantus) 30 unit QHS SC Last administered on 08/31/17 21:45 ; Admin Dose 30 UNIT; Start 08/27/17 at 21:00 Diagnostic Test (Pha) (Accu-Chek) 1 ea 02 XX Last administered on 09/01/17 02 :57; Admin Dose 1 EA; Start 08/28/17 at 02:00 Aspirin (Aspirin) 81 mg DAILY PO Last administered on 09/01/17 08:09; Admin Dose 81 MG; Start 08/30/17 at 12:00 Atorvastatin Calcium 20 mg 20 mg HS PO Last administered on 08/31/17 21:36; Admin Dose 20 MG; Start 08/30/17 at 21:00 Vancomycin HCl/ Sodium Chloride (Vancocin/NS) 250 ml @ 83.333 mls/ hr Q12H IVPB Last administered on 09/01/17 03:39; Admin Dose 83.333 MLS/HR; Start at 03:00 GRAHAM ANDREWS Sep 01, 2017 08:45
[2017-09-01 09:48] LABS: BASOPHILS % 0.4 % (0.0-2.0); EOSINOPHILS # 0.5 10^3/ul (0.0-0.5); EOSINOPHILS % 6.7 % (0.0-7.0); HEMATOCRIT 38.2 % (42.0-52.0); HEMOGLOBIN 12.5 g/dl (14.0-18.0); LYMPHOCYTES # 2.4 10^3/ul (0.8-2.9); MEAN CORPUSCULAR HGB CONC 32.7 g/dl (32.0-37.0); MEAN CORPUSCULAR VOLUME 91.6 fl (82.0-101.0); MEAN PLATELET VOLUME 9.9 fl (7.4-10.4); MONOCYTE # 0.6 10^3/ul (0.3-0.9); MONOCYTES % 8.5 % (0.0-11.0); NEUTROPHILS % 52.5 % (39.0-77.0); PLATELET COUNT 390 10^3/UL (140-415); RED BLOOD COUNT 4.17 10^6/ul (4.70-6.10); RED CELL DISTRIBUTION WIDTH 13.2 % (11.5-14.5); WHITE BLOOD COUNT 7.6 10^3/ul (4.8-10.8)
[2017-09-01 10:17] LABS: ALBUMIN 3.7 g/dl (3.3-4.9); CALCIUM 9.3 mg/dl (8.4-10.2); CREATININE 0.73 mg/dl (0.61-1.24); MAGNESIUM 1.8 mg/dl (1.7-2.5); PHOSPHORUS 4.8 mg/dl (2.5-4.9); POTASSIUM 4.3 mmol/L (3.5-5.1)
--- NOTE | 2017-09-01 10:48 | PN ---
Date/Time of Note Date/Time of Note DATE: 09/01/17 TIME: 10:48 Assessment/Plan VTE Prophylaxis VTE Prophylaxis Intervention: SCD's Lines/Catheters IV Catheter Type (from Nrs): PICC Line Central line still needed: Yes Urinary Cath still in place: No Assessment/Plan Assessment/Plan 1. Septic shock secondary to bacteremia and gluteal abscess- resolved - MAP has remained above 60 - Patient initial blood cultures were + MRSA with repeat negative. Also found to be +MRSA in wound - If MAP <60, will need to start on Midodrine. appears to have baseline low BP - ID on board and recommendations appreciated. on abx per ID. - WBC continue trending downward and will continue to monitor - 4 more days of abx per ID 2. Bacteremia - + MRSA with repeat BC negative - ID on board and appreciate assistance - ECHO ordered and no vegetation appreciated. 3. Diabetes mellitus, poorly controlled - A1c 12.2 - assistant health educator recommendations appreciated. - lantus and novolog - glucose well controlled 4. Gluteal abscess s/p I&D 08/19/17 - Surgery on board and consultation appreciated. - Growing MRSA and Ecoli - On antibiotics - Wounds clean and dry 5. Hypotension - likely baseline. stable -off pressors -titrate off midodrine, hypotension likely baseline, as long as patient asymptomatic, monitor. 6. Episodes of NSVT - Cardiology consult placed and recommendations appreciated - stress test shows abnormalities and plans for cath tmrw 7. Hypokalemia- resolved 8. Psoriatic plaques- improving - hydrocortisone cream - May need to seek out Rheum upon discharge 9. Disposition - Plans for cardiac cath tmrw and NPO after midnight - Will d/c once antibiotic course completed Subjective 24 Hr Interval Summary Free Text/Dictation Patient doing well and has no new complaints. Still has generalized pruritus but relief with cream. No acute overnight events. Plans for cardiac cath in the am Exam/Review of Systems Vital Signs Vitals Vital Signs Date Time Temp Pulse Resp B/P Pulse Ox O2 Delivery O2 Flow Rate FiO2 09/01/17 08:00 72 09/01/17 07:44 97.8 18 91/52 96 Intake and Output 08/31/17 08/31/17 09/01/17 15:00 23:00 07:00 Intake Total 50 ml 1350 ml 750 ml Output Total 1200 ml 900 ml Balance 50 ml 150 ml -150 ml Exam General: NAD, awake and alert. answering questions appropriately HEENT:NC/AT, PERRL, EOM intact Neck: Supple with full range of motion. Lungs: Clear to auscultation bilaterally no crackles rales or wheezing Heart: Regular rhythm and rate no murmur appreciated Abdomen: Soft , nontender, nondistended , bowel sounds are present. No guarding no rebound tenderness , Extremities: Normal to inspection, no edema no cyanosis Neurologic: Normal mental status, speech normal, cranial nerves II through XII are intact, motor and sensory are intact, no focal weakness Skin: well healing incision in buttocks with no signs of infection, discharge, or drainage. Results Result Diagram: 09/01/17 0832 09/01/17 0832 Results 24 hrs Laboratory Tests Test 08/31/17 12:05 08/31/17 13:49 08/31/17 17:16 08/31/17 21:37 Bedside Glucose 168 130 167 Vancomycin Level Trough 10.6 Test 09/01/17 02:50 09/01/17 08:09 09/01/17 08:32 Bedside Glucose 130 115 White Blood Count 7.6 Red Blood Count 4.17 L Hemoglobin 12.5 L Hematocrit 38.2 L Mean Corpuscular Volume 91.6 Mean Corpuscular Hemoglobin 30.0 Mean Corpuscular Hemoglobin Concent 32.7 Red Cell Distribution Width 13.2 Platelet Count 390 Mean Platelet Volume 9.9 Neutrophils % 52.5 Lymphocytes % 31.0 Monocytes % 8.5 Eosinophils % 6.7 Basophils % 0.4 Nucleated Red Blood Cells % 0.0 Neutrophils # 4.0 Lymphocytes # 2.4 Monocytes # 0.6 Eosinophils # 0.5 Basophils # 0.0 Nucleated Red Blood Cells # 0.0 Sodium Level 141 Potassium Level 4.3 Chloride Level 106 Carbon Dioxide Level 26 Anion Gap 13 Blood Urea Nitrogen 19 Creatinine 0.73 Glucose Level 107 # Calcium Level 9.3 Phosphorus Level 4.8 Magnesium Level 1.8 Albumin 3.7 Medications Medications Current Medications Ondansetron HCl (Zofran Inj) 4 mg Q6H PRN IV NAUSEA AND/OR VOMITING; Start 08/17/17 at 07:30 Docusate Sodium (Colace) 100 mg Q12H PRN PO CONSTIPATION Last administered on 08/23/17t 20:37; Admin Dose 100 MG; Start 08/17/17 at 07:30 Bisacodyl (Dulcolax) 5 mg DAILY PRN PO CONSTIPATION; Start 08/17/17 at 07:30 Famotidine (Pepcid) 20 mg Q12 PO Last administered on 09/01/17 08:09; Admin Dose 20 MG; Start 08/17/17 at 09:00 IV Flush (NS 10 ml) 10 ml PRN PRN IV IV PROTOCOL; Start 08/17/17 at 14:30 Acetaminophen (Tylenol Tab) 650 mg Q4 PRN PO pain, fevers, headache Last administered on 08/20/17 23:32; Admin Dose 650 MG; Start 08/17/17 at 18:30 Mometasone Furoate 1 applic 1 applic DAILY TOP Last administered on 09/01/17 08:10; Admin Dose 1 APPLIC; Start 08/18/17 at 12:00 Rifampin/Sodium Chloride (Rifampin/NS) 100 ml @ 200 mls/hr DAILY@20 IVPB Last administered on 08/31/17 21:34; Admin Dose 200 MLS/HR; Start 08/18/17 at 20:00 ; Stop 09/02/17 at 21:00 Hydrocortisone (Hydrocortisone 1% Oint) 1 applic BID TOP Last administered on 09/01/17 08:10; Admin Dose 1 APPLIC; Start 08/20/17 at 11:30 Miscellaneous Information 1 ea NOTE XX ; Start 08/20/17 at 11:00 Glucose (Glutose) 15 gm Q15M PRN PO DECREASED GLUCOSE; Start 08/20/17 at 11:00 Glucose (Glutose) 22.5 gm Q15M PRN PO DECREASED GLUCOSE; Start 08/20/17 at 11: 00 Dextrose (D50w Syringe) 25 ml Q15M PRN IV DECREASED GLUCOSE; Start 08/20/17 at 11:00 Dextrose (D50w Syringe) 50 ml Q15M PRN IV DECREASED GLUCOSE; Start 08/20/17 at 11:00 Glucagon (Glucagen) 1 mg Q15M PRN IM DECREASED GLUCOSE; Start 08/20/17 at 11:00 Glucose (Glutose) 15 gm Q15M PRN BUCCAL DECREASED GLUCOSE; Start 08/20/17 at 11 :00 Sodium Hypochlorite 1 applic 1 applic BID IRR Last administered on 08/31/17 21:35; Admin Dose 1 APPLIC; Start 08/21/17 at 09:00 Ceftriaxone Sodium (Rocephin) 50 ml @ 100 mls/hr Q24H IVPB Last administered on 08/31/17 13:58; Admin Dose 100 MLS/HR; Start 08/21/17 at 13:30 Heparin Sodium (Porcine) (Heparin (5000 Units/0.5 ml)) 5,000 unit Q8 SC Last administered on 09/01/17 06:13; Admin Dose 5,000 UNIT; Start 08/24/17 at 14: 00 Ascorbic Acid (Vitamin C) 500 mg DAILY PO Last administered on 09/01/17 08:09 ; Admin Dose 500 MG; Start 08/25/17 at 09:00 Zinc Sulfate (Zinc Sulfate) 220 mg DAILY PO Last administered on 09/01/17 08: 09; Admin Dose 220 MG; Start 08/25/17 at 09:00 Hydromorphone HCl (Dilaudid 0.5 Mg/ 0.5 ml Syringe) 0.5 mg Q4H PRN IV SEVERE PAIN LEVEL 7-10; Start 08/26/17 at 11:00 Insulin Glargine (Lantus) 30 unit QHS SC Last administered on 08/31/17 21:45 ; Admin Dose 30 UNIT; Start 08/27/17 at 21:00 Diagnostic Test (Pha) (Accu-Chek) 1 ea 02 XX Last administered on 09/01/17 02 :57; Admin Dose 1 EA; Start 08/28/17 at 02:00 Aspirin (Aspirin) 81 mg DAILY PO Last administered on 09/01/17 08:09; Admin Dose 81 MG; Start 08/30/17 at 12:00 Atorvastatin Calcium 20 mg 20 mg HS PO Last administered on 08/31/17 21:36; Admin Dose 20 MG; Start 08/30/17 at 21:00 Vancomycin HCl/ Sodium Chloride (Vancocin/NS) 250 ml @ 83.333 mls/ hr Q12H IVPB Last administered on 09/01/17 03:39; Admin Dose 83.333 MLS/HR; Start at 03:00 FLORENCAI PRASAD MD Sep 01, 2017 10:48
[2017-09-01] MEDS: CEFTRIAXONE 1 GM/50 ML (PMX) 50 ML IVPB SCH (13:58)
--- NOTE | 2017-09-01 21:03 | PN ---
Date/Time of Note Date/Time of Note DATE: 09/01/17 TIME: 21:03 Assessment/Plan Lines/Catheters IV Catheter Type (from [facility]): PICC Line Sharpe in Place (from [facility]): No Assessment/Plan Chief Complaint/Hosp Course 1. Sepsis with shock with Bacteremia and Buttock Cellulitis and Abscess: off pressors; s/p I&D 08/19, cultures noted, leukocytosis normalized -abx -ivf -local care for buttock wound -off load -nutrition optimization -vit c 2. Bacteremia -as above 3. DM -diet & medication optimization 4. Tachycardia with episode of nsvt: improved; Sr; s/p radha -as above -per cards 5. Psoriasis -medical management 6. Anemia -monitor 7. Hypoalbuminemia with hypocalcemia: nutritional +/- inflammation -as above -optimize nutrition Thank you, Problems: Exam/Review of Systems Vital Signs Vitals Vital Signs Date Time Temp Pulse Resp B/P Pulse Ox O2 Delivery O2 Flow Rate FiO2 09/01/17 20:00 98.2 109 16 99/63 97 Intake and Output 08/31/17 08/31/17 09/01/17 15:00 23:00 07:00 Intake Total 50 ml 1350 ml 750 ml Output Total 1200 ml 900 ml Balance 50 ml 150 ml -150 ml Results Result Diagram: 09/01/17 0832 09/01/17 0832 FAIZAN ONTIVEROS MD Sep 01, 2017 21:03
--- NOTE | 2017-09-01 21:47 | CONS ---
Date/Time of Note Date/Time of Note DATE: 09/01/17 TIME: 21:46 Assessment/Plan Assessment/Plan Chief Complaint/Hosp Course SUBJECTIVE: Alert, looks comfortable, no fevers MICROBIOLOGY: Blood cultures since August 22 and repeated negative. ANTIMICROBIALS: 1. Vancomycin. 2. Rocephin. PHYSICAL EXAMINATION: GENERAL: Well-developed, middle-aged man who is in no distress. HEENT: Head atraumatic, normocephalic. Sclerae anicteric. Buccal mucosa dry. NECK: Supple. CHEST: Rise symmetrical. Breath sounds diminished to bases. HEART: S1, S2. ABDOMEN: Soft. Bowel tones present. ASSESSMENT: 1. Status post septic shock. 2. Status post methicillin-resistant Staphylococcus aureus bacteremia. 3. Bilateral buttock wounds with abscess, culture grew methicillin-resistant Staphylococcus aureus and Escherichia coli. 4. Poorly controlled diabetes. 5. Psoriasis. PLAN: The patient remains stable, complete abx for couple more days, surgical/ cardiology rec-s [facility] staff Problems: Consultation Date/Type/Reason Admit Date/Time Aug 17, 2017 at 11:27 Initial Consult Date 08/18/17 Type of Consultation: ID Referring Provider: FLORENCIA PRASAD MD Exam/Review of Systems Vital Signs Vitals Vital Signs Date Time Temp Pulse Resp B/P Pulse Ox O2 Delivery O2 Flow Rate FiO2 09/01/17 20:00 98.2 109 16 99/63 97 Intake and Output 08/31/17 08/31/17 09/01/17 15:00 23:00 07:00 Intake Total 50 ml 1350 ml 750 ml Output Total 1200 ml 900 ml Balance 50 ml 150 ml -150 ml Results Result Diagram: 09/01/17 0832 09/01/17 0832 Results 24 hrs Laboratory Tests Test 09/01/17 02:50 09/01/17 08:09 09/01/17 08:32 09/01/17 12:11 Bedside Glucose 130 115 174 White Blood Count 7.6 Red Blood Count 4.17 L Hemoglobin 12.5 L Hematocrit 38.2 L Mean Corpuscular Volume 91.6 Mean Corpuscular Hemoglobin 30.0 Mean Corpuscular Hemoglobin Concent 32.7 Red Cell Distribution Width 13.2 Platelet Count 390 Mean Platelet Volume 9.9 Neutrophils % 52.5 Lymphocytes % 31.0 Monocytes % 8.5 Eosinophils % 6.7 Basophils % 0.4 Nucleated Red Blood Cells % 0.0 Neutrophils # 4.0 Lymphocytes # 2.4 Monocytes # 0.6 Eosinophils # 0.5 Basophils # 0.0 Nucleated Red Blood Cells # 0.0 Sodium Level 141 Potassium Level 4.3 Chloride Level 106 Carbon Dioxide Level 26 Anion Gap 13 Blood Urea Nitrogen 19 Creatinine 0.73 Glucose Level 107 # Calcium Level 9.3 Phosphorus Level 4.8 Magnesium Level 1.8 Albumin 3.7 Test 09/01/17 17:12 Bedside Glucose 184 Medications Medications Current Medications Ondansetron HCl (Zofran Inj) 4 mg Q6H PRN IV NAUSEA AND/OR VOMITING; Start 08/17/17 at 07:30 Docusate Sodium (Colace) 100 mg Q12H PRN PO CONSTIPATION Last administered on 08/23/17 20:37; Admin Dose 100 MG; Start 08/17/17 at 07:30 Bisacodyl (Dulcolax) 5 mg DAILY PRN PO CONSTIPATION; Start 08/17/17 at 07:30 Famotidine (Pepcid) 20 mg Q12 PO Last administered on 09/01/17 08:09; Admin Dose 20 MG; Start 08/17/17 at 09:00 IV Flush (NS 10 ml) 10 ml PRN PRN IV IV PROTOCOL; Start 08/17/17 at 14:30 Acetaminophen (Tylenol Tab) 650 mg Q4 PRN PO pain, fevers, headache Last administered on 08/20/17 23:32; Admin Dose 650 MG; Start 08/17/17 at 18:30 Mometasone Furoate 1 applic 1 applic DAILY TOP Last administered on 09/01/17 08:10; Admin Dose 1 APPLIC; Start 08/18/17 at 12:00 Rifampin/Sodium Chloride (Rifampin/NS) 100 ml @ 200 mls/hr DAILY@20 IVPB Last administered on 08/31/17 21:34; Admin Dose 200 MLS/HR; Start 08/18/17 at 20:00 ; Stop 09/02/17 at 21:00 Hydrocortisone (Hydrocortisone 1% Oint) 1 applic BID TOP Last administered on 09/01/17 08:10; Admin Dose 1 APPLIC; Start 08/20/17 at 11:30 Miscellaneous Information 1 ea NOTE XX ; Start 08/20/17 at 11:00 Glucose (Glutose) 15 gm Q15M PRN PO DECREASED GLUCOSE; Start 08/20/17 at 11:00 Glucose (Glutose) 22.5 gm Q15M PRN PO DECREASED GLUCOSE; Start 08/20/17 at 11: 00 Dextrose (D50w Syringe) 25 ml Q15M PRN IV DECREASED GLUCOSE; Start 08/20/17 at 11:00 Dextrose (D50w Syringe) 50 ml Q15M PRN IV DECREASED GLUCOSE; Start 08/20/17 at 11:00 Glucagon (Glucagen) 1 mg Q15M PRN IM DECREASED GLUCOSE; Start 08/20/17 at 11:00 Glucose (Glutose) 15 gm Q15M PRN BUCCAL DECREASED GLUCOSE; Start 08/20/17 at 11 :00 Sodium Hypochlorite 1 applic 1 applic BID IRR Last administered on 08/31/17 21:35; Admin Dose 1 APPLIC; Start 08/21/17 at 09:00 Ceftriaxone Sodium (Rocephin) 50 ml @ 100 mls/hr Q24H IVPB Last administered on 09/01/17 13:58; Admin Dose 100 MLS/HR; Start 08/21/17 at 13:30 Heparin Sodium (Porcine) (Heparin (5000 Units/0.5 ml)) 5,000 unit Q8 SC Last administered on 09/01/17 14:01; Admin Dose 5,000 UNIT; Start 08/24/17 at 14: 00; Stop 09/01/17 at 23:55 Ascorbic Acid (Vitamin C) 500 mg DAILY PO Last administered on 09/01/17 08:09 ; Admin Dose 500 MG; Start 08/25/17 at 09:00 Zinc Sulfate (Zinc Sulfate) 220 mg DAILY PO Last administered on 09/01/17 08: 09; Admin Dose 220 MG; Start 08/25/17 at 09:00 Hydromorphone HCl (Dilaudid 0.5 Mg/ 0.5 ml Syringe) 0.5 mg Q4H PRN IV SEVERE PAIN LEVEL 7-10; Start 08/26/17 at 11:00 Insulin Glargine (Lantus) 30 unit QHS SC Last administered on 08/31/17 21:45 ; Admin Dose 30 UNIT; Start 08/27/17 at 21:00 Diagnostic Test (Pha) (Accu-Chek) 1 ea 02 XX Last administered on 09/01/17 02 :57; Admin Dose 1 EA; Start 08/28/17 at 02:00 Aspirin (Aspirin) 81 mg DAILY PO Last administered on 09/01/17 08:09; Admin Dose 81 MG; Start 08/30/17 at 12:00 Atorvastatin Calcium 20 mg 20 mg HS PO Last administered on 08/31/17 21:36; Admin Dose 20 MG; Start 08/30/17 at 21:00 Vancomycin HCl/ Sodium Chloride (Vancocin/NS) 250 ml @ 83.333 mls/ hr Q12H IVPB Last administered on 09/01/17 17:40; Admin Dose 83.333 MLS/HR; Start at 03:00 Miscellaneous Information (*Rx Drug Level Order Reminder*) VANCO TROUGH @ 1, 400 ON ... ONCE ONCE XX ; Start 09/02/17 at 14:00; Stop 09/02/17 at 14:01 JAIR RUCKER NP Sep 01, 2017 21:47
[2017-09-01] MEDS: RIFAMPIN 600 MG in SOD CHLORIDE 0.9% 100 ML IVPB SCH (22:00)
[2017-09-01] MEDS: ATORVASTATIN 20 MG TAB PO SCH (22:00)
[2017-09-01] MEDS: INSULIN GLARGINE [LANtus] 3 ML PEN SC SCH (22:02)
[2017-09-02] VITALS (42 sets, daily range): BP systolic 79–109; BP diastolic 39–70; PULSE 66–99; RESP 11–29
[2017-09-02] MEDS: ACCU-CHEK XX SCH (02:00)
[2017-09-02] MEDS: VANCOMYCIN 1.25 GM in SOD CHLORIDE 0.9% 250 ML IVPB SCH ×2 (03:18→15:52)
[2017-09-02 05:44] LABS: BASOPHILS % 0.5 % (0.0-2.0); EOSINOPHILS # 0.6 10^3/ul (0.0-0.5); EOSINOPHILS % 7.3 % (0.0-7.0); HEMATOCRIT 35.9 % (42.0-52.0); LYMPHOCYTES # 2.1 10^3/ul (0.8-2.9); LYMPHOCYTES % 26.3 % (15.0-51.0); MEAN CORPUSCULAR HEMOGLOBIN 30.3 pg (29.0-33.0); MEAN CORPUSCULAR HGB CONC 33.4 g/dl (32.0-37.0); MEAN CORPUSCULAR VOLUME 90.7 fl (82.0-101.0); MEAN PLATELET VOLUME 9.6 fl (7.4-10.4); MONOCYTE # 0.8 10^3/ul (0.3-0.9); MONOCYTES % 9.7 % (0.0-11.0); NEUTROPHIL # 4.5 10^3/ul (1.6-7.5); NEUTROPHILS % 55.7 % (39.0-77.0); PLATELET COUNT 354 10^3/UL (140-415); RED BLOOD COUNT 3.96 10^6/ul (4.70-6.10); RED CELL DISTRIBUTION WIDTH 13.2 % (11.5-14.5); WHITE BLOOD COUNT 8.1 10^3/ul (4.8-10.8)
[2017-09-02 06:10] LABS: ALBUMIN 3.5 g/dl (3.3-4.9); CALCIUM 8.9 mg/dl (8.4-10.2); CREATININE 0.63 mg/dl (0.61-1.24); MAGNESIUM 1.7 mg/dl (1.7-2.5); PHOSPHORUS 4.1 mg/dl (2.5-4.9); POTASSIUM 3.9 mmol/L (3.5-5.1)
[2017-09-02] MEDS ORDERED: HEPARIN 1000 UNITS/ML 10 ML INJ ONE (07:35)
[2017-09-02] MEDS ORDERED: LIDOCAINE 100 MG SYRINGE ONE (07:35)
[2017-09-02] MEDS ORDERED: IODIXANOL LOCM 100 ML BTL ONE (07:35)
[2017-09-02] MEDS ORDERED: FENTAnyl 50 MCG/ML VIAL ONE (07:35)
[2017-09-02] MEDS ORDERED: NITROGLYCERIN (IC) 100 MCG/ML INJ ONE (07:36)
[2017-09-02] MEDS ORDERED: VERAPAMIL 5 MG INJ ONE (07:36)
[2017-09-02] MEDS ORDERED: MIDAZOLAM 1 MG/ML 2 ML INJ ONE (07:36)
[2017-09-02] MEDS: INSULIN ASPART [NOVOLOG] 3 ML PEN SC SCH ×7 (08:00→21:00)
--- NOTE | 2017-09-02 08:47 | CONS ---
Date/Time of Note Date/Time of Note DATE: 09/02/17 TIME: 08:43 Assessment/Plan Assessment/Plan Chief Complaint/Hosp Course CAD: MPI with LAD territory "scar". Cardiac cath 09/02 showed no obstructive lesions but with reduced flow in the LAD (RAMONA 2) possibly from microvascular disease and EF ~45% with anterior wall motion abnormalities. Medical therapy appropriate NSVT: anterior wall motion changes by cath and RAMONA 2 flow in LAD without obstructive lesion. Likely microvascular ischemia. Cardiomyopathy: EF 45% by cath with anterior wall hypokinesis, possible microvascular disease. Septic shock: Off pressors Bilateral buttock abscess MRSA bacteremia: from buttocks. No endocarditis or valvular dysfunction at least by TTE. Repeat cultures have been negative DM -continue ASA, lipitor -will add coreg 3.125mg BID with holding parameters -no ACEI as BP will not tolerate. Problems: Consultation Date/Type/Reason Admit Date/Time Aug 17, 2017 at 11:27 Initial Consult Date 08/18/17 Type of Consultation: Cardiology Referring Provider: FLORENCIA PRASAD MD 24 HR Interval Summary Free Text/Dictation S/p cath this am. No obstructive lesions but with reduced flow in the LAD possibly from microvascular disease and EF ~45% with anterior wall motion abnormalities. Exam/Review of Systems Vital Signs Vitals Vital Signs Date Time Temp Pulse Resp B/P Pulse Ox O2 Delivery O2 Flow Rate FiO2 09/02/17 07:11 79 09/02/17 04:00 98.2 17 98/60 98 Intake and Output 09/01/17 09/01/17 09/02/17 15:00 23:00 07:00 Intake Total 50 ml 1300 ml 1000 ml Output Total 1600 ml 850 ml Balance 50 ml -300 ml 150 ml Exam Constitutional: alert, oriented Psych: nl mood/affect, no complaints Head: atraumatic, normocephalic Neck: No jvd Respiratory: clear to auscultation, No crackles/rales Cardiovascular: regular rate and rhythm, No edema Gastrointestinal: non-tender, soft Neurological: nl mental status, nl speech Results Result Diagram: 09/02/17 0520 09/02/17 0520 Results 24 hrs Laboratory Tests Test 09/01/17 12:11 09/01/17 17:12 09/01/17 21:36 09/02/17 02:16 Bedside Glucose 174 184 266 H 175 Test 09/02/17 05:20 White Blood Count 8.1 Red Blood Count 3.96 L Hemoglobin 12.0 L Hematocrit 35.9 L Mean Corpuscular Volume 90.7 Mean Corpuscular Hemoglobin 30.3 Mean Corpuscular Hemoglobin Concent 33.4 Red Cell Distribution Width 13.2 Platelet Count 354 Mean Platelet Volume 9.6 Neutrophils % 55.7 Lymphocytes % 26.3 Monocytes % 9.7 Eosinophils % 7.3 H Basophils % 0.5 Nucleated Red Blood Cells % 0.0 Neutrophils # 4.5 Lymphocytes # 2.1 Monocytes # 0.8 Eosinophils # 0.6 H Basophils # 0.0 Nucleated Red Blood Cells # 0.0 Sodium Level 142 Potassium Level 3.9 Chloride Level 108 Carbon Dioxide Level 25 Anion Gap 13 Blood Urea Nitrogen 17 Creatinine 0.63 Glucose Level 131 Calcium Level 8.9 Phosphorus Level 4.1 Magnesium Level 1.7 Albumin 3.5 Medications Medications Current Medications Ondansetron HCl (Zofran Inj) 4 mg Q6H PRN IV NAUSEA AND/OR VOMITING; Start 08/17/17 at 07:30 Docusate Sodium (Colace) 100 mg Q12H PRN PO CONSTIPATION Last administered on 08/23/17 20:37; Admin Dose 100 MG; Start 08/17/17 at 07:30 Bisacodyl (Dulcolax) 5 mg DAILY PRN PO CONSTIPATION; Start 08/17/17 at 07:30 Famotidine (Pepcid) 20 mg Q12 PO Last administered on 09/01/17 22:00; Admin Dose 20 MG; Start 08/17/17 at 09:00 IV Flush (NS 10 ml) 10 ml PRN PRN IV IV PROTOCOL; Start 08/17/17 at 14:30 Acetaminophen (Tylenol Tab) 650 mg Q4 PRN PO pain, fevers, headache Last administered on 08/20/17 23:32; Admin Dose 650 MG; Start 08/17/17 at 18:30 Mometasone Furoate 1 applic 1 applic DAILY TOP Last administered on 09/01/17 08:10; Admin Dose 1 APPLIC; Start 08/18/17 at 12:00 Rifampin/Sodium Chloride (Rifampin/NS) 100 ml @ 200 mls/hr DAILY@20 IVPB Last administered on 09/01/17 22:00; Admin Dose 200 MLS/HR; Start 08/18/17 at 20:00 ; Stop 09/02/17 at 21:00 Hydrocortisone (Hydrocortisone 1% Oint) 1 applic BID TOP Last administered on 09/01/17 22:04; Admin Dose 1 APPLIC; Start 08/20/17 at 11:30 Miscellaneous Information 1 ea NOTE XX ; Start 08/20/17 at 11:00 Glucose (Glutose) 15 gm Q15M PRN PO DECREASED GLUCOSE; Start 08/20/17 at 11:00 Glucose (Glutose) 22.5 gm Q15M PRN PO DECREASED GLUCOSE; Start 08/20/17 at 11: 00 Dextrose (D50w Syringe) 25 ml Q15M PRN IV DECREASED GLUCOSE; Start 08/20/17 at 11:00 Dextrose (D50w Syringe) 50 ml Q15M PRN IV DECREASED GLUCOSE; Start 08/20/17 at 11:00 Glucagon (Glucagen) 1 mg Q15M PRN IM DECREASED GLUCOSE; Start 08/20/17 at 11:00 Glucose (Glutose) 15 gm Q15M PRN BUCCAL DECREASED GLUCOSE; Start 08/20/17 at 11 :00 Sodium Hypochlorite 1 applic 1 applic BID IRR Last administered on 09/01/17 22:00; Admin Dose 1 APPLIC; Start 08/21/17 at 09:00 Ceftriaxone Sodium (Rocephin) 50 ml @ 100 mls/hr Q24H IVPB Last administered on 09/01/17 13:58; Admin Dose 100 MLS/HR; Start 08/21/17 at 13:30 Ascorbic Acid (Vitamin C) 500 mg DAILY PO Last administered on 09/01/17 08:09 ; Admin Dose 500 MG; Start 08/25/17 at 09:00 Zinc Sulfate (Zinc Sulfate) 220 mg DAILY PO Last administered on 09/01/17 08: 09; Admin Dose 220 MG; Start 08/25/17 at 09:00 Hydromorphone HCl (Dilaudid 0.5 Mg/ 0.5 ml Syringe) 0.5 mg Q4H PRN IV SEVERE PAIN LEVEL 7-10; Start 08/26/17 at 11:00 Insulin Glargine (Lantus) 30 unit QHS SC Last administered on 09/01/17 22:02 ; Admin Dose 30 UNIT; Start 08/27/17 at 21:00 Diagnostic Test (Pha) (Accu-Chek) 1 ea 02 XX Last administered on 09/01/17 02 :57; Admin Dose 1 EA; Start 08/28/17 at 02:00 Aspirin (Aspirin) 81 mg DAILY PO Last administered on 09/01/17 08:09; Admin Dose 81 MG; Start 08/30/17 at 12:00 Atorvastatin Calcium 20 mg 20 mg HS PO Last administered on 09/01/17 22:00; Admin Dose 20 MG; Start 08/30/17 at 21:00 Vancomycin HCl/ Sodium Chloride (Vancocin/NS) 250 ml @ 83.333 mls/ hr Q12H IVPB Last administered on 09/02/17 03:18; Admin Dose 83.333 MLS/HR; Start at 03:00 Miscellaneous Information (*Rx Drug Level Order Reminder*) VANCO TROUGH @ 1, 400 ON ... ONCE ONCE XX ; Start 09/02/17 at 14:00; Stop 09/02/17 at 14:01 GRAHAM ANDREWS Sep 02, 2017 08:47
--- NOTE | 2017-09-02 08:55 | OPR ---
Date/Time of Note Date/Time of Note DATE: 09/02/17 TIME: 08:48 Operative Report Preoperative Diagnosis NSVT, abnormal MPI Postoperative Diagnosis nonobstructive CAD with microvascular disease Surgeon see signature line Welfare Worker none Anesthesia Type: moderate sedation Estimated Blood Loss: minimal Transfusion none Specimen none Grafts/Implants none Complications none Procedure Description Procedure Date:09/02/2017 Fashion Patternmaker/surgeon:Tawanda Wang MD. Procedures Performed: 1)Left heart catheterization with selective left and right coronary angiography. 2)Left ventricle angiography Pre-operative Diagnosis: NSVT, abnormal Lexiscan MPI Post-operative Diagnosis: nonobstructive CAD with possible microvascular disease Indications:47 yo M with a h/o DM who initially presented due to buttock abscess and had MRSA bacteremia. Pt was on pressor support and in septic shock and developed runs of NSVT without otherwise e/o ischemia. Lexiscan was performed to evaluate for ischemia and showed LAD territory scar with EF 52%. Cath for definitive coronary evaluation Description of Procedure: After informed consent, the patient was brought to the cardiac catheterization lab. The procedure site was prepped and draped in usual manner. The patient was premedicated with versed 1 mg and fentanyl 25 mcg. 3mL lidocaine was injected into the right wrist. Next using the posterior wall technique, the 6/ 5 persian sheath was inserted into the right radial artery. Next using the JL3.0 and JR4, selective angiography of the left and right coronary arteries were obtained. The pigtail was then advanced into the ventricle and hemodynamics obtained. Left ventricle angiography was obtained. Next all equipment was removed and hemostasis was obtained by TR band. Findings: Anatomy/Hemodynamics: Left main:normal LAD: No obstructive lesions but RAMONA 2 flow noted (though the catheter was selectively engaged in the Cx, would not expect slower flow) Diagonal:normal Circumflex:normal Obtuse marginal:normal RCA:normal PDA:normal PLV:normal LV angiography: EF 45%, anterior and apical mild hypokinesis noted LV-Ao: no gradient LVEDP:13 mmHg Contrast used: 53 mL Fluoroscopy time:6.6 min Estimated blood loss<10 mL. Specimen: none Grafts/implants: none Complications: none Assessment: Nonobstructive CAD with RAMONA 2 flow in LAD likely from microvascular disease with corresponding wall motion abnormality and EF 45% Abnormal Lexiscan: correlates with cath findings DM Plan: -medical management with ASA, statin -coreg as BP tolerates -if BP improves, could also consider TAWANDA Powell Sep 02, 2017 08:55
[2017-09-02] MEDS: MOMETASONE TOP SCH (09:00)
[2017-09-02] MEDS: SODIUM HYPOCHLORITE 1/40% 1L IRRIG IRR SCH ×2 (09:00→21:50)
[2017-09-02] MEDS ORDERED: SOD CHLORIDE 0.9% 1,000 ML IV SCH (09:23)
--- NOTE | 2017-09-02 09:36 | PN ---
Date/Time of Note Date/Time of Note DATE: 09/02/17 TIME: 09:36 Assessment/Plan VTE Prophylaxis VTE Prophylaxis Intervention: SCD's Lines/Catheters IV Catheter Type (from Nrs): PICC Line Central line still needed: Yes Urinary Cath still in place: No Assessment/Plan Assessment/Plan 1. Septic shock secondary to bacteremia and gluteal abscess- resolved - MAP has remained above 60 - Patient initial blood cultures were + MRSA with repeat negative. Also found to be +MRSA in wound - ID on board and recommendations appreciated. on abx per ID. - WBC continue trending downward and will continue to monitor - 3 more days of abx per ID 2. Bacteremia - + MRSA with repeat BC negative - ID on board and appreciate assistance - ECHO ordered and no vegetation appreciated. 3. Diabetes mellitus, poorly controlled - A1c 12.2 - elementary educator recommendations appreciated. - lantus and novolog - glucose well controlled with minimal >200 readings 4. Gluteal abscess s/p I&D 08/19/17 - Surgery on board and consultation appreciated. - Growing MRSA and Ecoli - On antibiotics - Wounds clean and dry 5. Hypotension - likely baseline. stable -off pressors 6. Episodes of NSVT - Cardiology consult placed and recommendations appreciated - stress test shows abnormalities and Cardiac cath 09/02 showed no obstructive lesions but with reduced flow in the LAD (RAMONA 2) possibly from microvascular disease and EF ~45% with anterior wall motion abnormalities. Medical therapy appropriate 7. Hypokalemia- resolved 8. Psoriatic plaques- improving - hydrocortisone cream - May need to seek out Rheum upon discharge 9. Disposition - Will d/c once antibiotics completed Subjective 24 Hr Interval Summary Free Text/Dictation patient seen today while in PACU s/p Cardiac cath. Doing well and no new complaints. No acute overnight events. Exam/Review of Systems Vital Signs Vitals Vital Signs Date Time Temp Pulse Resp B/P Pulse Ox O2 Delivery O2 Flow Rate FiO2 09/02/17 09:25 72 13 95/54 97 Room Air 09/02/17 09:20 98.3 Intake and Output 09/01/17 09/01/17 09/02/17 15:00 23:00 07:00 Intake Total 50 ml 1300 ml 1000 ml Output Total 1600 ml 850 ml Balance 50 ml -300 ml 150 ml Exam General: NAD, awake and alert. answering questions appropriately HEENT:NC/AT, PERRL, EOM intact Neck: Supple with full range of motion. Lungs: Clear to auscultation bilaterally no crackles rales or wheezing Heart: Regular rhythm and rate no murmur appreciated Abdomen: Soft , nontender, nondistended , bowel sounds are present. No guarding no rebound tenderness , Extremities: Normal to inspection, no edema no cyanosis. TR-band in place with minimal blood Neurologic: Normal mental status, speech normal, cranial nerves II through XII are intact, motor and sensory are intact, no focal weakness Skin: well healing incision in buttocks with no signs of infection, discharge, or drainage. Results Result Diagram: 09/02/17 0509/02/17 0520 Results 24 hrs Laboratory Tests Test 09/01/17 12:11 09/01/17 17:12 09/01/17 21:36 09/02/17 02:16 Bedside Glucose 174 184 266 H 175 Test 09/02/17 05:20 White Blood Count 8.1 Red Blood Count 3.96 L Hemoglobin 12.0 L Hematocrit 35.9 L Mean Corpuscular Volume 90.7 Mean Corpuscular Hemoglobin 30.3 Mean Corpuscular Hemoglobin Concent 33.4 Red Cell Distribution Width 13.2 Platelet Count 354 Mean Platelet Volume 9.6 Neutrophils % 55.7 Lymphocytes % 26.3 Monocytes % 9.7 Eosinophils % 7.3 H Basophils % 0.5 Nucleated Red Blood Cells % 0.0 Neutrophils # 4.5 Lymphocytes # 2.1 Monocytes # 0.8 Eosinophils # 0.6 H Basophils # 0.0 Nucleated Red Blood Cells # 0.0 Sodium Level 142 Potassium Level 3.9 Chloride Level 108 Carbon Dioxide Level 25 Anion Gap 13 Blood Urea Nitrogen 17 Creatinine 0.63 Glucose Level 131 Calcium Level 8.9 Phosphorus Level 4.1 Magnesium Level 1.7 Albumin 3.5 Medications Medications Current Medications Ondansetron HCl (Zofran Inj) 4 mg Q6H PRN IV NAUSEA AND/OR VOMITING; Start 08/17/17 at 07:30 Docusate Sodium (Colace) 100 mg Q12H PRN PO CONSTIPATION Last administered on 08/23/17t 20:37; Admin Dose 100 MG; Start 08/17/17 at 07:30 Bisacodyl (Dulcolax) 5 mg DAILY PRN PO CONSTIPATION; Start 08/17/17 at 07:30 Famotidine (Pepcid) 20 mg Q12 PO Last administered on 09/01/17 22:00; Admin Dose 20 MG; Start 08/17/17 at 09:00 IV Flush (NS 10 ml) 10 ml PRN PRN IV IV PROTOCOL; Start 08/17/17 at 14:30 Acetaminophen (Tylenol Tab) 650 mg Q4 PRN PO pain, fevers, headache Last administered on 08/20/17 23:32; Admin Dose 650 MG; Start 08/17/17 at 18:30 Mometasone Furoate 1 applic 1 applic DAILY TOP Last administered on 09/01/17 08:10; Admin Dose 1 APPLIC; Start 08/18/17 at 12:00 Rifampin/Sodium Chloride (Rifampin/NS) 100 ml @ 200 mls/hr DAILY@20 IVPB Last administered on 09/01/17 22:00; Admin Dose 200 MLS/HR; Start 08/18/17 at 20:00 ; Stop 09/02/17 at 21:00 Hydrocortisone (Hydrocortisone 1% Oint) 1 applic BID TOP Last administered on 09/01/17 22:04; Admin Dose 1 APPLIC; Start 08/20/17 at 11:30 Miscellaneous Information 1 ea NOTE XX ; Start 08/20/17 at 11:00 Glucose (Glutose) 15 gm Q15M PRN PO DECREASED GLUCOSE; Start 08/20/17 at 11:00 Glucose (Glutose) 22.5 gm Q15M PRN PO DECREASED GLUCOSE; Start 08/20/17 at 11: 00 Dextrose (D50w Syringe) 25 ml Q15M PRN IV DECREASED GLUCOSE; Start 08/20/17 at 11:00 Dextrose (D50w Syringe) 50 ml Q15M PRN IV DECREASED GLUCOSE; Start 08/20/17 at 11:00 Glucagon (Glucagen) 1 mg Q15M PRN IM DECREASED GLUCOSE; Start 08/20/17 at 11:00 Glucose (Glutose) 15 gm Q15M PRN BUCCAL DECREASED GLUCOSE; Start 08/20/17 at 11 :00 Sodium Hypochlorite 1 applic 1 applic BID IRR Last administered on 09/01/17 22:00; Admin Dose 1 APPLIC; Start 08/21/17 at 09:00 Ceftriaxone Sodium (Rocephin) 50 ml @ 100 mls/hr Q24H IVPB Last administered on 09/01/17 13:58; Admin Dose 100 MLS/HR; Start 08/21/17 at 13:30 Ascorbic Acid (Vitamin C) 500 mg DAILY PO Last administered on 09/01/17 08:09 ; Admin Dose 500 MG; Start 08/25/17 at 09:00 Zinc Sulfate (Zinc Sulfate) 220 mg DAILY PO Last administered on 09/01/17 08: 09; Admin Dose 220 MG; Start 08/25/17 at 09:00 Hydromorphone HCl (Dilaudid 0.5 Mg/ 0.5 ml Syringe) 0.5 mg Q4H PRN IV SEVERE PAIN LEVEL 7-10; Start 08/26/17 at 11:00 Insulin Glargine (Lantus) 30 unit QHS SC Last administered on 09/01/17 22:02 ; Admin Dose 30 UNIT; Start 08/27/17 at 21:00 Diagnostic Test (Pha) (Accu-Chek) 1 ea 02 XX Last administered on 09/01/17 02 :57; Admin Dose 1 EA; Start 08/28/17 at 02:00 Aspirin (Aspirin) 81 mg DAILY PO Last administered on 09/01/17 08:09; Admin Dose 81 MG; Start 08/30/17 at 12:00 Atorvastatin Calcium 20 mg 20 mg HS PO Last administered on 09/01/17 22:00; Admin Dose 20 MG; Start 08/30/17 at 21:00 Vancomycin HCl/ Sodium Chloride (Vancocin/NS) 250 ml @ 83.333 mls/ hr Q12H IVPB Last administered on 09/02/17 03:18; Admin Dose 83.333 MLS/HR; Start at 03:00 Miscellaneous Information (*Rx Drug Level Order Reminder*) VANCO TROUGH @ 1, 400 ON ... ONCE ONCE XX ; Start 09/02/17 at 14:00; Stop 09/02/17 at 14:01 Carvedilol 3.125 mg 3.125 mg BID PO ; Start 09/02/17 at 09:00 Sodium Chloride (NS) 1,000 ml @ 75 mls/hr [id number] IV ; Start 09/02/17 at 09:23 ; Stop 09/02/17 at 14:22 FLORENCIA PRASAD MD Sep 02, 2017 09:36
[2017-09-02] MEDS: CEFTRIAXONE 1 GM/50 ML (PMX) 50 ML IVPB SCH (14:14)
[2017-09-02] MEDS: FAMOTIDINE 20 MG TAB PO SCH ×2 (14:15→21:51)
[2017-09-02] MEDS: ZINC SULFATE 220 MG CAP PO SCH (14:15)
[2017-09-02] MEDS: ASCORBIC ACID 500 MG TAB PO SCH (14:15)
[2017-09-02] MEDS: ASPIRIN 81 MG TAB PO SCH (14:15)
[2017-09-02] MEDS: HYDROCORTISONE 1% 28.35 GM OINT TOP SCH ×2 (15:53→21:51)
--- NOTE | 2017-09-02 16:07 | PN ---
Date/Time of Note Date/Time of Note DATE: 09/02/17 TIME: 16:00 Assessment/Plan Lines/Catheters IV Catheter Type (from [facility]): PICC Line Sharpe in Place (from [facility]): No Assessment/Plan Chief Complaint/Hosp Course 1. Sepsis with shock with Bacteremia and Buttock Cellulitis and Abscess: off pressors; s/p I&D 08/19, cultures noted, leukocytosis normalized -abx -ivf -local care for buttock incisions 2. Bacteremia -as above -echo 3. DM: labile sugars: continues -medication optimization 4. Tachycardia with episode of nsvt: improved; Sr; s/p radha; will need cardiac cath; s/p cardiac ca:reduced flow in the LAD -as above -medical optimization/management 5. Psoriasis -medical management 6. Anemia -monitor 7. Hypoalbuminemia with hypocalcemia: nutritional +/- inflammation -as above -optimize nutrition Thank you. Patient seen and examined in collaboration with Dr. Mihir Zazueta. Problems: Subjective 24 Hr Interval Summary S/p cardiac cath. Feels well. No c/o cp, palpitations, sob, congested cough, n/v /d/dysuria, change in tele rhythm. No acute pain to buttocks. Exam/Review of Systems Vital Signs Vitals Vital Signs Date Time Temp Pulse Resp B/P Pulse Ox O2 Delivery O2 Flow Rate FiO2 09/02/17 12:36 95 09/02/17 12:15 18 109/59 97 Room Air 09/02/17 09:20 98.3 Intake and Output 09/01/17 09/01/17 09/02/17 15:00 23:00 07:00 Intake Total 50 ml 1300 ml 1000 ml Output Total 1600 ml 850 ml Balance 50 ml -300 ml 150 ml Exam Free Text/Dictation Constitutional: alert, oriented, No distress Psych: nl mood/affect, No anxiety, No confusion Head: atraumatic, normocephalic Eyes: EOMI, PERRL, nl conjunctiva, No icteric ENMT: mucosa pink and moist, nl external ears & nose Neck: non-tender, supple, No jvd Respiratory: normal air movement, No congested cough, No labored breathing Cardiovascular: No edema, No regular rate and rhythm; sr Gastrointestinal: non-tender, soft, No distended, No rebound or guarding Genitourinary - Male: No CVA tenderness Musculoskeletal: nl extremities to inspection, No joint tenderness Extremities: normal pulses, No calf tenderness, No cyanosis, No edema Neurological: nl mental status, nl speech Skin: other (Bilateral buttock, non tender; scant drainage, nonmalodorous), rash or lesions (psoriatic lesions), No diaphoresis. Right wrist with dressing, no bruising Results Result Diagram: 09/02/17 0520 09/02/17 0520 DAMARIS LINTON NP Sep 02, 2017 16:07
--- NOTE | 2017-09-02 21:36 | CONS ---
Date/Time of Note Date/Time of Note DATE: 09/02/17 TIME: 21:35 Consult Date/Type/Reason Admit Date/Time Aug 17, 2017 at 11:27 Initial Consult Date 08/18/17 Type of Consultation: ID Ordering Provider: FLORENCIA PRASAD MD Objective Vital Signs Date Time Temp Pulse Resp B/P Pulse Ox O2 Delivery O2 Flow Rate FiO2 09/02/17 20:56 78 09/02/17 20:00 98.2 20 101/68 96 09/02/17 12:15 Room Air Intake and Output 09/01/17 09/01/17 09/02/17 14:59 22:59 06:59 Intake Total 50 ml 1300 ml 1000 ml Output Total 1600 ml 850 ml Balance 50 ml -300 ml 150 ml Results/Medications Result Diagram: 09/02/1751909/02/17 0520 Results 24 hrs Laboratory Tests Test 09/01/17 21:36 09/02/17 02:16 09/02/17 05:20 09/02/17 14:10 Bedside Glucose 266 H 175 White Blood Count 8.1 Red Blood Count 3.96 L Hemoglobin 12.0 L Hematocrit 35.9 L Mean Corpuscular Volume 90.7 Mean Corpuscular Hemoglobin 30.3 Mean Corpuscular Hemoglobin Concent 33.4 Red Cell Distribution Width 13.2 Platelet Count 354 Mean Platelet Volume 9.6 Neutrophils % 55.7 Lymphocytes % 26.3 Monocytes % 9.7 Eosinophils % 7.3 H Basophils % 0.5 Nucleated Red Blood Cells % 0.0 Neutrophils # 4.5 Lymphocytes # 2.1 Monocytes # 0.8 Eosinophils # 0.6 H Basophils # 0.0 Nucleated Red Blood Cells # 0.0 Sodium Level 142 Potassium Level 3.9 Chloride Level 108 Carbon Dioxide Level 25 Anion Gap 13 Blood Urea Nitrogen 17 Creatinine 0.63 Glucose Level 131 Calcium Level 8.9 Phosphorus Level 4.1 Magnesium Level 1.7 Albumin 3.5 Vancomycin Level Trough 12.9 Test 09/02/17 14:13 09/02/17 17:27 09/02/17 21:13 Bedside Glucose 202 124 126 Medications Current Medications Ondansetron HCl (Zofran Inj) 4 mg Q6H PRN IV NAUSEA AND/OR VOMITING; Start 08/17/17 at 07:30 Docusate Sodium (Colace) 100 mg Q12H PRN PO CONSTIPATION Last administered on 08/23/17 20:37; Admin Dose 100 MG; Start 08/17/17 at 07:30 Bisacodyl (Dulcolax) 5 mg DAILY PRN PO CONSTIPATION; Start 08/17/17 at 07:30 Famotidine (Pepcid) 20 mg Q12 PO Last administered on 09/02/17 14:15; Admin Dose 20 MG; Start 08/17/17 at 09:00 IV Flush (NS 10 ml) 10 ml PRN PRN IV IV PROTOCOL; Start 08/17/17 at 14:30 Acetaminophen (Tylenol Tab) 650 mg Q4 PRN PO pain, fevers, headache Last administered on 08/20/17 23:32; Admin Dose 650 MG; Start 08/17/17 at 18:30 Mometasone Furoate (Elocon 0.1% Cream) 1 applic DAILY TOP Last administered on 09/02/17 09:00; Admin Dose 1 APPLIC; Start 08/18/17 at 12:00 Hydrocortisone (Hydrocortisone 1% Oint) 1 applic BID TOP Last administered on 09/02/17 15:53; Admin Dose 1 APPLIC; Start 08/20/17 at 11:30 Miscellaneous Information 1 ea NOTE XX ; Start 08/20/17 at 11:00 Glucose (Glutose) 15 gm Q15M PRN PO DECREASED GLUCOSE; Start 08/20/17 at 11:00 Glucose (Glutose) 22.5 gm Q15M PRN PO DECREASED GLUCOSE; Start 08/20/17 at 11: 00 Dextrose (D50w Syringe) 25 ml Q15M PRN IV DECREASED GLUCOSE; Start 08/20/17 at 11:00 Dextrose (D50w Syringe) 50 ml Q15M PRN IV DECREASED GLUCOSE; Start 08/20/17 at 11:00 Glucagon (Glucagen) 1 mg Q15M PRN IM DECREASED GLUCOSE; Start 08/20/17 at 11:00 Glucose (Glutose) 15 gm Q15M PRN BUCCAL DECREASED GLUCOSE; Start 08/20/17 at 11 :00 Sodium Hypochlorite 1 applic 1 applic BID IRR Last administered on 09/02/17 09:00; Admin Dose 1 APPLIC; Start 08/21/17 at 09:00 Ceftriaxone Sodium (Rocephin) 50 ml @ 100 mls/hr Q24H IVPB Last administered on 09/02/17 14:14; Admin Dose 100 MLS/HR; Start 08/21/17 at 13:30 Ascorbic Acid (Vitamin C) 500 mg DAILY PO Last administered on 09/02/17 14:15 ; Admin Dose 500 MG; Start 08/25/17 at 09:00 Zinc Sulfate (Zinc Sulfate) 220 mg DAILY PO Last administered on 09/02/17 14: 15; Admin Dose 220 MG; Start 08/25/17 at 09:00 Hydromorphone HCl (Dilaudid 0.5 Mg/ 0.5 ml Syringe) 0.5 mg Q4H PRN IV SEVERE PAIN LEVEL 7-10; Start 08/26/17 at 11:00 Insulin Glargine (Lantus) 30 unit QHS SC Last administered on 09/01/17 22:02 ; Admin Dose 30 UNIT; Start 08/27/17 at 21:00 Diagnostic Test (Pha) (Accu-Chek) 1 ea 02 XX Last administered on 09/01/17 02 :57; Admin Dose 1 EA; Start 08/28/17 at 02:00 Aspirin (Aspirin) 81 mg DAILY PO Last administered on 09/02/17 14:15; Admin Dose 81 MG; Start 08/30/17 at 12:00 Atorvastatin Calcium 20 mg 20 mg HS PO Last administered on 09/01/17 22:00; Admin Dose 20 MG; Start 08/30/17 at 21:00 Vancomycin HCl/ Sodium Chloride (Vancocin/NS) 250 ml @ 83.333 mls/ hr Q12H IVPB Last administered on 09/02/17 15:52; Admin Dose 83.333 MLS/HR; Start at 03:00 Carvedilol (Coreg) 3.125 mg BID PO Last administered on 09/02/17 14:16; Admin Dose 3.125 MG; Start 09/02/17 at 09:00 Assessment/Plan Chief Complaint/Hosp Course SUBJECTIVE: No acute events, no fevers, looks comfortable MICROBIOLOGY: Blood cultures since August 22 and repeated negative. ANTIMICROBIALS: 1. Vancomycin. 2. Rocephin. PHYSICAL EXAMINATION: GENERAL: Well-developed, middle-aged man who is in no distress. HEENT: Head atraumatic, normocephalic. Sclerae anicteric. Buccal mucosa dry. NECK: Supple. CHEST: Rise symmetrical. Breath sounds diminished to bases. HEART: S1, S2. ABDOMEN: Soft. Bowel tones present. ASSESSMENT: 1. Status post septic shock. 2. Status post methicillin-resistant Staphylococcus aureus bacteremia. 3. Bilateral buttock wounds with abscess, culture grew methicillin-resistant Staphylococcus aureus and Escherichia coli. 4. Poorly controlled diabetes. 5. Psoriasis. PLAN: The patient remains stable, will complete abx tomorrow, surgical/ cardiology rec-s [facility] staff Problems: JAIR RUCKER NP Sep 02, 2017 21:36
[2017-09-02] MEDS: ATORVASTATIN 20 MG TAB PO SCH (21:51)
[2017-09-02] MEDS: INSULIN GLARGINE [LANtus] 3 ML PEN SC SCH (21:52)
[2017-09-02] MEDS: RIFAMPIN 600 MG in SOD CHLORIDE 0.9% 100 ML IVPB SCH (21:53)
[2017-09-03] VITALS (12 sets, daily range): BP systolic 95–105; BP diastolic 51–66; PULSE 68–81; RESP 15–20
[2017-09-03] MEDS: ACCU-CHEK XX SCH (02:00)
[2017-09-03] MEDS: VANCOMYCIN 1.25 GM in SOD CHLORIDE 0.9% 250 ML IVPB SCH ×2 (03:31→15:30)
[2017-09-03] MEDS: INSULIN ASPART [NOVOLOG] 3 ML PEN SC SCH ×7 (08:14→20:57)
[2017-09-03] MEDS: FAMOTIDINE 20 MG TAB PO SCH ×2 (08:33→21:00)
[2017-09-03] MEDS: ASPIRIN 81 MG TAB PO SCH (08:33)
[2017-09-03] MEDS: ASCORBIC ACID 500 MG TAB PO SCH (08:33)
[2017-09-03] MEDS: SODIUM HYPOCHLORITE 1/40% 1L IRRIG IRR SCH ×2 (08:34→20:59)
[2017-09-03] MEDS: HYDROCORTISONE 1% 28.35 GM OINT TOP SCH ×2 (08:35→21:28)
[2017-09-03] MEDS: MOMETASONE TOP SCH (09:00)
[2017-09-03] MEDS: ZINC SULFATE 220 MG CAP PO SCH (09:38)
--- NOTE | 2017-09-03 11:34 | CONS ---
Date/Time of Note Date/Time of Note DATE: 09/03/17 TIME: 11:33 Assessment/Plan Assessment/Plan Chief Complaint/Hosp Course CAD: MPI with LAD territory "scar". Cardiac cath 09/02 showed no obstructive lesions but with reduced flow in the LAD (RAMONA 2) possibly from microvascular disease and EF ~45% with anterior wall motion abnormalities. Medical therapy appropriate NSVT: anterior wall motion changes by cath and RAMONA 2 flow in LAD without obstructive lesion. Likely microvascular ischemia. Cardiomyopathy: EF 45% by cath with anterior wall hypokinesis, possible microvascular disease. Septic shock: Off pressors Bilateral buttock abscess MRSA bacteremia: from buttocks. No endocarditis or valvular dysfunction at least by TTE. Repeat cultures have been negative DM -continue ASA, lipitor -coreg 3.125mg BID -ok for d/c from my perspective Problems: Consultation Date/Type/Reason Admit Date/Time Aug 17, 2017 at 11:27 Initial Consult Date 08/18/17 Type of Consultation: Cardiology Referring Provider: FLORENCIA PRASAD MD 24 HR Interval Summary Free Text/Dictation No o/n events. Tolerating coreg Exam/Review of Systems Vital Signs Vitals Vital Signs Date Time Temp Pulse Resp B/P Pulse Ox O2 Delivery O2 Flow Rate FiO2 09/03/17 08:04 98.0 98 18 101/63 98 09/02/17 12:15 Room Air Intake and Output 09/02/17 09/02/17 09/03/17 15:00 23:00 07:00 Intake Total 600 ml 650 ml Output Total 350 ml 550 ml Balance -350 ml 600 ml 100 ml Exam Constitutional: alert, oriented Psych: nl mood/affect, no complaints Head: atraumatic, normocephalic Neck: supple, No jvd Respiratory: clear to auscultation, No crackles/rales Cardiovascular: regular rate and rhythm, No edema Gastrointestinal: non-tender, soft Neurological: nl mental status, nl speech Results Result Diagram: 09/02/17 0520 09/02/17 0520 Results 24 hrs Laboratory Tests Test 09/02/17 14:10 09/02/17 14:13 09/02/17 17:27 09/02/17 21:13 Vancomycin Level Trough 12.9 Bedside Glucose 202 124 126 Test 09/03/17 08:08 Bedside Glucose 175 Medications Medications Current Medications Ondansetron HCl (Zofran Inj) 4 mg Q6H PRN IV NAUSEA AND/OR VOMITING; Start 08/17/17 at 07:30 Docusate Sodium (Colace) 100 mg Q12H PRN PO CONSTIPATION Last administered on 08/23/17 20:37; Admin Dose 100 MG; Start 08/17/17 at 07:30 Bisacodyl (Dulcolax) 5 mg DAILY PRN PO CONSTIPATION; Start 08/17/17 at 07:30 Famotidine (Pepcid) 20 mg Q12 PO Last administered on 09/03/17 08:33; Admin Dose 20 MG; Start 08/17/17 at 09:00 IV Flush (NS 10 ml) 10 ml PRN PRN IV IV PROTOCOL; Start 08/17/17 at 14:30 Acetaminophen (Tylenol Tab) 650 mg Q4 PRN PO pain, fevers, headache Last administered on 08/20/17 23:32; Admin Dose 650 MG; Start 08/17/17 at 18:30 Mometasone Furoate (Elocon 0.1% Cream) 1 applic DAILY TOP Last administered on 09/02/17 09:00; Admin Dose 1 APPLIC; Start 08/18/17 at 12:00 Hydrocortisone (Hydrocortisone 1% Oint) 1 applic BID TOP Last administered on 09/03/17 08:35; Admin Dose 1 APPLIC; Start 08/20/17 at 11:30 Miscellaneous Information 1 ea NOTE XX ; Start 08/20/17 at 11:00 Glucose (Glutose) 15 gm Q15M PRN PO DECREASED GLUCOSE; Start 08/20/17 at 11:00 Glucose (Glutose) 22.5 gm Q15M PRN PO DECREASED GLUCOSE; Start 08/20/17 at 11: 00 Dextrose (D50w Syringe) 25 ml Q15M PRN IV DECREASED GLUCOSE; Start 08/20/17 at 11:00 Dextrose (D50w Syringe) 50 ml Q15M PRN IV DECREASED GLUCOSE; Start 08/20/17 at 11:00 Glucagon (Glucagen) 1 mg Q15M PRN IM DECREASED GLUCOSE; Start 08/20/17 at 11:00 Glucose (Glutose) 15 gm Q15M PRN BUCCAL DECREASED GLUCOSE; Start 08/20/17 at 11 :00 Sodium Hypochlorite 1 applic 1 applic BID IRR Last administered on 09/03/17 08:34; Admin Dose 1 APPLIC; Start 08/21/17 at 09:00 Ceftriaxone Sodium (Rocephin) 50 ml @ 100 mls/hr Q24H IVPB Last administered on 09/02/17 14:14; Admin Dose 100 MLS/HR; Start 08/21/17 at 13:30 Ascorbic Acid (Vitamin C) 500 mg DAILY PO Last administered on 09/03/17 08:33 ; Admin Dose 500 MG; Start 08/25/17 at 09:00 Zinc Sulfate (Zinc Sulfate) 220 mg DAILY PO Last administered on 09/03/17 09: 38; Admin Dose 220 MG; Start 08/25/17 at 09:00 Hydromorphone HCl (Dilaudid 0.5 Mg/ 0.5 ml Syringe) 0.5 mg Q4H PRN IV SEVERE PAIN LEVEL 7-10; Start 08/26/17 at 11:00 Insulin Glargine (Lantus) 30 unit QHS SC Last administered on 09/02/17 21:52 ; Admin Dose 30 UNIT; Start 08/27/17 at 21:00 Diagnostic Test (Pha) (Accu-Chek) 1 ea 02 XX Last administered on 09/01/17 02 :57; Admin Dose 1 EA; Start 08/28/17 at 02:00 Aspirin (Aspirin) 81 mg DAILY PO Last administered on 09/03/17 08:33; Admin Dose 81 MG; Start 08/30/17 at 12:00 Atorvastatin Calcium 20 mg 20 mg HS PO Last administered on 09/02/17 21:51; Admin Dose 20 MG; Start 08/30/17 at 21:00 Vancomycin HCl/ Sodium Chloride (Vancocin/NS) 250 ml @ 83.333 mls/ hr Q12H IVPB Last administered on 09/03/17 03:31; Admin Dose 83.333 MLS/HR; Start at 03:00 Carvedilol (Coreg) 3.125 mg BID PO Last administered on 09/03/17 08:34; Admin Dose 3.125 MG; Start 09/02/17 at 09:00 GRAHAM ANDREWS Sep 03, 2017 11:34
--- NOTE | 2017-09-03 12:40 | CONS ---
Date/Time of Note Date/Time of Note DATE: 09/03/17 TIME: 12:40 Consult Date/Type/Reason Admit Date/Time Aug 17, 2017 at 11:27 Initial Consult Date 08/18/17 Type of Consultation: ID Ordering Provider: FLORENCIA PRASAD MD Objective Vital Signs Date Time Temp Pulse Resp B/P Pulse Ox O2 Delivery O2 Flow Rate FiO2 09/03/17 12:28 98.0 87 18 99/64 98 09/02/17 12:15 Room Air Intake and Output 09/02/17 09/02/17 09/03/17 15:00 23:00 07:00 Intake Total 600 ml 650 ml Output Total 350 ml 550 ml Balance -350 ml 600 ml 100 ml Results/Medications Result Diagram: 09/02/1751909/02/17519 Results 24 hrs Laboratory Tests Test 09/02/17 14:10 09/02/17 14:13 09/02/17 17:27 09/02/17 21:13 Vancomycin Level Trough 12.9 Bedside Glucose 202 124 126 Test 09/03/17 08:08 09/03/17 11:32 Bedside Glucose 175 205 Medications Current Medications Ondansetron HCl (Zofran Inj) 4 mg Q6H PRN IV NAUSEA AND/OR VOMITING; Start 08/17/17 at 07:30 Docusate Sodium (Colace) 100 mg Q12H PRN PO CONSTIPATION Last administered on 08/23/17 20:37; Admin Dose 100 MG; Start 08/17/17 at 07:30 Bisacodyl (Dulcolax) 5 mg DAILY PRN PO CONSTIPATION; Start 08/17/17 at 07:30 Famotidine (Pepcid) 20 mg Q12 PO Last administered on 09/03/17 08:33; Admin Dose 20 MG; Start 08/17/17 at 09:00 IV Flush (NS 10 ml) 10 ml PRN PRN IV IV PROTOCOL; Start 08/17/17 at 14:30 Acetaminophen (Tylenol Tab) 650 mg Q4 PRN PO pain, fevers, headache Last administered on 08/20/17 23:32; Admin Dose 650 MG; Start 08/17/17 at 18:30 Mometasone Furoate (Elocon 0.1% Cream) 1 applic DAILY TOP Last administered on 10/19/17at 09:00; Admin Dose 1 APPLIC; Start 08/18/17 at 12:00 Hydrocortisone (Hydrocortisone 1% Oint) 1 applic BID TOP Last administered on 09/03/17 08:35; Admin Dose 1 APPLIC; Start 08/20/17 at 11:30 Miscellaneous Information 1 ea NOTE XX ; Start 08/20/17 at 11:00 Glucose (Glutose) 15 gm Q15M PRN PO DECREASED GLUCOSE; Start 08/20/17 at 11:00 Glucose (Glutose) 22.5 gm Q15M PRN PO DECREASED GLUCOSE; Start 08/20/17 at 11: 00 Dextrose (D50w Syringe) 25 ml Q15M PRN IV DECREASED GLUCOSE; Start 08/20/17 at 11:00 Dextrose (D50w Syringe) 50 ml Q15M PRN IV DECREASED GLUCOSE; Start 08/20/17 at 11:00 Glucagon (Glucagen) 1 mg Q15M PRN IM DECREASED GLUCOSE; Start 08/20/17 at 11:00 Glucose (Glutose) 15 gm Q15M PRN BUCCAL DECREASED GLUCOSE; Start 08/20/17 at 11 :00 Sodium Hypochlorite 1 applic 1 applic BID IRR Last administered on 09/03/17 08:34; Admin Dose 1 APPLIC; Start 08/21/17 at 09:00 Ceftriaxone Sodium (Rocephin) 50 ml @ 100 mls/hr Q24H IVPB Last administered on 09/02/17 14:14; Admin Dose 100 MLS/HR; Start 08/21/17 at 13:30 Ascorbic Acid (Vitamin C) 500 mg DAILY PO Last administered on 09/03/17 08:33 ; Admin Dose 500 MG; Start 08/25/17 at 09:00 Zinc Sulfate (Zinc Sulfate) 220 mg DAILY PO Last administered on 09/03/17 09: 38; Admin Dose 220 MG; Start 08/25/17 at 09:00 Hydromorphone HCl (Dilaudid 0.5 Mg/ 0.5 ml Syringe) 0.5 mg Q4H PRN IV SEVERE PAIN LEVEL 7-10; Start 08/26/17 at 11:00 Insulin Glargine (Lantus) 30 unit QHS SC Last administered on 09/02/17 21:52 ; Admin Dose 30 UNIT; Start 08/27/17 at 21:00 Diagnostic Test (Pha) (Accu-Chek) 1 ea 02 XX Last administered on 09/01/17 02 :57; Admin Dose 1 EA; Start 08/28/17 at 02:00 Aspirin (Aspirin) 81 mg DAILY PO Last administered on 09/03/17 08:33; Admin Dose 81 MG; Start 08/30/17 at 12:00 Atorvastatin Calcium 20 mg 20 mg HS PO Last administered on 09/02/17 21:51; Admin Dose 20 MG; Start 08/30/17 at 21:00 Vancomycin HCl/ Sodium Chloride (Vancocin/NS) 250 ml @ 83.333 mls/ hr Q12H IVPB Last administered on 09/03/17 03:31; Admin Dose 83.333 MLS/HR; Start at 03:00 Carvedilol (Coreg) 3.125 mg BID PO Last administered on 09/03/17 08:34; Admin Dose 3.125 MG; Start 09/02/17 at 09:00 Assessment/Plan Chief Complaint/Hosp Course SUBJECTIVE: No acute events, alert, feels good, no fevers MICROBIOLOGY: Blood cultures since August 22 and repeated negative. ANTIMICROBIALS: 1. Vancomycin. 2. Rocephin. PHYSICAL EXAMINATION: GENERAL: Well-developed, middle-aged man who is in no distress. HEENT: Head atraumatic, normocephalic. Sclerae anicteric. Buccal mucosa dry. NECK: Supple. CHEST: Rise symmetrical. Breath sounds diminished to bases. HEART: S1, S2. ABDOMEN: Soft. Bowel tones present. ASSESSMENT: 1. Status post septic shock. 2. Status post methicillin-resistant Staphylococcus aureus bacteremia. 3. Bilateral buttock wounds with abscess, culture grew methicillin-resistant Staphylococcus aureus and Escherichia coli. 4. Poorly controlled diabetes. 5. Psoriasis. PLAN: The patient remains stable, dc abx in am, surgical/cardiology rec-s DW staff/pt Problems: JAIR RUCKER NP Sep 03, 2017 12:40
[2017-09-03] MEDS ORDERED: MOMETASONE 0.1% TOP SCH (13:00)
[2017-09-03] MEDS: CEFTRIAXONE 1 GM/50 ML (PMX) 50 ML IVPB SCH (13:29)
--- NOTE | 2017-09-03 13:32 | PN ---
Date/Time of Note Date/Time of Note DATE: 09/03/17 TIME: 13:30 Assessment/Plan VTE Prophylaxis VTE Prophylaxis Intervention: SCD's Lines/Catheters IV Catheter Type (from Nrsg): PICC Line Central line still needed: Yes Assessment/Plan Assessment/Plan 1. Septic shock secondary to bacteremia and gluteal abscess- resolved - MAP has remained above 60 - Patient initial blood cultures were + MRSA with repeat negative. Also found to be +MRSA in wound - ID on board and recommendations appreciated. on abx per ID. - WBC continue trending downward and will continue to monitor - Last day of antibiotics per ID. Will d/c tmrw am and discharge 2. Bacteremia - + MRSA with repeat BC negative - ID on board and appreciate assistance - ECHO ordered and no vegetation appreciated. 3. Diabetes mellitus, poorly controlled - A1c 12.2 - informatics educator recommendations appreciated. - lantus and novolog - glucose well controlled with minimal >200 readings 4. Gluteal abscess s/p I&D 08/19/17 - Surgery on board and consultation appreciated. - Growing MRSA and Ecoli - On antibiotics - Wounds clean and dry 5. Hypotension - likely baseline. stable -off pressors 6. Episodes of NSVT - Cardiology consult placed and recommendations appreciated - stress test shows abnormalities and Cardiac cath 09/02 showed no obstructive lesions but with reduced flow in the LAD (RAMONA 2) possibly from microvascular disease and EF ~45% with anterior wall motion abnormalities. Medical therapy appropriate 7. Hypokalemia- resolved 8. Psoriatic plaques- improving - hydrocortisone cream - May need to seek out Rheum upon discharge 9. Disposition - Last day of antibiotics and will d/c in am Subjective 24 Hr Interval Summary Free Text/Dictation Patient doing well and denies any new complaints. No acute overnight events. Anxious to get home to his family. Exam/Review of Systems Vital Signs Vitals Vital Signs Date Time Temp Pulse Resp B/P Pulse Ox O2 Delivery O2 Flow Rate FiO2 09/03/17 12:28 98.0 87 18 99/64 98 09/02/17 12:15 Room Air Intake and Output 09/02/17 09/02/17 09/03/17 15:00 23:00 07:00 Intake Total 600 ml 650 ml Output Total 350 ml 550 ml Balance -350 ml 600 ml 100 ml Exam General: NAD, awake and alert. answering questions appropriately HEENT:NC/AT, PERRL, EOM intact Neck: Supple with full range of motion. Lungs: Clear to auscultation bilaterally no crackles rales or wheezing Heart: Regular rhythm and rate no murmur appreciated Abdomen: Soft , nontender, nondistended , bowel sounds are present. No guarding no rebound tenderness , Extremities: Normal to inspection, no edema no cyanosis. TR-band in place with minimal blood Neurologic: Normal mental status, speech normal, cranial nerves II through XII are intact, motor and sensory are intact, no focal weakness Skin: well healing incision in buttocks with no signs of infection, discharge, or drainage. Results Result Diagram: 09/02/17 0520 09/02/17 0520 Results 24 hrs Laboratory Tests Test 09/02/17 14:10 09/02/17 14:13 09/02/17 17:27 09/02/17 21:13 Vancomycin Level Trough 12.9 Bedside Glucose 202 124 126 Test 09/03/17 08:08 09/03/17 11:32 Bedside Glucose 175 205 Medications Medications Current Medications Ondansetron HCl (Zofran Inj) 4 mg Q6H PRN IV NAUSEA AND/OR VOMITING; Start 08/17/17 at 07:30 Docusate Sodium (Colace) 100 mg Q12H PRN PO CONSTIPATION Last administered on 08/23/17 20:37; Admin Dose 100 MG; Start 08/17/17 at 07:30 Bisacodyl (Dulcolax) 5 mg DAILY PRN PO CONSTIPATION; Start 08/17/17 at 07:30 Famotidine (Pepcid) 20 mg Q12 PO Last administered on 09/03/17 08:33; Admin Dose 20 MG; Start 08/17/17 at 09:00 IV Flush (NS 10 ml) 10 ml PRN PRN IV IV PROTOCOL; Start 08/17/17 at 14:30 Acetaminophen (Tylenol Tab) 650 mg Q4 PRN PO pain, fevers, headache Last administered on 08/20/17 23:32; Admin Dose 650 MG; Start 08/17/17 at 18:30 Mometasone Furoate (Elocon 0.1% Cream) 1 applic DAILY TOP Last administered on 09/02/17 09:00; Admin Dose 1 APPLIC; Start 08/18/17 at 12:00 Hydrocortisone (Hydrocortisone 1% Oint) 1 applic BID TOP Last administered on 09/03/17 08:35; Admin Dose 1 APPLIC; Start 08/20/17 at 11:30 Miscellaneous Information 1 ea NOTE XX ; Start 08/20/17 at 11:00 Glucose (Glutose) 15 gm Q15M PRN PO DECREASED GLUCOSE; Start 08/20/17 at 11:00 Glucose (Glutose) 22.5 gm Q15M PRN PO DECREASED GLUCOSE; Start 08/20/17 at 11: 00 Dextrose (D50w Syringe) 25 ml Q15M PRN IV DECREASED GLUCOSE; Start 08/20/17 at 11:00 Dextrose (D50w Syringe) 50 ml Q15M PRN IV DECREASED GLUCOSE; Start 08/20/17 at 11:00 Glucagon (Glucagen) 1 mg Q15M PRN IM DECREASED GLUCOSE; Start 08/20/17 at 11:00 Glucose (Glutose) 15 gm Q15M PRN BUCCAL DECREASED GLUCOSE; Start 08/20/17 at 11 :00 Sodium Hypochlorite 1 applic 1 applic BID IRR Last administered on 09/03/17 08:34; Admin Dose 1 APPLIC; Start 08/21/17 at 09:00 Ceftriaxone Sodium (Rocephin) 50 ml @ 100 mls/hr Q24H IVPB Last administered on 09/02/17 14:14; Admin Dose 100 MLS/HR; Start 08/21/17 at 13:30; Stop 09/03 at 23:00 Ascorbic Acid (Vitamin C) 500 mg DAILY PO Last administered on 09/03/17 08:33 ; Admin Dose 500 MG; Start 08/25/17 at 09:00 Zinc Sulfate (Zinc Sulfate) 220 mg DAILY PO Last administered on 09/03/17 09: 38; Admin Dose 220 MG; Start 08/25/17 at 09:00 Hydromorphone HCl (Dilaudid 0.5 Mg/ 0.5 ml Syringe) 0.5 mg Q4H PRN IV SEVERE PAIN LEVEL 7-10; Start 08/26/17 at 11:00 Insulin Glargine (Lantus) 30 unit QHS SC Last administered on 09/02/17 21:52 ; Admin Dose 30 UNIT; Start 08/27/17 at 21:00 Diagnostic Test (Pha) (Accu-Chek) 1 ea 02 XX Last administered on 09/01/17 02 :57; Admin Dose 1 EA; Start 08/28/17 at 02:00 Aspirin (Aspirin) 81 mg DAILY PO Last administered on 09/03/17 08:33; Admin Dose 81 MG; Start 08/30/17 at 12:00 Atorvastatin Calcium 20 mg 20 mg HS PO Last administered on 09/02/17 21:51; Admin Dose 20 MG; Start 08/30/17 at 21:00 Vancomycin HCl/ Sodium Chloride (Vancocin/NS) 250 ml @ 83.333 mls/ hr Q12H IVPB Last administered on 09/03/17 03:31; Admin Dose 83.333 MLS/HR; Start at 03:00; Stop 09/03/17 at 23:00 Carvedilol (Coreg) 3.125 mg BID PO Last administered on 09/03/17 08:34; Admin Dose 3.125 MG; Start 09/02/17 at 09:00 FLORENCIA PRASAD MD Sep 03, 2017 13:32
[2017-09-03] MEDS ORDERED: ASC500 PO (15:01)
[2017-09-03] MEDS ORDERED: ASPI81TA3 PO (15:01)
[2017-09-03] MEDS ORDERED: CARV3.1260 PO (15:01)
[2017-09-03] MEDS ORDERED: ATOR20TA65 PO (15:01)
[2017-09-03] MEDS ORDERED: GLIP-95 PO (15:01)
[2017-09-03] MEDS ORDERED: HYDR28OI6 TOP (15:01)
[2017-09-03] MEDS ORDERED: MTF1000T PO (15:04)
--- NOTE | 2017-09-03 15:09 | PDOCDIS ---
Discharge Instructions DIAGNOSIS Discharge Diagnosis 1. Septic shock secondary to bacteremia and gluteal abscess- resolved 2. Bacteremia 3. Diabetes mellitus, poorly controlled with A1c 12.2 4. Gluteal abscess s/p I&D 08/19/17 5. Low blood pressure 6. Episodes of NSVT 7. Hypokalemia- resolved 8. Psoriatic plaques CONDITION Patient Condition: Good HOME CARE INSTRUCTIONS: Diet Instructions: Low Fat /CholesterolSpecial Diet: Carb controlled diet ACTIVITY: Activity Restrictions: No Restrictions FOLLOW UP/APPOINTMENTS Follow-up Plan 1. Take medications as prescribed for your heart which include aspirin, lipitor , and coreg 2. Take Metformin at new dose of 1000mg twice a day along with Glipizide 10mg twice a day since you prefer not to be on insulin 3. Check your sugars in the am and at night as instructed by the para educator through the handout 4. Recommendations for meals three times a day and adding lean protein with non starchy vegetables 5. Keep the area where you had the procedure performed on your buttocks clean and dry 6. Apply hydrocortisone cream on areas that are itchy 7. Follow up with your primary care physician in 1 week and ask for a referral to dermatology for your skin condition 8. If your condition worsens or you develop high fevers, infection at site of incision, chest pain, shortness of breath, or loss of consciousness, return to the ED 1. tome medicamentos silke se prescribe para pimentel corazn que incluyen aspirina, Lipitor y Coreg 2. [place] Metformin en la nueva dosis de 1000 mg dos veces al da junto con glipizida 10 mg dos veces al da ya que prefiere no estar en la insulina 3. Revise drew azcares en la maana y en la noche segn las instrucciones del educador diabtico a travs del folleto 4. recomendaciones para las comidas gloria veces al da y la adicin de protena magra con verduras no almidn 5. Mantenga el misael donde usted tuvo el procedimiento realizado en drew nalgas limpias y secas 6. Aplique la crema de la hidrocortisona en las reas que son picantes 7. Prosper un seguimiento con pimentel mdico de cabecera en 1 semana y solicite rebecca remisin a la dermatologa para pimentel condicin de la piel 8. Si pimentel afeccin empeora o desarrolla fiebres altas, infeccin en el lugar de la incisin, dolor torcico, dificultad respiratoria o prdida del conocimiento , regrese al Ed FLORENCIA PRASAD MD Sep 03, 2017 15:09
--- NOTE | 2017-09-03 17:29 | PN ---
Date/Time of Note Date/Time of Note DATE: 09/03/17 TIME: 17:27 Assessment/Plan Lines/Catheters IV [facility] (from [facility] PICC Line Assessment/Plan Chief Complaint/Hosp Course 1. Sepsis with shock with Bacteremia and Buttock Cellulitis and Abscess: off pressors; s/p I&D 08/19, cultures noted, leukocytosis normalized -abx last day today -ivf -local care for buttock incisions 2. Bacteremia -as above -echo 3. DM: labile sugars: continues -medication optimization 4. Tachycardia with episode of nsvt: improved; Sr; s/p radha; will need cardiac cath; s/p cardiac ca:reduced flow in the LAD -as above -medical optimization/management 5. Psoriasis -medical management 6. Anemia -monitor 7. Hypoalbuminemia with hypocalcemia: nutritional +/- inflammation -as above -optimize nutrition Thank you. Patient seen and examined in collaboration with Dr. Mihir Zazueta. Problems: Subjective 24 Hr Interval Summary Feels well. Continues on antibiotics. No c/o pain/discomfort, sob, congested cough, n/v/d/dysuria, rivas, dizziness, cp, palpitations, drainage from buttocks. Exam/Review of Systems Vital Signs Vitals Vital Signs Date Time Temp Pulse Resp B/P Pulse Ox O2 Delivery O2 Flow Rate FiO2 09/03/17 17:01 98.0 76 18 97/53 98 09/02/17 12:15 Room Air Intake and Output 09/02/17 09/02/17 09/03/17 15:00 23:00 07:00 Intake Total 600 ml 650 ml Output Total 350 ml 550 ml Balance -350 ml 600 ml 100 ml Exam Free Text/Dictation Constitutional: alert, oriented, No distress Psych: nl mood/affect, No anxiety, No confusion Head: atraumatic, normocephalic Eyes: EOMI, PERRL, nl conjunctiva, No icteric ENMT: mucosa pink and moist, nl external ears & nose Neck: non-tender, supple, No jvd Respiratory: normal air movement, No congested cough, No labored breathing Cardiovascular: No edema, No regular rate and rhythm; sr Gastrointestinal: non-tender, soft, No distended, No rebound or guarding Genitourinary - Male: No CVA tenderness Musculoskeletal: nl extremities to inspection, No joint tenderness Extremities: normal pulses, No calf tenderness, No cyanosis, No edema Neurological: nl mental status, nl speech Skin: other (Bilateral buttock, non tender; scant drainage, nonmalodorous), rash or lesions (psoriatic lesions), No diaphoresis. Right wrist no bruising Results Result Diagram: 09/02/1751909/02/17519 DAMARIS LINTON NP Sep 03, 2017 17:29
[2017-09-03] MEDS: ATORVASTATIN 20 MG TAB PO SCH (21:00)
[2017-09-03] MEDS: INSULIN GLARGINE [LANtus] 3 ML PEN SC SCH (21:30)
[2017-09-04] VITALS (9 sets, daily range): BP systolic 81–98; BP diastolic 50–65; PULSE 71–77; RESP 15–18
[2017-09-04] MEDS: ACCU-CHEK XX SCH (02:00)
[2017-09-04] MEDS: INSULIN ASPART [NOVOLOG] 3 ML PEN SC SCH ×4 (08:07→11:30)
[2017-09-04] MEDS: SODIUM HYPOCHLORITE 1/40% 1L IRRIG IRR SCH (08:09)
[2017-09-04] MEDS: HYDROCORTISONE 1% 28.35 GM OINT TOP SCH (08:09)
[2017-09-04] MEDS: MOMETASONE TOP SCH (08:10)
[2017-09-04] MEDS: ZINC SULFATE 220 MG CAP PO SCH (08:53)
[2017-09-04] MEDS: ASPIRIN 81 MG TAB PO SCH (08:53)
[2017-09-04] MEDS: ASCORBIC ACID 500 MG TAB PO SCH (08:53)
[2017-09-04] MEDS: FAMOTIDINE 20 MG TAB PO SCH (08:53)
--- NOTE | 2017-09-04 11:14 | PN ---
Date/Time of Note Date/Time of Note DATE: 09/04/17 TIME: 11:08 Assessment/Plan VTE Prophylaxis VTE Prophylaxis Intervention: SCD's Lines/Catheters IV Catheter Type (from Nrs): PICC Line Central line still needed: No Assessment/Plan Assessment/Plan 1. Septic shock secondary to bacteremia and gluteal abscess- resolved - MAP has remained above 60 - Patient initial blood cultures were + MRSA with repeat negative. Also found to be +MRSA in wound - ID on board and recommendations appreciated. on abx per ID. - WBC normalized - Completed course of antibiotics 2. Bacteremia - + MRSA with repeat BC negative - ID on board and appreciate assistance - ECHO ordered and no vegetation appreciated. 3. Diabetes mellitus, poorly controlled - A1c 12.2 - personal development educator recommendations appreciated. - lantus and novolog but does not want to go home on Insulin regime. Will d/c on Metformin and glyburide - glucose well controlled with minimal >200 readings 4. Gluteal abscess s/p I&D 08/19/17 - Surgery on board and consultation appreciated. - Growing MRSA and Ecoli - On antibiotics - Wounds clean and dry 5. Hypotension - likely baseline. stable -off pressors 6. Episodes of NSVT - Cardiology consult placed and recommendations appreciated - stress test shows abnormalities and Cardiac cath 09/02 showed no obstructive lesions but with reduced flow in the LAD (RAMONA 2) possibly from microvascular disease and EF ~45% with anterior wall motion abnormalities. Medical therapy appropriate 7. Hypokalemia- resolved 8. Psoriatic plaques- improving - hydrocortisone cream - May need to seek out Rheum upon discharge 9. Disposition - Completed course of antibiotics and medically stable for d/c home Subjective 24 Hr Interval Summary Free Text/Dictation Patient doing well and ready to go home. Denies any new complaints or acute overnight events. Exam/Review of Systems Vital Signs Vitals Vital Signs Date Time Temp Pulse Resp B/P Pulse Ox O2 Delivery O2 Flow Rate FiO2 09/04/17 08:11 98.0 78 18 98/58 99 09/02/17 12:15 Room Air Intake and Output 09/03/17 09/03/17 09/04/17 15:00 23:00 07:00 Intake Total 700 ml 950 ml Output Total 1000 ml 1500 ml Balance -300 ml -550 ml Exam General: NAD, awake and alert. answering questions appropriately HEENT:NC/AT, PERRL, EOM intact Neck: Supple with full range of motion. Lungs: Clear to auscultation bilaterally no crackles rales or wheezing Heart: Regular rhythm and rate no murmur appreciated Abdomen: Soft , nontender, nondistended , bowel sounds are present. No guarding no rebound tenderness , Extremities: Normal to inspection, no edema no cyanosis. TR-band in place with minimal blood Neurologic: Normal mental status, speech normal, cranial nerves II through XII are intact, motor and sensory are intact, no focal weakness Skin: well healing incision in buttocks with no signs of infection, discharge, or drainage. Results Result Diagram: 09/02/1751909/02/17519 Results 24 hrs Laboratory Tests Test 09/03/17 11:32 09/03/17 17:11 09/03/17 20:57 09/04/17 08:05 Bedside Glucose 205 145 156 208 Medications Medications Current Medications Ondansetron HCl (Zofran Inj) 4 mg Q6H PRN IV NAUSEA AND/OR VOMITING; Start 08/17/17 at 07:30 Docusate Sodium (Colace) 100 mg Q12H PRN PO CONSTIPATION Last administered on 08/23/17 20:37; Admin Dose 100 MG; Start 08/17/17 at 07:30 Bisacodyl (Dulcolax) 5 mg DAILY PRN PO CONSTIPATION; Start 08/17/17 at 07:30 Famotidine (Pepcid) 20 mg Q12 PO Last administered on 09/04/17 08:53; Admin Dose 20 MG; Start 08/17/17 at 09:00 IV Flush (NS 10 ml) 10 ml PRN PRN IV IV PROTOCOL; Start 08/17/17 at 14:30 Acetaminophen (Tylenol Tab) 650 mg Q4 PRN PO pain, fevers, headache Last administered on 08/20/17 23:32; Admin Dose 650 MG; Start 08/17/17 at 18:30 Mometasone Furoate (Elocon 0.1% Cream) 1 applic DAILY TOP Last administered on 09/04/17 08:10; Admin Dose 1 APPLIC; Start 08/18/17 at 12:00 Hydrocortisone (Hydrocortisone 1% Oint) 1 applic BID TOP Last administered on 09/04/17 08:09; Admin Dose 1 APPLIC; Start 08/20/17 at 11:30 Miscellaneous Information 1 ea NOTE XX ; Start 08/20/17 at 11:00 Glucose (Glutose) 15 gm Q15M PRN PO DECREASED GLUCOSE; Start 08/20/17 at 11:00 Glucose (Glutose) 22.5 gm Q15M PRN PO DECREASED GLUCOSE; Start 08/20/17 at 11: 00 Dextrose (D50w Syringe) 25 ml Q15M PRN IV DECREASED GLUCOSE; Start 08/20/17 at 11:00 Dextrose (D50w Syringe) 50 ml Q15M PRN IV DECREASED GLUCOSE; Start 08/20/17 at 11:00 Glucagon (Glucagen) 1 mg Q15M PRN IM DECREASED GLUCOSE; Start 08/20/17 at 11:00 Glucose (Glutose) 15 gm Q15M PRN BUCCAL DECREASED GLUCOSE; Start 08/20/17 at 11 :00 Sodium Hypochlorite (Dakin'S (Dilute 1/40%)) 1 applic BID IRR Last administered on 09/04/17 08:09; Admin Dose 1 APPLIC; Start 08/21/17 at 09:00 Ascorbic Acid (Vitamin C) 500 mg DAILY PO Last administered on 09/04/17 08:53 ; Admin Dose 500 MG; Start 08/25/17 at 09:00 Zinc Sulfate (Zinc Sulfate) 220 mg DAILY PO Last administered on 09/04/17 08: 53; Admin Dose 220 MG; Start 08/25/17 at 09:00 Hydromorphone HCl (Dilaudid 0.5 Mg/ 0.5 ml Syringe) 0.5 mg Q4H PRN IV SEVERE PAIN LEVEL 7-10; Start 08/26/17 at 11:00 Insulin Glargine (Lantus) 30 unit QHS SC Last administered on 09/03/17 21:30 ; Admin Dose 30 UNIT; Start 08/27/17 at 21:00 Diagnostic Test (Pha) (Accu-Chek) 1 ea 02 XX Last administered on 09/01/17 02 :57; Admin Dose 1 EA; Start 08/28/17 at 02:00 Aspirin (Aspirin) 81 mg DAILY PO Last administered on 09/04/17 08:53; Admin Dose 81 MG; Start 08/30/17 at 12:00 Atorvastatin Calcium (Lipitor) 20 mg HS PO Last administered on 09/03/17 21: 00; Admin Dose 20 MG; Start 08/30/17 at 21:00 Carvedilol (Coreg) 3.125 mg BID PO Last administered on 09/04/17 08:53; Admin Dose 3.125 MG; Start 09/02/17 at 09:00 FLORENCIA PRASAD MD Sep 04, 2017 11:14
--- NOTE | 2017-09-04 11:18 | DS ---
Date/Time of Note Date/Time of Note DATE: 09/04/17 TIME: 11:18 Discharge Summary Admission/Discharge Info Admit Date/Time Aug 17, 2017 at 11:27 Discharge Date/Time Discharge Diagnosis 1. Septic shock secondary to bacteremia and gluteal abscess- resolved 2. Bacteremia 3. Diabetes mellitus, poorly controlled with A1c 12.2 4. Gluteal abscess s/p I&D 08/19/17 5. Low blood pressure 6. Episodes of NSVT 7. Hypokalemia- resolved 8. Psoriatic plaques Patient Condition: Good Consults Surgery- Dr. Zazueta Cardiology- Dr. Fatima Infectious disease- Dr. Shin Critical Care- Dr. Polk Procedures PICC line placement Incision and drainage of buttocks abscess Hx of Present Illness Chief complaint: Left buttocks pain, rash 47-year-old male who presents emergency department for bilateral buttocks abscess. States it is been going on for more than a week. To sit on the right cheek and then spread to the left cheek. He does state that he has been not feeling well and not eating or drinking as he usually does. Denies headache, dizziness, blurry vision, neck pain, neck stiffness, shoulder pain, chest pain, back pain, abdominal pain, nausea, vomiting, constipation, diarrhea, trauma, recent travel, recent antibiotic use in the last 3 months, recent exposure to any illness, numbness or tingling sensation, loss of bowel bladder control. Allergies: NKDA Medications: See [facility] Hospital Course Patient was admitted to ICU with septic shock and started on IVF and pressor support after blood pressure was not responding to fluid challenges. Patient was growing MRSA on blood cultures and was started on Vancomycin and Zosyn. Infectious disease was consulted for further antibiotic management. Wound care consult was consulted for buttocks cellulitis after CT scan showed left greater than right buttock inflammatory changes most compatible with cellulitis. There may be mild myositis of the left gluteus musculature. No drainable fluid collections are seen. Surgery was still consulted and were able to I&D area and send for cultures which also grew MRSA and believed to be source of bactermia. Patient was found to have NSVT and cardiology was consulted. Patient had ECHO performed which showed normal EF, no e/o ischemia, no symptoms. No e/o endocarditis by TTE at least and no AVB by EKG to suggest abscess. No heart failure. Patient remained in ICU until he was able to be weaned off pressor support and moved to telemetry. Per cardiology, MPI showed LAD territory scar but normal EF so may actually be ischemic and not occluded. Patient needed a cardiac cath for further evaluation. Cardiac cath 09/02 showed no obstructive lesions but with reduced flow in the LAD (RAMONA 2) possibly from microvascular disease and EF ~45% with anterior wall motion abnormalities. Medical therapy was appropriate. Patient underwent a long hospitalization secondary to insurance not covering home health for IV antibiotic therapy and patient remained inpatient until completed course of antibiotics. Patients repeat blood cultures were negative and blood pressure stays stable. Patient was found to have elevated A1c and home PO medications were adjusted since he did not want to go home on insulin. Patients gluteal abscess incision remained clean and had no signs of infection. patient was discharged home with instructions to keep area clean and dry. 1. Sepsis with shock with Bacteremia and Buttock Cellulitis and Abscess: off pressors; s/p I&D 08/19, cultures noted, leukocytosis normalized -abx last day today -ivf -local care for buttock incisions 2. Bacteremia -as above -echo 3. DM: labile sugars: continues -medication optimization 4. Tachycardia with episode of nsvt: improved; Sr; s/p radha; will need cardiac cath; s/p cardiac ca:reduced flow in the LAD -as above -medical optimization/management 5. Psoriasis -medical management 6. Anemia -monitor 7. Hypoalbuminemia with hypocalcemia: nutritional +/- inflammation -as above -optimize nutrition Thank you. Patient seen and examined in collaboration with Dr. Mihir Zazueta. Home Meds Active Scripts Metformin* (Glucophage*) 1,000 Mg Tablet, 1000 MG PO BID for 30 Days, #60 TAB Prov:FLORENCIA PRASAD MD 09/03/17 Glipizide* (Glipizide*) 10 Mg Tablet, 10 MG PO BID for 30 Days, #60 TAB Prov:FLORENCIA PRASAD MD 09/03/17 Ascorbic Acid (Vitamin C) 500 Mg Tab, 500 MG PO DAILY for 30 Days, #30 TAB Prov:FLORENCIA PRASAD MD 09/03/17 Hydrocortisone Acetate (ANTI-ITCH) 28 Gm Oint...g., 1 APPLIC TOP BID for 30 Days , #1 TUB Prov:FLORENCIA PRASAD MD 10/20/17 Aspirin (Aspirin) 81 Mg Chew, 81 MG PO DAILY for 30 Days, #30 TAB Prov:FLORENCIA PRASAD MD 09/03/17 Carvedilol* (Carvedilol*) 3.125 Mg Tablet, 3.125 MG PO BID for 60 Days, #30 TAB Prov:FLORENCIA PRASAD MD 09/03/17 Atorvastatin Calcium (Atorvastatin Calcium) 20 Mg Tablet, 20 MG PO HS for 30 Days, #30 TAB Prov:FLORENCIA PRASAD MD 09/03/17 Reported Medications Naproxen* (Naproxen*) 220 Mg Capsule, 220 MG PO BID, CAP 08/17/17 Discontinued Reported Medications Metformin* (Glucophage*) 500 Mg Tab, 500 MG PO WITH BREAKFAST DINNE, #30 TAB 08/17/17 Follow-up Plan 1. Take medications as prescribed for your heart which include aspirin, lipitor , and coreg 2. Take Metformin at new dose of 1000mg twice a day along with Glipizide 10mg twice a day since you prefer not to be on insulin 3. Check your sugars in the am and at night as instructed by the development educator through the handout 4. Recommendations for meals three times a day and adding lean protein with non starchy vegetables 5. Keep the area where you had the procedure performed on your buttocks clean and dry 6. Apply hydrocortisone cream on areas that are itchy 7. Follow up with your primary care physician in 1 week and ask for a referral to dermatology for your skin condition 8. If your condition worsens or you develop high fevers, infection at site of incision, chest pain, shortness of breath, or loss of consciousness, return to the ED 1. tome medicamentos silke se prescribe para pimentel corazn que incluyen aspirina, Lipitor y Coreg 2. [place] Metformin en la nueva dosis de 1000 mg dos veces al da junto con glipizida 10 mg dos veces al da ya que prefiere no estar en la insulina 3. Revise drew azcares en la maana y en la noche segn las instrucciones del educador diabtico a travs del folleto 4. recomendaciones para las comidas gloria veces al da y la adicin de protena magra con verduras no almidn 5. Mantenga el misael donde usted tuvo el procedimiento realizado en drew nalgas limpias y secas 6. Aplique la crema de la hidrocortisona en las reas que son picantes 7. Prosper un seguimiento con pimentel mdico de cabecera en 1 semana y solicite rebecca remisin a la dermatologa para pimentel condicin de la piel 8. Si pimentel afeccin empeora o desarrolla fiebres altas, infeccin en el lugar de la incisin, dolor torcico, dificultad respiratoria o prdida del conocimiento , regrese al Ed Primary Care Provider Care Physician No Primary Time spent on discharge: > 30 minutes Pending Labs Laboratory Tests Test 09/03/17 11:32 09/03/17 17:11 09/03/17 20:57 09/04/17 08:05 Bedside Glucose 205mg/dL (70-220) 145mg/dL (70-220) 156mg/dL (70-220) 208mg/dL (70-220) FLORENCIA PRASAD MD Sep 04, 2017 11:18
== END 2017-09-04 13:00 | disposition home or self-care (01) | DRG 871 ==
LOC: FTE 20:19 → ICU 08-17 11:27 → MS4 08-26 18:42
PROVIDERS: ADMIT Family Medicine; ATTEND Family Medicine
PROC: 0H98XZX Drainage of Buttock Skin, External Approach, Diagnostic (ICD-10-PCS; principal; 2017-08-19)
PROC: 02HV33Z Insertion of Infusion Device into Superior Vena Cava, Percutaneous Approach (ICD-10-PCS; 2017-08-27)
PROC: 4A023N7 Measurement of Cardiac Sampling and Pressure, Left Heart, Percutaneous Approach (ICD-10-PCS; 2017-09-02)
PROC: B211YZZ Fluoroscopy of Multiple Coronary Arteries using Other Contrast (ICD-10-PCS; 2017-09-02)
PROC: B215YZZ Fluoroscopy of Left Heart using Other Contrast (ICD-10-PCS; 2017-09-02)
DX: A41.02 Sepsis due to Methicillin resistant Staphylococcus aureus (principal); R65.21 Severe sepsis with septic shock; I47.2 Ventricular tachycardia; I42.9 Cardiomyopathy, unspecified; I95.9 Hypotension, unspecified; E87.1 Hypo-osmolality and hyponatremia; E11.65 Type 2 diabetes mellitus with hyperglycemia; L02.31 Cutaneous abscess of buttock; L03.317 Cellulitis of buttock; E88.09 Other disorders of plasma-protein metabolism, not elsewhere classified; E87.6 Hypokalemia; D64.9 Anemia, unspecified; I25.10 Atherosclerotic heart disease of native coronary artery without angina pectoris; L40.0 Psoriasis vulgaris; E58 Dietary calcium deficiency; B96.20 Unspecified Escherichia coli [E. coli] as the cause of diseases classified elsewhere; Z79.4 Long term (current) use of insulin
CPT/HCPCS: 36569; 71010; 74177; 76937; 78452; 80048; 80053; 80061; 80069; 80202; 82962; 83036; 83605; 83735; 84100; 84443; 84484; 85025; 87040; 87070; 87081; 93017; 93306; 93458; 96365; 96366; 96372; 96375; 97110; 97116; 97162; 97530; A9500; A9505; C1887; J0696; J1170; J1644; J1815; J2001; J2250; J2270; J2370; J2405; J2543; J2785; J3010; J3370; J3475; J3480; J7030; J7050; J7060; Q9967

== ENCOUNTER → 2017-09-14 | Outpatient (CLI) | END | disposition home or self-care (01) ==

== ENCOUNTER 2018-03-27 19:45 | Emergency (ER) | END 2018-03-27 23:15 | disposition home or self-care (01) ==